=== PATIENT | female | born 1960 | race Caucasian/White ===

== ENCOUNTER 2023-04-06 10:14 | Outpatient (REF) | payer MEDICARE, SELFPAY | END 2023-04-06 10:15 | disposition home or self-care (01) | LOC: HO.HOSX 10:14 | PROVIDERS: Visit Provider Orthopaedic Surgery | DX: Z13.89 Encounter for screening for other disorder (principal) ==

== ENCOUNTER 2024-12-19 08:54 | Outpatient (AMB) | payer OTHER, SELFPAY ==
--- NOTE | 2024-12-19 08:58 | MHC.OFFVIS ---
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 The patient describes her pains as sharp in nature. She has had cortisone injections in the past which gave her minimal relief. She has also had viscosupplementation injections which gave her fairly good relief. She states that at times her left knee will give out. She has tried Tylenol and anti-inflammatory medicines which gave her mild relief. She has failed the last 3 months of conservative treatment which has included cortisone injections, a home exercise program, physical therapy exercises, Tylenol and anti-inflammatory medicines. At this point her bilateral knee pains are interfering with her activities of daily living and her ability to sleep well through the night. Allergies penicillin V Allergy (Unknown, Verified 12/19/24 09:13) Rash Codeine Phosphate Allergy (Unknown, Uncoded 12/19/24 09:13) Rash Medication List - Last Reconciled 12/19/24 by Wander Pereyra MD empagliflozin (Jardiance) 10 mg PO DAILY indomethacin mg PO levothyroxine 100 mcg PO DAILY metoprolol succinate ER 50 mg PO DAILY omeprazole 40 mg PO DAILY sacubitril-valsartan 49-51 mg (Entresto) 1 tab PO BID sertraline 50 mg PO DAILY [facility] Social History (Updated 12/19/24 @ 09:15 by Kelsi Carter) Alcohol intake: current Alcohol intake frequency: holidays/special occasions only Patient Tobacco Use Status: Never used Tobacco Current occupational status: employed 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 Physical Exam Vital Signs: BMI result Body Mass Index 51.6 Const Other: Well-nourished well-developed very friendly female awake alert and oriented x3 in no acute distress Extrem Other: Bilateral lower extremity examination shows good capillary refill, no skin lesions noted, normal sensation light touch Bilateral knee examination shows minimal effusions, palpable crepitus with range of motion, pain with range of motion, no instability Results Reviewed Results Reviewed: X-rays of the patient's bilateral knee show joint space narrowing, subchondral sclerosis, osteophyte formation, no acute bony abnormalities Assessment & Plan Assessment & Plan (1) Osteoarthritis of left knee: Code(s): M17.12 - Unilateral primary osteoarthritis, left knee Category: Medical (2) Osteoarthritis of right knee: Code(s): M17.11 - Unilateral primary osteoarthritis, right knee Category: Medical Plan Ms. Sher presents with bilateral knee pains due to osteoarthritis. The patient has not gotten good relief from recent cortisone injections. Thus, I will see if her insurance company will cover a viscosupplementation injection, such as Durolane, for both of her knees. I will see her back once the injections are available. The patient states that because of her elevated BMI she is not a candidate for total knee replacement surgery at this time. She will continue with her weight loss program. Feel free to call me at any time should questions regarding her orthopedic management arise. I spent 21 minutes in reviewing the patient's records and imaging studies, seeing the patient and documenting in the medical record. Orders: Orders XR Knee Dale 3V Today M25.561 - Pain in right knee, M25.562 - Pain in left knee Coding Level of Care Code New Pt Level 3 (15841) Complex EM visit Add On G2211 Diagnoses Osteoarthritis of left knee M17.12 Osteoarthritis of right knee M17.11
[2024-12-19 09:16] VITALS: BMI 51.6
--- OUTSIDE RECORDS SUMMARY | 2024-12-19 09:20 | XMS_ITS | Clinical Summary ---
Author Organization [facility] Address [address] [place] [address] Care Team Providers Care Purchaser Name Role Phone Unavailable Primary Care Provider Unavailabl e Social History Tobacco Use Types Packs/Day Years Used Date Smoking Tobacco: Never Assessed Comments Unknown Sex and Gender Information Value Date Recorded Sex Assigned at Not on file Legal Sex Female 10:13 AM EDT Gender Identity Not on file Sexual Orientation Not on file Plan of Treatment Health Maintenance Due Date Last Done Comments Hepatitis C Virus Screening 1960 HIV Screening 12/22/1972 DTaP/Tdap/Td Vaccines (1 - Tdap) 12/22/1978 Pneumococcal Vaccines 50+ (1 of 1 - PCV) 12/22/2009 Zoster (Shingles) Vaccine (1 of 2) 12/22/2009 COVID-19 Vaccine ( - 2023-2 5 season) 2024 RSV Vaccine 60 years and old er and Patients (1 - 1-dose 75+ series) 12/22/2034 Hepatitis B Vaccines Aged Out No long er eligible based on patient's age to complete this topic
--- OUTSIDE RECORDS SUMMARY | 2024-12-19 09:20 | XMS_ITS | Clinical Summary ---
Author Organization [facility] Address [address] [place] [address] Care Team Providers Care Circulation Man Name Role Phone Al Garcia MD Primary Care Provider [phone] Medications Entresto 49-51 mg per tablet TAKE 1 TABLET BY MOUTH TWICE A DAY 180 tablet 3 06/28/2024 Active Surgical History Surgery Date Site/Laterality Comments OTHER SURGICAL HISTORY PROCEDURE: HISTORY OTHER; COMMENT: Salpingoectomy secondary to ectopic KNEE ARTHROSCOPY Left PROCEDURE: MT ARTHROSCOPY AID TX SPINE&/FX KNEE W/O FIXJ OTHER SURGICAL HISTORY PROCEDURE: MT CARDIOVERSION ELECTIVE ARRHYTHMIA EXTERNAL OTHER SURGICAL HISTORY PROCEDURE: HISTORY OTHER; COMMENT: Cryoablation OTHER SURGICAL HISTORY PROCEDURE: HISTORY OTHER; COMMENT: meniscectomy OTHER SURGICAL HISTORY PROCEDURE: HISTORY OTHER; COMMENT: ectopic Medical History Medical History Date Comments UTI (urinary tract infection) 04/07/2022 DX :UTI (urinary tract infection) SIRS (systemic inflammatory response syndrome) ([facility] V24, [facility] V28) DX:SIRS (systemic inflammatory response syndrome) ([facility]) Hypothyroidism DX:Hypothyroidis m DVT prophylaxis DX:DVT prophylax is Chronic renal disease, stage III (CMS/HCC V24, CMS/[facility] V28) DX:Chronic renal disease, s tage III ([facility]) Morbid obesity (CMS/[facility] V24, [facility] V28) DX:Morbid obesity ([facility]) Depression DX:Depression Neuropathic pain of lower ex tremity, left DX:Neuropathic pain of lower extremity, left Osteoarthritis of knees, bilateral DX:Osteoarthritis of knees, bilateral Sleep apnea DX:Sleep apnea Severe obesity (CMS/HCC V24, CMS/HCC V28) DX:Severe obesity (HCC) Major depression, recurrent (CMS/HCC V24) DX:Major depression, recurre nt (HCC) Bilateral chronic knee pain DX:B ilateral chronic knee pain GERD (gastroesophageal reflux disease) DX:GERD (gastroesophageal reflux disease) Family History Medical History Relation Name Comments Other: AVR Mother Relation Name Status Comments Mother Social History Tobacco Use Types Packs/Day Years Used Date Smoking Tobacco: Never Smokeless Tobacco: Never Alcohol Use Standard Drinks/Week Comments Yes 0 (1 standard drink = 0.6 oz pur e alcohol) Comments Unknown Sex and Gender Information Value Date Recorded Sex Assigned at Not on file Legal Sex Female 5:33 PM EST Gender Identity Not on file Sexual Orientation Not on file Obstetrics History Last Filed Vital Signs Vital Sign Reading Time Taken Comments Blood Pressure 123/74 12/15/2023 8:02 AM EDT Sit ting R Arm Pulse 70 12/15/2023 8:02 AM EDT Temperature - - Respiratory Rate - - Oxygen Saturation - - Inhaled Oxygen Concentration - - Weight 143 kg (316 lb) 12/15/2023 8:02 AM EDT Height 165.1 cm (5' 5 ) 12/15/2023 8:02 AM EDT Body Mass Index 52.59 12/15/2023 8:02 AM EDT Plan of Treatment Health Maintenance Due Date Last Done Comments Breast Cancer Screening 1960 COVID-19 Vaccine (#1) 12/22/1964 DTaP,Tdap,and Td Vaccines (1 - Tdap) 12/22/1978 Cervical Cancer Screening: P ap Smear 12/22/1980 Pneumococcal Vaccine: 50+ Ye ars (1 of 1 - PCV) 12/22/2009 Zoster Vaccines (1 of 2) 12/22/2009 RSV Immunization Adult Patie nts (1 - Risk 60-74 years 1-dose series) 2019 Cholesterol Screening (Lipid Panel) 07/30/2022 Colorectal Cancer Screening: Colonoscopy 07/30/2022 Depression Screening 07/30/2022 HIV Screening 07/30/2022 Hepatitis C Screening 07/30/2022 Social Influencers of Health Screening 07/30/2022 Hypertension/CHF/CAD Annual BMP Blood Test 08/01/2022 Influenza Vaccine (Season Ended) 2025 HIB Vaccines Aged Out No longer eligi ble based on patient's age to complete this topic HPV Vaccines Aged Out No longer eligi ble based on patient's age to complete this topic Hepatitis A Vaccines Aged Out No long er eligible based on patient's age to complete this topic Hepatitis B Vaccines Aged Out No long er eligible based on patient's age to complete this topic IPV Vaccines Aged Out No longer eligi ble based on patient's age to complete this topic MMR Vaccines Aged Out No longer eligi ble based on patient's age to complete this topic Meningococcal ACWY Vaccine Aged Out N o longer eligible based on patient's age to complete this topic Meningococcal B Vaccine Aged Out No l onger eligible based on patient's age to complete this topic Pneumococcal Vaccine: Pediat rics (0 to 5 Years) and At-Risk Patients (6 to 64 Years) Aged Out No longer eligible b ased on patient's age to complete this topic RSV Immunization Patients Un nadir 20 months Aged Out No longer eligible b ased on patient's age to complete this topic Varicella Vaccines Aged Out No longer eligible based on patient's age to complete this topic Care Teams Circulation Man Relationship Specialty Start Date End Date Al Garcia MD PCP - General 09/12/12
--- OUTSIDE RECORDS SUMMARY | 2024-12-19 09:20 | XMS_ITS | Continuity of Care Document ---
Author Organization [facility] Address [address] [place] [address] Care Team Providers Care Cold Water Machine Operator Name Role Phone Jose ANDINO, Al Primary Care Physician Encounter [facility] Date(s): 11/15/24 - 12/15/[address] [address] Encounter Type: Triage Allergies, Adverse Reactions, Alerts Substance Criticality Severity Reaction Reaction Severity Status codeine Active penicillins Active Immunizations Given and Recorded Vaccine Date Status Refusal Reason SARS-CoV-2 (COVID-19) mRNA BNT-162b2 vac 07/29/21 Recorded SARS-CoV-2 (COVID-19) mRNA BNT-162b2 vac 12/25/20 Recorded SARS-CoV-2 (COVID-19) mRNA BNT-162b2 vac 12/02/20 Recorded zoster vaccine, inactivated 05/14/21 Recorded tetanus/diphtheria/pertussis, acel(Tdap) 06/24/16 Given tetanus/diphtheria/pertussis, acel(Tdap) 06/24/16 Recorded Medications acetaminophen-HYDROcodone 325 mg-5 mg oral tablet 1 tablet, By Mouth, 2 times a day, PRN for severe pain, OPHTHALMIC MEDICAL TECHNOLOGIST checked dx chronic pain (G89.29) fill on 10/15/24, # 56 tablet, 0 Refills, Maintenance, 10/12/24 12:49:00 PM EST, Tablet, [id number], Partial fill upon patient request if the prescription is for a schedule II opioid drug., 1tablet By Mouth 2 times a day,x28 days,PRN:for severe pain,Instr:OPHTHALMIC MEDICAL TECHNOLOGIST checked; dx chronic pain (G89.29); fill on 10/15/24, 10/15/24, 163, cm, 04/27/24 14:14:00 EDT, Height Start Date: 10/12/24 Stop Date: 11/09/24 Status: Ordered Quantity: 56.0 Unit: tablet Repeat number: 1 CPAP Machine See Instructions, # 1 each, Maintenance, AutoCPAP 12-20 cm H20, use Daily when sleeping, 04/18/23 11:45:00 AM EDT, Supply Start Date: 04/18/23 Status: Ordered Quantity: 1.0 Unit: each Repeat number: 1 Entresto 49 mg-51 mg oral tablet 0 Refills, Maintenance, 05/27/23 11:01:00 AM EDT, Partial fill upon patient request if the prescription is for a schedule II opioid drug. Start Date: 05/27/23 Status: Ordered Repeat number: 1 furosemide 40 mg oral tablet Refills 0, Maintenance, 05/27/23 11:01:00 AM EDT, Partial fill upon patient request if the prescription is for a schedule II opioid drug. Start Date: 05/27/23 Status: Ordered Repeat number: 1 gabapentin 300 mg oral capsule TAKE 1 CAPSULE BY MOUTH 3 TIMES A DAY. FILL ON 05/26/22 Start Date: 04/27/24 Status: Ordered Repeat number: 1 Jardiance 10 mg oral tablet 0 Refills, Maintenance, 05/27/23 11:01:00 AM EDT, Partial fill upon patient request if the prescription is for a schedule II opioid drug. Start Date: 05/27/23 Status: Ordered Repeat number: 1 levothyroxine 0.1 mg oral tablet 1 tablet, By Mouth, Daily, # 90 tablet, 1 Refills, Maintenance, 07/17/24 1:52:00 PM EST, [id number], 163, cm, 04/27/24 14:14:00 EDT, Height Start Date: 07/17/24 Status: Ordered Quantity: 90.0 Unit: tablet Repeat number: 1 metoprolol succinate 50 mg oral capsule, extended release 1 capsule = 50 mg, By Mouth, Daily, # 30 capsule, 0 Refills, Maintenance, 09/12/19 4:22:00 PM EST, ER Capsule Start Date: 09/12/19 Status: Ordered Quantity: 30.0 Unit: capsule Repeat number: 1 omeprazole 40 mg oral enteric coated capsule 1 capsule, By Mouth, Daily, # 90 capsule, 1 Refills, Maintenance, 07/17/24 1:52:00 PM EST, [id number], 163, cm, 04/27/24 14:14:00 EDT, Height Start Date: 07/17/24 Status: Ordered Quantity: 90.0 Unit: capsule Repeat number: 1 Zoloft 50 mg oral tablet 1 tablet = 50 mg, By Mouth, Daily, # 90 tablet, 3 Refills, Maintenance, 05/24/24 8:15:00 AM EDT, Tablet, [id number], Partial fill upon patient request if the prescription is for a schedule II opioid drug., 163, cm, 04/27/24 14:14:00 EDT, Height Start Date: 05/24/24 Status: Ordered Quantity: 90.0 Unit: tablet Repeat number: 4 Problem List Condition Confirmation Course Effective Dates Status H ealth Status Informant Atrial fibrillation Confirmed Active Non-ischemic cardiomyopathy Confirmed Active Chronic kidney disease, stage 3b 1 Confirmed Active HTN (hypertension) Confirmed Active Hypothyroidism Confirmed Active Bilateral chronic knee pain Confirmed Active Obstructive sleep apnea Confirmed Active Major depression, recurrent Confirmed Active Severe obesity Confirmed Active Vitamin D deficiency Confirmed Active 1Per chart review meets GFR criteria Social History Social History Type Response Smoking Status Never smoker; Tobacc o user in household: No entered on: 05/24/16 Sex Female Sex Representation Female (finding) Patient Care team information Care Team Personnel Name: Nimo MORENO, Marya Mayberry Position: [facility] Associate Professional Member Role: Primary Care Nurse Name: Al Garcia MD Position: [facility] Physician - Primary Care Member Role: PCP Address: [address] [place] [address]- Telecom: Care Team Related Persons Name: GIL STEWART Name: JESS GIVENS Name: JESS GIVENS Insurance Providers Guarantor name: PELON SHARPENE Health Plan Information #: 1 Payer: SELF PAY INSURANCE Member Number: NA Policy Number: NA Group Number: NA
--- OUTSIDE RECORDS SUMMARY | 2024-12-19 09:20 | XMS_ITS ---
Author Organization [facility] Address [address] [place] [address] Care Team Providers Care Mainframe Systems Programmer Name Role Phone GOYO FONTENOT Primary Care Provider Emily Mitchell [phone] Encounters Encounter Location Date Provider Diagnosis [address] [place] [address] 12/29/2023 Emily Mitchell PLAN OF TREATMENT No Information Progress Notes * PELON GIVENS EDOB: 0 (63 yo F)Acc No.[id number]:12/29/2023 Patient:??PELON GIVENS Provider:??Emily Mitchell PA-C :1960?Age:63 Y?Sex:Fe male Date:12/29/2023 Address:[facility] Pcp:GOYO FONTENOT Subjective: * Chief Complaints: * ? * Medical History:?? Objective: Assessment: Plan: * Treatment: * Images: Billing Information: * Visit Code:?? * Procedure Codes:?? * Sign off status: Pending * Provider:??Emily Mitchell PA-C Date:??04/2024
--- OUTSIDE RECORDS SUMMARY | 2024-12-19 09:20 | XMS_ITS | Encounter Summary ---
Author Organization [facility] Address [address] [place] [address] Care Team Providers Care Foam Fabricator Name Role Phone Unavailable Primary Care Provider Unavailabl e Encounter Details Date Type Department Care Team (Late st Contact Info) Description 05/18/2021 Erroneous Encounter [facility] [address] [facility] [place] [address] Raúl Sanders MD [address] [place] [address] Social History Tobacco Use Types Packs/Day Years Used Date Smoking Tobacco: Never Assessed Comments Unknown Sex and Gender Information Value Date Recorded Sex Assigned at Not on file Legal Sex Female 10:13 AM EDT Gender Identity Not on file Sexual Orientation Not on file documented as of this encounter Plan of Treatment Not on file documented as of this encounter Visit Diagnoses Not on filedocumented in this encounter
--- OUTSIDE RECORDS SUMMARY | 2024-12-19 09:20 | XMS_ITS | Clinical Summary ---
Author Organization [facility], Address [address] [place] [address] [place] [address] Phone Care Team Providers Care Soils Analyst Name Role Phone Al Garcia MD Primary Care Provider +1- [phone] Allergies Active Allergy Reactions Criticality Noted Date Comments Codeine Rash Low 05/05/2020 Penicillins Rash Low 05/05/2020 Medications gabapentin (NEURONTIN) 300 MG capsule Take 300 mg by mouth 3 (three) times a day Active indomethacin (INDOCIN) 50 MG capsule Take 50 mg by mouth 2 (two) times a day with meals Active levothyroxine sodium (TIROSINT) 88 MCG capsule Take 88 mcg by mouth 1 (one) time each day Active lidocaine (LIDODERM) 5 % patch Apply 1 patch topically 1 (one) time each day Remove & discard patch within 12 hours or as directed by MD. Active metoprolol tartrate (LOPRESSOR) 50 MG tablet Take 50 mg by mouth 2 (two) times a day Active polyethylene glycol (GLYCOLAX) 17 g packet Take 17 g by mouth 1 (one) time each day Active HYDROcodone-gabrielle taminophen (NORCO) 5-325 MG per tablet Take 1 tablet by mouth 2 (two) times a day 1 Active LORazepam (ATIVAN) 0.5 MG tablet Take 1 tablet by mouth 1 (one) time each day Active metoprolol succinate XL (TOPROL-XL) 50 MG 24 hr tablet Take 1 tablet by mouth 1 (one) time each day Active hydrOXYzine (ATARAX) 25 MG tablet Take 1 tablet by mouth if needed Active sacubitril-vals chase (Entresto) 49-51 MG per tablet Take 1 tablet by mouth 2 (two) times a day Active nitrofurantoin, macrocrystal-mo nohydrate, (MACROBID) 100 MG capsule 1 Active levothyroxine (SYNTHROID, LEVOTHROID) 88 MCG tablet Take 88 mcg by mouth 1 (one) time each day 1 Active furosemide (LASIX) 40 MG tablet Take 40 mg by mouth 1 (one) time each day 2 Active levothyroxine (SYNTHROID, LEVOTHROID) 100 MCG tablet Take 100 mcg by mouth 1 (one) time each day 2 Active omeprazole (PriLOSEC) [address] capsule Take by mouth 1 (one) time each day 2 Active Active Problems Problem Noted Date Diagnosed Date Chronic kidney disease stage 3 04/06/2022 Hypertensive disorder 06/06/2018 Resolved Problems Problem Noted Date Diagnosed Date Resolved Date Recurrent major depression 04/06/2022 0 04/06/2022 Sleep apnea 04/06/2022 04/06/2022 Immunizations Immunization Administration Dates Next Due SARS-CoV-2, Unspecified 12/25/2020 Tdap 06/24/2016 Social History Tobacco Use Types Packs/Day Years Used Date Smoking Tobacco: Never Smokeless Tobacco: Never Alcohol Use Standard Drinks/Week Comments Yes 0 (1 standard drink = 0.6 oz pur e alcohol) Comments Unknown Sex and Gender Information Value Date Recorded Sex Assigned at Not on file Legal Sex Female 2:35 PM EDT Gender Identity Not on file Sexual Orientation Not on file Last Filed Vital Signs Vital Sign Reading Time Taken Comments Blood Pressure 104/76 06/23/2022 2:33 PM EDT Pulse - - Temperature - - Respiratory Rate - - Oxygen Saturation - - Inhaled Oxygen Concentration - - Weight - - Height - - Body Mass Index - - Plan of Treatment Health Maintenance Due Date Last Done Comments Breast Cancer Screening 1960 Pneumococcal Vaccine: 50+ Ye ars (1 of 2 - PCV) 12/22/1978 Colorectal Cancer Screening: Annual FOBT 12/22/2008 Colorectal Cancer Screening: Colonoscopy 12/22/2008 Colorectal Cancer Screening: Sigmoidoscopy 12/22/2008 Influenza Vaccine (Season Ended) 2025 Hepatitis B Vaccine Aged Out No longe r eligible based on patient's age to complete this topic Insurance [employer] Care Teams Soils Analyst Relationship Specialty Start Date End Date Al Garcia MD [address] [place] [id number] PCP - General Internal Medicine 05/04/20
--- OUTSIDE RECORDS SUMMARY | 2024-12-19 09:20 | XMS_ITS | Data Portability ---
Author Organization [place] [facility],, EWELINA QUINN MD Address [address] [address] Assessment No assessment recorded. Plan of Treatment Reminders Order Date Submit Date Provider Last Modified By Organization Details Last Modified Time Details Appointments None recorded. Lab pap test, thinprep, cervical 2020 021 [email or web address] [facility], Cytopathology Service, [address] [place] [address], [address], 1 07:19:20 fecal occult blood, stool 2020 021 [email or web address] 1 In-Office Order, Internal Use Only DO Not Attach Compendium DO Not Attach Compendium, Do Not Delete/merge, [id number] 1 11:49:39 pap test, thinprep, cervical 2018 [facility] Cyt[facility] Service, [address] [place] [address], [id number], 9 07:21:20 fecal occult blood, stool 2018 019 [facility]-Office Order, Internal Use Only DO Not Attach Compendium DO Not Attach Compendium, Do Not Delete/merge, [id number] 9 07:21:20 pap test, thinprep, cervical 2017 018 LYLE [facility], Cytopathology Service, [address] [place], [address], 8 08:22:29 fecal occult blood, stool 2017 018 [email or web address] In-Office Order, Internal Use Only DO Not Attach Compendium DO Not Attach Compendium, Do Not Delete/merge, [id number] 8 07:17:30 Referral None recorded. Procedures None recorded. Surgeries None recorded. Imaging MAMMO, screening , digital, bilateral 2020 021 [facility] Orders, [address], [place], [address], 1 07:50:51 MAMMO, screening , digital, bilateral 2018 019 [facility] Orders, [address], [address], [place], [address], 9 09:28:16 MAMMO, screening , digital, bilateral 2017 018 [facility] Orders, [address], [address], [place], [address], 8 08:47:00 Medication Orders Imvexxy Maintenan ce Pack 10 mcg vaginal insert 2020 021 [email or web address] 1 [facility]/Pharmacy #1972, [address] [place] [address], [address], 1 15:46:31 Imvexxy Starter Pack 10 mcg vaginal insert, dose pack 2020 021 [facility]/Pharmacy #1972, [address] [place] [address], [address], 1 11:51:48 nystatin 100,000 unit/gram topical powder 2020 021 [facility]/Pharmacy #1972, [address] [place] [address], [address], 1 11:50:17 estradiol 0.01% (0.1 mg/gram) vaginal cream 2018 019 jewelczbin [facility]/Pharmacy #1972, [address] [place], [address], 1 11:07:35 estradiol 0.01% (0.1 mg/gram) vaginal cream 2017 018 tmeczywor [facility]/Pharmacy #1972, [address] [place], [address], 11:07:35 Patient TargetsNo targets recorded. Patient Instructions Encounter Date Encounter Id Patient Instructions Last Modified By Organization Details Last Modified Time 06/06/2018 [id number] atrophic vaginit is: care [facility] Not available 06/06/2018 15:01:35 self breast exam education Not available 06/06/2018 14:31:12 Stress Incontinence: Care Instructions Not available 06/06/2018 15:01:35 She is here for annual exam, is doing well, as a new patient. she had menopause age 44, spontaneous. Last pap 2 years ago. She notes 6 to 8 months of worsening urinary frequency and nocturia, and also urinary incontinence, sometimes with stress. She lives with her mother and her fiancee in [place] off [facility] in [place]. 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 We discussed that her atrophic vagintis may be in part responsible for some of her urinary issues. She would like to try E2 vaginal cream to see if this helps improve her incontinence. She cooper luse it for three months then assess. If no improvement then call. Benefits of weight management discussed as well. She appears to be doing well. She is advised to get 1500 mg of calcium daily into her diet and supplements combined. We discussed the benefits of adequate vitamin D supplementation to at least 400 units daily, daily aerobic exercise of 30 minutes, and stress reduction. Monthly self breast exam was taught, and stressed, and is advised to call if she discovers any new mass in the breast. Seat belt use for herself and passengers advised. The significant health benefits of becoming and remainig fit, with an optimal BMI, were also discussed. We discussed the potential reduction in chronic discomfort, the diminished risks of hypertension, diabetes, and heart disease with the proper weight management, and improved mobility as she ages. Strategies to reach and maintain her target weight wer discussed in detail, all questions answered. Not available 06/06/2018 15:01:50 07/30/2019 [id number] atrophic vaginit is: care instructions rosangela Not available 07/30/2019 15:44:55 She is here for annual exam, was recently found to be in afib at her PCP office, was sent [facility], has been out of afib for a month now, had to do 3 different cardioversions and one ablation, at [facility]. She did use the E2 vaginal cream for a little bit of time but then I stopped. She would like to restart. _ Note from 2018: She is here for annual exam, is doing well, as a new patient. she had menopause age 44, spontaneous. Last pap 2 years ago. She notes 6 to 8 months of worsening urinary frequency and nocturia, and also urinary incontinence, sometimes with stress. She lives with her mother and her fiancee in [place] off [facility] in [place]. 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 We discussed that her atrophic vagintis may be in part responsible for some of her urinary issues. She would like to try E2 vaginal cream to see if this helps improve her incontinence. She cooper luse it for three months then assess. If no improvement then call. Benefits of weight management discussed as well. ____ She appears to be doing well. We discussed that estrogen can increase risks of blood clots, and she is on eliquis and had A Fib, so we need to be certain she uses only a SMALL amount of the E2 cream daily, the size of a jelly vaca on her finger tip, less than one quaerter gram in the applicator. This will not appreciably increase her serum estradiol, and will be a local dose only. It cooper ltkae a few months but she cooper lstill be albe to get a good benefit even from this low dose. She is advised to get 1500 mg of calcium daily into her diet and supplements combined. There is a health benefit with adequate vitamin D supplementation to at least 400 units daily, daily aerobic exercise of 30 minutes, and stress reduction. Monthly self breast exam was taught, and stressed, and is advised to call if she discovers any new mass in the breast. Seat belt use for herself and passengers are advised. There are significant health benefits of becoming and remainig fit, with an optimal BMI. There is a potential reduction in chronic discomfort, diminished risks of hypertension, diabetes, and heart disease with the proper weight management. With a recommended BMI there can be improved mobility as she ages. Strategies to reach and maintain her target weight were discussed in detail. Not available 07/30/2019 15:47:02 01/21/2021 [id number] atrophic vaginit is: care instructions Not available 01/21/2021 11:51:44 learning about healthy weight Not available 01/21/2021 11:49:39 She is here for annual exam, doing well. She did not use the E2 cream because she can't remember to use it. She is having worsening urinary urge, frequency, and nocturia, however. __ note from 07/2019: She is here for annual exam, was recently found to be in afib at her PCP office, was sent [facility], has been out of afib for a month now, had to do 3 different cardioversions and one ablation, at [facility]. She did use the E2 vaginal cream for a little bit of time but then I stopped. She would like to restart. She would like to try Imvexxy, for her urinary issues, she is given a sample kit, and rx is called in. We discussed ways to manage her BMI of 56. Her knee needs surgery so she can't exercise, but they won't do surgery until she loses weight. We discussed water exercise, and dietary changes. She declines to discuss bariatric surgery. All questions answered. She appears to be doing well. She is advised to get 1500 mg of calcium daily into her diet and supplements combined. We discussed the benefits of adequate vitamin D supplementation to at least 400 units daily, daily aerobic exercise of 30 minutes, and stress reduction. Monthly self breast exam was taught, and stressed, and is advised to call if she discovers any new mass in the breast. Not available 01/21/2021 12:26:47 Reason for Referral None Reported. Results Created Date Observation Date Name Description Value Unit Range Abnormal Flag Note LastModifiedBy Organization Detail LastModifiedTime 07/30/20 19 07/30/2019 fecal occul t blood , stool Occult Blood negati ve Not Available In-Office Order Internal Use Only DO Not Attach Compendium DO Not Attach Compendium, Do Not Delete/merge, [id number] 07/30/2019 15:10:29 06/06/20 18 06/06/2018 fecal occul t blood , stool Occult Blood negati ve Not Available In-Office Order Internal Use Only DO Not Attach Compendium DO Not Attach Compendium, Do Not Delete/merge, [id number] 06/06/2018 14:16:38 06/06/20 18 06/06/2018 pap, LB [id number] ThinP rep Pap, Image d: NEGAT NICOLLE FOR SQUAM OUS INTRA EPITH ELIAL LESIO N AND NAVEED NICKERSON . Melissa Ely , CT( CP) (Case elect nori kate shu d 06 07 2018) ADEQU ACY: Satis facto ry. Endoc ervic al/tr ansfo rmati on zone compo nent absen t. SOURC E: ThinP rep Pap HPV IF ASCUS , Cervi yudy, Image d: CLINI YUDY INFOR MATIO N: HPV If Diagn osis of ASCUS . Z12.4 , MENOP AUSE, LMP 2017 Not Available [facility], Cytopathology Service [address] [place], [address], 06/08/2018 08:22:29 07/30/20 19 07/30/2019 pap, LB [id number] ThinP rep Pap, Image d: NEGAT NICOLLE FOR SQUAM OUS INTRA EPITH ELIAL LESIO N AND NAVEED NICKERSON . Melissa Ely , CT( CP) (Case Scree forrest 08 01 2019) Marialuisa Cooper M.D. , Patho logis t (Case elect nori love shu d 08 03 2019) ADEQU ACY: Satis facto ry Endoc ervic al/tr ansfo rmati on zone compo nent prese nt. SOURC E: ThinP rep Pap HPV IF ASCUS , Cervi yudy, Image d CLINI YUDY INFOR MATIO N: HPV If Diagn osis of ASCUS . LPS 06/06 NEG [Z12. 4, Z01.4 19] Not Available [facility], Cytopathology Service [address] [place], [address], 08/06/2019 12:55:59 01/22/20 21 01/21/2021 pap test, thinp rep, cervi yudy [email or web address] ThinP rep Pap, Image d: NEGAT NICOLLE FOR SQUAM OUS INTRA EPITH ELIAL LESIO N AND MALIG KRISHAN . Jimena encarnacion , CT( CP) (Case elect nori love shu d 01 28 2021) ADEQU ACY: Satis facto ry Endoc ervic al/tr ansfo rmati on zone compo nent absen t. SOURC E: ThinP rep Pap HPV IF ASCUS , Cervi yudy, Image d CLINI YUDY INFOR MATIO N: HPV If Diagn osis of ASCUS . LPS NEG [Z12. 4, Z01.4 19] Not Available [facility], Cytopathology Service [address] [place], [address], 01/29/2021 07:40:37 01/22/20 21 01/21/2021 fecal occul t blood , stool Occult Blood negati ve Not Available In-Office Order Internal Use Only DO Not Attach Compendium DO Not Attach Compendium, Do Not Delete/merge, [id number] 01/21/2021 11:09:03 06/13/20 18 06/13/2018 MAMMO sheryl, digit al, bilat eral No observ ation record ed. [email or web address] [facility] [address] [place] [address], [place], [address], 06/13/2018 09:06:32 08/03/20 19 08/03/2019 MAMMO sheryl, digit al, bilat eral No observ ation record ed. [email or web address] [facility] (Outpt Imaging) [address], [place], [address], 08/03/2019 09:58:05 02/03/2002/01/2021 MAMMO , scree malu, digit al, bilat eral No observ ation record ed. [facility] Imaging Orders [address], [place], [address], 02/02/2021 08:35:36 Result Notes None recorded. Problems Name Problem SNOMED Code Status Onset Date Resolution Date Notes Provider Name and Address Organization Details Recorded Time Hypothyroidism 91982472 Active 2017 ERI Schwartz in [facility], 8 14:07:42 Hypertensive disorder 48364818 Active 2017 ERI Schwartz in [facility], 8 14:07:54 Urinary incontinence 563936838 Active 2017 Ewelina Quinn MD [address], [place], [address], [place] [facility], 8 14:49:43 Atrophic vaginitis 40251985 Active 2017 Ewelina Quinn MD [address], [place], [address], [place] [facility], 8 14:49:58 Atrial fibrillation 90725928 Active 2018 ERI Marquez in [facility], 9 15:08:02 Candidiasis of skin 83150942 Active 2020 Ewelina Quinn MD [address], [place], [address], [place] [facility], 1 11:49:54 Problem Notes None recorded. Procedures Surgical History Date Name Laterality Status Provider Name and Address Organization Details Recorded Time Most Recent Mammogram completed Roxann Lopez in [facility], 06/10/2023 10:37:28 1 admission to hand surgery department completed Roxann Johnsonjamiebin ERI Lopez in [facility], 01/21/2021 11:14:46 3 Other completed Roxann Johnsonjamiebin HWANG Delia Lopez in [facility], 06/06/2018 14:13:07 Imaging Results Imaging Date Name Status LastModified by Organiz ation Details LastModified Time 06/13/2018 MAMMO, screening, digital, bilateral completed [facility] [address], [place], [address], 06/13/2018 09:06:32 08/03/2019 MAMMO, screening, digital, bilateral [email or web address] (Out[facility]) [address] [place], [address], 08/03/2019 09:58:05 02/01/2021 MAMMO, screening, digital, bilateral [email or web address] Orders [address], [place], [address], 02/02/2021 08:35:36 Procedure Notes None recorded. Medical Equipment None Reported. Allergies Allergen ID Allergen Name Allergen Category Reaction Reaction Severity Criticality Documentation Date Start Date Code Code System Note Provider Name and Address Organization Details Recorded Time codeine medicatio n rash Not available Not available 06/06/2018 2670 RxNorm Roxann JohnsonjamiejunieERI melendez in [facility], 8 14:05:27 Product containin g penicilli n (product) medicatio n rash Not available Not available 06/06/2018 54450 8001 SNOMED Roxann JohnsonjamieblankaERI contreras in [facility], 8 14:05:42 Medications Name Sig Start Date Stop Date Status Note LastModified by Organization Details LastModified Time fluoxetine 40 mg capsule active Not Available Not Available Not Available cyclobenzap rine 10 mg tablet 01/21 completed Not Available Not Available Not Available furosemide 40 mg tablet 01/21 completed Not Available Not Available Not Available prednisone 10 mg tablet 01/21 completed Not Available Not Available Not Available lisinopril 20 mg-hydrochl orothiazide 12.5 mg tablet 07/30 completed Not Available Not Available Not Available amiodarone 200 mg tablet 01/21 completed Not Available Not Available Not Available benzonatate 200 mg capsule 01/21 completed Not Available Not Available Not Available metoprolol succinate ER 50 mg tablet,exte nded release 24 hr TAKE 1 TABLET BY MOUTH EVERY DAY active Not Available Not Available No t Available ranitidine 300 mg tablet 01/21 completed Not Available Not Available Not Available hydrocodone 5 mg-acetamin ophen 325 mg tablet TAKE 1 TABLET BY MOUTH 2 TIMES A DAY NEEDED FOR SEVERE PAIN active Not Available Not Available No t Available diltiazem CD 240 mg capsule,ext ended release 24 hr 07/30 completed Not Available Not Available Not Available lisinopril 20 mg tablet 07/30 completed Not Available Not Available Not Available prednisone 20 mg tablet 07/30 completed Not Available Not Available Not Available sertraline 100 mg tablet TAKE 1/2 TABLET BY MOUTH DAILY X 2 WKS THEN 1 TAB DAILY 01/21 completed Not Available Not Available Not Available diltiazem ER 360 mg capsule,24 hr,extended release 07/30 completed Not Available Not Available Not Available tramadol 50 mg tablet TAKE 1 2 TABS AT BEDTIME NEEDED FOR MODERATE PAIN 01/21 completed Not Available Not Available Not Available levothyroxi ne 75 mcg tablet TAKE 1 TABLET BY MOUTH EVERY DAY 01/21 completed Not Available Not Available Not Available meloxicam 7.5 mg tablet 06/06 completed Not Available Not Available Not Available levothyroxi ne 88 mcg tablet TAKE 1 TABLET BY MOUTH EVERY DAY active Not Available Not Available No t Available lorazepam 0.5 mg tablet 1 TABLET BY MOUTH DAILY,X15 DAYS NEEDED FOR ANXIETY 01/21 completed Not Available Not Available Not Available methocarbam ol 750 mg tablet 01/21 completed Not Available Not Available Not Available dexamethaso ne 1 mg tablet TAKE 1 TABLET BY MOUTH EVERY DAY FOR 1 DAY 01/21 completed Not Available Not Available Not Available lidocaine 5 % topical patch 2 PATCH TOPICALLY DAILY NEEDED FOR PAIN MODERATE, REMOVE AFTER 12 HOURS 01/21 completed Not Available Not Available Not Available indomethaci n 50 mg capsule TAKE 1 CAPSULE BY MOUTH EVERY DAY active Not Available Not Available No t Available hydrochloro thiazide 12.5 mg capsule TAKE 1 CAPSULE BY MOUTH EVERY DAY active Not Available Not Available No t Available lisinopril 30 mg tablet TAKE 1 TABLET BY MOUTH EVERY DAY 01/21 completed Not Available Not Available Not Available gabapentin 300 mg capsule TAKE 2 CAPSULES BY MOUTH 3 TIMES A DAY active Not Available Not Available No t Available omeprazole 20 mg capsule,del ayed release 1 CAPSULE BY MOUTH DAILY,X30 DAYS,INST R:TAKE 1/2-1 HOUR BEFORE BREAKFAST 07/30 completed Not Available Not Available Not Available lisinopril 20 mg-hydrochl orothiazide 25 mg tablet 07/30 completed Not Available Not Available Not Available diltiazem CD 120 mg capsule,ext ended release 24 hr 07/30 completed Not Available Not Available Not Available hydroxyzine HCl 25 mg tablet TAKE 1 TABLET BY MOUTH DAILY NEEDED FOR ANXIETY 01/21 completed Not Available Not Available Not Available hydrochloro thiazide 25 mg tablet TAKE 1 TABLET BY MOUTH EVERY DAY 01/21 completed Not Available Not Available Not Available metoprolol succinate ER 25 mg tablet,exte nded release 24 hr 01/21 completed Not Available Not Available Not Available nystatin 100,000 unit/gram topical powder APPLY TO THE AFFECTED AREA(S) BY TOPICAL ROUTE 2 TIMES PER DAY active Not Available Not Available No t Available estradiol 0.01% (0.1 mg/gram) vaginal cream Insert 0.5 g every day by vaginal route. active Not Available Not Available No t Available sertraline 50 mg tablet 01/21 completed Not Available Not Available Not Available doxycycline hyclate 100 mg tablet 07/30 completed Not Available Not Available Not Available naproxen 500 mg tablet 01/21 completed Not Available Not Available Not Available nabumetone 500 mg tablet TAKE 2 TABLETS BY MOUTH EVERY DAY 01/21 completed Not Available Not Available Not Available oxycodone 5 mg tablet TAKE 1 TABLET BY MOUTH EVERY DAY NEEDED FOR PAIN FOR 14 DAYS 01/21 completed Not Available Not Available Not Available cyclobenzap rine 5 mg tablet 06/06 completed Not Available Not Available Not Available nitrofurant oin monohydrate /macrocryst als 100 mg capsule 01/21 completed Not Available Not Available Not Available tizanidine 2 mg capsule 01/21 completed Not Available Not Available Not Available hydrocodone 5 mg-acetamin ophen 300 mg tablet 1 TABLET BY MOUTH DAILY,X14 DAYS NEEDED FOR PAIN 07/30 completed Not Available Not Available Not Available ProAir HFA 90 mcg/actuati on aerosol inhaler TAKE 2 PUFFS BY MOUTH EVERY 4 HOURS FOR 7-10 DAYS NEEDED FOR SOB, COUGH OR WHEEZE 01/21 completed Not Available Not Available Not Available hydrochloro thiazide 12.5 mg tablet TAKE 1 TABLET BY MOUTH EVERY DAY 01/21 completed Not Available Not Available Not Available Gavilax 17 gram/dose oral powder 238 GMS ONCE W/64 OZ CLEAR LIQUID (NOT RED) GATORADE, G2, GATORADE ICE, POWERADE OR POWERADE ZERO active Not Available Not Available No t Available Eliquis 5 mg tablet TAKE 1 TABLET BY MOUTH TWICE A DAY active Not Available Not Available No t Available Contrave 8 mg-90 mg tablet,exte nded release 06/06 completed Not Available Not Available Not Available Entresto 49 mg-51 mg tablet TAKE 1 TABLET BY MOUTH TWICE A DAY active Not Available Not Available No t Available Yuvafem 10 mcg vaginal tablet one tablet inserted vaginally twice a week active Not Available Not Available No t Available Imvexxy Starter Pack 10 mcg vaginal insert, dose pack INSERT 1 VAGINAL INSERT (10 MCG) BY VAGINAL ROUTE ONCE DAILY FOR 2 WEEKS THEN 1 INSERT (10 MCG) TWICE WEEKLY FOR DURATION OF USE active Not Available Not Available No t Available Imvexxy Maintenance Pack 10 mcg vaginal insert Insert 1 vaginal insert twice a week by vaginal route. 2020 active Not Available Not Available Not Avai lable Vitals Date Recorded Body weight Body mass index (BMI) Body height Heart rate Systolic blood pressure Diastolic blood pressure Provider Name and Address Organization Details Last Updated DateTime 8 749663. 74 g 50.9 kg/m2 163.83 cm 88 /min 144 mm[Hg] 81 mm[Hg] Roxann Gonzalez [place] [facility], 8 14:03:02 Date Recorded Body height Heart rate Body mass index (BMI) Body weight Systolic blood pressure Diastolic blood pressure Provider Name and Address Organization Details Last Updated DateTime 9 163.83 cm 64 /min 52.5 kg/m2 720078. 79 g 137 mm[Hg] 69 mm[Hg] Lucero Willard E[place] - [facility], 9 15:03:20 Date Recorded Body weight Body mass index (BMI) Body height Body temperature Heart rate Systolic blood pressure Diastolic blood pressure Provider Name and Address Organization Details Last Updated DateTime 1 519958. 27 g 56.1 kg/m2 162.56 cm 98.1 [degF] 75 /min 147 mm[Hg] 88 mm[Hg] Roxann Gonzalez [place] - [facility], 1 11:06:52 Social History Question Answer Notes LastModified by Organizat ion Details LastModified Time Tobacco Smoking Status Never Smoker Not Available [facility] 06/24/2020 03:19:37 Do You Have An Advance Directive? No [id number] Information not available 06/24/2020 What Is Your Level Of Alcohol Consumption? Occasional [id number] Information not available 06/24/2020 What Is Your Level Of Caffeine Consumption? Moderate [id number] Information not available 06/24/2020 How Much Tobacco Do You Chew? None [id number] Information not available 06/24/2020 In The 14 Days Before Symptom Onset, Have You Had Close Contact With A Laboratory-confir med COVID-19 While That Case Was Ill? No Information not available 01/21/2021 In The 14 Days Before Symptom Onset, Have You Had Close Contact With A Person Who Is Under Investigation For COVID-19 While That Person Was Ill? No Information not available 01/21/2021 Have You Been To An Area Known To Be High Risk For COVID-19? No Information not available 01/21/2021 What Type Of Diet Are You Following? REGULAR [id number] Information not available 06/24/2020 Which Illicit Or Recreational Drugs Have You Used? No [id number] Information not available 06/24/2020 Do You Reside In Or Have You Traveled To An Area Where Ebola Virus Transmission Is Active? No [id number] Information not available 06/24/2020 Do You Or Have You Ever Used E-cigarettes Or Vape? 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 [employer] [id number] Information not available 06/24/2020 How Many Days In The Past Year Have You Had A Heavy Drinking Consumption (4+ Female, 5+ Male)? 40 Information no t available 06/06/2018 Are There Any Guns Present In Your Home? Yes [id number] Information not available 06/24/2020 High Number Of Sexual Partners No Information not available 06/06/2018 To Which Gender Do You Self-identify? Female Information not available 06/06/2018 Marital Status Domestic Partner Engaged. Information not available 06/06/2018 What Was The Date Of Your Most Recent Tobacco Screening? 06/06/2018 [id number] Information not available 06/24/2020 Seat Belts Used Routinely Yes Information not available 06/06/2018 Are You Sexually Active? Yes [id number] Information not available 06/24/2020 Smoke Alarm In Home Yes Information not available 06/06/2018 Do You Or Have You Ever Used Smokeless Tobacco? Never Used Smokeless Tobacco Information not available 01/21/2021 How Much Tobacco Do You Smoke? No Information not available 01/21/2021 General Stress Level High Information not available 01/21/2021 Do You Use Sunscreen Routinely? No [id number] Information not available 06/24/2020 Have You Recently (within The Last 12 Weeks, Or During A Current ) Traveled To Or Lived In A Zika-affected Area? No Information not available 06/06/2018 Sex: Female Functional Status Question Answer Note LastModified by Organization D etails LastModified Time What is your exercise level? None [id number] Information not available 06/24/2020 Mental Status None recorded. Family History Relationship Description Onset Age of this Age Resolved Age Notes LastModified by Organization Details LastModified Time Mother Heart disease [email or web address] Not available 2017 14:08:18 Mother Problem copd [email or web address] Not available 06/06/2018 14:08:35 Notes:dad when she was young and accidental. Medical History Condition Response Anesthesia complications N High Blood Pressure Y Candidate for MyRisk panel N Autoimmune Condition N Kidney or Bladder Problems Y Thyroid Problems Y Depression N Lung Disease N GI Problems Y Defects or Inherited Disease N Anemia N History of Ovarian Cancer N History of Breast Cancer N JANETH exposure N BRCA testing in past N Osteopenia N Psychiatric Illness N Anxiety Disorder Y Diabetes N Arthritis Y Headaches or Migraines N Infertility N Asthma N History of Cancer N Endometriosis N Hepatitis N Heart Disease Y Hypertension Y Osteoporosis N Gynecological History Statement/Question Response If Post Menopausal, Age at Menopause 44 Age at Menarche 10 Most Recent Mammogram 02/01/2021 Age at First Child 18 Hormone Replacement Therapy N Obstetrics History GPAL:G 3 P 2 0 1 2 Type Value Full Term 2 Spontaneous 1 Living 2 Total 3 Immunizations Vaccine Type Date Status Note Provider Nam e and Address Organization Details Recorded Time COVID-19, mRNA, LNP-S, PF, 30 mcg/0.3 mL dose 11/24/2020 completed Roxann rees [place] - [facility], 01/21/2021 11:11:04 Past Encounters Encounter ID Performer Location Encounter Start Date Encounter Closed Date Diagnosis/Indication Diagnosis SNOMED-CT Code Diagnosis ICD10 Code Diagnosis Note [id number] MD EWELINA Parikh MD [address] [facility] [place] [address] 06/06/2018 13:47:44 06/06/2018 15:53:53 Specialized medical examination 38731193 Z01.419 Screening for malignant neoplasm of rectum 635389648 Z12.12 Screening mammography 24 953147 Z12.31 Atrophic vaginitis 08288 000 N95.2 Urinary incontinence 165 302042 R32 [id number] MD EWELINA Parikh MD [address] [facility] [place] [address] 07/30/2019 14:56:52 07/30/2019 16:06:21 Specialized medical examination 52294684 Z01.419 Screening for malignant neoplasm of rectum 503800564 Z12.12 Screening mammography 24 715240 Z12.31 Atrophic vaginitis 49554 000 N95.2 [id number] MD EWELINA Parikh MD [address] [facility] [place] [address] 01/21/2021 10:59:53 01/22/2021 09:00:22 Specialized medical examination 66470560 Z01.419 Screening for malignant neoplasm of rectum 391739290 Z12.12 Screening mammography 24 085901 Z12.31 Candidiasis of skin 4988 3006 B37.2 Atrophic vaginitis 70930 000 N95.2 Health Concerns Section Related Observation LastModified by Organization Detai ls LastModified Time None Recorded Concern Status LastModified by Organization Details LastModified Time None Recorded Advance Directives Directive N: Payers Encounter Date Sequence Insurance Name Policy Number Policy Her Covered Member ID Her Member ID Guarantor Name 06/06/2018 1 [place] [id number] Kavya Sher [id number] Kavya Sher 07/30/2019 1 [place] [id number] Kavya Sher [id number] Kavya Sher 01/21/2021 1 [facility] [id number] Kavya Christos [id number] Kavya Sher Notes Date Note Type Note Provider Name and Address Organization Details Recorded Time 06/06/2018 text/html She is here for annual exam, is doing well, as a new patient. she had menopause age 44, spontaneous. Last pap 2 years ago. She notes 6 to 8 months of worsening urinary frequency nad nocturia, and also urinary incontinence, sometimes with stress. She lives with her mother and her fiancee in [place] off [facility] in [place]. 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 Ewelina Quinn MD [address] [facility], [place], [address], [place] - [facility], 06/06/2018 15:02:54 07/30/2019 text/html She is here for annual exam, was recently found to be in afib at her PCP office, was sent ot [facility], has been out of afib for a month now, had to do 3 different cardioversions and one ablation, at [facility]. She did use the E2 vaginal cream for a little bit of time but then I stopped. She would like to restart. Note from 2018: She is here for annual exam, is doing well, as a new patient. she had menopause age 44, spontaneous. Last pap 2 years ago. She notes 6 to 8 months of worsening urinary frequency and nocturia, and also urinary incontinence, sometimes with stress. She lives with her mother and her fiancee in [place] off [facility] in [place]. 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 We discussed that her atrophic vagintis may be in part responsible for some of her urinary issues. She would like to try E2 vaginal cream to see if this helps improve her incontinence. She cooper luse it for three months then assess. If no improvement then call. Benefits of weight management discussed as well. Ewelina Quinn MD [address], [place], [address], [employer] [facility], 07/30/2019 15:47:25 01/21/2021 text/html She is here for annual exam, doing well. She did not use the E2 cream because she can't remember to use it. She is having worsening urinary urge, frequency, and nocturia, however. _ note from 07/2019: She is here for annual exam, was recently found to be in afib at her PCP office, was sent [facility], has been out of afib for a month now, had to do 3 different cardioversions and one ablation, at [facility]. She did use the E2 vaginal cream for a little bit of time but then I stopped. She would like to restart. Ewelina Quinn MD [address], [place], [address], [employer] [facility], 01/21/2021 12:27:10 OBGyn Episode No OBEpisode recorded.
--- OUTSIDE RECORDS SUMMARY | 2024-12-19 09:20 | XMS_ITS | Patient Health Record ---
Author Organization [facility] Address [address] [place] [address] Care Team Providers Care Pockets And Pieces Necktie Operator Name Role Phone GOYO FONTENOT Primary Care Provider Emily Mitchell Unavailable [phone] ALLERGIES Allergen (clinical drug ingredient) Drug/Non Drug Allergy documented on EMR Reaction Allergy Type Onset Date Status codeine Codeine Sulfate Unknown Drug Allergy A ctive penicillin G Penicillin G Sodium Unknown Drug Allergy Active REASON FOR REFERRAL No Information MEDICATIONS Medication SIG (Take, Route, Frequency, Duration) Notes Start Date End Date Status Levothyroxine Sodium 75 MCG 1 tablet on an empty stomach in the morning Orally Once a day for 30 day(s) Active Meloxicam 7.5 MG 1 tablet Orally Once a day for 30 Active Phentermine HCl 37.5 MG 1 capsule Orally Once a day for 30 days Active Lisinopril-hydroCHLOROthiazi d e 20-12.5 MG 1 tablet Orally Once a day for 30 day(s) Active Indomethacin 25 MG 1 capsule with food or milk Orally Three times a day for 30 day(s) Active Cyclobenzaprine HCl 5 MG 1 tablet as nee ded Orally Three times a day for 14 days 03/01/2018 Active SOCIAL HISTORY Tobacco Use: Social History Observation Description Date Details (start date - stop date) Never Smoker NA - NA Sex Assigned At : Social History Observation Description Sex Assigned At Unknown Tobacco Use/Smoking Question Answer Notes Are you a nonsmoker PROBLEMS Problem Type ICD Code Onset Dates Problem Status W/U Status Risk SNOMED Code Notes Problem Hypothyroidism, unspecified (E03.9) Active confirmed Hypothyroidism (93943535) Problem Essential (primary) hypertension (I10) Active confirmed Essential hypertension (90430929) Problem Unspecified osteoarthritis, unspecified site (M19.90) Active confirmed Osteoarthritis (925205065) Problem Lumbago with sciatica, left side (M54.42) Active confirmed Sciatica (76236765) Problem Body mass index (BMI) 45.0-49.9, adult (Z68.42) Active confirmed Body mass ind ex 40+ - severely obese (265712514) Problem Body mass index (BMI) 50-59.9 , adult (Z68.43) Active confirmed Body mass ind ex 40+ - morbidly obese (185595215) Encounters Encounter Location Date Provider Diagnosis [facility] [address] [place] [phone] 12/29/2023 Emily Svrcek PLAN OF TREATMENT Pending Test Test Name Order Date X ray : Spines, lumbar complete 03/01/20 18 Insurance Providers Payer Name Payer Address Payer Phone Subscriber Number Group Number Insured Name Patient Relationship to Insured Coverage Start Date Coverage End Date [facility] [address] [place] [address] [id number] PELON GIVENS Self - patient is the insured MEDICAL (GENERAL) HISTORY Medical History History ICD Code anxiety Arthritis hypertension Hypothyroidism Surgical History Surgery Date(Month/Year) left knee arthroscopy
--- OUTSIDE RECORDS SUMMARY | 2024-12-19 09:20 | XMS_ITS | Encounter Summary ---
Author Organization [facility] Address [address] [place] [address] Phone Care Team Providers Care Sweat Band Separator Name Role Phone Al Garcia MD Primary Care Provider [phone] Encounter Details Date Type Department Care Team (Late st Contact Info) Description 11/02/2023 Documentation Only [facility], [address] [place] [address] [place], [place] [address] [place] [id number] Social History Tobacco Use Types Packs/Day Years [...] Diagnoses Not on filedocumented in this encounter Care Teams Sweat Band Separator Relationship Specialty Start Date End Date Al Garcia MD [address] [place] [address] PCP - General Internal Medicine 05/04/20 documented as of this encounter
--- OUTSIDE RECORDS SUMMARY | 2024-12-19 09:21 | XMS_ITS | Clinical Summary ---
Author Organization [facility] Address [address] [place] [address] Care Team Providers Care Fiction Writer Name Role Phone Al Garcia MD Primary Care Provider [phone] Allergies Active Allergy Reactions Criticality Noted Date Comments Codeine Rash Low 05/05/2020 Penicillins Rash Low 05/05/2020 Medications Medication Sig Dispensed Refills Start Date End Date Status Aspirin 81 MG CAPS Take by mouth. 0 Ac tive furosemide (LASIX) 40 MG tablet Take 1 tablet by mouth daily. 0 04/02/2021 Active gabapentin (NEURONTIN) 300 MG capsule gabapentin 300 mg capsule TAKE 2 CAPSULES BY MOUTH 3 TIMES A DAY 0 04/13/2021 Active HYDROcodone-acetam inophen (NORCO) 5-325 MG per tablet hydrocodone 5 mg-acetaminophen 325 mg tablet 0 08/29/2020 Active indomethacin (INDOCIN) 50 MG capsule indomethacin 50 mg capsule 0 09/12/2019 Active levothyroxine (SYNTHROID) tablet 100 mcg Take 100 mcg by mouth. 0 06/03/2021 Active Metoprolol Succinate 50 MG CS24 Take 50 mg by mouth. 0 09/12/2019 Active omeprazole (PriLOSEC) 40 MG capsule 0 09/03/2021 Active oxybutynin (DITROPAN-XL) 10 MG 24 hr tablet 0 09/03/2021 Active sacubitril-valsart an (Entresto) 24-26 MG per tablet Take by mouth. 0 09/12/2019 Active Entresto 49-51 MG per tablet Take 1 tablet by mouth 2 (two) times a day. 0 10/02/2021 Active HYDROcodone-acetam inophen (NORCO) 5-325 MG per tablet Take by mouth. 0 12/28/2021 Active indomethacin (INDOCIN) 50 MG capsule TAKE 1 CAPSULE BY MOUTH 2 TIMES A DAY WITH MEALS. 60 capsule 3 10/13/2022 Active Family History Medical History Relation Name Comments Hypertension Mother Relation Name Status Comments Mother Social History Tobacco Use Types Packs/Day Years Used Date Smoking Tobacco: Never Assessed Sex and Gender Information Value Date Recorded Sex Assigned at Not on file Gender Identity Not on file Sexual Orientation Not on file Job Start Date Occupation Industry Not on file Not on file Not on file Last Filed Vital Signs Vital Sign Reading Time Taken Comments Blood Pressure - - Pulse - - Temperature - - Respiratory Rate - - Oxygen Saturation - - Inhaled Oxygen Concentration - - Weight 152 kg (335 lb) 09/15/2021 2:48 PM EST Height 165.1 cm (5' 5 ) 09/15/2021 2:48 PM EST Body Mass Index 55.75 09/15/2021 2:48 PM EST Plan of Treatment Health Maintenance Due Date Last Done Comments Hepatitis C Screening 1959 Depression Screening 1971 BMI Counseling 12/22/1977 Preventative Health Evaluation 12/22/1977 Cervical Cancer Screening (Pap Smear) 12/22/1980 Colon Cancer Screening (Colonoscopy) 12/22/2004 Breast Cancer Screening (Mammogram) 12/22/2009 Shingrix-Zoster Vaccine (2 o f 2) 07/09/2021 05/14/2021 COVID-19 Vaccine (2023-2 5 season) 2024 07/29/2021, 12/25/2020, 12/02/2020 Influenza Vaccine (#1) 2024 Pneumococcal Vaccine (1 of 1 - PCV) 12/22/2024 DTap / Tdap / Td (2 - Td or Tdap) 06/24/2026 06/24/2016 RSV Adult > 60+ Yrs or (1 - 1-dose 75+ series) 12/22/2034 Hepatitis B Vaccines Aged Out No long er eligible based on patient's age to complete this topic Pneumococcal Vaccine Aged Out No long er eligible based on patient's age to complete this topic RSV Ped < 20 months Aged Out No longe r eligible based on patient's age to complete this topic Care Teams Fiction Writer Relationship Specialty Start Date End Date Al Garcia MD [address] [place] [address] PCP - General Internal Medicine 05/13/21
--- OUTSIDE RECORDS SUMMARY | 2024-12-19 09:21 | XMS_ITS | Data Portability ---
Author Organization [place] [facility] [place] Address [address] [place] [address] Care Team Providers Care Home Stager Name Role Phone VIC MATAMOROS Primary Care Provider Assessment Encounter Date Assessment Date Assessment LastModified by Organization Details LastModified Time 04/01/2023 04/01/2023 HPI : Patient is here today with complaints of bilateral knee pain. ?The patient is experiencing bilateral knee pain, which is moderate in intensity, and has recently worsened. The right knee is the worse knee. The pain limits some activities of daily living. Walking tolerance is reduced. Pain and restriction of function are significant at this time. She has seen Dr. Pereyra in the past. She was instructed to work on weight loss if she was considering total knee replacement in the future. She has undergone cortisone injections last one was in September. Review of systems is negative for other rapidly progressive neurological disorder, chest pain, shortness of breath, fevers, chills, or any signs of active or persistent local or systemic infection. Physical Exam ? ? ?: Patient is morbidly obese, in no acute distress, with appropriate mood and affect. The patient is oriented to time, place, and person. Bilateral knee motion is reduced and does cause significant pain. The right knee moves from 5-100 degrees and the left knee moves from 5-100 degrees. The knees are stable within those ymnxih-lf-wwlpn n. The alignment of the right knee is neutral. The alignment of the left knee is neutral. Knee muscle strength is normal bilaterally with the skin intact. Pedal pulses are palpable. Hip examination, including flexion and internal rotation, was negative in that groin pain was not produced. Assessment/Plan ? ? ?: The patient has bilateral knee arthritis. An extensive discussion was conducted on the natural history of the disease and the variety of surgical and non-surgical options available to the patient including, but not limited to non-steroidal anti-inflammato ry medications, steroid injections, viscosupplement ation, physical therapy, maintenance of ideal body weight, and reduction of activity. We discussed that we would like her to work on weight loss prior to be considered for total joint replacement surgery. We wanted to get close to a 40 BMI to reduce the chance of complications. She is getting continue to work on weight loss. She can follow-up with me when she gets close to these goals for further surgical discussion. Not available 04/01/2023 11:00:50 07/12/2023 07/12/2023 HPI : Patient is here for follow-up for her bilateral knee arthritis. This is acln-dr-qlsx. She is morbidly obese and has been working on weight loss in anticipation for may be future total knee replacement. She is coming today because she had a recent fall. She had followed both knees. This was about 3 weeks ago. She had bruising and pain. She went to get them checked out. Physical Exam : Patient is morbidly obese, in no acute distress, with appropriate mood and affect. The patient is oriented to time, place, and person. Bilateral knee motion is reduced and does cause significant pain. The right knee moves from 5-100 degrees and the left knee moves from 5-100 degrees. The knees are stable within those womamo-oq-ufgel n. The alignment of the right knee is neutral. The alignment of the left knee is neutral. Knee muscle strength is normal bilaterally with the skin intact. Pedal pulses are palpable. Hip examination, including flexion and internal rotation, was negative in that groin pain was not produced. Assessment/Plan : Patient has severe bilateral knee arthritis. She does not have any acute injury. An extensive discussion was conducted on the natural history of the disease and the variety of surgical and non-surgical options available to the patient including, but not limited to non-steroidal anti-inflammato ry medications, steroid injections, viscosupplement ation, physical therapy, maintenance of ideal body weight, and reduction of activity. 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 She is going to follow-up in 6 months with Carlos Alberto CASTREJON. [email or web address] Not available 07/12/2023 16:04:37 05/04/2024 05/04/2024 HPI : Patient is here for follow-up for her bilateral knee arthritis. She is continuing conservative management. She is not currently candidate as we had previously discussed. She has not been successful in weight loss, although she did just start a weight loss drug. She did have a fall recently, about a month ago and had increased pain in the right knee. Physical Exam : Patient is morbidly obese, in no acute distress, with appropriate mood and affect. The patient is oriented to time, place, and person. Bilateral knee motion is reduced and does cause significant pain. The right knee moves from 5-100 degrees and the left knee moves from 5-100 degrees. The knees are stable within those qdzxgw-ws-ziggf n. The alignment of the right knee is neutral. The alignment of the left knee is neutral. Knee muscle strength is normal bilaterally with the skin intact. Pedal pulses are palpable. Hip examination, including flexion and internal rotation, was negative in that groin pain was not produced. Assessment/Plan : Patient has severe bilateral knee arthritis. I do not see any acute injury from her fall. An extensive discussion was conducted on the natural history of the disease and the variety of surgical and non-surgical options available to the patient including, but not limited to non-steroidal anti-inflammato ry medications, steroid injections, viscosupplement ation, physical therapy, maintenance of ideal body weight, and reduction of activity. She will continue to work on weight loss. She will follow-up in 6 months with CASH Liang. Not available 05/04/2024 12:03:26 Plan of Treatment Reminders Order Date Submit Date Provider Last Modified By Organization Details Last Modified Time Details Appointments None recorded. Lab None recorded. Referral None recorded. Procedures None recorded. Surgeries None recorded. Imaging XR, knee, 4 or more view 2023 024 [email or web address] [facility], [address], [place], [address], 11:45:57 XR, knee, 4 or more view 2022 023 [email or web address] [facility], [address], [place], [address], 3 16:36:37 XR, knee, 4 or more view 2022 023 [email or web address] [facility], [address], [place], [address], 3 16:36:37 XR, knee, 1 or 2 view - Left Knee Pain 2022 023 [facility], [address], [place], [address], 3 12:17:00 XR, knee, 1 or 2 view - Right Knee Pain 2022 023 [facility], [address], [place], [address], 3 12:17:00 XR, knee, weightbeari ng - Bilateral Knee Pain 2022 023 [facility], [address], [place], [address], 3 12:17:00 Medication Orders None recorded. Patient TargetsNo targets recorded. Patient Instructions Encounter Date Encounter Id Patient Instructions Last Modified By Organization Details Last Modified Time 04/01/2023 [id number] AP, lateral, Sauceda, and patellar view radiographs of the right knee taken today demonstrate right knee degenerative joint disease with joint space narrowing, osteophyte formation, and subchondral sclerosis AP, lateral, Sauceda, and patellar view radiographs of the left knee taken today demonstrate right knee degenerative joint disease with joint space narrowing, osteophyte formation, and subchondral sclerosis. Not available 04/01/2023 11:01:06 05/04/2024 [id number] AP, lateral, Sauceda, and patellar view radiographs of the right knee taken today demonstrate right knee degenerative joint disease with joint space narrowing, osteophyte formation, and subchondral sclerosis. There is ozgu-gy-ezny articulation. I do not see any acute injury such as fracture or dislocation. Not available 05/04/2024 12:02:15 Reason for Referral None Reported. Problems Name Problem SNOMED Code Status Onset Date Resolution Date Notes Provider Name and Address Organization Details Recorded Time Osteoarthri tis of right knee joint 0231613300538 00 Active 2022 Yruy Garcia MD [address], [place], [address], [place] [facility] 3 10:59:30 Osteoarthri tis of left knee joint 5538851142741 09 Active 2022 Yury Garcia MD [address], [place], [address], [place] [facility] 3 10:59:35 Problem Notes None recorded. Medical Equipment None Reported. Allergies Allergen ID Allergen Name Allergen Category Reaction Reaction Severity Criticality Documentation Date Start Date Code Code System Note Provider Name and Address Organization Details Recorded Time 7115 penicilli n G Not available Not available Not available Not available 04/01/2023 7980 RxNorm Genoveva Barakat [facility], [place] - [facility], [facility] 3 15:52:30 Medications Name Sig Start Date Stop Date Status Note LastModified by Organization Details LastModified Time cyclobenzap rine 10 mg tablet TAKE 1 TABLET BY MOUTH TWICE DAILY FOR 14 DAYS NEEDED FOR SPASM 05/04 completed Not Available Not Available Not Available furosemide 40 mg tablet TAKE 1 TABLET BY MOUTH EVERY DAY active Not Available Not Available No t Available oxybutynin chloride ER 10 mg tablet,exte nded release 24 hr TAKE 1 TABLET BY MOUTH EVERY DAY active Not Available Not Available No t Available benzonatate 200 mg capsule TAKE 1 CAPSULE BY MOUTH THREE TIMES DAILY FOR 7 DAYS NEEDED FOR COUGH active Not Available Not Available No t Available metoprolol succinate ER 50 mg tablet,exte nded release 24 hr TAKE 1 TABLET BY MOUTH EVERY DAY active Not Available Not Available No t Available hydrocodone 5 mg-acetamin ophen 325 mg tablet TAKE 1 TABLET BY MOUTH TWICE DAILY NEEDED FOR SEVERE PAIN active Not Available Not Available No t Available omeprazole 40 mg capsule,del ayed release TAKE 1 CAPSULE BY MOUTH EVERY DAY active Not Available Not Available No t Available levothyroxi ne 100 mcg tablet TAKE 1 TABLET BY MOUTH EVERY DAY active Not Available Not Available No t Available indomethaci n 50 mg capsule TAKE 1 CAPSULE BY MOUTH EVERY DAY active Not Available Not Available No t Available gabapentin 300 mg capsule TAKE 1 CAPSULE BY MOUTH 3 TIMES A DAY. FILL ON 05/26/2205/04 completed Not Available Not Available Not Available sertraline 50 mg tablet TAKE 1 TABLET BY MOUTH DAILY active Not Available Not Available No t Available doxycycline hyclate 100 mg tablet TAKE 1 TABLET BY MOUTH TWICE A DAY 05/04 completed Not Available Not Available Not Available Jardiance 10 mg tablet TAKE 1 TABLET BY MOUTH EVERY DAY active Not Available Not Available No t Available Entresto 49 mg-51 mg tablet TAKE 1 TABLET BY MOUTH TWICE A DAY active Not Available Not Available No t Available Paxlovid 150 mg-100 mg tablets in a dose pack (Moderate Renal Dose) TAKE 150MG NIRMATREL VIR AND 100MG RITONAVIR TOGETHER BY MOUTH TWICE DAILY FOR 5 DAYS WITH FOOD active Not Available Not Available No t Available Vitals Date Recorded Body height Body mass index (BMI) Body weight Provider Name and Address Organization Details Last Updated DateTime 07/12/2023 165.1 cm 50.8 kg/m2 242944.67 g Tracey Conley [facility] 07/12/2023 15:45:02 Date Recorded Body height Body mass index (BMI) Body weight Provider Name and Address Organization Details Last Updated DateTime 05/04/2024 165.1 cm 52.8 kg/m2 682469.78 g Genovevaluis alberto Taverasflo [facility], [facility] 05/04/2024 11:12:41 Date Recorded Body weight Body mass index (BMI) Body height Provider Name and Address Organization Details Last Updated DateTime 04/01/2023 262564.67 g 50.8 kg/m2 165.1 cm Genovevaluis alberto Taverasflo [facility] 04/01/2023 15:49:24 Social History Question Answer Notes LastModified by Organizat ion Details LastModified Time Tobacco Smoking Status Never Smoker Genoveva rees [facility] 04/01/2023 15:58:15 What Is Your Level Of Alcohol Consumption? Occasional Information not available 04/01/2023 Do You Use Any Illicit Or Recreational Drugs? No Information not available 04/01/2023 Do You Or Have You Ever Used Any Other Forms Of Tobacco Or Nicotine? No Information not available 04/01/2023 Sex: Unknown Functional Status None recorded. Mental Status None recorded. Family History Relationship Description Onset Age of this Age Resolved Age Notes LastModified by Organization Details LastModified Time Mother Chronic heart disease Not available 2022 15:57:14 Medical History Condition Response Diabetes Y Hypertension Y Gynecological HistoryNo gynecological history recorded. Obstetrics History GPAL:G 0 P 0 0 0 0 Past Encounters Encounter ID Performer Location Encounter Start Date Encounter Closed Date Diagnosis/Indication Diagnosis SNOMED-CT Code Diagnosis ICD10 Code Diagnosis Note [id number] Genoveva Barakat [facility]ICA[facility] [address] [facility] [address] [place] [address] 04/01/2023 10:16:14 04/01/2023 10:59:13 Pain of bilateral knee joints 1091253054 77505 M25.561 M25.562 Osteoarthr itis of right knee joint 4553692975 95117 M17.11 Osteoarthr itis of left knee joint 8170672223 38307 M17.12 [id number] MD MICAELA [place] [address] [facility] [address] [place] [address] 07/12/2023 15:01:53 07/12/2023 16:04:18 Osteoarthritis of left knee joint 7942693133 90471 M17.12 Osteoarthr itis of right knee joint 2559249736 40187 M17.11 [id number] MD MICAELA Singleton [facility] [address] [facility] [address] [place] [address] 05/04/2024 11:03:02 05/04/2024 11:33:01 Pain of right knee region 9137995609 37913 M25.561 Osteoarthr itis of left knee joint 2175349169 50446 M17.12 Osteoarthr itis of right knee joint 4770617224 81307 M17.11 Health Concerns Section Related Observation LastModified by Organization Detai ls LastModified Time None Recorded Concern Status LastModified by Organization Details LastModified Time None Recorded Advance Directives Directive None Recorded Payers Encounter Date Sequence Insurance Name Policy Number Policy Her Covered Member ID Her Member ID Guarantor Name 04/01/2023 1 [facility] [id number] Kavya Sher [id number] Kavya Sher 07/12/2023 1 [facility] [id number] Kavya Sher [id number] Kavya Sher OBGyn Episode No OBEpisode recorded.
== END 2024-12-19 09:31 | disposition home or self-care (01) ==
LOC: HO.HOS 08:55
PROVIDERS: PCP Internal Medicine; Visit Provider Orthopaedic Surgery
DX: M17.0 Bilateral primary osteoarthritis of knee (principal)
CPT/HCPCS: 99203

== ENCOUNTER → 2024-12-19 08:56 | Outpatient (BNV) | payer OTHER, SELFPAY | PROVIDERS: Visit Provider Radiology Diagnostic Radiology | DX: M17.0 Bilateral primary osteoarthritis of knee (principal) | CPT/HCPCS: 73562 ==

== ENCOUNTER 2024-12-19 12:37 | Outpatient (REF) | payer OTHER, SELFPAY ==
--- NOTE | ~2024-12-19 | XR_ITS ---
XR KNEE DALE 3V HISTORY: Bilateral knee pain. COMPARISON: 01/28/2020 TECHNIQUE: AP view bilateral knees standing, lateral and patellofemoral views bilateral knees. FINDINGS: RIGHT KNEE: No fracture, dislocation, or suspicious bone lesion. Severe tricompartmental osteoarthrosis, with fjdw-zw-evbd appearance in all 3 compartments, subchondral sclerosis and cystic changes, and large partially projecting osteophytes. The largest involves the patellofemoral compartment. Normal patellar alignment. No abnormal patellar tilt. No evidence of joint effusion. Soft tissues appear normal. LEFT KNEE: No fracture, dislocation, or suspicious bone lesion. Severe tricompartmental osteoarthrosis, with otca-hq-ucvz appearance in all 3 compartments, subchondral sclerosis and cystic changes, and large partially projecting osteophytes. The largest involves the patellofemoral compartment. Normal patellar alignment. No abnormal patellar tilt. No evidence of joint effusion. Soft tissues appear normal. XR/XR Knee Dale 3V IMPRESSION: LEFT KNEE: 1. No acute bony abnormalities. 2. Severe, end-stage tricompartmental osteoarthrosis, progressed significantly from 2020. RIGHT KNEE: 1. No acute bony abnormalities. 2. Severe, end-stage tricompartmental osteoarthrosis, progressed significantly from 2020. Electronically signed by: Sundeep Castelan MD 12/21/2024 08:09 AM EDT
--- OUTSIDE RECORDS SUMMARY | 2024-12-20 14:56 | XMS_ITS | Patient Health Record ---
Author Organization [facility] Address [address] [place] [address] Care Team Providers Care Ramp Supervisor Name Role Phone GOYO FONTENOT Primary Care Provider Emily Mitchell Unavailable [phone] ALLERGIES Allergen (clinical drug ingredient) Drug/Non Drug [...] Problem Hypothyroidism, unspecified (E03.9) Active confirmed Hypothyroidism (88346913) Problem Essential (primary) hypertension (I10) Active confirmed Essential hypertension (67089842) Problem Unspecified osteoarthritis, unspecified site (M19.90) Active confirmed Osteoarthritis (043087587) Problem Lumbago with sciatica, left side (M54.42) Active confirmed Sciatica (88990101) Problem Body mass index (BMI) 45.0-49.9, adult (Z68.42) Active confirmed Body mass ind ex 40+ - severely obese (812034449) Problem Body mass index (BMI) 50-59.9 , adult (Z68.43) Active confirmed Body mass ind ex 40+ - morbidly obese (311792881) Encounters Encounter Location Date Provider Diagnosis [facility] [address] [place] [phone] 12/29/2023 Emily Svrcek PLAN OF TREATMENT Pending Test Test Name Order Date X ray : Spines, lumbar complete 03/01/20 18 Insurance Providers Payer Name Payer Address Payer Phone Subscriber Number Group Number Insured Name Patient Relationship to Insured Coverage Start Date Coverage End Date [facility] [address] [place] [address] [id number] PELON GIVENS Self - patient is the insured MEDICAL (GENERAL) HISTORY Medical History History ICD Code anxiety Arthritis hypertension Hypothyroidism Surgical History Surgery Date(Month/Year) left knee arthroscopy
--- OUTSIDE RECORDS SUMMARY | 2024-12-20 14:57 | XMS_ITS | Encounter Summary ---
Author Organization [facility] Address [address] [place] [address] Phone Care Team Providers Care Inner Tube Tuber Machine Operator Name Role Phone Al Garcia MD Primary Care Provider [phone]- [phone] Encounter Details Date Type Department Care Team (Late st Contact Info) Description 11/02/2023 Documentation Only [facility], [address] [place] [place] [address] [place] [address] [place] [phone] Social History Tobacco Use Types Packs/Day Years [...] on filedocumented in this encounter Care Teams Inner Tube Tuber Machine Operator Relationship Specialty Start Date End Date Al Garcia MD [address] [place] [address] PCP - General Internal Medicine 05/04/20 documented as of this encounter
--- OUTSIDE RECORDS SUMMARY | 2024-12-20 14:57 | XMS_ITS | Clinical Summary ---
Author Organization [facility], Address [address] [place] [address] [place] [address] Phone Care Team Providers Care Post Graduate Intern Name Role Phone Al Garcia MD Primary Care Provider [phone]- [phone] Allergies Active Allergy Reactions Criticality Noted Date [...] complete this topic Insurance [employer] Care Teams Post Graduate Intern Relationship Specialty Start Date End Date Al Garcia MD [address] [place] [address] PCP - General Internal Medicine 05/04/20
--- OUTSIDE RECORDS SUMMARY | 2024-12-20 14:59 | XMS_ITS ---
Author Organization [facility] Address [address] [place] [address] Care Team Providers Care Procurement Engineer Name Role Phone GOYO FONTENOT Primary Care Provider Emily Mitchell [phone] Encounters Encounter Location Date Provider Diagnosis [address] [place] [address] 12/29/2023 Emily Mitchell PLAN OF TREATMENT No Information Progress Notes * PELON GIVENS EDOB: [birth year] (63 yo F)Acc No.[id number]:12/29/2023 Patient:??PELON GIVENS Provider:??Emily Mitchell PA-C :1960?Age:63 Y?Sex:Fe male Date:12/29/2023 Address[address] [facility] Pcp:GOYO FOTNENOT Subjective: * Chief Complaints: * ? * Medical History:?? Objective: Assessment: Plan: * Treatment: * Images: Billing Information: * Visit Code:?? * Procedure Codes:?? * Sign off status: Pending * Provider:??Emily Mitchell PA-C Date:??04/2024
--- OUTSIDE RECORDS SUMMARY | 2024-12-20 15:00 | XMS_ITS | Encounter Summary ---
Author Organization [facility] Address [address] [place] [address] Care Team Providers Care Comfort Advisor Name Role Phone Unavailable Primary Care Provider Unavailabl e Encounter Details Date Type Department Care Team (Late st Contact Info) Description 05/18/2021 Erroneous Encounter [facility] [address] [facility] [place] [address] Raúl Sanders MD [address] [place] [address] Social History Tobacco Use Types Packs/Day Years [...]
--- OUTSIDE RECORDS SUMMARY | 2024-12-20 15:02 | XMS_ITS | Clinical Summary ---
Author Organization [facility] Address [address] [place] [address] Care Team Providers Care Perianesthesia Rn Name Role Phone Al Garcia MD Primary Care Provider [phone] Allergies Active Allergy Reactions Criticality Noted Date [...] age to complete this topic Care Teams Perianesthesia Rn Relationship Specialty Start Date End Date Al Garcia MD [address] [place] [address] PCP - General Internal Medicine 05/13/21
== END 2024-12-19 12:38 | disposition home or self-care (01) ==
LOC: HO.HOSX 12:37
PROVIDERS: Visit Provider Orthopaedic Surgery
DX: M17.0 Bilateral primary osteoarthritis of knee (principal)
CPT/HCPCS: 73562

== ENCOUNTER 2025-01-24 14:24 | Outpatient (AMB) | payer OTHER, SELFPAY ==
--- NOTE | 2025-01-24 15:07 | MHC.OFFVIS ---
Vital Signs 01/24/25 15:08 Height 5 ft 5 in Weight 310 lb BMI 51.6 Intake Visit Reasons: B/L Knee Durolane Gel Injections, Right shoulder pain and weakness Intake Note: Kavya is a 64 year old female who presents with complaints of progressively worsening right shoulder pain and weakness as well as bilateral knee pains. She describes her right shoulder pain as sharp in nature. She did injure her right shoulder approximately 1 year ago while lifting a heavy object. Since that time her symptoms have gotten progressively worse. She has tried Tylenol which gives her minimal relief. She is not able to take anti-inflammatory medicines because she is on Eliquis. She has done physical therapy exercises for her shoulder and knees which seemed to aggravate her pains. She wishes to hold off on surgery if at all possible. Allergies penicillin V Allergy (Unknown, Verified 01/24/25 15:08) Rash Codeine Phosphate Allergy (Unknown, Uncoded 01/24/25 15:08) Rash Medication List - Last Reconciled 01/25/25 by Wander Pereyra MD amiodarone mg PO apixaban (Eliquis) mg PO empagliflozin (Jardiance) 10 mg PO DAILY indomethacin mg PO levothyroxine 100 mcg PO DAILY metoprolol succinate ER 50 mg PO DAILY omeprazole 40 mg PO DAILY sacubitril-valsartan 49-51 mg (Entresto) 1 tab PO BID sertraline 50 mg PO DAILY [facility] Social History (Updated 12/19/24 @ 09:15 by Kelsi Carter) Alcohol intake: current Alcohol intake frequency: holidays/special occasions only Patient Tobacco Use Status: Never used Tobacco Current occupational status: employed 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 Physical Exam Vital Signs: BMI result Body Mass Index 51.6 Const Other: Well-nourished well-developed very friendly female awake alert and oriented x3 in no acute distress Extrem Other: Bilateral lower extremity examination shows good capillary refill, no skin lesions noted, normal sensation light touch Bilateral knee examination shows minimal effusions, palpable crepitus with range of motion, pain with range of motion, no instability Right shoulder examination shows decreased range of motion when compared to her left shoulder, 4+ out of 5 strength with supraspinatus testing, positive impingement signs, no instability Office Procedures AMB Joint Injection/Aspiration Joint Injection/Aspiration Primary Site: right knee Prep: site was prepped using aseptic technique Injected: 60 mg of (Durolane viscosupplementation) and 1% plain lidocaine Procedure: The patient tolerated the procedure well Coding 08859 - Large joint Procedure code (CPT) selection complete AMB Joint Injection/Aspiration Joint Injection/Aspiration Primary Site: left knee Prep: site was prepped using aseptic technique Injected: 60 mg of (Durolane viscosupplementation) and 1% plain lidocaine Procedure: The patient tolerated the procedure well Coding 39958 - Large joint Procedure code (CPT) selection complete Results Reviewed Results Reviewed: X-rays of the patient's bilateral knees taken previously show joint space narrowing, subchondral sclerosis, no acute bony abnormalities Assessment & Plan Assessment & Plan (1) Osteoarthritis of right knee: Code(s): M17.11 - Unilateral primary osteoarthritis, right knee Category: Medical (2) Osteoarthritis of left knee: Code(s): M17.12 - Unilateral primary osteoarthritis, left knee Category: Medical (3) Rotator cuff insufficiency of right shoulder: Code(s): M25.311 - Other instability, right shoulder Category: Medical Plan Ms. Sher presents with right shoulder pain and weakness most likely due to a rotator cuff tear. Thus, I will send the patient for an MRI of her right shoulder for further evaluation. I will see her back once the MRI is completed to discuss the findings and treatment options. The patient also has bilateral knee pains due to osteoarthritis. The risks and benefits of bilateral knee Durolane viscosupplementation injections were discussed at length with the patient. The patient wished to proceed. She tolerated the injections well. She will continue with her activity modifications. She will follow up as instructed. Feel free to call me at any time should questions regarding her orthopedic management arise. I spent 22 minutes in reviewing the patient's records and imaging studies, seeing the patient and documenting in the medical record. Orders: Orders MR shoulder RT wo con 01/24/25 M25.311 - Other instability, right shoulder AMB Joint Injection/Aspiration 01/24/25 M17.12 - Unilateral primary osteoarthritis, left knee AMB Joint Injection/Aspiration 01/24/25 M17.11 - Unilateral primary osteoarthritis, right knee Coding Level of Care Code Est Pt Level 3 (24272) Complex EM visit Add On G2211 Diagnoses Osteoarthritis of right knee M17.11 Osteoarthritis of left knee M17.12 Rotator cuff insufficiency of right shoulder M25.311 CPT Codes Coding - 72092 Large joint: 93161 - Large joint ([id number]) Coding - 04595 Large joint: 17208 - Large joint ([id number])
[2025-01-24 15:08] VITALS: BMI 51.6
--- OUTSIDE RECORDS SUMMARY | 2025-01-24 17:02 | XMS_ITS | Data Portability ---
Author Organization [place] [facility],, EWELINA QUINN MD Address [address] [address] Assessment No assessment recorded. Plan of Treatment Reminders Order Date Submit Date Provider Last Modified By Organization Details Last Modified Time Details Appointments None recorded. Lab pap test, thinprep, cervical 2020 021 [email or web address] [facility], Cytopathology Service, [address] [place] [address], [address], 1 07:19:20 fecal occult blood, stool 2020 021 [email or web address] 1 In-Office Order, Internal Use Only DO Not Attach Compendium DO Not Attach Compendium, Do Not Delete/merge, [id number] 1 11:49:39 [facility] test, thinprep, cervical 2018 [facility], [address] [place] [address], [address], 9 07:21:20 fecal occult blood, stool 2018 019 [email or web address] In-Office Order, Internal Use Only DO Not Attach Compendium DO Not Attach Compendium, Do Not Delete/merge, [id number] 9 07:21:20 pap test, thinprep, cervical 2017 018 LYLE [facility], Cytopathology Service, [address] [place], [address], 8 08:22:29 fecal occult blood, stool 2017 018 [email or web address] In-Office Order, Internal Use Only DO Not Attach Compendium DO Not Attach Compendium, Do Not Delete/merge, [id number] 8 07:17:30 Referral None recorded. Procedures None recorded. Surgeries None recorded. Imaging MAMMO, screening , digital, bilateral 2020 021 [facility], [address], [address], [place], [address], 1 07:50:51 MAMMO, screening , digital, bilateral 2018 019 [facility] Orders, [address], [address], [place], [address], 9 09:28:16 MAMMO, screening , digital, bilateral 2017 018 [facility] Orders, [address], [address], [place], [address], 8 08:47:00 Medication Orders Imvexxy Maintenan ce Pack 10 mcg vaginal insert 2020 021 [email or web address] 1 [facility]armacy #1972, [address] [place] [address], [address], 1 15:46:31 Imvexxy Starter Pack 10 mcg vaginal insert, dose pack [address] [facility]/Pharmacy #1972, [address] [place] [address], [address], 1 11:51:48 nystatin 100,000 unit/gram topical powder [address] [facility]Pharmacy #1972, [address] [place] [address], [address], 1 11:50:17 estradiol 0.01% (0.1 mg/gram) vaginal cream 2018 019 [email or web address] [facility]/Pharmacy #1972, [address] [place], [address], 1 11:07:35 estradiol 0.01% (0.1 mg/gram) vaginal cream 2017 018 [email or web address] [facility] #1972, [address] [place], [address], 11:07:35 Patient TargetsNo targets recorded. Patient Instructions Encounter Date Encounter Id Patient Instructions Last Modified By Organization Details Last Modified Time 06/06/2018 [id number] atrophic vaginit is: care instructions [email or web address] Not available 06/06/2018 15:01:35 self breast exam [...] with her mother and her fiancee in [place] [facility] in [place]. 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 We discussed that her atrophic vagintis may [...] questions answered. Not available 06/06/2018 15:01:50 07/30/2019 [id number] atrophic vaginit is: care instructions [email or web address] Not available 07/30/2019 15:44:55 She is here for annual exam, was recently found to be in afib at her PCP office, was [facility], has been out of afib for a month now, had to do 3 different cardioversions and one ablation, at [facility]. She did use the E2 vaginal [...] with her mother and her fiancee in [place] [facility] in [place]. 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 Not available 07/30/2019 15:47:02 01/21/2021 [id number] atrophic vaginit is: care instructions Not available [...] afib at her PCP office, was [facility], has been out of afib for a month now, had to do 3 different cardioversions and one ablation, at [facility]. She did use the E2 vaginal [...] DO Not Attach Compendium, Do Not Delete/merge, [id number] 07/30/2019 15:10:29 06/06/20 18 06/06/2018 fecal occul t blood , stool Occult Blood negati ve Not Available In-Office Order Internal Use Only DO Not Attach Compendium DO Not Attach Compendium, Do Not Delete/merge, [id number] 06/06/2018 14:16:38 06/06/20 18 06/06/2018 pap, LB [id number] ThinP rep Pap, Image d: NEGAT NICOLLE [...] , MENOP AUSE, LMP 2017 Not Available [facility], Cytopathology Service [address] [place], [address], 06/08/2018 08:22:29 07/30/20 19 07/30/2019 pap, LB [id number] ThinP rep Pap, Image d: NEGAT NICOLLE [...] NEG [Z12. 4, Z01.4 19] Not Available [facility], Cytopathology Service [address] [place], [address], 08/06/2019 12:55:59 01/22/20 21 01/21/2021 pap test, thinp rep, cervi yudy [id number] ThinP rep Pap, Image d: NEGAT NICOLLE [...] NEG [Z12. 4, Z01.4 19] Not Available [facility], Cytopathology Service [address] [place], [address], 01/29/2021 07:40:37 01/22/20 21 01/21/2021 fecal occul t blood , stool Occult Blood negati ve Not Available In-Office Order Internal Use Only DO Not Attach Compendium DO Not Attach Compendium, Do Not Delete/merge, [id number] 01/21/2021 11:09:03 06/13/20 18 06/13/2018 MAMMO sheryl, digit al, bilat eral No observ ation record ed. [email or web address] [facility] [address] [place] [address], [place], [address], 06/13/2018 09:06:32 08/03/20 19 08/03/2019 MAMMO sheryl, digit al, bilat eral No observ ation record ed. [email or web address] [facility] (Outpt Imaging) [address], [place], [address], 08/03/2019 09:58:05 02/03/2002/01/2021 MAMMO , scree malu, digit al, bilat eral No observ ation record ed. [facility] Orders [address], [place], [address], 02/02/2021 08:35:36 Result Notes None recorded. Problems Name Problem SNOMED Code Status Onset Date Resolution Date Notes Provider Name and Address Organization Details Recorded Time Hypothyroidism 32550769 Active 2017 ERI Schwartz in [facility], 8 14:07:42 Hypertensive disorder 47286015 Active 2017 ERI Schwartz in [facility], 8 14:07:54 Urinary incontinence 018343044 Active 2017 Ewelina Quinn MD [email or web address], [place], [address], [place] [facility], 8 14:49:43 Atrophic vaginitis 77749486 Active 2017 Ewelina Quinn MD [email or web address], [place], [address], [place] [facility], 8 14:49:58 Atrial fibrillation 44669408 Active 2018 ERI Marquez in [facility], 9 15:08:02 Candidiasis of skin 49550767 Active 2020 Ewelina Quinn MD [email or web address], [place], [address], [place] [facility], 1 11:49:54 Problem Notes None recorded. Procedures Surgical History Date Name Laterality Status Provider Name and Address Organization Details Recorded Time Most Recent Mammogram completed Roxann Lopez in [facility], 06/10/2023 10:37:28 1 admission to hand surgery department completed Roxann Gonzalez ERI Lopez in [facility], 01/21/2021 11:14:46 3 Other completed Roxann Johnsonjamiebin [place] in [facility], 06/06/2018 14:13:07 Imaging Results None recorded. Procedure Notes None recorded. Medical Equipment None Reported. Allergies Allergen ID Allergen Name Allergen Category Reaction Reaction Severity Criticality Documentation Date Start Date Code Code System Note Provider Name and Address Organization Details Recorded Time codeine medicatio n rash Not available Not available 06/06/2018 2670 RxNorm Roxannelan Gonzalez ERI rees in [facility], 8 14:05:27 Product containin g penicilli n (product) medicatio n rash Not available Not available 06/06/2018 66943 8001 SNOMED Roxann WeeksERI melendez in [facility], 8 14:05:42 Medications Name Sig Start Date [...] Address Organization Details Last Updated DateTime 1 711903. 27 g 56.1 kg/m2 162.56 cm 98.1 [degF] 75 /min 147 mm[Hg] 88 mm[Hg] Roxann Lopez in [facility], 1 11:06:52 Date Recorded Body weight Body mass index (BMI) Body height Heart rate Systolic blood pressure Diastolic blood pressure Provider Name and Address Organization Details Last Updated DateTime 8 133297. 74 g 50.9 kg/m2 163.83 cm 88 /min 144 mm[Hg] 81 mm[Hg] Roxann Lopez in [facility], 8 14:03:02 Date Recorded Body height Heart rate Body mass index (BMI) Body weight Systolic blood pressure Diastolic blood pressure Provider Name and Address Organization Details Last Updated DateTime 9 163.83 cm 64 /min 52.5 kg/m2 767236. 79 g 137 mm[Hg] 69 mm[Hg] Lucero Lopez in [facility], 9 15:03:20 Social History Question Answer Notes LastModified by Organizat ion Details LastModified Time Tobacco Smoking Status Never Smoker Not Available [facility] 06/24/2020 03:19:37 Do You Have An Advance Directive? No [id number] Information not available 06/24/2020 What Is Your Level Of Caffeine Consumption? Moderate [id number] Information not available 06/24/2020 How Much Tobacco Do You Chew? None [id number] Information not available 06/24/2020 In The 14 [...] Type Of Diet Are You Following? REGULAR [id number] Information not available 06/24/2020 Which Illicit Or Recreational Drugs Have You Used? No [id number] Information not available 06/24/2020 Do You Reside In Or Have You Traveled To An Area Where Ebola Virus Transmission Is Active? No [id number] Information not available 06/24/2020 Education 2 Year College Information not available 06/06/2018 How Many Days In The Past Year Have You Had A Heavy Drinking Consumption (4+ Female, 5+ Male)? 40 Information no t available 06/06/2018 Are There Any Guns Present In Your Home? Yes [id number] Information not available 06/24/2020 High Number Of Sexual Partners No Information not available 06/06/2018 To Which Gender Do You Self-identify? Female Information not available 06/06/2018 Marital Status Domestic Partner Engaged. Information not available 06/06/2018 What Was The Date Of Your Most Recent Tobacco Screening? 06/06/2018 [id number] Information not available 06/24/2020 Seat Belts Used Routinely Yes Information not available 06/06/2018 Are You Sexually Active? Yes [id number] Information not available 06/24/2020 Smoke Alarm In Home Yes Information not available 06/06/2018 How Much Tobacco Do You Smoke? No Information not available 01/21/2021 General Stress Level High Information not available 01/21/2021 Do You Use Sunscreen Routinely? No [id number] Information not available 06/24/2020 Have You Recently (within The Last 12 Weeks, Or During A Current ) Traveled To Or Lived In A Zika-affected Area? No Information not available 06/06/2018 Sex: Female Functional Status Question Answer Note LastModified by Organizat ion Details LastModified Time What is your level of alcohol consumption? Occasional [id number] Information not available 06/24/2020 Do you or have you ever used smokeless tobacco? 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 [id number] Information not available 06/24/2020 Do you or have you ever used e-cigarettes or vape? Never used electronic cigarettes Information not available 01/21/2021 What is your exercise level? None [id number] Information not available 06/24/2020 Mental Status None [...] for MyRisk panel N Autoimmune Condition N Thyroid Problems Y Kidney or Bladder Problems Y GI Problems Y Lung Disease N Depression N Defects or Inherited Disease N History of Ovarian Cancer N Anemia N History of Breast Cancer N JANETH [...] Roxann rees [place] [facility], 01/21/2021 11:11:04 Past Encounters Encounter ID Performer Location Encounter Start Date Encounter Closed Date Diagnosis/Indication Diagnosis SNOMED-CT Code Diagnosis ICD10 Code Diagnosis Note [id number] MD EWELINA Parikh MD [address] [facility] [place] [address] 06/06/2018 13:47:44 06/06/2018 15:53:53 Specialized medical examination 44057834 Z01.419 Screening for malignant neoplasm of rectum 857454785 Z12.12 Screening mammography 24 913014 Z12.31 Atrophic vaginitis 61174 000 N95.2 Urinary incontinence 165 328159 R32 [id number] MD EWELINA Parikh MD [address] [facility] [place] [address] 07/30/2019 14:56:52 07/30/2019 16:06:21 Specialized medical examination 46269419 Z01.419 Screening for malignant neoplasm of rectum 324306929 Z12.12 Screening mammography 24 624457 Z12.31 Atrophic vaginitis 72556 000 N95.2 [id number] MD EWELINA Parikh MD [address] [facility] [place] [address] 01/21/2021 10:59:53 01/22/2021 09:00:22 Specialized medical examination 49638016 Z01.419 Screening for malignant neoplasm of rectum 211169580 Z12.12 Screening mammography 24 923996 Z12.31 Candidiasis of skin 4988 3006 B37.2 Atrophic vaginitis 08403 000 N95.2 Health Concerns Section Related Observation LastModified by Organization Detai ls LastModified Time None Recorded Concern Status LastModified by Organization Details LastModified Time None Recorded Advance Directives Directive N: Payers Encounter Date Sequence Insurance Name Policy Number Policy Her Covered Member ID Her Member ID Guarantor Name 06/06/2018 1 [employer] [id number] Kavya Sher [id number] Kavya Sher 07/30/2019 1 [employer] [id number] Kavya Sher [id number] Kavya Sher 01/21/2021 1 [id number] Kavya Sher [id number] Kavya Sher Notes Date Note Type [...] with her mother and her fiancee in [facility]. 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 Ewelina Quinn MD [address] [place] [address],[address], [place], [address], [place] [facility], 06/06/2018 15:02:54 07/30/2019 text/html She is here for annual exam, was recently found to be in afib at her PCP office, was sent [facility], has been out of afib for a month now, had to do 3 different cardioversions and one ablation, at [facility]. She did use the E2 vaginal [...] with her mother and her fiancee in [facility] in [place]. 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 We discussed that her atrophic vagintis may be in part responsible for some of her urinary issues. She would like to try E2 vaginal cream to see if this helps improve her incontinence. She cooper luse it for three months then assess. If no improvement then call. Benefits of weight management discussed as well. Ewelina Quinn MD [address], [place], [address], [place] [facility], 07/30/2019 15:47:25 01/21/2021 text/html She is here for annual exam, doing well. She did not use the E2 cream because she can't remember to use it. She is having worsening urinary urge, frequency, and nocturia, however. _ note from 07/2019: She is here for annual exam, was recently found to be in afib at her PCP office, was sent ot hospital, has been out of afib for a month now, had to do 3 different cardioversions and one ablation, at [facility]. She did use the E2 vaginal cream for a little bit of time but then I stopped. She would like to restart. Ewelina Quinn MD [address], [place], [address], [place] [facility], 01/21/2021 12:27:10 OBGyn Episode No OBEpisode recorded.
== END 2025-01-24 15:31 | disposition home or self-care (01) ==
LOC: HO.HOS 14:25
PROVIDERS: PCP Internal Medicine; Visit Provider Orthopaedic Surgery
DX: M17.0 Bilateral primary osteoarthritis of knee (principal); M25.311 Other instability, right shoulder
CPT/HCPCS: 20610; 99213

== ENCOUNTER → 2025-01-24 14:24 | Outpatient (BNVA) | payer OTHER, SELFPAY | PROVIDERS: PCP Internal Medicine; Visit Provider Orthopaedic Surgery | DX: M17.0 Bilateral primary osteoarthritis of knee (principal); M25.311 Other instability, right shoulder | CPT/HCPCS: 20610; J2003; J7318 ==

== ENCOUNTER 2025-02-12 11:24 | Outpatient (AMB) | payer OTHER, SELFPAY ==
--- NOTE | 2025-02-12 11:35 | A.OFFVIS_ITS ---
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 She reports a history of knee pain lasting several years without any recent injuries or falls. The pain is described as constant, pinching, burning, aching, and hurting, with a severity of 9/10. The patient has tried various interventions, including cortisone and gel injections, with the most recent gel injection occurring three weeks ago by Dr. Pereyra, [facility], which did not provide relief. She has also used pain medications (hydrocodone-acetaminophen), lidocaine patches, and diclofenac gel, none of which have been effective. The pain is exacerbated by movement, walking, climbing stairs, and weather changes, particularly humid conditions before storms. The patient has a history of atrial fibrillation, chronic kidney disease stage 3, and a recent hospitalization at [facility] (01/01/25-01/04/25) for a blood clot in the left leg and a small pulmonary embolism. She is currently on Eliquis 5 mg twice daily for anticoagulation, managed by her director design, Dr. Fuentes. She has been advised to avoid NSAIDs due to her kidney condition and is awaiting a nephrology appointment in May. The patient also has a history of major depressive disorder, cardiomyopathy, obstructive sleep apnea, and severe obesity, which contribute to her overall health status. 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 - Onset: Several years ago, no recent injuries or falls - Quality: Constant, pinching, burning, aching, hurting - Severity: 9/10 - Location: Bilateral knees, left worse than right - Exacerbating factors: Movement, walking, climbing stairs, weather changes (humid conditions before storms) - Relieving factors: None effective to date - Affect: Pain impacts mood and psychological wellbeing, contributing to major depressive disorder - Analgesia: Current pain level is 9/10, goal is to reduce pain significantly; previous use of narcotics discontinued due to failed drug screen - Adverse Effects: No effective relief from current pain management strategies - Activities of Daily Living: Pain limits mobility, affects ability to exercise, and impacts work as a electronics manufacturer - Aberrant Drug Related Behaviors: Failed drug screen for alcohol, narcotics discontinued [facility] Medical History History of ectopic Vitamin D deficiency Severe obesity Obstructive sleep apnea Non-ischemic cardiomyopathy Major depression Hypothyroidism Hypertension History of pulmonary embolism Chronic kidney disease, stage 3b Bilateral chronic knee pain Atrial fibrillation Surgical History S/P meniscectomy Social History Alcohol intake: current Alcohol intake frequency: holidays/special occasions only Patient Tobacco Use Status: Never used Tobacco Substance Use Type: Other Current occupational status: employed 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 Morbidly obese. Alert and oriented. Mood and affect appropriate. Follows and participates in conversation appropriately. Respiratory effort is unlabored. No cough. Able to transition from sit to stand with assistance. Uses cane for short distances/transfers. Sitting comfortably in wheelchair, increased pain with bilateral knee ROM. Bruising observed on both knees, more pronounced on the left. Extrem General: Yes calf tenderness (left), No clubbing, No cyanosis and Yes edema (BLE, left>right) Right lower extremity: knee (Limited ROM due to pain) Details: tenderness Location: of the patella, of the medial joint line and of the lateral joint line, swelling Location: of the patella and of the popliteal fossa, ecchymosis (anterior aspects) and crepitus; no deformity and no unusual warmth Left lower extremity: knee (Limited ROM due to pain) Details: tenderness Location: of the patella, of the medial joint line and of the lateral joint line, swelling Location: of the patella and of the popliteal fossa, ecchymosis (anterior aspects) and crepitus; no deformity and no unusual warmth Results Reviewed Results Reviewed: XR KNEE LANI 3V 12/19/24 HISTORY: Bilateral knee pain. COMPARISON: 01/28/2020 TECHNIQUE: AP view bilateral knees standing, lateral and patellofemoral views bilateral knees. FINDINGS: RIGHT KNEE: No fracture, dislocation, or suspicious bone lesion. Severe tricompartmental osteoarthrosis, with [id number] appearance in all 3 compartments, subchondral sclerosis and cystic changes, and large partially projecting osteophytes. The largest involves the patellofemoral compartment. Normal patellar alignment. No abnormal patellar tilt. No evidence of joint effusion. Soft tissues appear normal. LEFT KNEE: No fracture, dislocation, or suspicious bone lesion. Severe tricompartmental osteoarthrosis, with [id number] appearance in all 3 compartments, subchondral sclerosis and cystic changes, and large partially projecting osteophytes. The largest involves the patellofemoral compartment. Normal patellar alignment. No abnormal patellar tilt. No evidence of joint effusion. Soft tissues appear normal. IMPRESSION: LEFT KNEE: 1. No acute bony abnormalities. 2. Severe, end-stage tricompartmental osteoarthrosis, progressed significantly from 2020. RIGHT KNEE: 1. No acute bony abnormalities. 2. Severe, end-stage tricompartmental osteoarthrosis, progressed significantly from 2019. Assessment & Plan Assessment & Plan (1) Bilateral knee pain: Code(s): M25.561 - Pain in right knee; M25.562 - Pain in left knee Category: Medical (2) Osteoarthritis of left knee: Code(s): M17.12 - Unilateral primary osteoarthritis, left knee Category: Medical (3) Osteoarthritis of right knee: Code(s): M17.11 - Unilateral primary osteoarthritis, right knee Category: Medical (4) Chronic pain syndrome: Code(s): G89.4 - Chronic pain syndrome Category: Medical (5) Morbid obesity with BMI of 50.0-59.9, adult: Code(s): E66.01 - Morbid (severe) obesity due to excess calories; Z68.43 - Body mass index [BMI] 50.0-59.9, adult Category: Medical Plan The patient will be evaluated for potential radiofrequency ablation RFA) to manage her chronic knee pain, pending approval from her director design to temporarily discontinue Eliquis. Diagnostic genicular nerve blocks will be performed to assess her suitability for RFA, with the expectation of temporary pain relief lasting 6 to 8 hours. Given significant pain with limited mobility, patient is not able to pursue formal physical therapy at this time. Schedule bilateral diagnostic genicular nerve blocks with local and fluoroscopy. Expectations, risks and benefits were reviewed. Patient is aware she will be contacted to schedule this procedure. Pending approval to pause Eliquis x3 days with prescribing physician permission. The patient is advised to avoid NSAIDs due to her chronic kidney disease and will continue with current anticoagulation therapy until further notice. She is encouraged to pursue weight management strategies to improve her candidacy for additional pain management procedures, including peripheral nerve stimulation and surgical option for knee replacement. Topical treatments such as diclofenac or lidocaine may be considered for symptomatic relief. I have informed patient I do not offer opioid prescribing at this time. All questions and concerns have been answered and patient agreed with the treatment plan. Follow-up after injections and sooner as needed. Patient was informed and verbally consented to the use of an ambient scribe for clinic note documentation during this visit. Coding Level of Care Code New Pt Level 4 (01796) Diagnoses Bilateral knee pain M25.561; M25.562 Osteoarthritis of left knee M17.12 Osteoarthritis of right knee M17.11 Chronic pain syndrome G89.4 Morbid obesity with BMI of 50.0-59.9, adult E66.01; Z68.43
[2025-02-12 11:41] VITALS: BP 146/75; PULSE 63; O2SAT 98; BMI 51.6
--- OUTSIDE RECORDS SUMMARY | 2025-02-12 13:03 | XMS_ITS | Clinical Summary ---
Author Organization [facility] Address [address] [place] [address] Phone Care Team Providers Care Movement Education Specialist Name Role Phone Al Garcia MD Primary Care Provider [phone] Allergies Active Allergy Reactions Criticality Noted Date Comments Codeine Rash Low 05/05/2020 Penicillins Rash Low 05/05/2020 Medications Entresto 49-51 mg per tablet TAKE 1 TABLET BY MOUTH TWICE A DAY 180 tablet 3 06/28/20 24 Active empagliflozin (Jardiance) 10 mg tablet Take 1 tablet (10 mg total) by mouth 1 (one) time each day in the morning. Active metoprolol succinate (TOPROL-XL) 50 mg 24 hr tablet Take 1 tablet (50 mg total) by mouth 1 (one) time each day. Do not crush or chew. Active levothyroxine (SYNTHROID, LEVOTHROID) 100 mcg tablet Take 1 tablet (100 mcg total) by mouth 1 (one) time each day before breakfast. Active sertraline (ZOLOFT) 50 mg tablet Take 1 tablet (50 mg total) by mouth 1 (one) time each day. Active omeprazole (PriLOSEC) [address] capsule Take 1 capsule (40 mg total) by mouth 1 (one) time each day. 09/03/19 22 Active amiodarone (PACERONE) 200 mg tabletIndicatio ns:Atrial fibrillation with RVR (CMS/HCC V24, CMS/HCC V28) Take 1 tablet by mouth twice daily for two more weeks. Then decrease to one tablet daily. 01/29/20 25 Active apixaban (Eliquis) 5 mg tablet Take 1 tablet (5 mg total) by mouth 2 (two) times a day. Pt now on 1 tablet twice a day. 180 each 3 01/29/20 25 026 Active apixaban (Eliquis) 5 mg tablet Take 2 tablets (10 mg total) by mouth 2 (two) times a day for 5 days, THEN 1 tablet (5 mg total) 2 (two) times a day. 80 each 01/05/20 25 025 Discontinued(Re order) amiodarone (PACERONE) 200 mg tabletIndicatio ns:Atrial fibrillation with RVR (CMS/HCC V24, CMS/HCC V28) Take 1 tablet by mouth 3 times daily for 1 week, then reduce to twice daily (may be sooner at the direction of the provider after cardioversio n). 63 each 01/23/20 25 025 Discontinued Active Problems Problem Noted Date Diagnosed Date On amiodarone therapy 01/23/2025 Assessment & Plan (01/23/2025 9:28 AM EDT): The potential for amiodarone toxicity and adverse side effects were reviewed; the patient verbalizes understanding of this and wishes to continue with the current plan. LFTs and TSH completed 01/01/2025; TSH is mildly elevated and she is noted to be hypothyroid, managed by her PCP. She is aware will continue to monitor this every 6 months. She sees her vision provider annually. She has not had recent PFTs done; they have ordered these for her today and she is aware of the reasoning behind this. Orders: Pulmonary function testing: Carbon Monoxide Diffusing Capacity, Nitrogen Wash Out, Spirometry with Bronchodilator; Future History of DVT (deep vein thrombosis) 01/23/2025 Assessment & Plan (01/23/2025 9:28 AM EDT): Hypothyroidism 01/23/2025 Secondary hypercoagulable state (CMS/HCC V24) Assessment & Plan (01/23/2025 9:28 AM EDT): Nonischemic cardiomyopathy ([facility] V24, [facility] V28) 01/17/2025 Assessment & Plan (01/23/2025 9:28 AM EDT): CHF (congestive heart failure) ([facility] V24, [facility] V28) 01/17/2025 Assessment & Plan (01/23/2025 9:28 AM EDT): Prior to the patient converting back into atrial fibrillation sometime around yesterday, she had reported feeling well without any shortness of breath or other heart failure symptoms. She does have mild lower extremity edema on the left side today likely related to her previous DVT; otherwise she appears euvolemic on exam today and does not offer any symptoms concerning for overt heart failure. Given her atrial fibrillation with RVR, we reviewed worrisome signs or symptoms for which she should seek urgent medical attention and both her and her partner agree to call the office or seek urgent medical attention as appropriate. We will continue with guideline directed medical therapies for heart failure including metoprolol, Entresto, and Jardiance; we will continue to follow her renal function closely the last labs appear to be stable on 01/04/2025. We discussed risk reduction through lifestyle modifications including healthy diet, routine exercise, and weight management. We reviewed heart failure management including low sodium diet, symptom surveillance, daily weights, and medication compliance. I've asked the patient to call if they develop worsening symptoms of heart failure such as increased shortness of breath, new or worsening cough, increased swelling in the legs or ankles, or weight gain of more than 2 pounds in one day or 4 pounds in one week. Single subsegmental pulmonar y embolism without acute cor pulmonale ([facility] V24, [facility] V28) 01/04/2025 Assessment & Plan (01/23/2025 9:28 AM EDT): Continue Eliquis 5 mg twice daily as outlined above. Deep vein thrombophlebitis o f calf, left ([facility] V24, [facility] V28) 01/04/2025 Atrial fibrillation with RVR ([facility] V24, [facility] V28) 01/02/2025 Assessment & Plan (01/23/2025 9:28 AM EDT): The patient presents today back in atrial fibrillation with RVR; she is mildly symptomatic with shortness of breath, head fogginess, and fatigue. She appears euvolemic on exam today and otherwise does not appear to require emergent medical attention; she would like to avoid the ER if possible. I discussed the patient's case with Dr. Neumann (go to provider for the day); we will start the patient on amiodarone 200 mg 3 times daily with plans for ablation/cardioversion at the end of this week or early next week. Once the cardioversion is complete, we will plan to decrease amiodarone to 200 mg twice daily with ultimate goal of 200 mg once daily as per the direction of electrophysiology. We also discussed increasing her metoprolol to 75 mg daily; she would like to do this separately from amiodarone to avoid any adverse effects. She will start amiodarone today and if by morning tomorrow, her heart rate has not improved, she will increase her daily dose of metoprolol to 75 mg with close monitoring of her blood pressure and heart rate and calling us for any questions or concerns. Dr. Neumann's medical intern is working to find an office visit within the very near future to follow-up after the cardioversion is completed for further management and consideration for repeat ablation. We discussed this at length today and the patient is in agreement with this plan. The patient remains on Eliquis 5 mg twice daily for cardioembolic prophylaxis without any missed doses since she was started in mid December; we discussed the risks and benefits of this. Her [id number] score is equal to 6 (1 for age, 1 for gender modifier, 1 for history of hypertension, 1 for history of heart failure, and 2 points for history of DVT) which represents a 9.7% annual risk of stroke. Given plans for cardioversion and ambulation in the near future and combination with her increased cardioembolic risk, she would like to continue with Eliquis as prescribed. She is aware to seek urgent medical attention for any uncontrolled bleeding, signs or symptoms of GI or other internal bleeding, or for any head injury. We also discussed that based on the timing of her cardioversion, there may need to be a ELAINE component if she is found to be inadequately anticoagulated. Orders: ECG 12 lead amiodarone (PACERONE) 200 mg tablet; Take 1 tablet by mouth 3 times daily for 1 week, then reduce to twice daily (may be sooner at the direction of the provider after cardioversion). Cardioversion external; Future Atrial fibrillation ([facility] V24, [facility] V28) 0 01/01/2025 Obstructive sleep apnea 11/09/2022 Stage 3 chronic kidney disease ([facility] V24, [facility] V28) 04/06/2022 Overview (01/23/2025): Per chart review meets GFR criteria Morbid obesity ([facility] V24, [facility] V28) 2020 Paroxysmal atrial flutter ([facility] V24, [facility] V28) 03/10/2021 Overview (01/23/2025): Last Assessment & Plan: Heart rate is controlled on BB, last office visit Eliquis was stopped and she was started on a baby aspirin since she had had no signs of A. fib since 2019 after her cardioversion. Essential hypertension 06/06/2018 Overview (01/23/2025): Last Assessment & Plan: Controlled, she monitors this at home, typically systolic is 116-120s. Continue current regimen. Assessment & Plan (01/23/2025 9:28 AM EDT): Blood pressure is favorable on current medical therapy; given potential for increased dose of metoprolol, she is aware to monitor blood pressures at home 1 to 2 hours after morning medications, calling us for any symptomatic hypotension. Continue Entresto and metoprolol without change; will continue to monitor renal function and electrolytes as above. Encounters Date Type Department Care Team Description 01/28/2025 3:00 PM EDT Anesthesia Event [facility] Cardiac Regulator Operator [address] [place] [address] Tj Irwin DO Pierce, Trudy A, MDS RN 01/28/2025 1:22 PM EDT - 01/28/2025 11:59 PM EDT Hospital Encounter [facility] [address] [place] [phone] Sarah Jacques MD Korobkov, Vitaliy, DO Pierce, Trudy A, CRNA Atrial fibrillation with RVR (CMS/HCC V24, CMS/HCC V28) Discharge Disposition: Home or Self Care 01/28/2025 Telephone [facility] Cardiology [facility] [address] [place] [phone] Alirio Fuentes MD eliquis (eliquis) 01/23/2025 Telephone [facility] Card[facility] [address] [place] [phone] Lissa Kurtz NP Procedure (Cardioversion 6.9.25) 01/22/2025 9:40 AM EDT Office Visit [facility] Card[facility] [address] [place] [phone] Lissa Kurtz NP Atrial fibrillation with RVR (CMS/HCC V24, CMS/HCC V28) (Primary Dx); On amiodarone therapy; Secondary hypercoagulable state (CMS/HCC V24); Chronic systolic congestive heart failure (CMS/HCC V24, CMS/HCC V28); Nonischemic cardiomyopathy (CMS/HCC V24, CMS/HCC V28); History of pulmonary embolus (PE); History of DVT (deep vein thrombosis); Essential hypertension; Hospital discharge follow-up 01/07/2025 Telephone [facility] Card[facility] [address] [place] [phone] Alirio Fuentes MD Medication (Furosemide) 01/04/2025 3:56 PM EDT Anesthesia Event [facility] Cardiac Regulator Operator [address] [place] [phone] Loy Molina MD 01/04/2025 3:00 PM EDT - 01/04/2025 11:59 PM EDT Hospital Encounter [facility] Reg[facility] Operator [address] [place] [address] Golden Patel MD Discharge Disposition: Home or Self Care 01/01/2025 7:43 AM EDT - 01/04/2025 5:25 PM EDT Hospital Encounter [facility] Intermediate Care Unit [address] [place] [phone] Yury Pride, Landry Coronel MD Alam, [place]ro[place], MD Atrial fibrillation with RVR ([facility] V24, [facility] V28) (Primary Dx); Congestive heart failure, unspecified HF chronicity, unspecified heart failure type ([facility] V24, [facility] V28); PE (physical exam), annual; Atrial fibrillation ([facility] V24, [facility] V28) Discharge Disposition: Home or Self Care 12/31/2024 Telephone [facility] [address] [facility] [address] [place] [address] Alirio Fuentes MD Rapid Heart Rate; Shortness of Breath from Last 3 Months Surgical History Surgery Date Site/Laterality Comments OTHER SURGICAL HISTORY PROCEDURE: HISTORY OTHER; COMMENT: Salpingoectomy secondary to ectopic KNEE ARTHROSCOPY Left PROCEDURE: SD ARTHROSCOPY AID TX SPINE&/FX KNEE W/O FIXJ OTHER SURGICAL HISTORY PROCEDURE: SD CARDIOVERSION ELECTIVE ARRHYTHMIA EXTERNAL OTHER SURGICAL HISTORY PROCEDURE: HISTORY OTHER; COMMENT: Cryoablation OTHER SURGICAL HISTORY PROCEDURE: HISTORY OTHER; COMMENT: meniscectomy OTHER SURGICAL HISTORY PROCEDURE: HISTORY OTHER; COMMENT: ectopic Medical History Medical History Date Comments UTI (urinary tract infection) 04/07/2022 DX :UTI (urinary tract infection) SIRS (systemic inflammatory response syndrome) ([facility] V24, [facility] V28) DX:SIRS (systemic inflammatory response syndrome) ([facility]) Hypothyroidism DX:Hypothyroidis m DVT prophylaxis DX:DVT prophylax is Chronic renal disease, stage III ([facility] V24, [facility] V28) DX:Chronic renal disease, s tage III ([facility]) Morbid obesity ([facility] V24, [facility] V28) DX:Morbid obesity ([facility]) Depression DX:Depression Neuropathic pain of lower ex tremity, left DX:Neuropathic pain of lower extremity, left Osteoarthritis of knees, bilateral DX:Osteoarthritis of knees, bilateral Sleep apnea DX:Sleep apnea Severe obesity ([facility] V24, [facility] V28) DX:Severe obesity (HCC) Major depression, recurrent ([facility] V24) DX:Major depression, recurre nt (HCC) Bilateral chronic knee pain DX:B ilateral chronic knee pain GERD (gastroesophageal reflux disease) DX:GERD (gastroesophageal reflux disease) CHF (congestive heart failur e) ([facility] V24, [facility] V28) Bilateral chronic knee pain Family History Medical History Relation Name Comments Other: AVR Mother Relation Name Status Comments Mother Social History Tobacco Use Types Packs/Day Years Used Date Smoking Tobacco: Never Smokeless Tobacco: Never Alcohol Use Standard Drinks/Week Comments Yes 0 (1 standard drink = 0.6 oz pur e alcohol) Interpersonal Safety Answer Date Record ed Physical Abuse 01/02/2025 Verbal Abuse 01/02/2025 Comments Unknown Sex and Gender Information Value Date Recorded Sex Assigned at Not on file Legal Sex Female 5:33 PM EST Gender Identity Not on file Sexual Orientation Not on file Obstetrics History Last Filed Vital Signs Vital Sign Reading Time Taken Comments Blood Pressure 112/75 01/28/2025 3:45 PM EDT Pulse 71 01/28/2025 4:00 PM EDT Temperature 35.9 C (96.6 F) 01/28/2025 2:48 PM EDT Respiratory Rate 21 01/28/2025 4:00 PM EDT Oxygen Saturation 99% 01/28/2025 3:45 PM EDT Inhaled Oxygen Concentration - - Weight 136 kg (299 lb) 01/28/2025 2:48 PM EDT Height 165.1 cm (5' 5 ) 01/28/2025 2:48 PM EDT Body Mass Index 49.76 01/28/2025 2:48 PM EDT Plan of Treatment Upcoming Encounters Date Type Department Care Team (Late st Contact Info) Description 02/19/2025 12:45 PM EDT Appointment [facility] Pulmonary [address] [place] [address] 04/23/2025 7:40 AM EDT Office Visit [facility] [address] [facility] [address] [place] [phone] Lissa uKrtz NP [address] [facility] [address] [place] [address] Health Maintenance Due Date Last Done Comments Breast Cancer Screening 1960 Pneumococcal Vaccine: 50+ Years (1 of 2 - PCV) 12/22/1978 Pneumococcal Vaccine: Pediatrics (0 to 5 Years) and At-Risk Patients (6 to 64 Years) (1 of 2 - PCV) 12/22/1978 Cervical Cancer Screening: Pap Smear 12/22/1980 RSV Immunization Adult Patients (1 - Risk 60-74 years 1-dose series) 2019 Zoster Vaccines (2 of 2) 07/09/2021 05/14/2021 Cholesterol Screening (Lipid Panel) 07/30/2022 Colorectal Cancer Screening: Colonoscopy 07/30/2022 Depression Screening 07/30/2022 Hepatitis C Screening 07/30/2022 Osteoporosis Screening (Bone Density Screening) 07/30/2022 Social Influencers of Health Screening 07/30/2022 COVID-19 Vaccine ( season) 2024 07/29/2021, 12/25/2020, 12/02/2020 Influenza Vaccine (Season Ended) 2025 Falls Risk Assessment 01/04/2026 01/04/2025 Hypertension/CHF/CAD Annual BMP Blood Test 01/04/2026 01/04/2025, 01/03/2025, 01/02/2025, Additional history exists DTaP,Tdap,and Td Vaccines (2 - Td or Tdap) 06/24/2026 06/24/2016 HIB Vaccines Aged Out No longer eligi [...] to complete this topic RSV Immunization Patients Under 20 months Aged Out No longer eligible based on patient's age to complete this topic Varicella Vaccines Aged Out No longer eligible based on patient's age to complete this topic Procedures Procedure Name Priority Date/Time Associated Diagnosis Comments ECG OUTSIDE 01/29/2025 PROCEDURAL ECG Routine 01/28/2025 3:29 PM EDT CARDIOVERSION EXTERNAL Routine 3:12 PM EDT Atrial fibrillation with RVR (CMS/HCC V24, CMS/HCC V28) ECG 12-LEAD Routine 01/23/2025 9:08 AM EDT Atrial fibrillation with RVR (CMS/HCC V24, CMS/HCC V28) ELAINE COMPLETE Routine 01/04/2025 4:37 PM EDT Atrial fibrillation with RVR (CMS/HCC V24, CMS/HCC V28) CARDIOVERSION EXTERNAL Routine 4:12 PM EDT CBC WITH AUTO DIFFERENTIAL Routine 01/04/2025 6:12 AM EDT MAGNESIUM Timed 01/04/2025 6:12 AM EDT CBC AND DIFFERENTIAL Routine 01/04/2025 6:12 AM EDT BASIC METABOLIC PANEL Routine 01/04/2025 6:12 AM EDT ECG 12-LEAD STAT 01/03/2025 9:57 AM EDT CBC WITH AUTO DIFFERENTIAL Routine 01/03/2025 6:29 AM EDT MAGNESIUM Timed 01/03/2025 6:29 AM EDT CBC AND DIFFERENTIAL Routine 01/03/2025 6:29 AM EDT BASIC METABOLIC PANEL Routine 01/03/2025 6:29 AM EDT TRANSTHORACIC ECHOCARDIOGRAM (TTE) COMPLETE W/ CONTRAST Routine 01/02/2025 10:47 AM EDT Atrial fibrillation with RVR (CMS/HCC V24, CMS/HCC V28) HEPARIN ANTI XA Timed 01/02/2025 9:[address] NECK SOFT TISSUE W CONTRAST STAT 01/02/2025 8:46 AM EDT MAGNESIUM STAT Add-on 01/02/2025 6:16 AM EDT CBC WITH AUTO DIFFERENTIAL Routine 01/02/2025 6:16 AM EDT CBC AND DIFFERENTIAL Routine 01/02/2025 6:16 AM EDT BASIC METABOLIC PANEL Routine 01/02/2025 6:16 AM EDT HEPARIN ANTI XA Timed 01/02/2025 2:37 AM EDT HEPARIN ANTI XA STAT 01/01/2025 8:01 PM EDT ACTIVATED PARTIAL THROMBOPLASTIN TIME STAT 01/01/2025 8:01 PM EDT PROTHROMBIN TIME WITH INR STAT 01/01/2025 8:01 PM EDT VAS US DUPLEX LOWER EXT VENOUS BILAT Routine 01/01/2025 7:31 PM EDT PE (physical exam), annual CT ANGIO CHEST WO AND/OR W CONTRAST STAT 01/01/2025 6:14 PM EDT Atrial fibrillation with RVR (CMS/HCC V24, CMS/HCC V28) XR CHEST 2 VIEWS STAT 01/01/2025 10:4 6 AM EDT TROPONIN I HIGH SENSITIVITY STAT 01/01/2025 9:10 AM EDT ECG 12-LEAD STAT 01/01/2025 8:02 AM EDT TRIIODOTHYRONINE FREE Routine 01/01/2025 7:52 AM EDT FREE THYROXINE WITH REFLEX TO FREE TRIIODOTHYRONINE Routine 01/01/2025 7:52 AM EDT THYROID STIMULATING HORMONE WITH REFLEX TO FREE T4 AND FREE T3 Add-On 01/01/2025 7:52 AM EDT CBC WITH AUTO DIFFERENTIAL STAT 01/01/2025 7:52 AM EDT B-TYPE NATRIURETIC PEPTIDE STAT 01/01/2025 7:52 AM EDT MAGNESIUM STAT 01/01/2025 7:52 AM EDT LIPASE STAT 01/01/2025 7:52 AM EDT COMPREHENSIVE METABOLIC PANEL STAT 01/01/2025 7:52 AM EDT CBC AND DIFFERENTIAL STAT 01/01/2025 7:52 AM EDT TROPONIN I HIGH SENSITIVITY STAT 01/01/2025 7:52 AM EDT ECG 12-LEAD STAT 01/01/2025 7:35 AM EDT from Last 3 Months Results * ECG-Outside (01/29/2025) us Provider Onbase MD ECG ORDERABLES Final Result * ECG 12 lead - Procedural (No Charge) (01/28/2025 3:29 PM EDT) Ventricular Rate ECG 70 BPM GEMUSE Atrial Rate 70 BPM GEMUSE P-R Interval 214 ms GEMUSE QRS Duration 154 ms GEMUSE Q-T Interval 492 ms GEMUSE QTc 531 ms GEMUSE P Wave [place] 56 degrees GEMUSE R [place] -39 degrees GEMUSE T [place] 33 degrees GEMUSE ECG Interpretation Sinus rhythm with 1st degree A-V block Left axis deviation Right bundle branch block Moderate voltage criteria for LVH, may be normal variant Abnormal ECG When compared with ECG of 22-JAN-2025 10:02, Sinus rhythm has replaced Atrial fibrillation Vent. rate has decreased BY 56 BPM Nonspecific T wave abnormality has replaced inverted T waves in Lateral leads Confirmed by CRISTOPHER HENDERSON ([id number]) on 01/28/2025 9:43:08 PM GEMUSE 01/28/2025 3:29 PM EDT 01/28/2025 9:43 PM EDT Sarah Jacques MD ECG ORDERABLES Final Result GEMUSE * Cardioversion external (01/28/2025 3:12 PM EDT) Anatomical Region Laterality Modality X-Ray Angiograph y Lissa Kurtz NP [facility] P ROCEDURES Final Result * ECG 12 lead (01/23/2025 9:08 AM EDT) Only the most recent of4 resultswithin the time period is included. Ventricular Rate ECG 126 BPM GEMUSE Atrial Rate 131 BPM GEMUSE QRS Duration 136 ms GEMUSE Q-T Interval 354 ms GEMUSE QTc 512 ms GEMUSE R [place] -40 degrees GEMUSE T [place] 86 degrees GEMUSE ECG Interpretation Atrial fibrillation with rapid ventricular response Left axis deviation Right bundle branch block Voltage criteria for left ventricular hypertrophy T wave abnormality, consider lateral ischemia Abnormal ECG When compared with ECG of 03-JAN-2025 09:57, Vent. rate has increased BY 44 BPM Nonspecific T wave abnormality no longer evident in Inferior leads T wave inversion less evident in Anterolateral leads Confirmed by Chandler NEUMANN JOHN ([id number]) on 01/24/2025 3:30:57 PM GEMUSE 01/22/2025 10:0 2 AM EDT 01/24/2025 3:30 PM EDT Lissa Kurtz NP ECG ORDERABLES Edite d Result - Final MEG * ELAINE COMPLETE (01/04/2025 4:37 PM EDT) BSA 2.54 m2 CV PACS HEMO Aortic Sinus Valsalva 3.1 cm CV PACS HEMO Ascending Aorta 3.6 cm CV PACS HEMO Ascending Aorta Index 1.53 cm/m2 CV PACS HEMO Anatomical Region Laterality Modality Ultrasound Narrative 01/04/2025 6:03 PM EDT No thrombus in the LA, CANELO, or RA. Left ventricular systolic function is moderately decreased with an ejection fraction of 35-40%. LV global hypokinesis is present. Light spontaneous echo contrast visualized in the left atrial appendage. Right ventricular systolic function is mildly reduced. The ascending aorta is mildly dilated (3.6 cm). No significant valve disease. Left Ventricle Systolic function is moderately decreased with an ejection fraction of 35-40%. Global LV hypokinesis is present. Right Ventricle Systolic function is mildly reduced. Left Atrium Light spontaneous echo contrast visualized in the left atrial appendage. There is no thrombus in the cavity or appendage. There is no mass in the cavity or appendage. Right Atrium There is no thrombus in the right atrial cavity. There is no mass in the right atrial cavity. Mitral Valve The leaflets are mildly thickened. There is mild regurgitation. There is no evidence of mitral valve stenosis. Tricuspid Valve The leaflets exhibit normal excursion. There is trace regurgitation. There is no evidence of tricuspid valve stenosis. Aortic Valve The aortic valve is trileaflet. The leaflets are mildly thickened. There is trace regurgitation. There is no evidence of aortic valve stenosis. Pulmonic Valve There is trace pulmonic valve regurgitation. There is no evidence of pulmonic valve stenosis. Ascending Aorta The ascending aorta is mildly dilated (3.6 cm). Pericardium There is no pericardial effusion. Study Details Overall the study quality was adequate. The procedure, risks and alternatives were explained. Informed consent was obtained. The probe was inserted by the data center engineer. There was no probe insertion difficulty. Moderate sedation was administered by anesthesia. The patient had no complications. Estimated blood loss: no blood loss. No specimens were collected. Golden Patel MD CV ECHO PROCEDURES Final Result * Cardioversion external (01/04/2025 4:12 PM EDT) Anatomical Region Laterality Modality X-Ray Angiograph y Narrative 01/04/2025 4:54 PM EDT Cardioversion An external cardioversion was performed. Consent: Written consent obtained. Risks and benefits: risks, benefits and alternatives were discussed Consent given by: patient Patient identity confirmed: verbally with patient Sedation: Patient sedated: yes Sedatives: propofol Cardioversion basis: elective Pre-procedure rhythm: atrial fibrillation Electrodes: pads Electrodes placed: anterior-posterior Number of attempts: 1 Post-procedure rhythm: normal sinus rhythm Complications: no complications Additional initiation methods attempt 1 : DC current pulse Ciaran Bethea MD CV CARDIAC SERVICES SD OCEDURES Final Result * (ABNORMAL) CBC auto differential (01/04/2025 6:12 AM EDT) Only the most recent of4 resultswithin the time period is included. WBC 4.6(L) 4.8 - 10.8 K/mcL LAB HEMETOLOGY METHOD 01/04/2025 6:[address] [facility] RBC 3.70(L) 3.80 - 4.80 M/mcL LAB HEMETOLOGY METHOD 01/04/2025 6:[address] [facility] Hemoglobin 12.7 11.5 - 16.0 g/dL LAB HEMETOLOGY METHOD 01/04/2025 6:[address] [facility] Hematocrit 38.8 35.0 - 47.0 % LAB HEMETOLOGY METHOD 01/04/2025 6:[address] [facility] MCV 104.9(H) 79.0 - 98.0 FL LAB HEMETOLOGY METHOD 01/04/2025 6:[address] [facility] MCH 34.3(H) 27.0 - 32.0 pcg LAB HEMETOLOGY METHOD 01/04/2025 6:[address] [facility] MCHC 32.7 32.0 - 37.0 g/dL LAB HEMETOLOGY METHOD 01/04/2025 6:[address] [facility] RDW 14.3 11.0 - 15.0 % LAB HEMETOLOGY METHOD 01/04/2025 6:[address] [facility] Platelets 225 130 - 400 K/mcL LAB HEMETOLOGY METHOD 01/04/2025 6:[address] [facility] MPV 9.6 7.0 - 11.0 FL LAB HEMETOLOGY METHOD 01/04/2025 6:[address] [facility] NRBC 0.0 <1.0 % LAB HEMETOLOGY METHOD 01/04/2025 6:[address] [facility] NRBC Absolute 0.00 <0.10 K/mcL LAB HEMETOLOGY METHOD 01/04/2025 6:[address] [facility] Neutrophils Relative 53.9 % LAB HEMETOLOGY METHOD 01/04/2025 6:[address] [facility] Lymphocytes Relative 32.1 % LAB HEMETOLOGY METHOD 01/04/2025 6:[address] [facility] Monocytes Relative 10.8 % LAB HEMETOLOGY METHOD 01/04/2025 6:[address] [facility] Eosinophils Relative 2.4 % LAB HEMETOLOGY METHOD 01/04/2025 6:[address] [facility] Basophils Relative 0.6 % LAB HEMETOLOGY METHOD 01/04/2025 6:[address] [facility] Immature Granulocytes Relative 0.2 % LAB HEMETOLOGY METHOD 01/04/2025 6:39 AM EDT [facility] Neutrophils Absolute 2.50 1.50 - 7.00 K/mcL LAB HEMETOLOGY METHOD 01/04/2025 6:39 AM EDT [facility] Lymphocytes Absolute 1.49 1.00 - 5.00 K/mcL LAB HEMETOLOGY METHOD 01/04/2025 6:39 AM EDT [facility] Monocytes Absolute 0.50 0.20 - 1.00 K/[facility] LAB HEMETOLOGY METHOD 01/04/2025 6:39 AM EDT [facility] Eosinophils Absolute 0.11 0.00 - 0.50 K/mcL LAB HEMETOLOGY METHOD 01/04/2025 6:39 AM EDT [facility] Basophils Absolute 0.03 0.00 - 0.20 K/mcL LAB HEMETOLOGY METHOD 01/04/2025 6:39 AM EDT [facility] Immature Granulocytes Absolute 0.01 0.00 - 0.03 K/[facility] LAB HEMETOLOGY METHOD 01/04/2025 6:39 AM EDT [facility] Blood Venous blood specimen / Unknown Venipuncture / Unknown 01/04/2025 6:12 AM EDT 01/04/2025 6:20 AM EDT Norma CASTREJON LAB BLOOD ORDERABLES Final Result [facility] [address] [place] [address], * Magnesium (01/04/2025 6:12 AM EDT) Only the most recent of4 resultswithin the time period is included. Magnesium 2.2 1.9 - 2.6 mg/dL LAB CHEMISTRY METHOD 01/04/2025 7:07 AM EDT [facility] Blood Venous blood specimen / Unknown Venipuncture / Unknown 01/04/2025 6:12 AM EDT 01/04/2025 6:20 AM EDT Norma CASTREJON LAB BLOOD ORDERABLES Final Result [facility] [address] [place] [address], [place] [phone] * (ABNORMAL) Basic metabolic panel (01/04/2025 6:12 AM EDT) Only the most recent of3 resultswithin the time period is included. Sodium 138 133 - 145 mmol/L LAB CHEMISTRY METHOD 01/04/2025 7:[address] [facility] Potassium 4.3 3.5 - 5.5 mmol/L LAB CHEMISTRY METHOD 01/04/2025 7:[address] [facility] Chloride 102 96 - 110 mmol/L LAB CHEMISTRY METHOD 01/04/2025 7:[address] [facility] CO2 29 21 - 32 mmol/L LAB CHEMISTRY METHOD 01/04/2025 7:[address] [facility] Anion Gap 7 3 - 11 LAB CHEMISTRY METHOD 01/04/2025 7:[address] [facility] Glucose 100 70 - 100 mg/dL LAB CHEMISTRY METHOD 01/04/2025 7:[address] [facility] BUN 18 5 - 25 mg/dL LAB CHEMISTRY METHOD 01/04/2025 7:[address] [facility] Creatinine 1.52(H) 0.50 - 1.10 mg/dL LAB CHEMISTRY METHOD 01/04/2025 7:[address] [facility] eGFR 38(L) >=60 mL/min/1. 73m2 LAB CHEMISTRY METHOD 01/04/2025 7:[address] [facility] Comment:Calculation based on the Chronic Kidney Disease Epidemiology Collaboration (CKD-EPI) equation refit without adjustment for race. BUN/Creatinine Ratio 11.8 LAB CHEMISTRY METHOD 01/04/2025 7:07 AM EDT [facility] Calcium 8.9 8.5 - 10.5 mg/dL LAB CHEMISTRY METHOD 01/04/2025 7:07 AM EDT [facility] Blood Venous blood specimen / Unknown Venipuncture / Unknown 01/04/2025 6:12 AM EDT 01/04/2025 6:20 AM EDT us Norma CASTREJON LAB BLOOD ORDERABLES Final Result [facility] ([facility]) [facility] [address] [place] [address], [place] [phone] * (ABNORMAL) TRANSTHORACIC ECHOCARDIOGRAM (TTE) COMPLETE W/ CONTRAST (01/02/2025 10:47 AM EDT) Left Atrium Minor [place] 6.4 cm CV PACS Left Atrium Major [place] 7.3 cm CV PACS LA Area Sys (A2C) 26 cm2 CV PACS LA Area Sys (A4C) 28 cm2 CV PACS LA Volume (BP) 92 mL CV PACS RA Area 20.8 cm2 CV PACS RA 2D Volume 59 mL CV PACS AV Mean Gradient 6 mmHg CV PACS Ao VTI 27.4 cm CV PACS AV Peak Norman 1.7 m/s CV PACS AV Peak Gradient 11 mmHg CV PACS AV Area Continuity Equation 2.1 cm2 CV PACS AV Area Peak Velocity 1.9 cm2 CV PACS Aortic Sinus Valsalva 3.0 cm CV PACS IVC Proximal 2.1 cm CV PACS IVSD 0.8 0.6 - 0.9 cm CV PACS LVIDD 5.4(A) 3.8 - 5.2 cm CV PACS LVIDS 4.1(A) 2.2 - 3.5 cm CV PACS LVOT Diameter 2.0 cm CV PACS LVOT Mean Grad 2 mmHg CV PACS LVOT Peak VTI 18.3 cm CV PACS LVOT Mean Norman 0.7 m/s CV PACS LVOT Peak Norman 1.0 m/s CV PACS LVOT Peak Gradient 4 mmHg CV PACS LVPWD 0.9 0.6 - 0.9 cm CV PACS LVOT Area 3.1 cm2 CV PACS LVOT Stroke Volume 57 mL CV PACS RV Diastolic Basal Dimension 3.4 2.5 - 4.1 cm CV PACS RV S' 12 cm/s CV PACS TAPSE 22 mm CV PACS TR Peak Velocity 1.86 m/s CV PACS TR Peak Gradient 14 mmHg CV PACS LVOT Stroke Index 24 mL/m2 CV PACS Relative Wall Thickness ratio 0.33 CV PACS LVOT:AV VTI Index 0.67 CV PACS FS 24 % CV PACS LV Mass 2D 167 g CV PACS LVOT flow 220 mL/s CV PACS RA 2D Volume Index 25 mL/m2 CV PACS DOREEN Index (VTI) 0.88 cm2/m2 CV PACS DOREEN Index (Pk Norman) 0.80 cm2/m2 CV PACS LVIDD Index 2.27 cm/m2 CV PACS LVIDS Index 1.72 cm/m2 CV PACS AV Velocity Ratio 0.59 CV PACS LA Volume Index (BP) 39 mL/m2 CV PACS LV Mass Index 2D 70 g/m2 CV PACS BSA 2.54 m2 CV PACS Right Ventricular Peak Systolic Pressure 22 mmHg CV PACS Est. RA Pressure 8 mmHg CV PACS Anatomical Region Laterality Modality Ultrasound Narrative 01/02/2025 11:10 AM EDT Left ventricle cavity size is normal. Left ventricular systolic function is mildly decreased with an ejection fraction of 40-50%. LV global hypokinesis is present. Left ventricle wall thickness is normal. Right ventricle cavity is normal. Right ventricular systolic function is normal. Trace aortic, mitral and tricuspid valve. Normal PA systolic pressure. The patient is in atrial fibrillation on the study. When compared to March 08, 2023 the A-fib is new. Systolic function looked somewhat better at that time probably in the low normal range. It was estimated at 45-50%.. Left Ventricle Left ventricle cavity size is normal. Wall thickness is normal. Systolic function is mildly decreased with an ejection fraction of 40-50%. Global LV hypokinesis is present. Unable to assess diastolic function due to afib. Right Ventricle Right ventricle cavity appears normal. Systolic function is normal. Left Atrium Left atrium cavity is mildly dilated. Right Atrium Right atrium cavity is normal. IVC/SVC RA pressures is estimated to be 8 mmHg (IVC diameter >21 mm and decreases >50% during inspiration). Mitral Valve The leaflets are mildly thickened. There is annular calcification. There is mild regurgitation. There is no evidence of mitral valve stenosis. Tricuspid Valve Tricuspid valve structure is normal. There is trace regurgitation. There is no evidence of tricuspid valve stenosis. The right ventricular systolic pressure is normal. Aortic Valve The aortic valve is trileaflet. There is trace regurgitation. There is no evidence of aortic valve stenosis. Pulmonic Valve The pulmonic valve was not well visualized. Normal function by Doppler interrogation. There is no regurgitation or stenosis. Ascending Aorta Normal aortic sinus. Ascending and transverse aorta not well visualized. Pericardium Pericardium appears normal. There is no pericardial effusion. Study Details Overall the study quality was suboptimal. Definity contrast was given to enhance imaging. Sukhjinder CASTREJON CV ECHO PROCEDURES Final Result * (ABNORMAL) Heparin and low molecular weight anti Xa level (01/02/2025 9:11 AM EDT) Only the most recent of3 resultswithin the time period is included. Heparin Anti-Xa 0.82(H) 0.30 - 0.70 I Unit/mL LAB COAGULATION METHOD 01/02/2025 9:31 AM EDT [facility] Blood Venous blood specimen / Unknown Venipuncture / Unknown 01/02/2025 9:11 AM EDT 01/02/2025 9:17 AM EDT Narrative [facility] - 01/02/2025 9:31 AM EDT Therapeutic range listed is for Unfractionated Heparin. LMW Heparin therapeutic range: 0.50-1.20 IU/mL us Landry Bentley MD LAB BLOOD ORDERABLES F inal Result [facility] [address] [place] [address], [place] [phone] * CT Neck Soft Tissue w Contrast (01/02/2025 8:46 AM EDT) Anatomical Region Laterality Modality Head and Neck Computed Tomogra phy 01/02/2025 8:56 AM EDT Impressions 01/02/2025 9:02 AM EDT Impression: No neck mass identified. The finding on the previous exam was most likely related to the elevated position of the patient's arms. Telerad PA ([id number]) -------- FINAL REPORT -------- Dictated By: Tereza Pérez Dictated Date: 01/02/2025 08:56 ET Assigned Physician: Tereza Pérez Reviewed and Electronically Signed By: Tereza Pérez Signed Date: 01/02/2025 09:02 ET Workstation ID: [id number] Transcribed By: Self Edit Transcribed Date: 01/02/2025 08:56 ET Narrative 01/02/2025 9:02 AM EDT History: Possible right neck mass noted on recent thoracic CT Comparison: Thoracic CTA 01/01/25 Technique: Helical volumetric imaging of the neck was performed during the uneventful intravenous administration of 90 cc Isovue-370. DLP: 421.03 mGy/cm LyricFinder Iterative reconstruction technique Findings: The apparent enlargement of the right sternocleidomastoid muscle noted on the highest images on the thoracic CTA has resolved and was most likely related to the elevated position of the arms for the chest CT. No neck mass is identified. No mucosal space mass is seen. The epiglottis and aryepiglottic folds are normal. The vallecula and pyriform sinuses are patent. The vocal folds are symmetric and normal in appearance. The parapharyngeal fat is preserved. Parotid and submandibular glands are unremarkable. No cervical lymphadenopathy is seen. The major vascular structures are patent. Mild atherosclerotic calcification is seen at the level of the carotid bulbs. The thyroid gland is normal in size and without focal nodule. The orbital and included intracranial contents appear normal. Cervical spondylosis and degenerative disc disease is noted. Procedure Note Tereza Pérez MD - 01/02/2025 History: Possible right neck mass noted on recent thoracic CT Comparison: Thoracic CTA 01/01/25 Technique: Helical volumetric imaging of the neck was performed during theuneventful intravenous administration of 90 cc Isovue-370. DLP: 421.03 mGy/cm LyricFinder Iterative reconstruction technique Findings: The apparent enlargement of the right sternocleidomastoid muscle noted onthe highest images on the thoracic CTA has resolved and was most likelyrelated to the elevated position of the arms for the chest CT. No neckmass is identified. No mucosal space mass is seen. The epiglottis and aryepiglottic folds arenormal. The vallecula and pyriform sinuses are patent. The vocal folds aresymmetric and normal in appearance. The parapharyngeal fat is preserved. Parotid and submandibular glands are unremarkable. No cervicallymphadenopathy is seen. The major vascular structures are patent. Mild atheroscleroticcalcification is seen at the level of the carotid bulbs. The thyroid gland is normal in size and without focal nodule. The orbital and included intracranial contents appear normal. Cervical spondylosis and degenerative disc disease is noted. IMPRESSION: Impression: No neck mass identified. The finding on the previous exam was most likelyrelated to the elevated position of the patient's arms. Telealondra CASTREJON ([id number]) -------- FINAL REPORT -------- Dictated By: Tereza Pérez Dictated Date: 01/02/2025 08:56 ET Assigned Physician: Tereza Pérez Reviewed and Electronically Signed By: Tereza Pérez Signed Date: 01/02/2025 09:02 ET Workstation ID: [id number] Transcribed By: Self Edit Transcribed Date: 01/02/2025 08:56 ET us Sukhjinder CASTREJON IMG CT PROCEDURES Final Result * Activated Partial Thromboplastin Time - STAT (01/01/2025 8:01 PM EDT) aPTT 30.3 24.1 - 39.3 sec LAB COAGULATION METHOD 01/01/2025 8:27 PM EDT [facility] ([facility]) [facility] Blood Venous blood specimen / Unknown Venipuncture / Unknown 01/01/2025 8:01 PM EDT 01/01/2025 8:14 PM EDT us Sukhjinder CASTREJON LAB BLOOD ORDERABLES Final Resu lt Performing Organization Address City/[facility]/ZIP Co de Phone Number [facility] [address] [place] [address], [place] [phone] * Prothrombin Time with INR - STAT (01/01/2025 8:01 PM EDT) Protime 12.1 10.6 - 13.9 sec LAB COAGULATION METHOD 01/01/2025 8:27 PM EDT [facility] INR 1.0 LAB COAGULATION METHOD 01/01/2025 8:27 PM EDT [facility] Blood Venous blood specimen / Unknown Venipuncture / Unknown 01/01/2025 8:01 PM EDT 01/01/2025 8:14 PM EDT Sukhjinder CASTREJON LAB BLOOD ORDERABLES Final Resu lt Performing Organization Address City/[facility]/ZIP Co de Phone Number [facility] [address] [place] [address], [place] [phone] * Vascular US duplex lower extremity venous bilateral (01/01/2025 7:31 PM EDT) Anatomical Region Laterality Modality Vascular, Abdomen Ultrasound 01/01/2025 7:58 PM EDT Addenda Addendum by Naye Hogue MD on 01/01/2025 8:09 PM EDT ADDENDUM: This report was discussed with CASH French on January 01, 2025 20:09:00 EDT. This document has been electronically signed by: Janneth Ferreira on 01/01/2025 20:09:44 Impressions 01/01/2025 7:58 PM EDT 1. Positive study for DVT in the left SFV and popliteal vein. 2. No acute DVT in the right lower extremity. This document has been electronically signed by: Naye Hogue MD on 01/01/2025 19:58:48 Narrative 01/01/2025 7:58 PM EDT INDICATION: DVT Hx Exam: Bilateral lower extremity venous Doppler ultrasound. Comparison: none Clinical History: Edema, pain Findings: Bilateral lower extremity venous Doppler color and spectral examination was performed. Selected images from the ultrasound are provided for interpretation. Right lower extremity: Normal flow, augmentation and compression. No DVT is identified in the CFV, SFV, popliteal vein and gastrocnemius vein. The peroneal veins and posterior tibial veins are not identified. Visualized portions of the greater saphenous vein is patent without thrombosis. Left lower extremity: Positive study for DVT in the left SFV and popliteal vein. SFV isincompletely compressible with diminished flow consistent with nonocclusive thrombus.Popliteal vein does not demonstrate flow consistent with occlusive DVT. No DVT in the CFV, PFVand gastrocnemius vein. The peroneal veins and posterior tibial veins were not visualized. Visualized portions of the greater saphenous vein is patent without thrombosis. Procedure Note Naye Hogue MD - 01/01/2025 INDICATION: DVT Hx Exam: Bilateral lower extremity venous Doppler ultrasound. Comparison: none Clinical History: Edema, pain Findings: Bilateral lower extremity venous Doppler color and spectral examination was performed. Selected images from the ultrasound are provided for interpretation. Right lower extremity: Normal flow, augmentation and compression. No DVT is identified in the CFV, SFV, popliteal vein and gastrocnemius vein. The peroneal veins and posterior tibial veins are not identified. Visualized portions of the greater saphenous vein is patent without thrombosis. Left lower extremity: Positive study for DVT in the left SFV and popliteal vein. SFV isincompletely compressible with diminished flow consistent with nonocclusive thrombus.Popliteal vein does not demonstrate flowconsistent with occlusive DVT. No DVT in the CFV, PFVand gastrocnemius vein. The peroneal veins and posterior tibial veins were not visualized. Visualized portions of the greater saphenous vein is patent without thrombosis. IMPRESSION: 1. Positive study for DVT in the left SFV and popliteal vein. 2. No acute DVT in the right lower extremity. This document has been electronically signed by: Naye Hogue MD on 01/01/2025 19:58:48 Sukhjinder CASTREJON CV VASCULAR PROCEDURES Edited R esult - Final * CT Angio Chest wo and/or w Contrast (01/01/2025 6:14 PM EDT) Anatomical Region Laterality Modality Body Computed Tomogra phy 01/01/2025 6:41 PM EDT Addenda Addendum by Emperatriz Garcia MD on 01/01/2025 6:47 PM EDT ADDENDUM: This report was discussed with CHANCE PALENCIA MD on January 01, 2025 18:47:00 EDT. This document has been electronically signed by: Kira Patrick on 01/01/2025 18:47:52 Impressions 01/01/2025 6:41 PM EDT 1. Tiny focus of pulmonary artery embolism within the right lower lobe. 2. Small bilateral pleural effusions. Mild ground-glass opacities within the bilateral lower lobes likely secondary to edema. 3. There is soft tissue fullness of visualized portions of the right sternocleidomastoid muscle (series 2 image 1 ). Recommend further evaluation with neck CT when clinically appropriate. This document has been electronically signed by: Emperatriz Garcia MD on 01/01/2025 18:41:42 Narrative 01/01/2025 6:41 PM EDT INDICATION: PE suspected, high prob CT angiography chest with contrast. 3D Postprocessing. Comparison: None Findings: Mildly enlarged heart. Mild coronary artery calcification. No evidence of right heart strain. Unremarkable thoracic aorta and great vessels. No aneurysm. Tiny focus of pulmonary artery embolism involving a posterior pulmonary artery branch within the right lower lobe. The visualized thyroid and mediastinum are unremarkable. There is soft tissue fullness of visualized portions of the right sternocleidomastoid muscle (series 2 image 1 ). There are small bilateral pleural effusions. There is mild ground-glass opacity within the central aspects of the bilateral lower lobes, [id number]. No consolidative process. There is a 6 mm nodule within the right upper lobe on image 243. There is a 3 mm pleural-based nodule within the right lower lobe associated with the major fissure on image 212. There is a bandlike focus of atelectasis within the lingula. There is pancreatic volume loss. The remainder of the upper abdomen is unremarkable. No acute fractures. Procedure Note Emperatriz Garcia MD - 01/01/2025 INDICATION: PE suspected, high prob CT angiography chest with contrast. 3D Postprocessing. Comparison: None Findings: Mildly enlarged heart. Mild coronary artery calcification. No evidenceof right heart strain. Unremarkable thoracic aorta and great vessels. No aneurysm. Tiny focus of pulmonary artery embolism involving a posterior pulmonary artery branch within the right lower lobe. The visualized thyroid and mediastinum are unremarkable. There is soft tissue fullness of visualized portions of the right sternocleidomastoid muscle (series 2 image 1 ). There are small bilateral pleural effusions. There is mild ground-glass opacity within the central aspects of the bilateral lower lobes, [id number]-left. No consolidative process. There is a 6 mmnodule within the right upper lobe on image 243. There is a 3 mm pleural-based nodule within the right lower lobe associated with the major fissure on image 212. There is a bandlike focus of atelectasis within the lingula. There is pancreatic volume loss. The remainder of the upper abdomen is unremarkable. No acute fractures. IMPRESSION: 1. Tiny focus of pulmonary artery embolism within the right lower lobe. 2. Small bilateral pleural effusions. Mild ground-glass opacities within the bilateral lower lobes likely secondary to edema. 3. There is soft tissue fullness of visualized portions of the right sternocleidomastoid muscle (series 2 image 1 ). Recommend further evaluation with neck CT when clinically appropriate. This document has been electronically signed by: Emperatriz Garcia MD on 01/01/2025 18:41:[address] PROCEDURES Edited Result - Final * XR Chest 2 Views (01/01/2025 10:46 AM EDT) Anatomical Region Laterality Modality Body Radiographic Claritza ging 01/01/2025 10:5 7 AM EDT Impressions 01/01/2025 10:58 AM EDT Impression: Congestive heart failure. Nicola CASTREJON ([id number]) -------- FINAL REPORT -------- Dictated By: Tereza Pérez Dictated Date: 01/01/2025 10:57 ET Assigned Physician: Tereza Pérez Reviewed and Electronically Signed By: Tereza Pérez Signed Date: 01/01/2025 10:58 ET Workstation ID: [id number] Transcribed By: Self Edit Transcribed Date: 01/01/2025 10:57 ET Narrative 01/01/2025 10:58 AM EDT History: Chest pain. Comparison: 04/03/22 Findings: Upright AP and lateral views of the chest. The cardiac silhouette remains mildly enlarged. The pulmonary vessels are engorged and indistinct. Smooth fissural thickening is noted. The costophrenic angles are blunted posteriorly, consistent with small pleural effusions. Deformity of the left humeral diaphysis is partially imaged, suggesting prior traumatic injury. Procedure Note Tereza Pérez MD - 01/01/2025 History: Chest pain. Comparison: 04/03/22 Findings: Upright AP and lateral views of the chest. The cardiac silhouette remains mildly enlarged. The pulmonary vessels areengorged and indistinct. Smooth fissural thickening is noted. Thecostophrenic angles are blunted posteriorly, consistent with small pleuraleffusions. Deformity of the left humeral diaphysis is partially imaged, suggestingprior traumatic injury. IMPRESSION: Impression: Congestive heart failure. Telealondra CASTREJON ([id number]) -------- FINAL REPORT -------- Dictated By: Tereza Pérez Dictated Date: 01/01/2025 10:57 ET Assigned Physician: Tereza Pérez Reviewed and Electronically Signed By: Tereza Pérez Signed Date: 01/01/2025 10:58 ET Workstation ID: [id number] Transcribed By: Self Edit Transcribed Date: 01/01/2025 10:57 ET us Yury Pride DO IMG XR PROCEDURES Final Res ult * Troponin I high sensitivity (01/01/2025 9:10 AM EDT) Only the most recent of2 resultswithin the time period is included. High Sensitivity Troponin I 17 <=54 ng/L LAB CHEMISTRY METHOD 01/01/2025 9:44 AM EDT [facility] Blood Venous blood specimen / Unknown Venipuncture / Unknown 01/01/2025 9:10 AM EDT 01/01/2025 9:15 AM EDT Narrative [facility] - 01/01/2025 9:44 AM EDT High levels of biotin in samples may falsely decrease hsTroponin values. Use caution when interpreting hsTroponin results in patients taking biotin who exhibit renal impairment (eGFR <60) or in patients taking more than 20 mg/day of biotin. Yury Pride DO LAB BLOOD ORDERABLES Final Result Performing Organization Address [facility]/ZIP Co de Phone Number [facility] [address] [place] [address], [place] [phone] * (ABNORMAL) Thyroid stimulating hormone with reflex to free t4 and free t3 (01/01/2025 7:52 AM EDT) TSH 5.16(H) 0.40 - 4.00 mcIU/mL LAB CHEMISTRY METHOD 01/01/2025 5:35 PM EDT [facility] Blood Venous blood specimen / Unknown Venipuncture / Unknown 01/01/2025 7:52 AM EDT 01/01/2025 8:35 AM EDT Sukhjinder CASTREJON LAB BLOOD ORDERABLES Final Resu lt Performing Organization Address City/[facility]/ZIP Co de Phone Number [facility] [address] [place] [address], [place] [phone] * Free thyroxine with reflex to free triiodothyronine (01/01/2025 7:52 AM EDT) Free T4 1.42 0.70 - 1.80 ng/dL LAB CHEMISTRY METHOD 01/01/2025 6:40 PM EDT [facility] Blood Venous blood specimen / Unknown Venipuncture / Unknown 01/01/2025 7:52 AM EDT 01/01/2025 8:35 AM EDT Sukhjinder CASTREJON LAB BLOOD ORDERABLES Final Resu lt Performing Organization Address [facility]/ZIP Co de Phone Number [facility] [address] [place] [address], [place] [phone] * Triiodothyronine free (01/01/2025 7:52 AM EDT) T3, Free 277 230 - 420 pcg/dL LAB CHEMISTRY METHOD 01/01/2025 7:22 PM EDT [facility] Blood Venous blood specimen / Unknown Venipuncture / Unknown 01/01/2025 7:52 AM EDT 01/01/2025 8:35 AM EDT Sukhjinder CASTREJON LAB BLOOD ORDERABLES Final Resu lt Performing Organization Address [facility] Co de Phone Number [facility] [address] [place] [address], [place] [phone] * (ABNORMAL) B-type natriuretic peptide (01/01/2025 7:52 AM EDT) Pathologist [facility] BNP 651(H) <=100 pcg/mL LAB CHEMISTRY METHOD 01/01/2025 9:06 AM EDT [facility] Blood Venous blood specimen / Unknown Venipuncture / Unknown 01/01/2025 7:52 AM EDT 01/01/2025 8:35 AM EDT Yury Pride DO LAB BLOOD ORDERABLES Final Result Performing Organization Address [facility]/ZIP Co de Phone Number [facility] [address] [place] [address], [place] [phone] * Lipase (01/01/2025 7:52 AM EDT) Lipase 18 13 - 75 unit/L LAB CHEMISTRY METHOD 01/01/2025 9:[address] [facility] Blood Venous blood specimen / Unknown Venipuncture / Unknown 01/01/2025 7:52 AM EDT 01/01/2025 8:35 AM EDT us Yury Pride DO LAB BLOOD ORDERABLES Final Result [facility] [address] [place] [address], * (ABNORMAL) Comprehensive metabolic panel (01/01/2025 7:52 AM EDT) [facility] Sodium 140 133 - 145 mmol/L LAB CHEMISTRY METHOD 01/01/2025 9:[address] [facility] Potassium 3.8 3.5 - 5.5 mmol/L LAB CHEMISTRY METHOD 01/01/2025 9:[address] [facility] Chloride 106 96 - 110 mmol/L LAB CHEMISTRY METHOD 01/01/2025 9:[address] [facility] CO2 27 21 - 32 mmol/L LAB CHEMISTRY METHOD 01/01/2025 9:[address] [facility] Anion Gap 7 3 - 11 LAB CHEMISTRY METHOD 01/01/2025 9:[address] [facility] Glucose 122(H) 70 - 100 mg/dL LAB CHEMISTRY METHOD 01/01/2025 9:[address] [facility] BUN 19 5 - 25 mg/dL LAB CHEMISTRY METHOD 01/01/2025 9:[address] [facility] Creatinine 1.35(H) 0.50 - 1.10 mg/dL LAB CHEMISTRY METHOD 01/01/2025 9:[address] [facility] eGFR 44(L) >=60 mL/min/1. 73m2 LAB CHEMISTRY METHOD 01/01/2025 9:[address] [facility] Comment:Calculation based on the Chronic Kidney Disease Epidemiology Collaboration (CKD-EPI) equation refit without adjustment for race. BUN/Creatinine Ratio 14.1 LAB CHEMISTRY METHOD 01/01/2025 9:[address] [facility] Calcium 9.2 8.5 - 10.5 mg/dL LAB CHEMISTRY METHOD 01/01/2025 9:[address] [facility] AST (SGOT) 11 10 - 42 unit/L LAB CHEMISTRY METHOD 01/01/2025 9:[address] [facility] ALT (SGPT) 16 10 - 60 unit/L LAB CHEMISTRY METHOD 01/01/2025 9:[address] [facility] Alkaline Phosphatase 95 42 - 121 unit/L LAB CHEMISTRY METHOD 01/01/2025 9:[address] [facility] Total Protein 7.0 6.0 - 8.0 g/dL LAB CHEMISTRY METHOD 01/01/2025 9:[address] [facility] Albumin 3.6 3.2 - 5.0 g/dL LAB CHEMISTRY METHOD 01/01/2025 9:[address] [facility] Total Bilirubin 1.2 0.0 - 1.4 mg/dL LAB CHEMISTRY METHOD 01/01/2025 9:[address] [facility] Blood Venous blood specimen / Unknown Venipuncture / Unknown 01/01/2025 7:52 AM EDT 01/01/2025 8:35 AM EDT us Yury Pride DO LAB BLOOD ORDERABLES Final Result [facility]) [facility] [address] [place] [address], from Last 3 Months Insurance [employer] Advance Directives * Full Code - Confirmed (Latest Code Status on File) Date Activated Date Inactivated Comments 01/01/2025 5:08 PM 01/04/2025 7:[address] atus was ascertained in the following way: Code status discussion: discussion with patient To update the patient's code status, place a code status order. Do not modify or discontinue any currently active code status orders. * Full Code - Default Date Activated Date Inactivated Comments 01/01/2025 1:20 PM 01/01/2025 5:08 PM This is orde r is used when code status has not been discussed with the patient, or code status is otherwise unknown/unconfirmed To update the patient's code status, place a code status order. Do not modify or discontinue any currently active code status orders. Care Teams Movement Education Specialist Relationship Specialty Start Date End Date Al Garcia MD [address] [place] [address] [address] [place] [address] PCP - General 09/12/12
== END 2025-02-12 12:01 | disposition home or self-care (01) ==
LOC: HO.PMC 11:25
PROVIDERS: PCP Internal Medicine; Visit Provider Nurse Practitioner Family
DX: M25.561 Pain in right knee (principal); M25.562 Pain in left knee; M17.0 Bilateral primary osteoarthritis of knee; G89.4 Chronic pain syndrome; E66.01 Morbid (severe) obesity due to excess calories; Z68.43 Body mass index [BMI] 50.0-59.9, adult
CPT/HCPCS: 99204

== ENCOUNTER 2025-04-16 06:09 | Outpatient (REF) | payer OTHER, SELFPAY ==
--- OUTSIDE RECORDS SUMMARY | 2023-12-29 07:00 | XMS_ITS ---
Author Organization [facility] [address] Address [address] [place] [address] Care Team Providers Care Potato Peeler Name Role Phone Homa [place] Unavailable [phone] Emily Mitchell Unavailable [phone] Encounters Encounter Location Date Provider Diagnosis [facility] [address] [address] 12/29/2023 Emily Mitchell Plan Of Treatment No Information Progress Notes * PELON GIVENS EDOB: 0 (64 yo F)Acc No.[id number]:12/29/2023 Patient: PELON SHELTON Provider: Papa Mitchell PA-C :1960 A ge:63 Y S ex:Female Date:12/29/2023 Address:[address] [place], [place] [id number] Subjective: * Chief Complaints: * * Medical History: Objective: * Vitals: Assessment: Plan: * Treatment: * Images: Billing Information: * Visit Code: * Procedure Codes: * Electronic signature of Emily Mitchell PA-C on 04/16/2025 at 06:14 AM EDT Sign off status: Pending * Provider: Papa Mitchell PA-C Date: 12/29/2023 Generated for Sree bautista/Guanako/Rosalia on: 0 04/16/2025 06:14 AM EDT
--- OUTSIDE RECORDS SUMMARY | 2025-04-09 07:30 | XMS_ITS ---
Author Organization [facility] [address] Address [address] [place] [address] Care Team Providers Care Batch Trucker Name Role Phone Homa Montana Unavailable [phone] Encounters Encounter Location Date Provider Diagnosis [facility] [address] [address] 04/09/2025 Homa Montana Plan Of Treatment No Information Progress Notes * PELON GIVENS EDOB: 0 (64 yo F)Acc No.[id number]:04/09/2025 Progress Notes Patient: AZAR SHELTONJIMI Elam Provider: Smooth Montana PA-C :1960 A ge:64 Y S ex:Female Date:04/09/2025 Address:[address] [place], [place] [id number] Subjective: * Chief Complaints: * * Medical History: Objective: * Vitals: Assessment: Plan: * Treatment: * Images: Billing Information: * Visit Code: * Procedure Codes: * Electronic signature of Shahla Montana on 04/16/2025 at 06:14 AM EDT Sign off status: Pending * Provider: Smooth Montana PA-C Date: 04/09/2025 Generated for Sree bautista/Guanako/Rosalia on: 04/16/2025 06:14 AM EDT
--- OUTSIDE RECORDS SUMMARY | 2025-04-10 23:59 | XMS_ITS | Continuity of Care Document ---
Author Organization [facility] Address [address] [place] [address] Care Team Providers Care Larriman Name Role Phone Jose ANDINO, Al Primary Care Physician [phone] Encounter [facility] Date(s): 03/11/25 - 04/10/[address] [address] Encounter Type: Triage Allergies, Adverse [...] 06/24/16 Given tetanus/diphtheria/pertussis, acel(Tdap) 06/24/16 Recorded Medications amiODARONE 0 Refills, Maintenance, 02/25/25 5:07:00 PM EDT, Partial fill upon patient request if the prescription is for a schedule II opioid drug. Start Date: 02/25/25 Status: Ordered Repeat number: 1 Eliquis 5 mg oral tablet 0 Refills, Maintenance, 01/18/25 2:21:00 PM EDT, Partial fill upon patient request if the prescription is for a schedule II opioid drug. Start Date: 01/18/25 Status: Ordered Repeat number: 1 Entresto 49 mg-51 mg oral tablet 0 Refills, Maintenance, 05/27/23 11:01:00 AM EDT, Partial fill upon patient request if the prescription is for a schedule II opioid drug. Start Date: 05/27/23 Status: Ordered Repeat number: 1 Jardiance 10 mg oral tablet 0 Refills, Maintenance, 05/27/23 11:01:00 AM EDT, Partial fill upon patient request if the prescription is for a schedule II opioid drug. Start Date: 05/27/23 Status: Ordered Repeat number: 1 levothyroxine 0.1 mg oral tablet 1 tablet, By Mouth, Daily, # 90 tablet, 0 Refills, Maintenance, 01/18/25 4:45:00 PM EDT, [id number], 163, cm, 01/18/25 14:12:00 EDT, Height Start Date: 01/18/25 Stop Date: 04/18/25 Status: Ordered Quantity: 90.0 Unit: tablet Repeat [...] 1 Refills, Maintenance, 07/17/24 1:52:00 PM EST, [facility] [address], 163, cm, 04/27/24 14:14:00 EDT, Height Start Date: 07/17/24 Status: Ordered Quantity: 90.0 Unit: capsule Repeat number: 1 Zoloft 50 mg oral tablet 1 tablet = 50 mg, By Mouth, Daily, # 90 tablet, 1 Refills, Maintenance, 01/18/25 4:45:00 PM EDT, Tablet, [id number], Partial fill upon patient request if the prescription is for a schedule II opioid drug., 163, cm, 01/18/25 14:12:00 EDT, Height Start Date: 01/18/25 Stop Date: 07/17/25 Status: Ordered Quantity: 90.0 Unit: tablet Repeat number: 2 Problem List Condition Confirmation Course Effective Dates Status H ealth Status Informant Atrial fibrillation Confirmed Active Non-ischemic cardiomyopathy Confirmed Active Chronic kidney disease, stage 3b 1 Confirmed Active History of pulmonary embolism Confirmed Active HTN (hypertension) Confirmed Active Hypothyroidism [...] Personnel Name: Nimo MORENO, Marya Mayberry Position: [facility] Associate Professional Member Role: Primary Care Nurse Name: Jose ANDINO, Al Position: [facility] Physician - Primary Care Member Role: PCP Address: [address] [place] [address] Telecom: Care Team Related Persons Name: GIL STEWART Name: JESS GIVENS Name: JESS GIVENS Insurance Providers Guarantor name: PELON GIVENS Health Plan Information #: 1 Payer: [employer] Payer Identifier: NA Member Number: [id number] Group Number: [id number] Subscriber Identifier: [id number] Relationship to Subscriber: self Coverage Type: Managed Care (Private) Coverage Verification Date: Telecom: NA Address:
--- OUTSIDE RECORDS SUMMARY | 2025-04-15 10:15 | XMS_ITS ---
Author Organization [facility] Address [address] [place] [address] Care Team Providers Care Insurance Broker Name Role Phone Homa Montana Unavailable [phone] Medications Medication SIG (Take, Route, Frequency, Duration) Notes Start Date End Date Status Levothyroxine Sodium 75 MCG 1 tablet on an empty stomach in the morning Orally Once a day; Duration: 30 day(s) Active Meloxicam 7.5 MG 1 tablet Orally Once a day; Duration: 30 Active Indomethacin 25 MG 1 capsule with food or milk Orally Three times a day; Duration: 30 day(s) Active Phentermine HCl 37.5 MG 1 capsule Orally Once a day; Duration: 30 days Active Cyclobenzaprine HCl 5 MG 1 tablet as nee ded Orally Three times a day; Duration: 14 days 03/01/2018 Active Lisinopril-hydroCHLOROthiazi d e 20-12.5 MG 1 tablet Orally Once a day; Duration: 30 day(s) Active Encounters Encounter Location Date Provider Diagnosis [facility] [address] [place] [phone] 04/15/2025 Homa Montana Plan Of Treatment No Information Progress Notes * KAVYA GIVENS EDOB: 0 (64 yo F)Acc No.[id number]:04/15/2025 Progress Notes Patient: AZAR SHELTONJIMI Elam Provider: Smooth Motnana PA-C :1960 A ge:64 Y S ex:Female Date:04/15/2025 Address:[address] [place] [address] Subjective: * Chief Complaints: * * HPI: C onstitutional: Kavya is a 64-year-old female with past medical history of who presents today to establish care as a new patient. New patient paperwork reviewed. Medical, surgical, social, and family history reviewed. Previously seen at (). Last CPE/Labs: Specialists-- Dentist: Ophthalmology: ENVIRONMENTAL PROTECTION SPECIALIST: Other concerns addressed today: Immunizations-- Influenza: COVID: PNA: Shingles: Tetanus: RSV: Screening-- Mammogram: Colonoscopy: Bone Density: PAP:. * ROS: R OS: Constitutional: Patient denies any excessive fatigue with exercise, no weight loss, no fever, no night sweats, no changes in sleep. Eyes: No eye discharge, no itching, no redness, no vision changes. Advised the significance of regular eye exams to screen for glaucoma and other eye problems. Ear nose throat: No ear pain, No sore throat, no postnasal drip, no runny nose, no sneezing, no hearing changes Cardiovascular: No chest pain, no dyspnea on exertion, no PND, no orthopnea, no irregular pulse, no palpitations, no claudication, no diaphoresis, no claudication. Respiratory: No chronic cough, no hemoptysis, no sputum, no wheezing, no SOB, no pleuritic pain. GI: No diarrhea, no constipation, no blood in the stools, no pain associated with eating, no indigestion, no difficulty swallowing, no appetite change. Genitourinary: No painful urination, no hesitancy, no blood in the urine, no incontinence, no frequency, no urgency, no abnormal discharge. Musculoskeletal: No back pain, no joint pain, no limitations to walking and running, no joint deformity, no joint stiffness, no muscle weakness Integumentary: No new skin rash. No new changes in skin moles, no pruritis, no color change. Neurological: No history of seizures, no memory loss, no language dysfunction, no inability to concentrate, no localized weakness, no sensation loss, no confusion, no dizziness, no tremor, no numbness, no tingling. Psychiatric: no anxiety, no depression, no suicidal thoughts, feels safe at home. Endocrine: No polyuria, no polyphagia, no polydipsia. No heat/cold intolerance, no excesss thirst. Hematological: No easy bruising or bleeding, no lymph node swelling. * Medical History: * Medications: T aking Levothyroxine Sodium 75 MCG Tablet 1 tablet on an empty stomach in the morning Orally Once a day , Taking Lisinopril-hydroCHLOROthiazide 20-12.5 MG Tablet 1 tablet Orally Once a day , Taking Indomethacin 25 MG Capsule 1 capsule with food or milk Orally Three times a day , Taking Phentermine HCl 37.5 MG Tablet 1 capsule Orally Once a day , Taking Cyclobenzaprine HCl 5 MG Tablet 1 tablet as needed Orally Three times a day , Taking Meloxicam 7.5 MG Tablet 1 tablet Orally Once a day Objective: * Vitals: * Physical Examination: G eneral: Age appropriate, well appearing, no acute distress, speaking in full sentences without respiratory compromise. Well groomed, well developed. Alert, Interactive. Skin: Warm, dry and intact. No lesions/rashes/erythema. HEENT: Normocephalic/atraumatic. Neck/Thyroid: Supple, with no lymphadenopathy. Full ROM. Lung: Clear to auscultation bilaterally, no wheezes, rales or rhonchi. No barrel chest. Equal chest rise and fall bilaterally. Cardiac: RRR, S1 and S2 appreciated. No murmurs/rubs or gallops. Extremities: Bilateral lower extremities with no edema or rubor. No evidence of varicose veins. Equal tone bilaterally. Neuro: CN II-XI grossly intact. Steady gait with ambulation observed. Psych: Stable mood and affect. Assessment: Plan: * Treatment: * Procedure Codes: 9 9199 NO SHOW OFFICE VISIT * Images: Billing Information: * Visit Code: * Procedure Codes: 84446 NO SHOW OFFICE VISIT. * Electronic signature of Shahla Montana on 04/16/2025 at 06:12 AM EDT Sign off status: Pending * Provider: Smooth Montana PA-C Date: 0 04/15/2025 Generated for Sree bautista/Guanako/Rosalia on: 04/16/2025 06:12 AM EDT History and Physical Notes * HPI (History of Present Illness) Category Sub-Category Detail Notes Category Not es Constitutional Kavya is a 64-year-old female with past medical history of who presents today to establish care as a new patient. New patient paperwork reviewed. Medical, surgical, social, and family history reviewed. Previously seen at (). Last CPE/Labs: Specialists-- Dentist: Ophthalmology: ENVIRONMENTAL PROTECTION SPECIALIST: Other concerns addressed today: Immunizations-- Influenza: COVID: PNA: Shingles: Tetanus: RSV: Screening-- Mammogram: Colonoscopy: Bone Density: PAP: Physical Examination Category Sub-Category Detail Notes Section Note s General: Age appropriate, well appearing, no acute distress, speaking in full sentences without respiratory compromise. Well groomed, well developed. Alert, Interactive. Skin: Warm, dry and intact. No lesions/rashes/erythema. HEENT: Normocephalic/atraumatic. Neck/Thyroid: Supple, with no lymphadenopathy. Full ROM. Lung: Clear to auscultation bilaterally, no wheezes, rales or rhonchi. No barrel chest. Equal chest rise and fall bilaterally. Cardiac: RRR, S1 and S2 appreciated. No murmurs/rubs or gallops. Extremities: Bilateral lower extremities with no edema or rubor. No evidence of varicose veins. Equal tone bilaterally. Neuro: CN II-XI grossly intact. Steady gait with ambulation observed. Psych: Stable mood and affect
--- OUTSIDE RECORDS SUMMARY | 2025-04-16 06:12 | XMS_ITS | Clinical Summary ---
Author Organization [facility] Address [address] [place] [address] Care Team Providers Care Commercial Collections Specialist Name Role Phone Unavailable Primary Care Provider [...]
--- OUTSIDE RECORDS SUMMARY | 2025-04-16 06:14 | XMS_ITS | Patient Health Record ---
Author Organization [facility] [address] Address [address] [place] [address] Care Team Providers Care Tank House Operator Helper Name Role Phone Hoam [place] Unavailable [phone] Allergies Allergen (clinical drug ingredient) Drug/Non Drug Allergy documented on EMR Reaction Allergy Type Onset Date Status codeine Codeine Sulfate Unknown Drug Allergy A ctive penicillin G Penicillin G Sodium Unknown Drug Allergy Active Reason For Referral No Information Medications Medication SIG (Take, Route, Frequency, Duration) Notes Start Date End Date Status Levothyroxine Sodium 75 MCG 1 tablet on an empty stomach in the morning Orally Once a day; Duration: 30 day(s) Active Lisinopril-hydroCHLOROthiazi d e 20-12.5 MG 1 [...] a day; Duration: 14 days 03/01/2018 Active Social History Tobacco Use: Social History Observation Description Date Details (start date - stop date) Never Smoker NA - NA Tobacco Use/Smoking Question Answer Notes Are you a nonsmoker Problems Problem Type SNOMED Code ICD Code Onset Dates Problem Status W/U Status Risk Notes Problem Hypothyroidism (02739899) Hypothyroidism, unspecified (E03.9) Active confirmed Problem Essential hypertension (80458606) Essential (primary) hypertension (I10) Active confirmed Problem Osteoarthritis (734740084) Unspecified osteoarthritis, unspecified site (M19.90) Active confirmed Problem Sciatica (47827882) Lumbago with sciatica, left side (M54.42) Active confirmed Problem Body mass index 40+ - severely obese (627057216) Body mass index (BMI) 45.0-49.9, adult (Z68.42) Active confirmed Problem Body mass index 40+ - morbidly obese (960412888) Body mass index (BMI) 50-59.9 , adult (Z68.43) Active confirmed Encounters Encounter Location Date Provider Diagnosis [facility] [address] [facility] [address] [place] [address] 04/15/2025 H[place] Plan Of Treatment Pending Test Test Name Order Date X ray : Spines, lumbar complete 03/01/20 18 Insurance Providers Payer Name Payer Address Payer Phone Subscriber Number Group Number Insured Name Patient Relationship to Insured Coverage Start Date Coverage End Date [address] [place] [address] [phone] [id number] PELON GIVENS Self - patient is the insured Medical (General) History Medical History History ICD Code anxiety Arthritis hypertension Hypothyroidism Surgical History Surgery Date(Month/Year) left knee arthroscopy
--- OUTSIDE RECORDS SUMMARY | 2025-04-16 06:14 | XMS_ITS | Clinical Summary ---
Author Organization [facility], Address [address] [place] [address] [place] [address] Phone Care Team Providers Care Automation Technician Name Role Phone Al Garcia MD Primary Care Provider +1- [phone] Allergies Active Allergy Reactions Criticality Noted Date [...] Mass Index - - Plan of Treatment Upcoming Encounters Date Type Department Care Team (Late st Contact Info) Description 06/14/2025 3:30 PM EDT Office Visit [facility], [address] [place] [address] Ciaran Waldrop MD [address] [place] [address] Health Maintenance Due Date Last Done Comments Breast Cancer Screening 1960 Pneumococcal Vaccine: 50+ Ye ars (1 of 2 - PCV) 12/22/1978 Colorectal Cancer Screening: Annual FOBT 12/22/2008 Colorectal Cancer Screening: Colonoscopy 12/22/2008 Colorectal Cancer Screening: Sigmoidoscopy 12/22/2008 Influenza Vaccine (#1) 2025 Hepatitis B Vaccine Aged Out No longe r eligible based on patient's age to complete this topic Insurance [employer] Care Teams Automation Technician Relationship Specialty Start Date End Date Al Garcia MD [address] [place] [id number] PCP - General Internal Medicine 05/04/20
--- OUTSIDE RECORDS SUMMARY | 2025-04-16 06:14 | XMS_ITS | Encounter Summary ---
Author Organization [facility] Address [address] [place] [address] Phone Care Team Providers Care Rivet Heater Name Role Phone Al Garcia MD Primary Care Provider +1- [phone] Encounter Details Date Type Department Care Team ([facility] Contact Info) Description 11/02/2023 Documentation Only [facility] [address] [place] [place] [address] Adrienne Panchal [place] [address] [place] [address] Social History Tobacco Use Types Packs/Day Years [...] as of this encounter Plan of Treatment Upcoming Encounters Date Type Department Care Team ([facility] Contact Info) Description 06/14/2025 3:30 PM EDT Office Visit [facility] [address] [place] [address] Ciaran Waldrop MD [address] [place] [address] documented as of this encounter Visit Diagnoses Not on filedocumented in this encounter Care Teams Rivet Heater Relationship Specialty Start Date End Date Al Garcia MD [address] [place] [id number] PCP - General Internal Medicine 05/04/20 documented as of this encounter
--- OUTSIDE RECORDS SUMMARY | 2025-04-16 06:15 | XMS_ITS | Encounter Summary ---
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
--- OUTSIDE RECORDS SUMMARY | 2025-04-16 06:15 | XMS_ITS | Clinical Summary ---
Author Organization [address] [place] [address] [place] [phone] Phone Care Team Providers Care Antenna Rigger Name Role Phone Al Garcia MD Primary Care Provider [phone] Allergies Active Allergy Reactions Criticality Noted Date Comments Codeine Rash Low 05/05/2020 Penicillins Rash Low 05/05/2020 Medications Entresto 49-51 mg per tablet TAKE 1 TABLET BY MOUTH TWICE A DAY 180 tablet 3 06/28/20 24 Active levothyroxine (SYNTHROID, LEVOTHROID) 100 mcg tablet Take 1 tablet (100 mcg total) by mouth 1 (one) time each day before breakfast. Active sertraline (ZOLOFT) 50 mg tablet Take 1 tablet (50 mg total) by mouth 1 (one) time each day. Active omeprazole (PriLOSEC) [address] capsule Take 1 capsule (40 mg total) by mouth 1 (one) time each day if needed (ACID REFLUX). 09/03/19 22 Active apixaban (Eliquis) 5 mg tablet Take 1 tablet (5 mg total) by mouth 2 (two) times a day. Pt now on 1 tablet twice a day. 180 each 3 01/29/20 25 026 Active amiodarone (PACERONE) 200 mg tabletIndication s:Atrial fibrillation with RVR (CMS/HCC V24, CMS/HCC V28) Take 1 tablet (200 mg total) by mouth 1 (one) time each day. 90 tablet 2 06/27/20 25 Active furosemide (LASIX) 20 mg tabletIndication s:Chronic systolic congestive heart failure (CMS/HCC V24, CMS/HCC V28),Peripheral edema Take 1 tablet (20 mg total) by mouth 1 (one) time each day if needed (Take 1 tablet daily as needed for increased peripheral edema, weight gain, or shortness of breath). 30 each 02/16/20 25 026 Active metoprolol succinate (TOPROL-XL) 50 mg 24 hr tablet TAKE 1 TABLET BY MOUTH EVERY DAY 90 tablet 3 02/29/20 25 Active empagliflozin (Jardiance) 10 mg tablet Take 1 tablet (10 mg total) by mouth 1 (one) time each day in the morning. 90 tablet 3 04/02/20 25 Active empagliflozin (Jardiance) 10 mg tablet Take 1 tablet (10 mg total) by mouth 1 (one) time each day in the morning. 025 Discontinu ed(Reorder ) polyethylene glycol (MIRALAX) 17 gram packet Take 17 g by mouth 1 (one) time each day if needed for constipation for up to 14 days. 51 g 03/15/20 25 025 vancomycin (VANCOCIN) 2000 mg/500 mL solution IVPB Infuse 500 mL (2,000 mg total) into a venous catheter 1 (one) time each day at the same time for 4 doses. End of treatment 03/25/25 03/15/20 25 025 oxyCODONE-acetam inophen (PERCOCET) 10-325 mg per tabletIndication s:Leg pain, anterior, left Take 1 tablet by mouth every 6 (six) hours if needed for severe pain for up to 3 days. Max Daily Amount: 4 tablets 15 tablet 03/19/20 25 025 Active Problems Problem Noted Date Diagnosed Date Shortness of breath 03/20/2025 Bacteremia 03/14/2025 Left leg cellulitis 03/11/2025 On amiodarone therapy 01/23/2025 Assessment & Plan [...] AM EDT): Hypothyroidism 01/23/2025 Secondary hypercoagulable state ([facility] V24) Assessment & Plan (01/23/2025 9:28 AM EDT): Nonischemic cardiomyopathy ([facility] V24, [facility] V28) 01/17/2025 Assessment & Plan (01/23/2025 9:28 AM EDT): CHF (congestive heart failure) ([facility] V24, [facility] V28) 01/17/2025 Assessment & Plan (01/23/2025 9:28 [...] pulmonar y embolism without acute cor pulmonale ([facility] V24, [facility] V28) 01/04/2025 Assessment & Plan (01/23/2025 9:28 AM EDT): Continue Eliquis 5 mg twice daily as outlined above. Deep vein thrombophlebitis o f calf, left ([facility] V24, [facility] V28) 01/04/2025 Atrial fibrillation with RVR ([facility] V24, CMS/H CC V28) 01/02/2025 Assessment & Plan (01/23/2025 [...] any questions or concerns. Dr. Neumann's medical file clerk is working to find an office visit [...] the risks and benefits of this. Her [id number] score is equal to 6 (1 for [...] after cardioversion). Cardioversion external; Future Atrial fibrillation ([facility] V24, [facility] V28) 0 01/01/2025 Obstructive sleep apnea 11/09/2022 Stage 3 chronic kidney disease ([facility] V24, [facility] V28) 04/06/2022 Overview (01/23/2025): Per chart review meets GFR criteria Morbid obesity ([facility] V24, CMS/HCC V28) 2020 Paroxysmal atrial flutter ([facility] V24, CMS/HCC V28) 03/10/2021 Overview (01/23/2025): Last Assessment & [...] Encounters Date Type Department Care Team Description 04/01/2025 Telephone [facility] Card[facility] [address] [facility] [address] [place] [address] Alirio Fuentes MD 03/26/2025 Telephone [facility] - [facility] [address] [facility] [address] [place] [address] Alirio Fuentes MD 03/20/2025 Telephone Infectious Disease - [facility] [address] [place] [address] Radhames Manriquez LPN 03/19/2025 4:29 PM EDT - 03/19/2025 6:39 PM EDT Emergency [facility] Emergency [address] [place] [phone] Thanh Melgoza MD Leg pain, anterior, left (Primary Dx); Shortness of breath; Congestive heart failure, unspecified HF chronicity, unspecified heart failure type (CMS/HCC V24, CMS/HCC V28); Pedal edema; Chronic deep vein thrombosis (DVT) of proximal vein of lower extremity, unspecified laterality (CMS/HCC V24, CMS/HCC V28) Discharge Disposition: Home or Self Care 03/19/2025 Telephone [facility] - [address] [facility] [address] [place] [phone] Alirio Fuentes MD 03/11/2025 2:21 PM EDT - 03/15/2025 7:04 PM EDT Hospital Encounter [facility] [address] [place] [phone] Anne Liao MD Flores, Carlos M, MD Seralathan, Manikandan, MD Pain (Primary Dx); Cellulitis of left lower extremity; Petechial rash; Deep vein thrombosis (DVT) of femoral vein of left lower extremity, unspecified chronicity (CMS/HCC V24, CMS/HCC V28); Chronic renal impairment, unspecified CKD stage; Bacteremia; Left leg cellulitis Discharge Disposition: Home-Health Care [facility] 03/11/2025 Telephone [facility] [address] [place] [address] Alirio Fuentes MD 02/20/2025 Telephone [facility] Card[facility] [address] [place] [address] Lissa Kurtz, TIFFANIE 02/15/2025 Telephone [facility] [address] [place] [address] Lissa Kurtz, TIFFANIE 02/12/2025 Telephone [facility] [address] [place] [address] Alirio Fuentes MD 01/28/2025 3:00 PM EDT Anesthesia Event [facility] [address] [place] [phone] Tj Irwin DO Pierce, Trudy A, CRNA 01/28/2025 1:22 PM EDT - 01/28/2025 11:59 PM EDT Hospital Encounter [facility] [address] [place] [phone] Sarah Jacques MD Korobkov, Vitaliy, DO Pierce, Trudy A, CRNA Atrial fibrillation with RVR (CMS/HCC V24, [facility] V28) Discharge Disposition: Home or Self Care 01/28/2025 Telephone [facility] Card[facility] [address] [place] [phone] Alirio Fuentes MD 01/23/2025 Telephone [facility] Card[facility] [address] [place] [phone] Lissa Kurtz NP 01/22/2025 9:40 AM EDT Office Visit [facility] Card[facility] - [address] [place] [phone] Lissa Kurtz NP Atrial fibrillation with RVR ([facility] V24, [facility] V28) (Primary Dx); On amiodarone therapy; Secondary hypercoagulable state ([facility] V24); Chronic systolic congestive heart failure ([facility] V24, [facility] V28); Nonischemic cardiomyopathy ([facility] V24, [facility] V28); History of pulmonary embolus (PE); History of DVT (deep vein thrombosis); Essential hypertension; Hospital discharge follow-up from Last 3 Months Surgical History Surgery Date Site/Laterality Comments OTHER SURGICAL HISTORY PROCEDURE: HISTORY OTHER; COMMENT: Salpingoectomy secondary to ectopic KNEE ARTHROSCOPY Left PROCEDURE: MN ARTHROSCOPY AID TX SPINE&/FX KNEE W/O FIXJ OTHER SURGICAL HISTORY PROCEDURE: MN CARDIOVERSION ELECTIVE ARRHYTHMIA EXTERNAL OTHER SURGICAL HISTORY PROCEDURE: HISTORY OTHER; COMMENT: Cryoablation OTHER SURGICAL HISTORY PROCEDURE: HISTORY OTHER; COMMENT: meniscectomy OTHER SURGICAL HISTORY PROCEDURE: HISTORY OTHER; COMMENT: ectopic CARDIOVERSION DONE ON 01/28/2025 AT [facility] Medical History Medical History Date Comments UTI (urinary tract infection) 04/07/2022 DX :UTI (urinary tract infection) SIRS (systemic inflammatory response syndrome) ([facility] V24, [facility] V28) DX:SIRS (systemic inflammatory response syndrome) ([facility]) Hypothyroidism DX:Hypothyroidis m DVT prophylaxis DX:DVT prophylax is Chronic renal disease, stage III (CMS/HCC V24, CMS/HCC V28) DX:Chronic renal disease, s tage III (HCC) Morbid obesity ([facility] V24, [facility] V28) DX:Morbid obesity ([facility]) Depression DX:Depression Neuropathic pain of lower ex tremity, left DX:Neuropathic pain of lower extremity, left Osteoarthritis of knees, bilateral DX:Osteoarthritis of knees, bilateral Sleep apnea DX:Sleep apnea Severe obesity ([facility] V24, [facility] V28) DX:Severe obesity (HCC) Major depression, recurrent ([facility] V24) DX:Major depression, recurre nt (HCC) Bilateral chronic knee pain DX:B ilateral chronic knee pain GERD (gastroesophageal reflux disease) DX:GERD (gastroesophageal reflux disease) CHF (congestive heart failur e) ([facility] V24, [facility] V28) Bilateral chronic knee pain Left leg cellulitis Family History Medical History Relation Name Comments Other: AVR Mother Relation Name Status Comments Mother Social History Tobacco Use Types Packs/Day Years Used Date Smoking Tobacco: Never Smokeless Tobacco: Never Alcohol Use Standard Drinks/Week Comments Yes 0 (1 standard drink = 0.6 oz pur e alcohol) Housing Instability Answer Date Recorde d Are you worried that in the next 2 months you may not have stable housing? No 03/12/2025 Food Access & Nutrition Answer Date Rec orded Do you have access to a vari ety of food including fruits and vegetables? No 03/12/2025 Access to Healthcare Answer Date Record ed Within the last 3 months, ho w many times did you visit the emergency department for your medical care? 1 03/12/2025 Health Literacy Answer Date Recorded How often do you need to hav e someone help you when you read instructions, pamphlets, or other written material from your doctor or pharmacy? Never 03/12/2025 Caregiver: How often do you need to have someone help you when you read instructions, pamphlets, or other written material from your doctor or pharmacy? Not on file 03/12/2025 Financial Risk Answer Date Recorded How hard is it for you to pa y for the very basics like food, housing, medical care, and air conditioning / heating? Patient declined 03/12/2025 Transportation Answer Date Recorded Has the lack of transportati on kept you from meetings, work, or from getting things needed for daily living? No Has the lack of transportati on kept you from medical appointments or from getting medications? No 03/12/2025 Social Isolation Answer Date Recorded How often do you feel lonely or isolated from th ose around you? Never 03/12/2025 Food Risk Answer Date Recorded Within the past 12 months we worried whether our food would run out before we got money to buy more. Never true 03/12/2025 Within the past 12 months th e food we bought just didn't last and we didn't have money to get more. Never true 03/12/2025 Dependent Care Answer Date Recorded Do you need help finding or paying for care for your loved ones. For example, child support officer or elderly care for an older adult? No 03/12/2025 Education Answer Date Recorded Do you think completing more education or training, like finishing a GED, going to college, or learning a trade, would be helpful for you? N/A 03/12/2025 Employment and Income Answer Date Recor ded During the last four weeks, have you been actively looking for work? No 03/12/2025 Living Situation Answer Date Recorded What is your living situation? 0 03/12/2025 Interpersonal Safety Answer Date Record ed Physical Abuse 03/12/2025 Verbal Abuse 03/12/2025 Comments No Sex and Gender Information Value Date Recorded Sex Assigned at Not on file Legal Sex Female 5:33 PM EST Gender Identity Not on file Sexual Orientation Not on file Obstetrics History Last Filed Vital Signs Vital Sign Reading Time Taken Comments Blood Pressure 135/85 03/19/2025 6:38 PM EDT Pulse 76 03/19/2025 6:38 PM EDT Temperature 36.8 C (98.3 F) 03/19/2025 6:38 PM EDT Respiratory Rate 20 03/19/2025 6:38 PM EDT Oxygen Saturation 97% 03/19/2025 6:38 PM EDT Inhaled Oxygen Concentration - - Weight 141 kg (311 lb) 03/19/2025 2:10 PM EDT Height 165.1 cm (5' 5 ) 03/19/2025 2:10 PM EDT Body Mass Index 51.75 03/19/2025 2:10 PM EDT Plan of Treatment Upcoming Encounters Date Type Department Care Team (Late st Contact Info) Description 04/23/2025 12:40 PM EDT Office Visit [facility] - [facility] [address] [facility] [address] [place] [address] Lissa Kurtz NP [address] [facility] [address] [place] [address] Health Maintenance Due Date Last Done Comments Breast Cancer Screening 1960 Pneumococcal Vaccine: 50+ Years (1 of 2 - PCV) 12/22/1978 Cervical Cancer Screening: Pap Smear 12/22/1980 RSV Immunization Adult Patients (1 - Risk 60-74 years 1-dose series) 2019 Zoster Vaccines (2 of 2) 07/09/2021 05/14/2021 Cholesterol Screening (Lipid Panel) 07/30/2022 Colorectal Cancer Screening: Colonoscopy 07/30/2022 Hepatitis C Screening 07/30/2022 Osteoporosis Screening (Bone Density Screening) 07/30/2022 COVID-19 Vaccine ( season) 2024 07/29/2021, 12/25/2020, 12/02/2020 Depression Screening 08/22/2024 Influenza Vaccine (#1) 2025 Social Influencers of Health Screening 03/12/2026 03/12/2025 Falls Risk Assessment 03/15/2026 03/15/2025 Hypertension/CHF/CAD Annual BMP Blood Test 03/19/2026 03/19/2025, 03/15/2025, 03/14/2025, Additional history exists DTaP,Tdap,and Td Vaccines (2 [...] Name Priority Date/Time Associated Diagnosis Comments ECG ANNOTATED 03/20/2025 VAS US DUPLEX LOWER EXT VENOUS LEFT STAT 03/19/2025 5:31 PM EDT Leg pain, anterior, left ECG 12-LEAD STAT 03/19/2025 4:54 PM EDT XR CHEST 2 VIEWS STAT 03/19/2025 3:59 PM EDT CBC WITH AUTO DIFFERENTIAL STAT 03/19/2025 1:54 PM EDT B-TYPE NATRIURETIC PEPTIDE STAT 03/19/2025 1:54 PM EDT BASIC METABOLIC PANEL STAT 03/19/2025 1:54 PM EDT CBC AND DIFFERENTIAL STAT 03/19/2025 1:54 PM EDT ECG EXTERNAL Routine 03/19/2025 10:29 AM EDT ECG ANNOTATED 03/16/2025 VANCOMYCIN, TROUGH Timed 03/15/2025 1: 44 PM EDT CBC WITH AUTO DIFFERENTIAL Routine 03/15/2025 5:43 AM EDT CBC AND DIFFERENTIAL Routine 03/15/2025 5:43 AM EDT BASIC METABOLIC PANEL Routine 03/15/2025 5:43 AM EDT MAGNESIUM Routine 03/15/2025 5:43 AM EDT PHOSPHORUS Routine 03/15/2025 5:43 AM EDT VANCOMYCIN, TROUGH Timed 03/14/2025 5: 06 PM EDT TRANSTHORACIC ECHOCARDIOGRAM (TTE) COMPLETE W/ CONTRAST Routine 03/14/2025 9:13 AM EDT Bacteremia BASIC METABOLIC PANEL Routine 03/14/2025 8:38 AM EDT LAVENDER - EDTA Routine 03/14/2025 8:33 AM EDT EXTRA TUBES Routine 03/14/2025 8:33 AM EDT LAVENDER - EDTA Routine 03/13/2025 5:47 AM EDT EXTRA TUBES Routine 03/13/2025 5:47 AM EDT MAGNESIUM Routine 03/13/2025 5:47 AM EDT BASIC METABOLIC PANEL Routine 03/13/2025 5:47 AM EDT CULTURE BLOOD STAT 03/12/2025 3:17 PM EDT CULTURE BLOOD STAT 03/12/2025 3:12 PM EDT MRSA PCR Routine 03/12/2025 9:44 AM EDT CBC WITH AUTO DIFFERENTIAL Routine 03/12/2025 5:29 AM EDT CBC AND DIFFERENTIAL Routine 03/12/2025 5:29 AM EDT MAGNESIUM Routine 03/12/2025 5:29 AM EDT BASIC METABOLIC PANEL Routine 03/12/2025 5:29 AM EDT ECG 12-LEAD STAT 03/11/2025 10:11 PM EDT LACTATE STAT 03/11/2025 4:57 PM EDT TROPONIN I HIGH SENSITIVITY Timed 03/11/2025 4:57 PM EDT BLOOD CULTURE PATHOGENS BY PCR Routine 03/11/2025 4:57 PM EDT CULTURE BLOOD STAT 03/11/2025 4:57 PM EDT CULTURE BLOOD STAT 03/11/2025 4:57 PM EDT VAS US DUPLEX LOWER EXT VENOUS LEFT STAT 03/11/2025 3:07 PM EDT Pain ECG 12-LEAD STAT 03/11/2025 1:53 PM EDT CBC WITH AUTO DIFFERENTIAL STAT 03/11/2025 1:47 PM EDT B-TYPE NATRIURETIC PEPTIDE STAT 03/11/2025 1:47 PM EDT MAGNESIUM STAT 03/11/2025 1:47 PM EDT LIPASE STAT 03/11/2025 1:47 PM EDT COMPREHENSIVE METABOLIC PANEL STAT 03/11/2025 1:47 PM EDT CBC AND DIFFERENTIAL STAT 03/11/2025 1:47 PM EDT TROPONIN I HIGH SENSITIVITY Timed 03/11/2025 1:47 PM EDT N-TERMINAL PROBNP Routine 02/15/2025 2:4 0 PM EDT Chronic systolic congestive heart failure (CMS/HCC V24, CMS/HCC V28) Essential hypertension BASIC METABOLIC PANEL Routine 02/15/2025 2:40 PM EDT Chronic systolic congestive heart failure (CMS/HCC V24, CMS/HCC V28) Essential hypertension ECG OUTSIDE 01/29/2025 PROCEDURAL ECG Routine 01/28/2025 3:29 PM EDT CARDIOVERSION EXTERNAL Routine 3:12 PM EDT Atrial fibrillation with RVR (CMS/HCC V24, CMS/HCC V28) ECG 12-LEAD Routine 01/23/2025 9:08 AM EDT Atrial fibrillation with RVR (CMS/HCC V24, CMS/HCC V28) from Last 3 Months Results * ECG-Annotated (03/20/2025) Only the most recent of2 resultswithin the time period is included. us Provider Onbase ECG ORDERABLES Final Result * Vascular US duplex lower extremity venous left (03/19/2025 5:31 PM EDT) Only the most recent of2 resultswithin the time period is included. Anatomical Region Laterality Modality Vascular, Abdomen Ultrasound 03/19/2025 5:47 PM EDT Impressions 03/19/2025 5:47 PM EDT Impression: 1. Evidence of chronic nonocclusive deep venous thrombosis of the level of the mid left superficial femoral vein. 2. Otherwise, no evidence of acute or occlusive deep venous thrombosis. This document has been electronically signed by: Celestine West MD on 03/19/2025 17:47:57 Narrative 03/19/2025 5:47 PM EDT INDICATION: DVT Hx Left lower extremity venous duplex ultrasound. Comparison: None Technique: Real time sonographic imaging, including color-flow imaging and spectral analysis, was performed by the milieu counselor. Multiple commercial sales representative static images were saved for review. Findings: At the level of the mid superficial femoral vein, there is nonocclusive wall thickening, suggesting sequela of chronic nonocclusive deep venous thrombosis. The remaining visualized deep venous system is fully compressible from common femoral through the proximal leg veins. There is spontaneous and phasic flow, and augmentation. Color Doppler and spectral tracings are unremarkable. Procedure Note Celestine West MD - 03/19/2025 INDICATION: DVT Hx Left lower extremity venous duplex ultrasound. Comparison: None Technique: Real time sonographic imaging, including color-flow imagingand spectral analysis, was performed by the milieu counselor. Multiple commercial sales representative static images were saved for review. Findings: At the level of the mid superficial femoral vein, there is nonocclusive wall thickening, suggesting sequela of chronic nonocclusive deep venous thrombosis. The remaining visualized deep venous system is fully compressible from common femoral through the proximal leg veins. There is spontaneous and phasic flow, and augmentation. Color Doppler and spectral tracings are unremarkable. IMPRESSION: Impression: 1. Evidence of chronic nonocclusive deep venous thrombosis of the levelof the mid left superficial femoral vein. 2. Otherwise, no evidence of acute or occlusive deep venous thrombosis. This document has been electronically signed by: Celestine West MD on 03/19/2025 17:47:57 Zee CASTREJON CV VASCULAR PROCEDURES F inal Result * ECG 12 lead (03/19/2025 4:54 PM EDT) Only the most recent of4 resultswithin the time period is included. Ventricular Rate ECG 102 BPM GEMUSE Atrial Rate 220 BPM GEMUSE QRS Duration 148 ms GEMUSE Q-T Interval 412 ms GEMUSE QTc 536 ms GEMUSE R [place] -42 degrees GEMUSE T [place] 80 degrees GEMUSE ECG Interpretation Atrial fibrillation with rapid ventricular response Left axis deviation Right bundle branch block Moderate voltage criteria for LVH, may be normal variant Abnormal ECG When compared with ECG of 11-MAR-2025 22:11, No significant change was found Confirmed by MD Jorge, Ignacio ([id number]) on 03/19/2025 9:54:22 PM GEMUSE 03/19/2025 4:54 PM EDT 03/19/2025 9:54 PM EDT Thanh Megloza MD ECG ORDERABLES Final Result GEMUSE * XR Chest 2 Views (03/19/2025 3:59 PM EDT) Anatomical Region Laterality Modality Body Radiographic Claritza ging 03/19/2025 4:48 PM EDT Impressions 03/19/2025 4:49 PM EDT Impression: 1. PICC line well positioned. 2. No active pulmonary process. Telealondra CASTREJON ([id number]) -------- FINAL REPORT -------- Dictated By: Tereza Pérez Dictated Date: 03/19/2025 16:48 ET Assigned Physician: Tereza Pérez Reviewed and Electronically Signed By: Tereza Pérez Signed Date: 03/19/2025 16:49 ET Workstation ID: [id number] Transcribed By: Self Edit Transcribed Date: 03/19/2025 16:48 ET Narrative 03/19/2025 4:49 PM EDT History: Dyspnea. Comparison: 01/01/25 Findings: PA and lateral views. The cardiac silhouette is normal in size. Hilar contours and pulmonary vascularity are within normal limits. A right PICC line terminates at the level of the distal SVC. The lungs are clear. The costophrenic angles are sharp. Flowing hyperostosis is seen along the anterior aspect of the spine. Procedure Note Tereza Pérez MD - 03/19/2025 History: Dyspnea. Comparison: 01/01/25 Findings: PA and lateral views. The cardiac silhouette is normal in size. Hilarcontours and pulmonary vascularity are within normal limits. A right PICCline terminates at the level of the distal SVC. The lungs are clear. The costophrenic angles are sharp. Flowing hyperostosis is seen along the anterior aspect of the spine. IMPRESSION: Impression: 1. PICC line well positioned. 2. No active pulmonary process. Telerad PA ([id number]) -------- FINAL REPORT -------- Dictated By: Tereza Pérez Dictated Date: 03/19/2025 16:48 ET Assigned Physician: Tereza Pérez Reviewed and Electronically Signed By: Tereza Pérez Signed Date: 03/19/2025 16:49 ET Workstation ID: [id number] Transcribed By: Self Edit Transcribed Date: 03/19/2025 16:48 ET us Thanh Melgoza MD IMG XR PROCEDURES Final Result * (ABNORMAL) CBC auto differential (03/19/2025 1:54 PM EDT) Only the most recent of4 resultswithin the time period is included. WBC 6.3 4.8 - 10.8 K/mcL LAB HEMETOLOGY METHOD 03/19/2025 2:[address] [facility] RBC 3.90 3.80 - 4.80 M/mcL LAB HEMETOLOGY METHOD 03/19/2025 2:[address] [facility] Hemoglobin 12.8 11.5 - 16.0 g/dL LAB [facility] Hematocrit 39.9 35.0 - 47.0 % LAB HEMETOLOGY METHOD [facility] MCV 101.3(H) 79.0 - 98.0 FL LAB HEMETOLOGY METHOD 03/19/2025 2:12 PM [facility] MCH 32.5(H) 27.0 - 32.0 pcg LAB HEMETOLOGY METHOD 03/19/2025 2:12 PM [facility] MCHC 32.1 32.0 - 37.0 g/dL LAB HEMETOLOGY METHOD 03/19/2025 2:12 PM [facility] RDW 13.2 11.0 - 15.0 % LAB HEMETOLOGY METHOD 03/19/2025 2:12 PM [facility] Platelets 278 130 - 400 K/mcL LAB HEMETOLOGY METHOD 03/19/2025 2:12 PM [facility] MPV 9.3 7.0 - 11.0 [place] LAB HEMETOLOGY [facility]19[facility]25 [facility] NR[facility] 0.0 <1.0 % LAB HEMETOLOGY METHOD 03/19/2025 2:12 PM [facility] NRBC Absolute 0.00 <0.10 K/mcL LAB HEMETOLOGY METHOD 03/19/2025 2:12 PM [facility] Neutrophils Relative 69.4 % LAB HEMETOLOGY METHOD 03/19/2025 2:12 PM [facility] Lymphocytes Relative 18.7 % LAB HEMETOLOGY METHOD 03/19/2025 2:[address] [facility] Monocytes Relative 7.8 % LAB HEMETOLOGY METHOD 03/19/2025 2:[address] [facility] Eosinophils Relative 3.2 % LAB HEMETOLOGY METHOD 03/19/2025 2:[address] [facility] Basophils Relative 0.6 % LAB HEMETOLOGY METHOD 03/19/2025 2:[address] [facility] Immature Granulocytes Relative 0.3 % LAB HEMETOLOGY METHOD 03/19/2025 2:[address] [facility] Neutrophils Absolute 4.34 1.50 - 7.00 K/mcL LAB HEMETOLOGY METHOD 03/19/2025 2:[address] [facility] Lymphocytes Absolute 1.17 1.00 - 5.00 K/mcL LAB HEMETOLOGY METHOD 03/19/2025 2:[address] [facility] Monocytes Absolute 0.49 0.20 - 1.00 K/mcL LAB HEMETOLOGY METHOD 03/19/2025 2:[address] [facility] Eosinophils Absolute 0.20 0.00 - 0.50 K/mcL LAB HEMETOLOGY METHOD 03/19/2025 2:[address] [facility] Basophils Absolute 0.04 0.00 - 0.20 K/mcL LAB HEMETOLOGY METHOD 03/19/2025 2:[address] [facility] Immature Granulocytes Absolute 0.02 0.00 - 0.03 K/mcL LAB HEMETOLOGY METHOD 03/19/2025 2:[address] [facility] Blood Venous blood specimen / Unknown Venipuncture / Unknown 03/19/2025 1:54 PM EDT 03/19/2025 2:03 PM EDT us Thanh Melgoza MD LAB BLOOD ORDERABLES Final Resul t Performing Organization Address [facility]/ZIP Co de Phone Number [facility] [address] [place] [address], [place] [phone] * (ABNORMAL) B-type natriuretic peptide (03/19/2025 1:54 PM EDT) Only the most recent of2 resultswithin the time period is included. BNP 495(H) <=100 pcg/mL LAB CHEMISTRY METHOD 03/19/2025 3:[address] [facility] Blood Venous blood specimen / Unknown Venipuncture / Unknown 03/19/2025 1:54 PM EDT 03/19/2025 2:03 PM EDT Thanh Melgoza MD LAB BLOOD ORDERABLES Final Resul t Performing Organization Address [facility] Co de Phone Number [facility] [address] [place] [address], [place] [phone] * (ABNORMAL) Basic metabolic panel (03/19/2025 1:54 PM EDT) Only the most recent of6 resultswithin the time period is included. [facility] Sodium 139 133 - 145 mmol/L LAB CHEMISTRY METHOD 03/19/2025 2:[address] [facility] Potassium 3.9 3.5 - 5.5 mmol/L LAB CHEMISTRY METHOD 03/19/2025 2:[address] [facility] Chloride 109 96 - 110 mmol/L LAB CHEMISTRY METHOD 03/19/2025 2:[address] [facility] CO2 25 21 - 32 mmol/L LAB CHEMISTRY METHOD 03/19/2025 2:[address] [facility] Anion Gap 5 3 - 11 LAB CHEMISTRY METHOD 03/19/2025 2:[address] [facility] Glucose 94 70 - 100 mg/dL LAB CHEMISTRY METHOD 03/19/2025 2:[address] [facility] BUN 17 5 - 25 mg/dL LAB CHEMISTRY METHOD 03/19/2025 2:[address] [facility] Creatinine 1.51(H) 0.50 - 1.10 mg/dL LAB CHEMISTRY METHOD 03/19/2025 2:[address] [facility] eGFR 38(L) >=60 mL/min/1. 73m2 LAB CHEMISTRY METHOD 03/19/2025 2:[address] [facility] Comment:Calculation based on the Chronic Kidney Disease Epidemiology Collaboration (CKD-EPI) equation refit without adjustment for race. BUN/Creatinine Ratio 11.3 LAB CHEMISTRY METHOD 03/19/2025 2:[address] [facility] Calcium 8.7 8.5 - 10.5 mg/dL LAB CHEMISTRY METHOD 03/19/2025 2:[address] [facility] Blood Venous blood specimen / Unknown Venipuncture / Unknown 03/19/2025 1:54 PM EDT 03/19/2025 2:03 PM EDT Thanh Melgoza MD LAB BLOOD ORDERABLES Final Resul t [facility] [address] [place] [address], * ECG-External (03/19/2025 10:29 AM EDT) Historical Provider ECG ORDERABLES Final Res ult * Vancomycin, trough (03/15/2025 1:44 PM EDT) Only the most recent of2 resultswithin the time period is included. Vancomycin Trough 16.0 10.0 - 20.0 mcg/mL LAB CHEMISTRY METHOD 03/15/2025 2:[address] [facility] Blood Venous blood specimen / Unknown Venipuncture / Unknown 03/15/2025 1:44 PM EDT 03/15/2025 1:52 PM EDT us Earnest Tang MD LAB BLOOD ORDERABLES Fi nal Result Performing Organization Address City/[facility]/ZIP Co de Phone Number [facility] [address] [place] [address], [place] [phone] * Phosphorus (03/15/2025 5:43 AM EDT) Phosphorus 3.4 2.5 - 4.5 mg/dL LAB CHEMISTRY METHOD 03/15/2025 7:[address] [facility] Blood Venous blood specimen / Unknown Venipuncture / Unknown 03/15/2025 5:43 AM EDT 03/15/2025 6:04 AM EDT us Earnest Tang MD LAB BLOOD ORDERABLES Fi nal Result Performing Organization Address [facility] Co de Phone Number [facility] [address] [place] [address], [place] [phone] * Magnesium (03/15/2025 5:43 AM EDT) Only the most recent of4 resultswithin the time period is included. Magnesium 2.2 1.9 - 2.6 mg/dL LAB CHEMISTRY METHOD 03/15/2025 7:[address] [facility] Blood Venous blood specimen / Unknown Venipuncture / Unknown 03/15/2025 5:43 AM EDT 03/15/2025 6:04 AM EDT us Earnest Tang MD LAB BLOOD ORDERABLES Fi nal Result Performing Organization Address City/[facility]/ZIP Co de Phone Number [facility] [address] [place] [address], [place] [phone] * (ABNORMAL) TRANSTHORACIC ECHOCARDIOGRAM (TTE) COMPLETE W/ CONTRAST (03/14/2025 9:13 AM EDT) LV EDV (A2C) 99 mL CV PACS LV EDV (A4C) 103 mL CV PACS LV Diastolic Volume (BP) 105 46 - 106 mL CV PACS LV ESV (A2C) 55 mL CV PACS LV ESV (A4C) 58 mL CV PACS LV Systolic Volume (BP) 58(A) 14 - 42 mL CV PACS LVOT Mean Grad 4 mmHg CV PACS LVOT Peak VTI 20.5 cm CV PACS LVOT Mean Norman 0.9 m/s CV PACS LVOT Peak Norman 1.3 m/s CV PACS LVOT Peak Gradient 6 mmHg CV PACS MV E' Tissue Velocity Lateral 14 cm/s CV PACS MV E' Tissue Velocity Septal 11 cm/s CV PACS Ejection Fraction (A2C) 45 % CV PACS Ejection Fraction (A4C) 44 % CV PACS Ejection Fraction (BP) 45 % CV PACS Left Atrium Minor [place] 6.5 cm CV PACS Left Atrium Major [place] 6.1 cm CV PACS LA Area Sys (A2C) 21 cm2 CV PACS LA Area Sys (A4C) 22 cm2 CV PACS LA Volume (BP) 63 mL CV PACS RA Area 21.5 cm2 CV PACS RA 2D Volume 68 mL CV PACS AV Mean Gradient 9 mmHg CV PACS Ao VTI 32.7 cm CV PACS AV Peak [place] 2.0 m/s CV PACS AV Peak Gradient 16 mmHg CV PACS MV Peak E [place] 1.18 m/s CV PACS MV Peak E [place] 1.18 m/s CV PACS RV Diastolic Basal Dimension 4.3(A) 2.5 - 4.1 cm CV PACS RV S' 10 cm/s CV PACS LV ESV Index (A4C) 24 mL/m2 CV PACS LV EDV Index (A4C) 43 mL/m2 CV PACS LVOT:AV VTI Index 0.63 CV PACS RA 2D Volume Index 28 mL/m2 CV PACS AV Velocity Ratio 0.65 CV PACS LV Systolic Volume Index (BP) 24 mL/m2 CV PACS LV Diastolic Volume Index (BP) 43 mL/m2 CV PACS LA Volume Index (BP) 26 mL/m2 CV PACS LV EDV Index (A2C) 41 mL/m2 CV PACS LV ESV Index (A2C) 23 mL/m2 CV PACS BSA 2.58 m2 CV PACS Est. RA Pressure 8 mmHg CV PACS Anatomical Region Laterality Modality Ultrasound Narrative 03/14/2025 9:56 AM EDT Technically difficult study limiting assessment Left ventricle cavity size is normal. Left ventricular systolic function is low normal with an ejection fraction of 50-55%. No regional LV wall motion abnormalities noted. Right ventricle cavity is mildly enlarged. Right ventricular systolic function is normal. Limited valve assessment as below. Left Ventricle Left ventricle cavity size is normal. Wall thickness was not well visualized. Systolic function is low normal with an ejection fraction of 50-55%. There are no regional LV wall motion abnormalities. Unable to assess diastolic function due to arrhythmia. Right Ventricle Right ventricle cavity is mildly dilated. Systolic function is normal. Left Atrium Left atrium cavity size is normal. Right Atrium Right atrium cavity is mildly dilated. IVC/SVC RA pressures is estimated to be 8 mmHg (IVC diameter >21 mm and decreases >50% during inspiration). Mitral Valve The leaflets are mildly thickened. There is trace regurgitation. There is no evidence of mitral valve stenosis. Tricuspid Valve The leaflets exhibit normal excursion. There is trace regurgitation. There is no evidence of tricuspid valve stenosis. Estimated RA pressure is 8 mmHg. Aortic Valve The aortic valve is trileaflet. There is no regurgitation or stenosis. Pulmonic Valve The pulmonic valve was not assessed due to poor image quality. Ascending Aorta The ascending aorta was not well visualized. Pericardium Pericardium appears normal. There is no pericardial effusion. Study Details Overall the study quality was technically difficult. Definity contrast was given to enhance imaging. Jules CASTREJON CV ECHO PROCEDURES Final Result * Lavender tube (03/14/2025 8:33 AM EDT) Only the most recent of2 resultswithin the time period is included. Extra Tube Hold for add-ons. 03/14/2025 11:01 AM EDT [facility] ([facility] Comment:Auto resulted. Blood Venous blood specimen / Unknown 03/14/2025 8:33 AM EDT 03/14/2025 9:18 AM EDT Earnest Tang MD LAB BLOOD ORDERABLES Fi nal Result Performing Organization Address [facility]/ZIP Co de Phone Number [facility] [address] [place] [address], [place] [phone] * Blood Culture, Peripheral Draw #1 (03/12/2025 3:17 PM EDT) Only the most recent of4 resultswithin the time period is included. [facility] Culture, Blood No growth at 5 days 03/17/2025 4:[address] [facility] Blood Venous blood specimen / Unknown Venipuncture / Unknown 03/12/2025 3:17 PM EDT 03/12/2025 3:39 PM EDT Jules CASTREJON LAB MICROBIOLOGY - GENERA L ORDERABLES Final Result Performing Organization Address [facility] de Phone Number [facility] [address] [place] [address], [place] [phone] * MRSA molecular study (03/12/2025 9:44 AM EDT) [facility] MRSA Screen PCR Not Detected Not Detected LAB MICROBIOLOGY METHOD 03/12/2025 11:[address] [facility] Swab Both anterior nares / Unknown Non-blood Collection / Unknown 03/12/2025 9:44 AM EDT 03/12/2025 10:38 AM EDT Jules CASTREJON LAB MICROBIOLOGY - GENERA L ORDERABLES Final Result Performing Organization Address [facility] Co de Phone Number [facility] [address] [place] [address], [place] [phone] * Troponin I high sensitivity (03/11/2025 4:57 PM EDT) Only the most recent of2 resultswithin the time period is included. [facility] High Sensitivity Troponin I 15 <=54 ng/L LAB CHEMISTRY METHOD 03/11/2025 5:[address] [facility] Blood Venous blood specimen / Unknown Venipuncture / Unknown 03/11/2025 4:57 PM EDT 03/11/2025 5:[address] [facility] - 03/11/2025 5:42 PM EDT High levels of biotin in samples may falsely decrease hsTroponin values. Use caution when interpreting hsTroponin results in patients taking biotin who exhibit renal impairment (eGFR <60) or in patients taking more than 20 mg/day of biotin. us Anne Liao MD LAB BLOOD ORDERABLES Final Resul t Performing Organization Address City/[facility]/ZIP Co de Phone Number [facility] [address] [place] [address], [place] [phone] * (ABNORMAL) Blood culture pathogens molecular study (03/11/2025 4:57 PM EDT) [facility] Staphylococcus species Detected (A) Not Detected LAB MICROBIOLOGY METHOD 03/12/2025 3:[address] [facility] Blood Venous blood specimen / Unknown Venipuncture / Unknown 03/11/2025 4:57 PM EDT 03/11/2025 5:11 PM EDT us Anne Liao MD LAB MICROBIOLOGY - GENERAL ORDER DAVID Final Result [facility] [address] [place] [address], * Lactate (03/11/2025 4:57 PM EDT) [facility] Lactate 1.1 0.4 - 2.0 mmol/L LAB CHEMISTRY METHOD 03/11/2025 5:[address] [facility] Blood Venous blood specimen / Unknown Venipuncture / Unknown 03/11/2025 4:57 PM EDT 03/11/2025 5:25 PM EDT Janneth CASTREJON LAB BLOOD ORDERABLES Fin al Result Performing Organization Address [facility]/ZIP Co de Phone Number [facility] [address] [place] [address], [place] [phone] * Lipase (03/11/2025 1:47 PM EDT) Pathologist [facility] Lipase 16 13 - 75 unit/L LAB CHEMISTRY METHOD 03/11/2025 3:[address] [facility] Blood Venous blood specimen / Unknown Venipuncture / Unknown 03/11/2025 1:47 PM EDT 03/11/2025 2:11 PM EDT Anne Liao MD LAB BLOOD ORDERABLES Final Resul t Performing Organization Address [facility] de Phone Number [facility] [address] [place] [address], [place] [phone] * (ABNORMAL) Comprehensive metabolic panel (03/11/2025 1:47 PM EDT) [facility] Sodium 138 133 - 145 mmol/L LAB CHEMISTRY METHOD 03/11/2025 3:[address] [facility] Potassium 3.2(L) 3.5 - 5.5 mmol/L LAB CHEMISTRY METHOD 03/11/2025 3:[address] [facility] Chloride 105 96 - 110 mmol/L LAB CHEMISTRY METHOD 03/11/2025 3:[address] [facility] CO2 27 21 - 32 mmol/L LAB CHEMISTRY METHOD 03/11/2025 3:[address] [facility] Anion Gap 6 3 - 11 LAB CHEMISTRY METHOD 03/11/2025 3:[address] [facility] Glucose 114(H) 70 - 100 mg/dL LAB CHEMISTRY METHOD 03/11/2025 3:10 PM [facility] BUN 32(H) 5 - 25 mg/dL LAB CHEMISTRY METHOD 03/11/2025 3:10 PM [facility] Comment:Results verified by repeat testing Creatinine 1.64(H) 0.50 - 1.10 mg/dL LAB CHEMISTRY METHOD 03/11/2025 3:10 PM [facility] eGFR 35(L) >=60 mL/min/1. 73m2 LAB CHEMISTRY METHOD 03/11/2025 3:10 PM [facility] Comment:Calculation based on the Chronic Kidney Disease Epidemiology Collaboration (CKD-EPI) equation refit without adjustment for race. BUN/Creatinine Ratio 19.5 LAB CHEMISTRY METHOD 03/11/2025 3:10 PM [facility] Calcium 9.0 8.5 - 10.5 mg/dL LAB CHEMISTRY METHOD 03/11/2025 3:10 PM [facility] AST (SGOT) 9(L) 10 - 42 unit/L LAB CHEMISTRY METHOD 03/11/2025 3:10 PM [facility] ALT (SGPT) 14 10 - 60 unit/L LAB CHEMISTRY METHOD 03/11/2025 3:10 PM [facility] Alkaline Phosphatase 83 42 - 121 unit/L LAB CHEMISTRY METHOD 03/11/2025 3:10 PM [facility] Total Protein 7.1 6.0 - 8.0 g/dL LAB CHEMISTRY METHOD 03/11/2025 3:10 PM [facility] Albumin 3.7 3.2 - 5.0 g/dL LAB CHEMISTRY METHOD 03/11/2025 3:10 PM [facility] Total Bilirubin 1.1 0.0 - 1.4 mg/dL LAB CHEMISTRY METHOD 03/11/2025 3:10 PM [facility] Blood Venous blood specimen / Unknown Venipuncture / Unknown 03/11/2025 1:47 PM EDT 03/11/2025 2:11 PM EDT Anne Liao MD LAB BLOOD ORDERABLES Final Resul t Performing Organization Address [facility]/ZIP Co de Phone Number [facility] [address] [place] [address], * (ABNORMAL) N-Terminal Probnp (02/15/2025 2:40 PM EDT) [facility] NT-proBNP 2,006(H) 0 - 301 pg/mL [facility] 1 Comment: The following cut-points have been suggested for the use of proBNP for the diagnostic evaluation of heart failure (HF) in patients with acute dyspnea: Modality Age Optimal Cut (years) Point Diagnosis (rule in HF) <50 450 pg/mL 50 - 75 900 pg/mL >75 1800 pg/mL Exclusion (rule out HF) Age independent 300 pg/mL Blood Venous blood specimen / Unknown 02/15/2025 2:40 PM EDT 02/15/2025 Narrative [facility] - 02/16/2025 9:07 AM EDT Performed at: [address] [place] [id number] [employer] Agent: Genesis Mccarthy MD, Phone: [phone] Lissa Kurtz NP LAB BLOOD ORDERABLES Final Result [facility] * ECG-Outside (01/29/2025) Michaela Costa MD ECG ORDERABLES Final Result * ECG 12 lead - Procedural (No Charge) (01/28/2025 3:29 PM EDT) Ventricular Rate ECG 70 BPM GEMUSE Atrial Rate 70 BPM GEMUSE P-R Interval 214 ms GEMUSE QRS Duration 154 ms GEMUSE Q-T Interval 492 ms GEMUSE QTc 531 ms GEMUSE P Wave [place] 56 degrees GEMUSE R [place] -39 degrees GEMUSE T [place] 33 degrees GEMUSE ECG Interpretation Sinus rhythm [...] CV CARDIAC SERVICES P ROCEDURES Final Result from Last 3 Months Insurance [employer] Advance Directives * Full Code - Default (Latest Code Status on File) Date Activated Date Inactivated Comments 03/11/2025 6:03 PM 03/15/2025 9:40 PM This is orde r is used when code status has not been discussed with the patient, or code status is otherwise unknown/unconfirmed To update the patient's code status, place a code status order. Do not modify or discontinue any currently active code status orders. * Full Code - Confirmed Date Activated Date Inactivated Comments 01/01/2025 5:08 [...] currently active code status orders. Care Teams Antenna Rigger Relationship Specialty Start Date End Date Al Garcia MD [address] [place] [phone] PCP - General 09/12/12
--- OUTSIDE RECORDS SUMMARY | 2025-04-16 06:15 | XMS_ITS | Clinical Summary ---
Author Organization [facility] Address [address] [place] [id number] Care Team Providers Care Registration Specialist Name Role Phone Al Garcia MD Primary Care Provider [phone] Allergies Active Allergy Reactions Criticality Noted Date [...] o f 2) 07/09/2021 05/14/2021 COVID-19 Vaccine (4 - 2023-2 5 season) 2024 07/29/2021, 12/25/2020, 12/02/2020 Fall Risk Assessment 12/22/2024 Osteoporosis Screening (DEXA Scan) 12/22/2024 Pneumococcal Vaccine (1 of 1 - PCV) 12/22/2024 Influenza Vaccine (#1) 2025 DTap / Tdap / Td (2 - [...] age to complete this topic Care Teams Registration Specialist Relationship Specialty Start Date End Date Al Garcia MD [address] [place] [phone] PCP - General Internal Medicine 05/13/21
--- OUTSIDE RECORDS SUMMARY | 2025-04-16 06:15 | XMS_ITS ---
Author Name [facility] Organization Unknown History of Medication Use Medication Directions Dispensed Refills Start Date End Date Stat us oxyCODONE-acetamino phen (PERCOCET) 10-325 mg per tablet Take 1 tablet by mouth every 6 (six) hours if needed for severe pain for up to 3 days. Max Daily Amount: 4 tablets 03/19/2025 active polyethylene glycol (MIRALAX) 17 gram packet Take 17 g by mouth 1 (one) time each day if needed for constipation for up to 14 days. 03/15/2025 active metoprolol succinate (TOPROL-XL) 50 mg 24 hr tablet TAKE 1 TABLET BY MOUTH EVERY DAY 02/28/2025 active amiodarone (PACERONE) 200 mg tablet Take 1 tablet (200 mg total) by mouth 1 (one) time each day. 02/15/2025 active furosemide (LASIX) 20 mg tablet Take 1 tablet (20 mg total) by mouth 1 (one) time each day if needed (Take 1 tablet daily as needed for increased peripheral edema, weight gain, or shortness of breath). 02/15/2025 active apixaban (Eliquis) 5 mg tablet Take 1 tablet (5 mg total) by mouth 2 (two) times a day. Pt now on 1 tablet twice a day. 01/28/2025 active Entresto 49-51 mg per tablet TAKE 1 TABLET BY MOUTH TWICE A DAY 06/28/2024 active omeprazole (PriLOSEC) [address] capsule Take 1 capsule (40 mg total) by mouth 1 (one) time each day if needed (ACID REFLUX). 09/03/2021 active gabapentin 300 mg capsule TAKE 1 CAPSULE BY MOUTH 3 TIMES A DAY. FILL ON 05/26/22 completed benzonatate 200 mg capsule TAKE 1 CAPSULE BY MOUTH THREE TIMES DAILY FOR 7 DAYS NEEDED FOR COUGH active Entresto 49 mg-51 mg tablet TAKE 1 TABLET BY MOUTH TWICE A DAY active furosemide 40 mg tablet TAKE 1 TABLET BY MOUTH EVERY DAY active hydrocodone 5 mg-acetaminophen 325 mg tablet TAKE 1 TABLET BY MOUTH TWICE DAILY NEEDED FOR SEVERE PAIN active hydrocodone 5 mg-acetaminophen 325 mg tablet TAKE 1 TABLET BY MOUTH TWICE DAILY NEEDED FOR SEVERE PAIN active indomethacin 50 mg capsule TAKE 1 CAPSULE BY MOUTH 2 TIMES A DAY WITH MEALS. active indomethacin 50 mg capsule TAKE 1 CAPSULE BY MOUTH EVERY DAY active Jardiance 10 mg tablet TAKE 1 TABLET BY MOUTH DAILY active levothyroxine 100 mcg tablet TAKE 1 TABLET BY MOUTH EVERY DAY active metoprolol succinate ER 50 mg tablet,extended release 24 hr TAKE 1 TABLET BY MOUTH EVERY DAY active oxybutynin chloride ER 10 mg tablet,extended release 24 hr TAKE 1 TABLET BY MOUTH EVERY DAY active sertraline 50 mg tablet TAKE 1 TABLET BY MOUTH DAILY active empagliflozin (Jardiance) 10 mg tablet Take 1 tablet (10 mg total) by mouth 1 (one) time each day in the morning. active levothyroxine (SYNTHROID, LEVOTHROID) 100 mcg tablet Take 1 tablet (100 mcg total) by mouth 1 (one) time each day before breakfast. active sertraline (ZOLOFT) 50 mg tablet Take 1 tablet (50 mg total) by mouth 1 (one) time each day. active Allergies Allergen Reaction Severity Comment Documented Date Source Statu s CODEINE RASH 05/05/2020 [facility] active PENICILLINS RASH 05/05/2020 [facility] active PENICILLIN G [facility] Problems Problem Status Onset Date Problem Type Date of Resoluti on Source On amiodarone therapy active 2025-01-23 ProblemAct [facility] Secondary hypercoagulable state ([facility] V24) active 2025-01-23 ProblemAct [facility] Bacteremia active 2025-03-14 ProblemAct [facility] Nonischemic cardiomyopathy ([facility] V24, [facility] V28) active 2025-01-17 ProblemAct [facility] Obstructive sleep apnea active 2022-11-09 ProblemAct [facility] Essential hypertension active 2018-06-06 ProblemAct [facility] Paroxysmal atrial flutter ([facility] V24, [facility] V28) active 2021-03-10 ProblemAct [facility] Deep vein thrombophlebitis of calf, left ([facility] V24, [facility] V28) active 2025-01-04 ProblemAct [facility] Atrial fibrillation with RVR ([facility] V24, [facility] V28) active 2025-01-02 ProblemAct [facility] CHF (congestive heart failure) ([facility] V24, [facility] V28) active 2025-01-17 ProblemAct [facility] Hypothyroidism active 2025-01-23 ProblemAct [facility] Shortness of breath active 2025-03-20 ProblemAct [facility] Morbid obesity ([facility] V24, [facility] V28) active 2021-03-10 ProblemAct [facility] History of DVT (deep vein thrombosis) active 2025-01-23 ProblemAct [facility] Left leg cellulitis active 2025-03-11 ProblemAct [facility] Stage 3 chronic kidney disease ([facility] V24, [facility] V28) active 2022-04-06 ProblemAct [facility] Single subsegmental pulmonary embolism without acute cor pulmonale ([facility] V24, [facility] V28) active 2025-01-04 ProblemAct [facility] Osteoarthritis of left knee joint active 2023-04-01 ProblemAct [facility] Osteoarthritis of right knee joint active 2023-04-01 ProblemAct [facility] Encounters Encounter Type Encounter Reason Primary Diagnosis Location Date Ambulatory [facility] [place] 10/17/2024 Ambulatory [facility] [place] 08/17/2024 Ambulatory [facility] [place] 07/13/2024 Ambulatory [facility] [place] 06/08/2024 Ambulatory [facility] [place] 05/07/2024 Ambulatory [facility] [place] 05/04/2024 Ambulatory [facility] [place] 05/04/2024 Ambulatory [facility] [place] 05/04/2024 Ambulatory [facility] [place] 07/12/2023 Ambulatory [facility] [place] 06/20/2023 Ambulatory [facility] [place] 04/01/2023 Ambulatory [facility] [place] 04/01/2023 Ambulatory [facility] [place] 04/01/2023 Ambulatory [facility] [place] 04/01/2023 Ambulatory [facility] [place] 04/01/2023 Ambulatory [facility] [place] 03/30/2023 Ambulatory [facility] [place] 03/30/2023 Ambulatory [facility] [place] 12/15/2022 Care Team Organization Name Specialty Phone Email Start Date End Da te [facility] VIC MATAMOROS Primary Care 07/22/2022 04/09/2024
== END 2025-04-16 06:10 | disposition home or self-care (01) ==
LOC: CF 06:09
PROVIDERS: Visit Provider Anesthesiology
DX: Z13.89 Encounter for screening for other disorder (principal)

== ENCOUNTER 2025-05-28 06:22 | Outpatient (REF) | payer OTHER, SELFPAY ==
--- OUTSIDE RECORDS SUMMARY | 2023-12-29 07:00 | XMS_ITS ---
Author Organization [facility] [address] Address [address] [place] [address] Care Team Providers Care Dot Etcher Apprentice Name Role Phone Homa [place] Unavailable [phone] Emily Mitchell Unavailable [phone] Encounters Encounter Location Date Provider Diagnosis [facility] [address] [address] 12/29/2023 Emily Mitchell Plan Of Treatment No Information Progress Notes * PELON GIVNES EDOB: 0 (64 yo F)Acc No.[id number]:12/29/2023 Patient: PELON SHELTON Provider: Papa Mitchell PA-C :1960 A ge:63 Y S ex:Female Date:12/29/2023 Address:[address] [place], [place] [id number] Subjective: * Chief Complaints: * * Medical History: Objective: * Vitals: Assessment: Plan: * Treatment: * Images: Billing Information: * Visit Code: * Procedure Codes: * Electronic signature of Emily Mitchell PA-C on 05/28/2025 at 06:25 AM EDT Sign off status: Pending * Provider: Papa Mitchell PA-C Date: 0 12/29/2023 Generated for Sree bautista/Guanako/Rosalia on: 1 06:25 AM EDT
--- OUTSIDE RECORDS SUMMARY | 2025-04-09 07:30 | XMS_ITS ---
Author Organization [facility] [address] Address [address] [place] [address] Care Team Providers Care Rn Hemo Dialysis Name Role Phone Homa Montana Unavailable [phone] Encounters Encounter Location Date Provider Diagnosis [facility] [address] [address] 04/09/2025 Homa Montana Plan Of Treatment No Information Progress Notes * PELON GIVENS EDOB: 0 (64 yo F)Acc No.[id number]:04/09/2025 Progress Notes Patient: AZAR SHELTONJIMI Elam Provider: Smooth Montana PA-C :1960 A ge:64 Y S ex:Female Date:04/09/2025 Address:[address] [place], [place] [id number] Subjective: * Chief Complaints: * * Medical History: Objective: * Vitals: Assessment: Plan: * Treatment: * Images: Billing Information: * Visit Code: * Procedure Codes: * Electronic signature of Shahla Montana PA-C on 05/28/2025 at 06:24 AM EDT Sign off status: Pending * Provider: Smooth Montana PA-C Date: 0 04/09/2025 Generated for Sree bautista/Guanako/Rosalia on: 06:24 AM EDT
--- OUTSIDE RECORDS SUMMARY | 2025-04-15 10:15 | XMS_ITS ---
Author Organization [facility] Address [address] [place] [address] Care Team Providers Care Photo Equipment Technician Name Role Phone Homa Montana Unavailable [phone] Medications Medication SIG (Take, Route, Frequency, Duration) [...] Active Encounters Encounter Location Date Provider Diagnosis [facility] [address] [place] [phone] 04/15/2025 Homa Montana Plan Of Treatment No Information Progress Notes * KAVYA GIVENS EDOB: 0 (64 yo F)Acc No.[id number]:04/15/2025 Progress Notes Patient: AZAR SHELTONJIMI Elam Provider: Smooth Montana PA-C :1960 A ge:64 Y S ex:Female Date:04/15/2025 Address:[address] [place] [address] Subjective: * Chief Complaints: * * HPI: C onstitutional: Kavya is a 64-year-old female with past medical history of who presents today to establish care as a new patient. New patient paperwork reviewed. Medical, surgical, social, and family history reviewed. Previously seen at (). Last CPE/Labs: Specialists-- Dentist: Ophthalmology: TOPSTITCHER ZIGZAG: Other concerns addressed today: Immunizations-- Influenza: COVID: [...] Information: * Visit Code: * Procedure Codes: 22122 NO SHOW OFFICE VISIT. * Electronic signature of Shahla Montana PA-C on 05/28/2025 at 06:24 AM EDT Sign off status: Pending * Provider: Smooth Montana PA-C Date: 0 04/15/2025 Generated for Sree bautista/Guanako/Rosalia on: 1 06:24 AM EDT History and Physical Notes * HPI (History of Present Illness) Category Sub-Category Detail Notes Category Not es Constitutional Kavya is a 64-year-old female with past medical history of who presents today to establish care as a new patient. New patient paperwork reviewed. Medical, surgical, social, and family history reviewed. Previously seen at (). Last CPE/Labs: Specialists-- Dentist: Ophthalmology: TOPSTITCHER ZIGZAG: Other concerns addressed today: Immunizations-- Influenza: COVID: [...]
--- NOTE | ~2025-05-28 | FL_ITS ---
EXAMINATION: FL GUIDANCE ONLY HISTORY: M17.11 - Unilateral primary osteoarthritis, right knee COMPARISON: None available. TECHNIQUE: Fluoroscopy time: 45.4 seconds. Cumulative Dose: 12.68 mGy. Images: 8. FINDINGS: Fluoroscopic spot films of the left knee demonstrate multiple needles adjacent to the distal femur and proximal tibia. FL/FL guidance in treatment room IMPRESSION: Fluoroscopy during procedure. Please see procedure report for additional information. Electronically signed by: Kirby Arreaga MD 05/28/2025 03:55 PM EDT
--- OUTSIDE RECORDS SUMMARY | 2025-05-28 06:24 | XMS_ITS | Encounter Summary ---
Author Organization [facility] Address [address] [place] [address] Phone Care Team Providers Care Joinery Setter Out Name Role Phone Al Garcia MD Primary Care Provider [phone]- [phone] Encounter Details Date Type Department Care Team ([facility] Contact Info) Description 11/02/2023 Documentation Only [facility] [address] [place] [address] Adrienne Panchal [address] [place] [address] Social History Tobacco Use Types [...] Upcoming Encounters Date Type Department Care Team ([facility] Contact Info) Description 06/14/2025 3:30 PM EDT Office Visit [facility] [address] [place] [address] Ciaran Waldrop MD [address] [place] [address] documented as of this encounter Visit Diagnoses Not on filedocumented in this encounter Care Teams Joinery Setter Out Relationship Specialty Start Date End Date Al Garcia MD [address] [place] [address] PCP - General Internal Medicine 05/04/20 documented as of this encounter
--- OUTSIDE RECORDS SUMMARY | 2025-05-28 06:24 | XMS_ITS | Clinical Summary ---
Author Organization [facility] Address [address] [place] [address] Care Team Providers Care Founding Partner Name Role Phone Unavailable Primary Care Provider Unavailabl e Social History Tobacco Use Types Packs/Day Years Used Date Smoking Tobacco: Never Assessed Comments Unknown Sex and Gender Information Value Date Recorded Sex Assigned at Not on file Legal Sex Female 10:13 AM EDT Gender Identity Not on file Sexual Orientation Not on file Plan of Treatment Health Maintenance Due Date Last Done Comments Advance Care Planning 1960 Hepatitis C Virus Screening 1960 HIV Screening 12/22/1972 DTaP/Tdap/Td Vaccines (1 - Tdap) 12/22/1978 Pneumococcal Vaccines 50+ (1 of 1 - PCV) 12/22/2009 Zoster (Shingles) Vaccine (1 of 2) 12/22/2009 COVID-19 Vaccine ( - 2023-2 5 season) 2025 RSV Vaccine 60 years and old er and Patients (1 - 1-dose 75+ series) 12/22/2034 Hepatitis B Vaccines Aged Out No long er eligible based on patient's age to complete this topic
--- OUTSIDE RECORDS SUMMARY | 2025-05-28 06:24 | XMS_ITS | Clinical Summary ---
Author Organization [facility] Address [address] [place] [id number] Phone Care Team Providers Care Roustabout Supervisor Name Role Phone Al Garcia MD Primary Care Provider [phone]- [phone] Allergies Active Allergy Reactions Criticality Noted Date Comments Codeine 05/05/2020 Penicillins 05/05/2020 Medications ELIQUIS 5 mg tablet Take 5 mg by mouth 2 (two) times a day. 0 Active hydroCHLOROthiazi de (MICROZIDE) 12.5 mg capsule Take by mouth daily. 0 Active indomethacin (INDOCIN) 50 MG capsule Take by mouth daily. 0 Active levothyroxine (SYNTHROID, LEVOTHROID) 88 MCG tablet Take 88 mcg by mouth daily. 0 Active lidocaine (LIDODERM) 5 % continuous prn. 0 Active metoprolol succinate (TOPROL-XL) 50 MG 24 hr tablet Take 50 mg by mouth daily. 0 Active SACUBITRIL-VALSAR BUNN 49-51 mg per tablet Take 1 tablet by mouth 2 (two) times a day. 0 Active sertraline (ZOLOFT) 50 MG tablet Take 50 mg by mouth daily. Active traMADoL (ULTRAM) 50 mg tablet Take 50 mg by mouth 2 (two) times a day. 0 Active HYDROcodone-aceta minophen (NORCO) 5-325 mg per tablet 1 Active gabapentin (NEURONTIN) 300 MG capsuleIndication s:Meralgia paresthetica of right side TAKE 2 CAPSULES BY MOUTH 3 TIMES A DAY 180 capsule 1 Active Social History Tobacco Use Types Packs/Day Years Used Date Smoking Tobacco: Never Smokeless Tobacco: Never Education Answer Date Recorded Are you interested in more education? Not on tanmay e 12/17/2022 Are you concerned about learning? Not on file 12/17/2022 No 12/17/2022 No 12/17/2022 Digital Access Answer Date Recorded No 01/15/2023 No 01/15/2023 No 01/15/2023 Reliable internet access at home? Not on file 01/15/2023 Device with a working camera? Not on file Comments Unknown Sex and Gender Information Value Date Recorded Sex Assigned at Female 05/01/2020 9:32 AM EDT Legal Sex Female 9:16 AM EDT Gender Identity Female 05/01/2020 9:32 AM EDT Sexual Orientation Straight 05/01/2020 9: 32 AM EDT Last Filed Vital Signs Vital Sign Reading Time Taken Comments Blood Pressure 183/87 11/20/2020 10:02 AM EDT Pulse 96 11/20/2020 9:37 AM EDT Temperature 36.6 C (97.9 F) 11/20/2020 9:37 AM EDT Respiratory Rate - - Oxygen Saturation 99% 11/20/2020 10:02 AM EDT Inhaled Oxygen Concentration - - Weight 149.7 kg (330 lb) 11/20/2020 9:37 AM EDT Height 162.6 cm (5' 4 ) 11/20/2020 9:37 AM EDT Body Mass Index 56.64 11/20/2020 9:37 AM EDT Plan of Treatment Health Maintenance Due Date Last Done Comments Adult Td,Tdap Booster 1960 CREATININE LEVEL 1960 LIPID PANEL 1959 POTASSIUM LEVEL 1959 TSH LEVEL 1959 DEPRESSION SCREENING 1971 HEPATITIS C SCREENING 12/22/1977 HIV ONE-TIME SCREENING (18-6 5 YEARS) 12/22/1977 MAMMOGRAM 1999 COLOGUARD 12/22/2004 COLONOSCOPY 12/22/2004 COLORECTAL CANCER SCREENING 12/22/2004 FIT TEST 12/22/2004 FOBT 12/22/2004 SIGMOIDOSCOPY 12/22/2004 VIRTUAL COLONOSCOPY 12/22/2004 PNEUMOCOCCAL VACCINES (50+ years) (1 of 1 - PCV) 12/22/2009 ZOSTER VACCINES (2 of 2) 07/09/2021 05/14/2021 OSTEOPOROSIS SCREENING INITI AL (ONE-TIME) 12/22/2024 INFLUENZA VACCINE (#1) 2025 COVID-19 VACCINE (3 - 2024-2 6 season) 2025 12/25/2020, 12/02/2020 RSV VACCINE (1 - 1-dose 75+ series) 12/22/2034 SMOKING STATUS SCREENING (On ce After 26 Yrs) Completed 11/20/2020 HEPATITIS A VACCINES Aged Out No long er eligible based on patient's age to complete this topic HIB VACCINES Aged Out No longer eligi ble based on patient's age to complete this topic MENINGOCOCCAL VACCINES (ACWY) Aged Out No longer eligible based on patient's age to complete this topic MENINGOCOCCAL VACCINES (B) Aged Out N o longer eligible based on patient's age to complete this topic Medical Devices Not on file Insurance CIG[employer] MARIE PPO CIG[employer] MARIE PPO CIGNA PPO CIGNA PPO CIGNA PPO CIGNA PPO CIGNA PPO CIGNA PPO CIGNA PPO Care Teams Roustabout Supervisor Relationship Specialty Start Date End Date Al Garcia MD [address] [place] [address] PCP - General Internal Medicine 09/01/20 Additional Source Comments The information contained in this document represents components of the legal health record. It is not the complete legal health record.[facility]
--- OUTSIDE RECORDS SUMMARY | 2025-05-28 06:24 | XMS_ITS | Clinical Summary ---
Author Organization [facility], Address [address] [place] [address] [place] [address] Phone Care Team Providers Care Legislative Analyst Name Role Phone Al Garcia MD Primary Care Provider +1- [phone] Allergies Active Allergy Reactions Criticality Noted Date [...] 04/06/2022 0 04/06/2022 Sleep apnea 04/06/2022 04/06/2022 Encounters Date Type Department Care Team Description 05/27/2025 Orders Only [facility], [address] [place] [address] Adrienne Panchal [place] Hypertensive disorder (Primary Dx); Chronic kidney disease stage 3 (HCC); Albuminuria, not otherwise specified from Last 3 Months Immunizations Immunization Administration Dates Next Due SARS-CoV-2, [...] Visit [facility], [address] [place] [address] Ciaran Waldrop MD [address] [place] [address] Health Maintenance Due Date Last Done Comments Breast Cancer Screening 1960 Pneumococcal Vaccine: 50+ Ye ars (1 of 2 - PCV) 12/22/1978 Colorectal Cancer Screening: Annual FOBT 12/22/2008 Colorectal Cancer Screening: Colonoscopy 12/22/2008 Colorectal Cancer Screening: Sigmoidoscopy 12/22/2008 Influenza Vaccine (#1) 2025 Hepatitis B Vaccine Aged Out No longe r eligible based on patient's age to complete this topic Insurance [employer] Care Teams Legislative Analyst Relationship Specialty Start Date End Date [place] [address] PCP - General Internal Medicine 05/04/20
--- OUTSIDE RECORDS SUMMARY | 2025-05-28 06:25 | XMS_ITS | Data Portability ---
Author Organization [facility] [place] Address [address] [place] [address] Care Team Providers Care Tool Die Maker Name Role Phone VIC MATAMOROS Primary Care Provider Assessment Encounter Date Assessment Date Assessment LastModified by Organization Details LastModified Time 04/01/2023 04/01/2023 HPI : Patient is here today with complaints of bilateral knee pain. T he patient is experiencing bilateral knee pain, which [...] persistent local or systemic infection. Physical Exam : Patient is morbidly obese, in no acute distress, with appropriate mood and affect. The patient is oriented to time, place, and person. Bilateral knee motion is reduced and does cause significant pain. The right knee moves from 5-100 degrees and the left knee moves from 5-100 degrees. The knees are stable within those edozqd-nb-mxyru n. The alignment of the right knee is neutral. The alignment of the left knee is neutral. Knee muscle strength is normal bilaterally with the skin intact. Pedal pulses are palpable. Hip examination, including flexion and internal rotation, was negative in that groin pain was not produced. Assessment/Plan : The patient has bilateral knee arthritis. An [...] for her bilateral knee arthritis. This is dkgr-il-lukv. She is morbidly obese and has been [...] degrees. The knees are stable within those neogfk-py-jnuwa n. The alignment of the right knee [...] activity. 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 The knees are stable within those umgcdw-zv-jmpet n. The alignment of the right knee [...] knee, 4 or more view 2023 024 [email or web address] [id number] [facility], [address], [place], [address], 11:45:57 XR, knee, 4 or more view 2022 023 [email or web address] [facility], [address], [place], [address], 3 16:36:37 XR, knee, 4 or more view 2022 023 [email or web address] [facility], [address], [place], [address], 3 16:36:37 XR, knee, 1 or 2 view - Left Knee Pain 2022 023 [facility], [address], [place], [address], 3 12:17:00 XR, knee, 1 or 2 view - Right Knee Pain 2022 023 [facility], [address], [place], [address], 3 12:17:00 XR, knee, weightbeari ng - Bilateral Knee Pain 2022 023 [facility], [address], [place], [address], 3 12:17:00 Medication Orders None recorded. Patient TargetsNo targets recorded. Patient Instructions Encounter Date Encounter Id Patient Instructions Last Modified By Organization Details Last Modified Time 04/01/2023 [id number] AP, lateral, Sauceda, and patellar view radiographs of the right knee taken today demonstrate right knee degenerative joint disease with joint space narrowing, osteophyte formation, and subchondral sclerosis AP, lateral, Sauceda, and patellar view radiographs of the left knee taken today demonstrate right knee degenerative joint disease with joint space narrowing, osteophyte formation, and subchondral sclerosis. Not available 04/01/2023 11:01:06 05/04/2024 [id number] AP, lateral, Sauceda, and patellar view radiographs of the right knee taken today demonstrate right knee degenerative joint disease with joint space narrowing, osteophyte formation, and subchondral sclerosis. There is ccpg-du-wcfa articulation. I do not see any acute injury such as fracture or dislocation. Not available 05/04/2024 12:02:15 Reason for Referral None Reported. Problems Name Problem SNOMED Code Status Onset Date Resolution Date Notes Provider Name and Address Organization Details Recorded Time Osteoarthri tis of right knee joint 9501281163134 00 Active 2022 Yury Garcia MD [address], [place], [address], [place] [facility] 3 10:59:30 Osteoarthri tis of left knee joint 7407166436430 09 Active 2022 Yury Garcia MD [address], [place], [address], [place] [facility], [facility] 3 10:59:35 Problem Notes None recorded. Medical Equipment None Reported. Allergies Allergen ID Allergen Name Allergen Category Reaction Reaction Severity Criticality Documentation Date Start Date Code Code System Note Provider Name and Address Organization Details Recorded Time 7115 penicilli n G Not available Not available Not available Not available 04/01/2023 7980 RxNorm Genoveva Barakat null, [place] [facility] 3 15:52:30 43746 Product containin g penicilli n (product) medicatio n Not available Not available Not available 05/14/20252019 57655 8001 SNOMED React ion: Rash, sever ity: Unkno wn Not Available [facility] 5 01:16:26 57316 codeine medicatio n Not available Not available Not available 05/14/20252019 2670 RxNorm React ion: Rash, sever ity: Unkno wn Not Available [facility] 5 01:16:26 Medications Name Sig Start Date Stop Date Status Note LastModified by Organization Details LastModified Time cyclobenzap rine 10 mg tablet TAKE 1 TABLET BY MOUTH TWICE DAILY FOR 14 DAYS NEEDED FOR SPASM 05/04 completed Not Available Not Available Not Available furosemide 40 mg tablet TAKE 1 TABLET BY MOUTH EVERY DAY active Not Available Not Available No t Available hylan g-f 20 16 mg/2 mL intra-artic ular syringe 12/30 completed Not Available Not Available Not Available oxybutynin chloride ER 10 mg tablet,exte [...] Not Available Not Available No t Available methylpredn isolone acetate 40 mg/mL suspension for injection 10/14 completed Not Available Not Available Not Available [...] Available Not Available No t Available Entresto 24 mg-26 mg tablet Take by mouth. 2019 active Not Available Not Available Not Avai lable metoprolol succinate ER 50 mg capsule sprinkle, ext. release 24 hr Take 50 mg by mouth. 2019 active Not Available Not Available Not Avai lable aspirin 81 mg capsule Take by mouth. active Not Available Not Available No t Available Paxlovid 150 mg-100 mg tablets in a dose pack (Moderate Renal Dose) TAKE 150MG NIRMATREL VIR AND 100MG RITONAVIR TOGETHER BY MOUTH TWICE DAILY FOR 5 DAYS WITH FOOD active Not Available Not Available No t Available Vitals Date Recorded Body weight Body mass index (BMI) Body height Provider Name and Address Organization Details Last Updated DateTime 04/01/2023 625777.67 g 50.8 kg/m2 165.[address] [place] [facility] 04/01/2023 15:49:24 Date Recorded Body height Body mass index (BMI) Body weight Provider Name and Address Organization Details Last Updated DateTime 05/04/2024 165.1 cm 52.8 kg/m2 279370.78 g Genoveva Barakat [place] [facility] 05/04/2024 11:12:41 Date Recorded Body height Body mass index (BMI) Body weight Provider Name and Address Organization Details Last Updated DateTime 07/12/2023 165.1 cm 50.8 kg/m2 845421.67 g Tracey Conley [place] [facility] 07/12/2023 15:45:02 Social History None recorded. Functional Status Question Answer Note LastModified by Organizat ion Details LastModified Time Do you use any illicit or recreational drugs? No Information not available 04/01/2023 Do you or have you ever used any other forms of tobacco or nicotine? No Information not available 04/01/2023 What is your level of alcohol consumption? Occasional Information not available 04/01/2023 Mental Status None recorded. Family History Relationship [...] Diagnosis SNOMED-CT Code Diagnosis ICD10 Code Diagnosis IMO Codes Diagnosis Note [id number] MD MICAELA Singletonramya saldana [address] [place] [address] [address] [place] [address] 04/01/2023 10:16:14 04/01/2023 10:59:13 Pain of bilateral knee joints 0863337919 12661 M25.561 M25.562 Osteoarthr itis of right knee joint 9416121636 78606 M17.11 Osteoarthr itis of left knee joint 7718920038 62302 M17.12 [id number] MD MICAELA Singleton [place] [address] [facility] [address] [place] [address] 07/12/2023 15:01:53 07/12/2023 16:04:18 Osteoarthritis of left knee joint 7416362980 50174 M17.12 Osteoarthr itis of right knee joint 8627175700 M17.11 [id number] MD MICAELA Singleton [facility] [address] [facility] [address] [place] [address] 05/04/2024 11:03:02 05/04/2024 11:33:01 Pain of right knee region 3404257978 03488 M25.561 [id number] Osteoarthr itis of left knee joint 2549186816 05392 M17.12 Osteoarthr itis of right knee joint 7631302504 M17.11 Health Concerns Section Related Observation LastModified by Organization Detai ls LastModified Time None Recorded Concern Status LastModified by Organization Details LastModified Time None Recorded Advance Directives Directive None Recorded Payers Insurance Date Sequence Insurance Name Policy Number Policy Her Covered Member ID Her Member ID Guarantor Name 11/06/2024 1 [employer] [id number] Kavya Sher [id number] Kavya Sher 05/04/2024 1 [employer] [id number] Kavya Sher [id number] Kavya Dexterne 10/31/2024 1 [facility] [id number] Kavya Sher [id number] Kavya Sher OBGyn Episode No OBEpisode recorded.
--- OUTSIDE RECORDS SUMMARY | 2025-05-28 06:25 | XMS_ITS | Encounter Summary ---
Author Organization Formerly [facility] Address [address] [place] [id number] Care Team Providers Care Ophthalmologist Retina Specialist Name Role Phone Unavailable Primary Care Provider Unavailabl e Encounter Details Date Type Department Care Team (Late st Contact Info) Description 05/18/2021 Erroneous Encounter [facility] CONVERSION DEPT [facility] [place] [id number] Raúl Sanders MD [address] [place] [id number] Social History Tobacco Use Types Packs/Day Years [...]
--- OUTSIDE RECORDS SUMMARY | 2025-05-28 06:25 | XMS_ITS | Clinical Summary ---
Author Organization [address] [place] [address] [place] [phone] Phone Care Team Providers Care Aircraft Maintenance Supervisor Name Role Phone Al Garcia MD Primary Care Provider [phone] Allergies Active Allergy Reactions Criticality Noted Date Comments Codeine Rash Low 05/05/2020 Penicillins Rash Low 05/05/2020 Medications Entresto 49-51 mg per tablet TAKE 1 TABLET BY MOUTH TWICE A DAY 180 tablet 3 4 Active levothyroxine (SYNTHROID, LEVOTHROID) 100 mcg tablet [...] time each day if needed (ACID REFLUX). 2 Active apixaban (Eliquis) 5 mg tablet Take 1 tablet (5 mg total) by mouth 2 (two) times a day. Pt now on 1 tablet twice a day. 180 each 3 5 01/29/20 26 Active amiodarone (PACERONE) 200 mg tabletIndications :Atrial fibrillation with RVR (CMS/HCC V24, CMS/HCC V28) Take 1 tablet (200 mg total) by mouth 1 (one) time each day. 90 tablet 2 5 Active furosemide (LASIX) 20 mg tabletIndications :Chronic systolic congestive heart failure (CMS/HCC V24, CMS/HCC V28),Peripheral edema Take 1 tablet (20 mg total) by mouth 1 (one) time each day if needed (Take 1 tablet daily as needed for increased peripheral edema, weight gain, or shortness of breath). 30 each 5 02/16/20 26 Active metoprolol succinate (TOPROL-XL) 50 mg 24 hr tablet TAKE 1 TABLET BY MOUTH EVERY DAY 90 tablet 3 5 Active empagliflozin (Jardiance) 10 mg tablet Take 1 tablet (10 mg total) by mouth 1 (one) time each day in the morning. 90 tablet 3 5 Active Active Problems Problem Noted Date Diagnosed Date Shortness of breath 03/20/2025 Assessment & Plan (04/24/2025 10:50 AM EDT): The patient's shortness of breath is likely multifactorial in origin related to underlying heart failure and atrial fibrillation as well as morbid obesity and deconditioning related to inactivity. She was started on amiodarone in January 2025 and has not yet had baseline PFTs completed; these were ordered for her previously and she will call to reschedule them as she reports she was too busy to have them done when they originally scheduled on 03/05/2025. We will await these results and readdress the need to continue amiodarone; given that she is in sinus rhythm today, I am hesitant to discontinue it at this time given that she has had recurrent episodes of atrial fibrillation for which she will be seen by electrophysiology as discussed further below. She otherwise appears euvolemic on exam today as discussed above and this does not appear to be transportation services representative of a heart failure exacerbation. Nevertheless, she was instructed to seek urgent medical attention for any shortness of breath that does not resolve with rest. We Will continue to readdress this. Bacteremia 03/14/2025 Left leg cellulitis 03/11/2025 On amiodarone therapy 01/23/2025 Assessment & Plan (04/24/2025 10:50 AM EDT): The potential for amiodarone toxicity and adverse side effects were reviewed; the patient verbalizes understanding of this and wishes to continue with the current plan. LFTs last completed 03/11/2025 and WNL. TSH last completed 01/01/2025 and was mildly elevated; she is noted to have a history of hypothyroidism on levothyroxine, managed by her PCP. She is aware we will continue to monitor these lab values every 6 months. She sees her vision provider annually. She is aware of increased photosensitivity while on amiodarone. She has not had recent PFTs done-they were ordered at her last visit but she states she got too busy and had to cancel them; she was strongly encouraged to call and reschedule them (has the phone number at home) and she verbalizes understanding of the reasoning behind this. Assessment & Plan (01/23/2025 9:28 AM EDT): [...] Nitrogen Wash Out, Spirometry with Bronchodilator; Future Hypothyroidism 01/23/2025 Secondary hypercoagulable state (CMS/HCC V24) Assessment & Plan (04/24/2025 10:50 AM EDT): Assessment & Plan (01/23/2025 9:28 AM EDT): Nonischemic cardiomyopathy (CMS/HCC V24, CMS/HCC V28) 01/17/2025 Assessment & Plan (04/24/2025 10:50 AM EDT): The patient's most recent echocardiogram from 03/14/2025 showed a low normal LVEF without any wall motion abnormalities; previously her EF had been as low as 40- 50% with global hypokinesis in December 2024. I do suspect there may be a diastolic component as well though previous echocardiograms when she is in normal sinus rhythm have shown normal diastolic function. She has a history of atrial fibrillation with RVR which has been ongoing and noted intermittently over the last 1-2 months, often with RVR. She presents today with ongoing shortness of breath which may be multifactorial as discussed below; at her last visit in January 2025, she reported feeling well without any shortness of breath or heart failure symptoms while in normal sinus rhythm. ECG today shows sinus rhythm, however she reports an ongoing episode of paroxysmal atrial fibrillation noted on her [employer] mobile at home a few weeks ago. I suspect that she continues to have episodes of RVR, likely with any exertion which is contributing to her shortness of breath; as discussed below, is interested in seeing electrophysiology for further evaluation and treatment of her atrial fibrillation and we will facilitate scheduling this today. At the current time she appears euvolemic on exam; serial BNPs have shown improvement but remain elevated and she does have mild ongoing edema of the left lower extremity with notable skin changes suggestive of venous insufficiency for which she will be seeing a vascular provider at [facility] in the near future. I have strongly encouraged her to remain compliant with guideline directed medical therapies for heart failure including metoprolol, Entresto, and Jardiance in addition to furosemide for worsening peripheral edema or weight gain. I have asked her to focus on compression and elevation of her lower extremities; I have provided her with a written prescription for Velcro wraps and have encouraged her to use Yovani wraps in the interim to assist with decreasing edema. Low-sodium diet was encouraged; we had a long discussion regarding the importance of low-sodium diet today as I suspect there may be more indiscretions than she realizes. We discussed risk reduction through lifestyle modifications [...] day or 4 pounds in one week. Assessment & Plan (01/23/2025 9:28 AM EDT): CHF (congestive heart failure) ([facility] V24, [facility] V28) 01/17/2025 Assessment & Plan (04/24/2025 10:50 AM EDT): Assessment & Plan (01/23/2025 9:28 AM EDT): [...] day or 4 pounds in one week. Personal history of PE (pulmonary embolism) 12/20 Overview (04/24/2025): At the time of DVT in 12/2024; tiny right lower lobe PE on CTA chest Assessment & Plan (04/24/2025 10:50 AM EDT): As above. Assessment & Plan (01/23/2025 9:28 AM EDT): Continue Eliquis 5 mg twice daily as outlined above. History of DVT (deep vein thrombosis) 01/04/2025 Overview (04/24/2025): nonocclusive left SFV and left occlusive popliteal vein, 12/2024 while off anticoagulation; 02/2025 nonocclusive thrombus in the mid femoral vein-concern present for possible Elquis failure. Assessment & Plan (04/24/2025 10:50 AM EDT): Continue Eliquis. Atrial fibrillation with RVR (CMS/HCC V24, CMS/H CC V28) 01/02/2025 Assessment & [...] for any questions or concerns. Dr. Neumann's medical/surgery registered nurse is working to find an office visit [...] the risks and benefits of this. Her [id number] score is equal to 6 (1 for [...] after cardioversion). Cardioversion external; Future Atrial fibrillation ([facility] V24, CMS/HCC V28) 0 01/01/2025 Assessment & Plan (04/24/2025 10:50 AM EDT): The patient has a history of atrial fibrillation status post ablation several years ago; given that she was maintaining a normal sinus rhythm, anticoagulation had been discontinued. However, she presented to the hospital in December 2024 and atrial fibrillation with RVR. Given a notable drop in her EF with global hypokinesis on echocardiogram at that time, she underwent a ELAINE guided cardioversion on 01/05/2025. Unfortunately, she has had recurrent episodes of atrial fibrillation even after starting on amiodarone with successful repeat cardioversion in January 2025; however, these episodes have been in the setting of cellulitis and bacteremia which has subsequently been treated with IV antibiotics. ECG today reveals sinus rhythm, though she has noted recurrent episodes as recently as a couple of weeks ago on her [place] [employer] [place]. She is interested in seeing electrophysiology for further evaluation and treatment. Rate remains well-controlled and we will not make any changes to her metoprolol; given that she is in sinus rhythm today, we will continue with amiodarone for rhythm control. [id number] score is elevated at 6 (1 for age, 1 for gender modifier, 1 for history of CHF, 1 for hypertension, and 2 for history of thromboembolism) representing a 13.6% risk of stroke/TIA/systemic embolism. We discussed the risk and benefits of continuing with anticoagulation for cardioembolic prophylaxis and she wishes to continue the current plan. She is on the appropriate dose of apixaban 5 mg daily for her age of less than 80 years, weight of greater than 60 kg, and creatinine of 1.51 on 03/19/2025. She is aware to seek urgent medical attention for any uncontrolled bleeding, signs or symptoms of GI or other internal bleeding, or for any head injury. Orders: ECG 12 lead Obstructive sleep apnea 11/09/2022 Assessment & Plan (04/24/2025 10:50 AM EDT): Patient does have a history of sleep apnea; she reportedly tried to wear CPAP for a short period of time but was unable to tolerate it and has since stopped using it. She verbalizes understanding of the potential long-term negative implications of untreated sleep apnea as it relates to her cardiovascular health, but declines further support with possible treatment options except for consideration of Zepbound as above. Stage 3 chronic kidney disease ([facility] V24, [facility] V28) 04/06/2022 Overview (01/23/2025): Per chart review meets GFR criteria Morbid obesity (CMS/[facility] V24, [facility] V28) 2020 Assessment & Plan (04/24/2025 10:50 AM EDT): The patient is morbidly obese. Approaches towards weight loss are discussed, including burning more calories than one takes in by portion control and regular exercise with an emphasis on duration rather than intensity. We also discussed the possible addition of weight loss medications, in particular, Zepbound/tirzepatide given her history of obstructive sleep apnea; she states that she will think about this and discuss further with her PCP. Paroxysmal atrial flutter (CMS/[facility] V24, [facility] V28) 03/10/2021 Overview (01/23/2025): [...] 116-120s. Continue current regimen. Assessment & Plan (04/24/2025 10:50 AM EDT): Blood pressure is favorable on current antihypertensive regimen; continue metoprolol, Entresto, and as needed furosemide. Given her history of CKD, she will continue to follow-up with nephrology as scheduled, next visit planned for 06/04/2025. Assessment & Plan (01/23/2025 9:28 AM EDT): Blood pressure is favorable on current medical therapy; given potential for increased dose of metoprolol, she is aware to monitor blood pressures at home 1 to 2 hours after morning medications, calling us for any symptomatic hypotension. Continue Entresto and metoprolol without change; will continue to monitor renal function and electrolytes as above. Resolved Problems Problem Noted Date Diagnosed Date Resolved Date History of DVT (deep vein thrombosis) 01/23/2025 04/24/2025 Assessment & Plan (01/23/2025 9:28 AM EDT): Encounters Date Type Department Care Team Description 04/23/2025 12:40 PM EDT Office Visit [facility] [address] [facility] [address] [place] [address] Lissa Kurtz NP Nonischemic cardiomyopathy (CMS/HCC V24, CMS/HCC V28) (Primary Dx); Heart failure with recovered ejection fraction (HFrecEF) (CMS/HCC V24, CMS/HCC V28); Shortness of breath; Paroxysmal atrial fibrillation (CMS/HCC V24, CMS/HCC V28); On amiodarone therapy; History of DVT (deep vein thrombosis); Personal history of PE (pulmonary embolism); Secondary hypercoagulable state (CMS/HCC V24); Essential hypertension; Morbid obesity (CMS/HCC V24, CMS/HCC V28); Obstructive sleep apnea; Hospital discharge follow-up 04/09/2025 Telephone [facility]iology [facility] [place] [phone] Provider, Not In System 04/01/[address] [facility] [address] [place] [phone] Alirio Garnett MD 03/26/[address] [facility] [address] [place] [phone] Alirio Garnett MD 03/20/2025 Telephone Infectious Disease - [place] [address] [place] [address] Radhames Manriquez LPN 03/19/2025 4:29 PM EDT - 03/19/2025 6:39 PM EDT Emergency [facility] Emergency [address] [place] [phone] Thanh Melgoza MD Leg pain, anterior, left (Primary Dx); Shortness of breath; Congestive heart failure, unspecified HF chronicity, unspecified heart failure type (CMS/HCC V24, CMS/HCC V28); Pedal edema; Chronic deep vein thrombosis (DVT) of proximal vein of lower extremity, unspecified laterality (CMS/HCC V24, CMS/HCC V28) Discharge Disposition: Home or Self Care 03/19/[address] [facility] [address] [place] [phone] Alirio Garnett MD 03/11/2025 2:21 PM EDT - 03/15/2025 7:04 PM EDT Hospital Encounter [facility] [address] [place] [phone] Anne Liao MD Flores, Carlos M, MD Seralathan, Manikandan, MD Pain (Primary Dx); Cellulitis of left lower extremity; Petechial rash; Deep vein thrombosis (DVT) of femoral vein of left lower extremity, unspecified chronicity (CMS/HCC V24, CMS/HCC V28); Chronic renal impairment, unspecified CKD stage; Bacteremia; Left leg cellulitis Discharge Disposition: Home-Health Care [facility] 03/11/2025 Telephone [facility] [address] [facility] [address] [place] [address] Alirio Garnett MD from Last 3 Months Surgical History Surgery Date Site/Laterality Comments OTHER SURGICAL HISTORY PROCEDURE: HISTORY OTHER; COMMENT: Salpingoectomy secondary to ectopic KNEE ARTHROSCOPY Left PROCEDURE: NE ARTHROSCOPY AID TX SPINE&/FX KNEE W/O FIXJ OTHER SURGICAL HISTORY PROCEDURE: NE CARDIOVERSION ELECTIVE ARRHYTHMIA EXTERNAL OTHER SURGICAL HISTORY PROCEDURE: HISTORY OTHER; COMMENT: Cryoablation OTHER SURGICAL HISTORY PROCEDURE: HISTORY OTHER; COMMENT: meniscectomy OTHER SURGICAL HISTORY PROCEDURE: HISTORY OTHER; COMMENT: ectopic CARDIOVERSION DONE ON 01/28/2025 AT [facility] Medical History Medical History Date Comments UTI (urinary tract infection) 04/07/2022 DX :UTI (urinary tract infection) SIRS (systemic inflammatory response syndrome) ([facility] V24, [facility] V28) DX:SIRS (systemic inflammatory response syndrome) ([facility]) Hypothyroidism DX:Hypothyroidis m DVT prophylaxis DX:DVT prophylax is Chronic renal disease, stage III ([facility] V24, [facility] V28) DX:Chronic renal disease, s tage III ([facility]) Morbid obesity ([facility] V24, [facility] V28) DX:Morbid obesity ([facility]) Depression DX:Depression Neuropathic pain of lower ex tremity, left DX:Neuropathic pain of lower extremity, left Osteoarthritis of knees, bilateral DX:Osteoarthritis of knees, bilateral Sleep apnea DX:Sleep apnea Severe obesity ([facility] V24, [facility] V28) DX:Severe obesity ([facility]) Major depression, recurrent ([facility] V24) DX:Major depression, recurre nt ([facility]) Bilateral chronic knee pain DX:B ilateral chronic knee pain GERD (gastroesophageal reflux disease) DX:GERD (gastroesophageal reflux disease) CHF (congestive heart failur e) ([facility] V24, [facility] V28) Bilateral chronic knee pain Left leg [...] care for your loved ones. For example, children's counselor or elderly care for an older adult? [...] Date Recorded What is your living situation? Unrecognized valu e 03/12/2025 Interpersonal Safety Answer Date Record ed Physical Abuse Unrecognized value 03/12/2025 Verbal Abuse Unrecognized value 03/12/2025 Comments No Sex and Gender Information Value Date Recorded Sex Assigned at Not on file Legal Sex Female 5:33 PM EST Gender Identity Not on file Sexual Orientation Not on file Obstetrics History Last Filed Vital Signs Vital Sign Reading Time Taken Comments Blood Pressure 134/81 04/23/2025 12:43 PM EDT Pulse 62 04/23/2025 12:43 PM EDT Temperature 36.8 C (98.3 F) 03/19/2025 6:38 PM EDT Respiratory Rate 20 03/19/2025 6:38 PM EDT Oxygen Saturation 97% 04/23/2025 12:43 PM EDT Inhaled Oxygen Concentration - - Weight 135 kg (298 lb) 04/23/2025 12:43 PM EDT Height 165.1 cm (5' 5 ) 04/23/2025 12:43 PM EDT Body Mass Index 49.59 04/23/2025 12:43 PM EDT Plan of Treatment Upcoming Encounters Date Type Department Care Team (Late st Contact Info) Description 06/12/2025 2:45 PM EDT Appointment [facility] Pul[facility] [address] [place] [phone] 07/09/2025 11:10 AM EST Consult [facility] [address] [facility] [address] [place] [phone] Nuno Neumann MD [address] [facility] [address] [place] [address] Health Maintenance Due Date Last Done Comments Breast Cancer Screening 1960 Colorectal Cancer Screening: Colonoscopy 1960 Pneumococcal Vaccine: 50+ Years (1 of 2 - PCV) 12/22/1978 Cervical Cancer Screening: Pap Smear 12/22/1980 RSV Immunization Adult Patients (1 - Risk 60-74 years 1-dose series) 2019 Zoster Vaccines (2 of 2) 07/09/2021 05/14/2021 Cholesterol Screening (Lipid Panel) 07/30/2022 Hepatitis C Screening 07/30/2022 Osteoporosis Screening (Bone Density Screening) 07/30/2022 Depression Screening 08/22/2024 COVID-19 Vaccine ( season) 2025 07/29/2021, 12/25/2020, 12/02/2020 Influenza Vaccine (#1) 2025 Social Influencers of [...] Name Priority Date/Time Associated Diagnosis Comments ECG 12-LEAD Routine 04/23/2025 12:49 PM EDT Paroxysmal atrial fibrillation (CMS/HCC V24, CMS/HCC V28) ECG ANNOTATED 03/20/2025 VAS US DUPLEX LOWER [...] HIGH SENSITIVITY Timed 03/11/2025 1:47 PM EDT from Last 3 Months Results * ECG 12 lead (04/23/2025 12:49 PM EDT) Only the most recent of4 resultswithin the time period is included. Ventricular Rate ECG 62 BPM GEMUSE Atrial Rate 62 BPM GEMUSE P-R Interval 192 ms GEMUSE QRS Duration 152 ms GEMUSE Q-T Interval 484 ms GEMUSE QTc 491 ms GEMUSE P Wave [place] 57 degrees GEMUSE R [place] -37 degrees GEMUSE T [place] 42 degrees GEMUSE ECG Interpretation Normal sinus rhythm Left axis deviation Right bundle branch block Moderate voltage criteria for LVH, may be normal variant Abnormal ECG When compared with ECG of 19-MAR-2025 16:54, Sinus rhythm has replaced Atrial fibrillation Vent. rate has decreased BY 40 BPM Confirmed by Chandler GARNETT JAY ([id number]) on 04/23/2025 1:19:37 PM GEMUSE 04/23/2025 12:4 9 PM EDT 04/23/2025 1:19 PM EDT Lissa Kurtz NP ECG ORDERABLES Final Result GEMUSE * ECG-Annotated (03/20/2025) Only the most recent of2 resultswithin the time period is included. us Provider Onbase MD ECG ORDERABLES Final Result * Vascular US [...] and spectral analysis, was performed by the travelers' aid worker. Multiple transportation services representative static images were saved for review. [...] imagingand spectral analysis, was performed by the travelers' aid worker. Multiple transportation services representative static images were saved for review. [...] CV VASCULAR PROCEDURES F inal Result * XR Chest 2 Views (03/19/2025 3:59 PM EDT) Anatomical Region Laterality Modality Body Radiographic Claritza ging 03/19/2025 4:48 PM EDT Impressions 03/19/2025 4:49 PM EDT Impression: 1. PICC line well positioned. 2. No active pulmonary process. Telerad CASH ([id number]) -------- FINAL REPORT -------- Dictated By: Tereza Pérez Dictated Date: 03/19/2025 16:48 ET Assigned Physician: Tereza Pérez Reviewed and Electronically Signed By: Tereza Pérez Signed Date: 03/19/2025 16:49 ET Workstation ID: [id number] Transcribed By: Self Edit Transcribed Date: 03/19/2025 [...] positioned. 2. No active pulmonary process. [employer] CASH ([id number]) -------- FINAL REPORT -------- Dictated By: Tereza Pérez Dictated Date: 03/19/2025 16:48 ET Assigned Physician: Tereza Pérez Reviewed and Electronically Signed By: Tereza Pérez Signed Date: 03/19/2025 16:49 ET Workstation ID: [id number] Transcribed By: Self Edit Transcribed Date: 03/19/2025 16:48 ET Thanh Melgoza MD IMG XR PROCEDURES Final Result * (ABNORMAL) CBC auto differential (03/19/2025 1:54 PM EDT) Only the most recent of4 resultswithin the time period is included. WBC 6.3 4.8 - 10.8 K/mcL LAB HEMETOLOGY METHOD 03/19/2025 2:12 PM EDT [facility] RBC 3.90 3.80 - 4.80 M/mcL LAB HEMETOLOGY METHOD 03/19/2025 2:12 PM EDT [facility] Hemoglobin 12.8 11.5 - 16.0 g/dL LAB HEMETOLOGY METHOD 03/19/2025 2:12 PM EDT [facility] Hematocrit 39.9 35.0 - 47.0 % LAB HEMETOLOGY METHOD 03/19/2025 2:12 PM EDT [facility] MCV 101.3(H) 79.0 - 98.0 FL LAB HEMETOLOGY METHOD 03/19/2025 2:12 PM EDT [facility] MCH 32.5(H) 27.0 - 32.0 pcg LAB HEMETOLOGY METHOD 03/19/2025 2:12 PM EDT [facility] MCHC 32.1 32.0 - 37.0 g/dL LAB HEMETOLOGY METHOD 03/19/2025 2:12 PM EDT [facility] RDW 13.2 11.0 - 15.0 % LAB HEMETOLOGY METHOD 03/19/2025 2:12 PM [facility] Platelets 278 130 - 400 K/mcL LAB HEMETOLOGY METHOD 03/19/2025 2:12 PM [facility] MPV 9.3 7.0 - 11.0 FL LAB HEMETOLOGY METHOD 03/19/2025 2:12 PM [facility] NRBC 0.0 <1.0 % LAB HEMETOLOGY METHOD 03/19/2025 2:12 PM [facility] NRBC Absolute 0.00 <0.10 K/mcL LAB HEMETOLOGY METHOD 03/19/2025 2:12 PM [facility] Neutrophils Relative 69.4 % LAB HEMETOLOGY METHOD 03/19/2025 2:12 PM [facility] Lymphocytes Relative 18.7 % LAB HEMETOLOGY METHOD 03/19/2025 2:12 PM [facility] Monocytes Relative 7.8 % LAB HEMETOLOGY METHOD 03/19/2025 2:12 PM [facility] Eosinophils Relative 3.2 % LAB HEMETOLOGY METHOD 03/19/2025 2:12 PM [facility] Basophils Relative 0.6 % LAB HEMETOLOGY METHOD 03/19/2025 2:12 PM [facility] Immature Granulocytes Relative 0.3 % LAB HEMETOLOGY METHOD 03/19/2025 2:12 PM [facility] [facility] Neutrophils Absolute 4.34 1.50 - 7.00 K/mcL LAB HEMETOLOGY METHOD 03/19/2025 2:12 PM [facility] Lymphocytes Absolute 1.17 1.00 - 5.00 K/mcL LAB HEMETOLOGY METHOD 03/19/2025 2:12 PM [facility] Monocytes Absolute 0.49 0.20 - 1.00 K/mcL LAB HEMETOLOGY METHOD 03/19/2025 2:12 PM EDT [facility] Eosinophils Absolute 0.20 0.00 - 0.50 K/mcL LAB HEMETOLOGY METHOD 03/19/2025 2:12 PM EDT [facility] Basophils Absolute 0.04 0.00 - 0.20 K/mcL LAB HEMETOLOGY METHOD 03/19/2025 2:12 PM EDT [facility] Immature Granulocytes Absolute 0.02 0.00 - 0.03 K/[facility] LAB HEMETOLOGY METHOD 03/19/2025 2:12 PM EDT [facility] Blood Venous blood specimen / Unknown Venipuncture / Unknown 03/19/2025 1:54 PM EDT 03/19/2025 2:03 PM EDT us Thanh Melgoza MD LAB BLOOD ORDERABLES Final Resul t Performing Organization Address City/[facility]/ZIP Co de Phone Number [facility] [address] [place] [address], [place] [phone] * (ABNORMAL) B-type natriuretic peptide (03/19/2025 1:54 PM EDT) Only the most recent of2 resultswithin the time period is included. BNP 495(H) <=100 pcg/mL LAB CHEMISTRY METHOD 03/19/2025 3:22 PM EDT [facility] Blood Venous blood specimen / Unknown Venipuncture / Unknown 03/19/2025 1:54 PM EDT 03/19/2025 2:03 PM EDT us Thanh Melgoza MD LAB BLOOD ORDERABLES Final Resul t [facility] [address] [place] [address], [place] [phone] * (ABNORMAL) Basic metabolic panel (03/19/2025 1:54 PM EDT) Only the most recent of5 resultswithin the time period is included. Sodium 139 133 - 145 mmol/L LAB CHEMISTRY METHOD 03/19/2025 2:39 PM [facility] Potassium 3.9 3.5 - 5.5 mmol/L LAB CHEMISTRY METHOD 03/19/2025 2:39 PM [facility] Chloride 109 96 - 110 mmol/L LAB CHEMISTRY METHOD 03/19/2025 2:39 PM [facility] CO2 25 21 - 32 mmol/L LAB CHEMISTRY METHOD 03/19/2025 2:39 PM [facility] Anion Gap 5 3 - 11 LAB CHEMISTRY METHOD 03/19/2025 2:39 PM [facility] Glucose 94 70 - 100 mg/dL LAB CHEMISTRY METHOD 03/19/2025 2:39 PM [facility] BUN 17 5 - 25 mg/dL LAB CHEMISTRY METHOD 03/19/2025 2:39 PM [facility] Creatinine 1.51(H) 0.50 - 1.10 mg/dL LAB CHEMISTRY METHOD 03/19/2025 2:39 PM [facility] eGFR 38(L) >=60 mL/min/1. 73m2 LAB CHEMISTRY METHOD 03/19/2025 2:39 PM [facility] Comment:Calculation based on the Chronic Kidney Disease Epidemiology Collaboration (CKD-EPI) equation refit without adjustment for race. BUN/Creatinine Ratio 11.3 LAB CHEMISTRY METHOD 03/19/2025 2:39 PM [facility] Calcium 8.7 8.5 - 10.5 mg/dL LAB CHEMISTRY METHOD 03/19/2025 2:39 PM [facility] Blood Venous blood specimen / Unknown Venipuncture / Unknown 03/19/2025 1:54 PM EDT 03/19/2025 2:03 PM EDT Thanh Melgoza MD LAB BLOOD ORDERABLES Final Resul t Performing Organization Address City/[facility]/ZIP Co de Phone Number [facility] [address] [place] [address], [place] [phone] * ECG-External (03/19/2025 10:29 AM EDT) Historical Provider ECG ORDERABLES Final Res ult * Vancomycin, trough (03/15/2025 1:44 PM EDT) Only the most recent of2 resultswithin the time period is included. Vancomycin Trough 16.0 10.0 - 20.0 mcg/mL LAB CHEMISTRY METHOD 03/15/2025 2:33 PM EDT [facility] Blood Venous blood specimen / Unknown Venipuncture / Unknown 03/15/2025 1:44 PM EDT 03/15/2025 1:52 PM EDT Earnest Tang MD LAB BLOOD ORDERABLES Fi nal Result Performing Organization Address [facility]/ZIP Co de Phone Number [facility] [address] [place] [address], [place] [phone] * Phosphorus (03/15/2025 5:43 AM EDT) Phosphorus 3.4 2.5 - 4.5 mg/dL LAB CHEMISTRY METHOD 03/15/2025 7:45 AM EDT [facility] Blood Venous blood specimen / Unknown Venipuncture / Unknown 03/15/2025 5:43 AM EDT 03/15/2025 6:04 AM EDT Earnest Tang MD LAB BLOOD ORDERABLES Fi nal Result Performing Organization Address City/[facility]/ZIP Co de Phone Number [facility] [address] [place] [address], [place] [phone] * Magnesium (03/15/2025 5:43 AM EDT) Only the most recent of4 resultswithin the time period is included. [facility] Magnesium 2.2 1.9 - 2.6 mg/dL LAB CHEMISTRY METHOD 03/15/2025 7:45 AM EDT [facility] Blood Venous blood specimen / Unknown Venipuncture / Unknown 03/15/2025 5:43 AM EDT 03/15/2025 6:04 AM EDT us Earnest Tang MD LAB BLOOD ORDERABLES Fi nal Result [facility] [address] [place] [address], [place] [phone] * (ABNORMAL) TRANSTHORACIC ECHOCARDIOGRAM (TTE) COMPLETE W/ CONTRAST (03/14/2025 9:13 AM EDT) [facility] LV EDV (A2C) 99 mL CV PACS [...] 45 % CV PACS Left [facility] 6.5 cm CV PACS Left [facility] 6.1 cm CV PACS LA Area Sys [...] Hold for add-ons. 03/14/2025 11:01 AM EDT [facility] Comment:Auto resulted. Blood Venous blood specimen / Unknown 03/14/2025 8:33 AM EDT 03/14/2025 9:18 AM EDT Earnest Tang MD LAB BLOOD ORDERABLES Fi nal Result [facility] [address] [place] [address], * Blood Culture, Peripheral Draw #1 (03/12/2025 3:17 PM EDT) Only the most recent of4 resultswithin the time period is included. Culture, Blood No growth at 5 days 03/17/2025 4:01 PM EDT [facility] Blood Venous blood specimen / Unknown Venipuncture / Unknown 03/12/2025 3:17 PM EDT 03/12/2025 3:39 PM EDT Jules CASTREJON LAB MICROBIOLOGY - GENERA L ORDERABLES Final Result [facility] [address] [place] [address], [place] [phone] * MRSA molecular study (03/12/2025 9:44 AM EDT) [facility] MRSA Screen PCR Not Detected Not Detected LAB MICROBIOLOGY METHOD 03/12/2025 11:56 AM EDT [facility] Swab Both anterior nares / Unknown Non-blood Collection / Unknown 03/12/2025 9:44 AM EDT 03/12/2025 10:38 AM EDT Jules CASTREJON LAB MICROBIOLOGY - GENERA L ORDERABLES Final Result [facility] [address] [place] [address], [place] [phone] * Troponin I high sensitivity (03/11/2025 4:57 PM EDT) Only the most recent of2 resultswithin the time period is included. [facility] High Sensitivity Troponin I 15 <=54 ng/L LAB CHEMISTRY METHOD 03/11/2025 5:42 PM EDT [facility] Blood Venous blood specimen / Unknown Venipuncture / Unknown 03/11/2025 4:57 PM EDT 03/11/2025 5:11 PM EDT Narrative [facility] - 03/11/2025 5:42 PM EDT High levels of biotin in samples may falsely decrease hsTroponin values. Use caution when interpreting hsTroponin results in patients taking biotin who exhibit renal impairment (eGFR <60) or in patients taking more than 20 mg/day of biotin. Anne Liao MD LAB BLOOD ORDERABLES Final Resul t Performing Organization Address City/[facility]/ZIP Co de Phone Number [facility] [address] [place] [address], [place] [phone] * (ABNORMAL) Blood culture pathogens molecular study (03/11/2025 4:57 PM EDT) [facility] Staphylococcus species Detected (A) Not Detected LAB MICROBIOLOGY METHOD 03/12/2025 3:25 PM EDT [facility] Blood Venous blood specimen / Unknown Venipuncture / Unknown 03/11/2025 4:57 PM EDT 03/11/2025 5:11 PM EDT Anne Liao MD LAB MICROBIOLOGY - GENERAL ORDER DAVID Final Result [facility] [address] [place] [address], [place] [phone] * Lactate (03/11/2025 4:57 PM EDT) [facility] Lactate 1.1 0.4 - 2.0 mmol/L LAB CHEMISTRY METHOD 03/11/2025 5:41 PM EDT [facility] Blood Venous blood specimen / Unknown Venipuncture / Unknown 03/11/2025 4:57 PM EDT 03/11/2025 5:25 PM EDT Janneth CASTREJON LAB BLOOD ORDERABLES Fin al Result Performing Organization Address [facility]/ZIP Co de Phone Number [facility] [address] [place] [address], [place] [phone] * Lipase (03/11/2025 1:47 PM EDT) [facility] Lipase 16 13 - 75 unit/L LAB CHEMISTRY METHOD 03/11/2025 3:03 PM EDT [facility] Blood Venous blood specimen / Unknown Venipuncture / Unknown 03/11/2025 1:47 PM EDT 03/11/2025 2:11 PM EDT Anne Liao MD LAB BLOOD ORDERABLES Final Resul t [facility] [address] [place] [address], [place] [phone] * (ABNORMAL) Comprehensive metabolic panel (03/11/2025 1:47 PM EDT) Sodium 138 133 - 145 mmol/L LAB CHEMISTRY METHOD 03/11/2025 3:10 PM EDT [facility] Potassium 3.2(L) 3.5 - 5.5 mmol/L LAB CHEMISTRY METHOD 03/11/2025 3:10 PM EDT [facility] Chloride 105 96 - 110 mmol/L LAB CHEMISTRY METHOD 03/11/2025 3:10 PM [facility] CO2 27 21 - 32 mmol/L LAB CHEMISTRY METHOD 03/11/2025 3:10 PM [facility] Anion Gap 6 3 - 11 LAB CHEMISTRY METHOD 03/11/2025 3:10 PM [facility] Glucose 114(H) 70 - 100 mg/dL LAB CHEMISTRY METHOD 03/11/2025 3:10 PM [facility] BUN 32(H) 5 - 25 mg/dL LAB CHEMISTRY METHOD 03/11/2025 3:10 PM [facility] Comment:Results verified by repeat testing Creatinine 1.64(H) 0.50 - 1.10 mg/dL LAB CHEMISTRY METHOD 03/11/2025 3:[facility] [address] [facility] eGFR 35(L) >=60 mL/min/1. 73m2 [...] unit/L LAB CHEMISTRY METHOD 03/11/2025 3:10 PM EDT [facility] ALT (SGPT) 14 10 - 60 unit/L LAB CHEMISTRY METHOD 03/11/2025 3:10 PM EDT [facility] Alkaline Phosphatase 83 42 - 121 unit/L LAB CHEMISTRY METHOD 03/11/2025 3:10 PM EDT [facility] Total Protein 7.1 6.0 - 8.0 g/dL LAB CHEMISTRY METHOD 03/11/2025 3:10 PM EDT [facility] Albumin 3.7 3.2 - 5.0 g/dL LAB CHEMISTRY METHOD 03/11/2025 3:10 PM EDT [facility] Total Bilirubin 1.1 0.0 - 1.4 mg/dL LAB CHEMISTRY METHOD 03/11/2025 3:10 PM EDT [facility] Blood Venous blood specimen / Unknown Venipuncture / Unknown 03/11/2025 1:47 PM EDT 03/11/2025 2:11 PM EDT us Anne Liao MD LAB BLOOD ORDERABLES Final Resul t [facility] [address] [place] [address], from Last 3 Months Insurance [employer] [...] currently active code status orders. Care Teams Aircraft Maintenance Supervisor Relationship Specialty Start Date End Date Al Garcia MD [address] [place] [id number] PCP - General 09/12/12
--- OUTSIDE RECORDS SUMMARY | 2025-05-28 06:25 | XMS_ITS | Encounter Summary ---
Author Organization [facility] Address [address] [place] [address] Phone Care Team Providers Care Silverware Cleaner Name Role Phone Al Garcia MD Primary Care Provider [phone] Encounter Details Date Type Department Care Team ([facility] Contact Info) Description 05/27/2025 Orders Only [facility] [address] [place] [address] Adrienne PanchalMAGNOLIA, [place] [address] [place] [address] Hypertensive disorder (Primary Dx); Chronic kidney disease stage 3 (HCC); Albuminuria, not otherwise specified Social History Tobacco Use Types Packs/Day Years [...] Upcoming Encounters Date Type Department Care Team ([facility] Contact Info) Description 06/14/2025 3:30 PM EDT Office Visit [facility] [address] [place] [address] Ciaran Waldrop MD [address] [place] [address] Scheduled Orders Name Type Priority Associated Diagnoses Orde r Schedule CBC and Differential Lab Routine Hypertensive disorder Chronic kidney disease stage 3 (HCC) Albuminuria, not otherwise specified Expected: 05/27/2025, Expires: 06/27/2026 Renal Function Panel Lab Routine Hypertensive disorder Chronic kidney disease stage 3 (HCC) Albuminuria, not otherwise specified Expected: 05/27/2025, Expires: 06/27/2026 Urine Albumin / Creatinine Ratio Lab Routine Hypertensive disorder Chronic kidney disease stage 3 (HCC) Albuminuria, not otherwise specified Expected: 05/27/2025, Expires: 06/27/2026 documented as of this encounter Visit Diagnoses Diagnosis Hypertensive disorder- Primary Chronic kidney disease stage 3 (HCC) Albuminuria, not otherwise specified documented in this encounter Care Teams Silverware Cleaner Relationship Specialty Start Date End Date Al Garcia MD [address] [place] [id number] PCP - General Internal Medicine 05/04/20 documented as of this encounter
--- OUTSIDE RECORDS SUMMARY | 2025-05-28 06:25 | XMS_ITS | Clinical Summary ---
Author Organization [facility] Address [address] [place] [address] Care Team Providers Care Bioprocessing Manufacturing Technician Name Role Phone Al Garcia MD Primary Care Provider [phone] Allergies Active Allergy Reactions Criticality Noted Date [...] Vaccine (2 o f 2) 07/09/2021 05/14/2021 Fall Risk Assessment 12/22/2024 Osteoporosis Screening (DEXA Scan) 12/22/2024 Pneumococcal Vaccine (1 of 1 - PCV) 12/22/2024 COVID-19 Vaccine (4 - 2024-2 6 season) 2025 07/29/2021, 12/25/2020, 12/02/2020 Influenza Vaccine (#1) 2025 DTap / Tdap [...] age to complete this topic Care Teams Bioprocessing Manufacturing Technician Relationship Specialty Start Date End Date Al Garcia MD [address] [place] [id number] PCP - General Internal Medicine 05/13/21
--- OUTSIDE RECORDS SUMMARY | 2025-05-28 06:25 | XMS_ITS | Patient Health Record ---
[facility] Address [address] [place] [address] Care Team Providers Care Dishwashing Machine Operator Name Role Phone [place] Unavailable [phone] Allergies Allergen (clinical drug ingredient) Drug/Non Drug [...] Status W/U Status Risk Notes Problem Hypothyroidism (44049891) Hypothyroidism, unspecified (E03.9) Active confirmed Problem Essential hypertension (72903271) Essential (primary) hypertension (I10) Active confirmed Problem Osteoarthritis (675763969) Unspecified osteoarthritis, unspecified site (M19.90) Active confirmed Problem Sciatica (35380293) Lumbago with sciatica, left side (M54.42) Active confirmed Problem Body mass index 40+ - severely obese (528496226) Body mass index (BMI) 45.0-49.9, adult (Z68.42) Active confirmed Problem Body mass index 40+ - morbidly obese (805175119) Body mass index (BMI) 50-59.9 , adult (Z68.43) Active confirmed Encounters Encounter Location Date Provider Diagnosis [facility]PC [address] [facility] [address] [place] [address] 04/15/2025 [place] Plan Of Treatment Pending Test Test Name Order Date X ray : Spines, lumbar complete 03/01/20 18 Insurance Providers Payer Name Payer Address Payer Phone Subscriber Number Group Number Insured Name Patient Relationship to Insured Coverage Start Date Coverage End Date [address] [place] [address] [phone] [id number] PELON GIVENS Self - patient is the insured Medical (General) History Medical History History ICD Code anxiety Arthritis hypertension Hypothyroidism Surgical History Surgery Date(Month/Year) left knee arthroscopy
--- OUTSIDE RECORDS SUMMARY | 2025-05-28 06:25 | XMS_ITS | Data Portability ---
Author Organization [place] - [facility],, EWELINA QUINN MD Address [address] [address] Assessment No assessment recorded. Plan of Treatment Reminders Order Date Submit Date Provider Last Modified By Organization Details Last Modified Time Details Appointments None recorded. Lab pap test, thinprep, cervical 2020 021 [email or web address] [facility], Cytopathology Service, [address] [place] [address], [address], 1 07:19:20 fecal occult blood, stool 2020 021 [email or web address] 1 In-Office Order, Internal Use Only DO Not Attach Compendium DO Not Attach Compendium, Do Not Delete/merge, [id number] 1 11:49:39 pap test, thinprep, cervical [address] [facility] Cytopathology Service, [address] [place] [address], [address], 9 07:21:20 fecal occult blood, stool [address] [facility] In-Office Order, Internal Use Only DO Not Attach Compendium DO Not Attach Compendium, Do Not Delete/merge, [id number] 9 07:21:20 pap test, thinprep, cervical 2017 018 LYLE [facility], Cytopathology Service, [address] [place], [address], 8 08:22:29 fecal occult blood, stool 2017 018 [email or web address] In-Office Order, Internal Use Only DO Not Attach Compendium DO Not Attach Compendium, Do Not Delete/merge, [id number] 8 07:17:30 Referral None recorded. Procedures None recorded. Surgeries None recorded. Imaging MAMMO, screening , digital, bilateral 2020 021 [facility] Orders, [address], [place], [address], 1 07:50:51 MAMMO, screening , digital, bilateral 2018 019 [facility] Orders, [address], [address], [place], [address], 9 09:28:16 MAMMO, screening , digital, bilateral 2017 018 [facility] Orders, [address], [address], [place], [address], 8 08:47:00 Medication Orders Imvexxy Maintenan ce Pack 10 mcg vaginal insert 2020 021 [email or web address] 1 [facility]1972, [address] [place] [address], [address], 1 15:46:31 Imvexxy Starter Pack 10 mcg vaginal insert, dose pack 2020 021 [facility] #1972, [address] [place] [address], [address], 1 11:51:48 nystatin 100,000 unit/gram topical powder 2020 021 [facility]1972, [address] [place] [address], [address], 1 11:50:17 estradiol 0.01% (0.1 mg/gram) vaginal cream 2018 019 [email or web address] [facility]1972, [address] [place], [address], 1 11:07:35 estradiol 0.01% (0.1 mg/gram) vaginal cream 2017 018 [email or web address] [facility]1972, [address] [place], [address], 1 11:07:35 Patient TargetsNo targets recorded. Patient Instructions Encounter Date Encounter Id Patient Instructions Last Modified By Organization Details Last Modified Time 06/06/2018 [id number] atrophic vaginit is: care [email or web address] Not available 06/06/2018 15:01:35 self breast [...] with her mother and her fiancee in [place] [facility] in [place]. 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 We discussed that her atrophic vagintis may [...] questions answered. Not available 06/06/2018 15:01:50 07/30/2019 [id number] atrophic vaginit is: care instructions [email or web address] Not available 07/30/2019 15:44:55 She is here for annual exam, was recently found to be in afib at her PCP office, was sent [facility], has been out of afib for a month now, had to do 3 different cardioversions and one ablation, at [facility]. She did use the E2 vaginal [...] with her mother and her fiancee in [place] [facility] in [place]. 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 Not available 07/30/2019 15:47:02 01/21/2021 [id number] atrophic vaginit is: care instructions Not available [...] afib at her PCP office, was sent [facility], has been out of afib for a month now, had to do 3 different cardioversions and one ablation, at [facility]. She did use the E2 vaginal [...] DO Not Attach Compendium, Do Not Delete/merge, [id number] 07/30/2019 15:10:29 06/06/20 18 06/06/2018 fecal occul t blood , stool Occult Blood negati ve Not Available In-Office Order Internal Use Only DO Not Attach Compendium DO Not Attach Compendium, Do Not Delete/merge, [id number] 06/06/2018 14:16:38 06/06/20 18 06/06/2018 pap, LB [id number] ThinP rep Pap, Image d: NEGAT NICOLLE FOR SQUAM OUS INTRA EPITH ELIAL LESIO N AND NAVEED NICKERSON . Melissa Ely , CT( CP) (Case elect nori kate shu d 06 07 2018) ADEQU ACY: Satis facto ry. Endoc ervic al/tr ansfo rmati on zone compo nent charles t. SOURC E: ThinP rep Pap HPV IF ASCUS , Cervi yudy, Image d: CLINI YUDY INFOR MATIO N: HPV If Diagn osis of ASCUS . Z12.4 , MENOP AUSE, LMP 2017 Not Available [facility], Cytopathology Service [address] [facility], [place], [address], 06/08/2018 08:22:29 07/30/20 19 07/30/2019 pap, LB [email or web address] ThinP rep Pap, Image d: NEGAT NICOLLE FOR SQUAM OUS INTRA EPITH ELIAL LESIO N AND MALJOSE NICKERSON . Melissa Ely , CT( CP) [...] NEG [Z12. 4, Z01.4 19] Not Available [facility], Cytopathology Service [address] [place], [address], 08/06/2019 12:55:59 01/22/20 21 01/21/2021 pap test, thinp rep, cervi yudy [email or web address] ThinP rep Pap, Image d: NEGAT NICOLLE [...] NEG [Z12. 4, Z01.4 19] Not Available [facility], Cytopathology Service [address] [place], [address], 01/29/2021 07:40:37 01/22/20 21 01/21/2021 fecal occul t blood , stool Occult Blood negati ve Not Available In-Office Order Internal Use Only DO Not Attach Compendium DO Not Attach Compendium, Do Not Delete/merge, [id number] 01/21/2021 11:09:03 06/13/20 18 06/13/2018 MAMMO sheryl, digit al, bilat eral No observ ation record ed. [facility] [address] [address], [place], [address], 06/13/2018 09:06:32 08/03/20 19 08/03/2019 MAMMO sheryl, digit al, bilat eral No observ ation record ed. [email or web address] [facility] (Outpt Imaging) [address], [place], [address], 08/03/2019 09:58:05 02/03/2002/01/2021 MAMMO , scree malu, digit al, bilat eral No observ ation record ed. [facility] Orders [address], [place], [address], 02/02/2021 08:35:36 Result Notes None recorded. Problems Name Problem SNOMED Code Status Onset Date Resolution Date Notes Provider Name and Address Organization Details Recorded Time Hypothyroidism 03515241 Active 2017 ERI Schwartz in [facility], 8 14:07:42 Hypertensive disorder 82272219 Active 2017 ERI Schwartz in [facility], 8 14:07:54 Urinary incontinence 144864878 Active 2017 Ewelina Quinn MD [address], [place], [address], [place] - [facility], 8 14:49:43 Atrophic vaginitis 46120126 Active 2017 Ewelina Quinn MD [address], [place], [address], [place] [facility], 8 14:49:58 Atrial fibrillation 05571956 Active 2018 ERI Marquez in [facility], 9 15:08:02 Candidiasis of skin 29319899 Active 2020 Ewelina Quinn MD [address], [place], [address], [place] [facility], 1 11:49:54 Problem Notes None recorded. Procedures Surgical History Date Name Laterality Status Provider Name and Address Organization Details Recorded Time 1 Most Recent Mammogram completed Roxann Lopez in [facility], 06/10/2023 10:37:28 1 admission to hand surgery department completed Roxann Gonzalez MA Delia John in [facility], 01/21/2021 11:14:46 3 Other completed Roxann Gonzalez MA Delia John in [facility], 06/06/2018 14:13:07 Imaging Results None recorded. Procedure Notes None recorded. Medical Equipment None Reported. Allergies Allergen ID Allergen Name Allergen Category Reaction Reaction Severity Criticality Documentation Date Start Date Code Code System Note Provider Name and Address Organization Details Recorded Time codeine medicatio n rash Not available Not available 06/06/2018 267 RxNorm Roxann rees [place] Delia John in [facility], 8 14:05:27 Product containin g penicilli n (product) medicatio n rash Not available Not available 06/06/2018 84591 8001 SNOMED Roxann rees [place] Delia Lopez in [facility], 8 14:05:42 Medications Name Sig Start Date [...] Body height Body temperature Heart rate Systolic And Diastolic Provider Name and Address Organization Details Last Updated DateTime 1 093509. 27 g 56.1 kg/m2 162.56 cm 98.1 [degF] 75 /min 147/88 mm[Hg] Roxann Lopez in [facility], 1 11:06:52 Date Recorded Body weight Body mass index (BMI) Body height Heart rate Systolic And Diastolic Provider Name and Address Organization Details Last Updated DateTime 06/06/2018 711162.7 4 g 50.9 kg/m2 163.83 cm 88 /min 144/81 mm[Hg] Roxann Lopez in [facility], 06/06/2018 14:03:02 Date Recorded Body height Heart rate Body mass index (BMI) Body weight Systolic And Diastolic Provider Name and Address Organization Details Last Updated DateTime 07/30/2019 163.83 cm 64 /min 52.5 kg/m2 394522.7 9 g 137/69 mm[Hg] Lucero Lopez in [facility], 07/30/2019 15:03:20 Social History Question Answer Notes LastModified by Organizat ion Details LastModified Time Tobacco Smoking Status Never Smoker Not Available [facility] 06/24/2020 03:19:37 Do You Have An Advance Directive? No [id number] Information not available 06/24/2020 What Is Your Level Of Caffeine Consumption? Moderate [id number] Information not available 06/24/2020 How Much Tobacco Do You Chew? None [id number] Information not available 06/24/2020 In The 14 [...] Type Of Diet Are You Following? REGULAR [id number] Information not available 06/24/2020 Which Illicit Or Recreational Drugs Have You Used? No [id number] Information not available 06/24/2020 Do You Reside In Or Have You Traveled To An Area Where Ebola Virus Transmission Is Active? No [id number] Information not available 06/24/2020 Education 2 Year College Information not available 06/06/2018 How Many Days In The Past Year Have You Had A Heavy Drinking Consumption (4+ Female, 5+ Male)? 40 Information no t available 06/06/2018 Are There Any Guns Present In Your Home? Yes [id number] Information not available 06/24/2020 High Number Of Sexual Partners No Information not available 06/06/2018 To Which Gender Do You Self-identify? Female Information not available 06/06/2018 Marital Status Domestic Partner Engaged. Information not available 06/06/2018 What Was The Date Of Your Most Recent Tobacco Screening? 06/06/2018 [id number] Information not available 06/24/2020 Seat Belts Used Routinely Yes Information not available 06/06/2018 Are You Sexually Active? Yes [id number] Information not available 06/24/2020 Smoke Alarm In Home Yes Information not available 06/06/2018 How Much Tobacco Do You Smoke? No Information not available 01/21/2021 General Stress Level High Information not available 01/21/2021 Do You Use Sunscreen Routinely? No [id number] Information not available 06/24/2020 Have You Recently (within The Last 12 Weeks, Or During A Current ) Traveled To Or Lived In A Zika-affected Area? No Information not available 06/06/2018 Sex: Female Functional Status Question Answer Note LastModified by Organizat ion Details LastModified Time What is your level of alcohol consumption? Occasional [id number] Information not available 06/24/2020 Do you or have you ever used smokeless tobacco? 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 [employer] . Information not available 06/06/2018 Do you or have you ever used e-cigarettes or vape? Never used electronic cigarettes Information not available 01/21/2021 What is your exercise level? None [id number] Information not available 06/24/2020 Mental Status None [...] completed Roxann rees [place] [facility], 01/21/2021 11:11:04 Past Encounters Encounter ID Performer Location Encounter Start Date Encounter Closed Date Diagnosis/Indication Diagnosis SNOMED-CT Code Diagnosis ICD10 Code Diagnosis IMO Codes Diagnosis Note [id number] MD EWELINA Parikh MD [address] [place] [address] 06/06/2018 13:47:44 06/06/2018 15:53:53 Specialized medical examination 16529254 Z01.419 Screening for malignant neoplasm of rectum 931598797 Z12.12 Screening mammography 24 786287 Z12.31 Atrophic vaginitis 96358 000 N95.2 Urinary incontinence 165 798987 R32 [id number] MD EWELINA Parikh MD [address] [place] [address] 07/30/2019 14:56:52 07/30/2019 16:06:21 Specialized medical examination 98392894 Z01.419 Screening for malignant neoplasm of rectum 000194573 Z12.12 Screening mammography 24 011415 Z12.31 Atrophic vaginitis 63039 000 N95.2 [id number] MD EWELINA Parikh MD [address] [place] [address] 01/21/2021 10:59:53 01/22/2021 09:00:22 Specialized medical examination 48867728 Z01.419 Screening for malignant neoplasm of rectum 026262914 Z12.12 Screening mammography 24 531250 Z12.31 Candidiasis of skin 4988 3006 B37.2 Atrophic vaginitis 47670 000 N95.2 Health Concerns Section Related Observation LastModified by Organization Detai ls LastModified Time None Recorded Concern Status LastModified by Organization Details LastModified Time None Recorded Advance Directives Directive N: Payers Insurance Date Sequence Insurance Name Policy Number Policy Her Covered Member ID Her Member ID Guarantor Name 06/14/2023 1 LAVONNE [id number] Kavya Sher [id number] Kavya Sher 01/21/2021 1 ANGÉLICA (O) [id number] Kavya Sher [id number] Kavya Sher Notes Date Note Type Note [...] with her mother and her fiancee in [facility]. 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 Ewelina Quinn MD [address], [place], [address], [employer] [facility], 06/06/2018 15:02:54 07/30/2019 text/html She is here for annual exam, was recently found to be in afib at her PCP office, was sent [facility], has been out of afib for a month now, had to do 3 different cardioversions and one ablation, at [facility]. She did use the E2 vaginal [...] with her mother and her fiancee in [facility]. 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 We discussed that her atrophic vagintis may be in part responsible for some of her urinary issues. She would like to try E2 vaginal cream to see if this helps improve her incontinence. She cooper luse it for three months then assess. If no improvement then call. Benefits of weight management discussed as well. Ewelina Quinn MD [address], [place], [address], [place] [facility], 07/30/2019 15:47:25 01/21/2021 text/html She is here for annual exam, doing well. She did not use the E2 cream because she can't remember to use it. She is having worsening urinary urge, frequency, and nocturia, however. _ note from 07/2019: She is here for annual exam, was recently found to be in afib at her PCP office, was sent [facility], has been out of afib for a month now, had to do 3 different cardioversions and one ablation, at [facility]. She did use the E2 vaginal cream for a little bit of time but then I stopped. She would like to restart. Ewelina Quinn MD [address] [place] [address],[address], [facility] [address], [place] Lopez in [facility], 01/21/2021 12:27:10 OBGyn Episode No OBEpisode recorded.
== END 2025-05-28 06:23 | disposition home or self-care (01) ==
LOC: CF 06:22
PROVIDERS: Visit Provider Anesthesiology
DX: M17.0 Bilateral primary osteoarthritis of knee (principal)
CPT/HCPCS: 64454; J2003; J2795

== ENCOUNTER 2025-05-28 12:43 | Outpatient (AMB) | payer OTHER, SELFPAY ==
[2025-05-28 12:52] VITALS: BP 136/71; PULSE 61; RESP 16; O2SAT 98; BMI 51.6
--- NOTE | 2025-05-28 12:52 | A.OFFVIS_ITS ---
Vital Signs 05/28/25 12:52 05/28/25 13:59 Height 5 ft 5 in Weight 310 lb BMI 51.6 BP 136/71 184/90 H Blood Pressure Location Lt radial Lt radial Position Sitting Sitting Respiration 16 16 Pulse 61 66 Pulse Source Pulse Oximeter Pulse Oximeter Pulse Oximetry (%) 98 98 Oxygen Delivery Method Room Air Room Air Intake Visit Reasons: BILATERAL DIAGNOSTIC GENICULAR NERVE BLOCK Allergies codeine Allergy (Unknown, Verified 02/12/25 12:00) Unknown penicillin V Allergy (Unknown, Verified 02/12/25 12:00) Rash [facility] Medical History History of ectopic Vitamin D deficiency Severe obesity Obstructive sleep apnea Non-ischemic cardiomyopathy Major depression Hypothyroidism Hypertension History of pulmonary embolism Chronic kidney disease, stage 3b Bilateral chronic knee pain Atrial fibrillation Surgical History S/P meniscectomy Social History Alcohol intake: current Alcohol intake frequency: holidays/special occasions only Patient Tobacco Use Status: Never used Tobacco Substance Use Type: Other Current occupational status: employed 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 Physical Exam Vital Signs: Last Vital Signs Pulse 66 05/28/25 13:59 Resp 16 05/28/25 13:59 BP 184/90 H 05/28/25 13:59 Pulse Ox 98 05/28/25 13:59 Oxygen Delivery Method Room Air 05/28/25 13:59 BMI result Body Mass Index 51.6 Assessment & Plan Assessment & Plan (1) Osteoarthritis of left knee: Code(s): M17.12 - Unilateral primary osteoarthritis, left knee Category: Medical (2) Osteoarthritis of right knee: Code(s): M17.11 - Unilateral primary osteoarthritis, right knee Category: Medical (3) Right knee pain: Code(s): M25.561 - Pain in right knee Category: Medical (4) Left knee pain: Code(s): M25.562 - Pain in left knee Category: Medical Plan Genicular nerve block bilateral diagnose. ? Patient came to the operating room after informed consent was obtained.? He was positioned supine on the operating table [employer] monitors were applied , patient was sedated.? Time-out procedure was performed delineating correct site and side of the injections, patient's name and date of , allergies, need for antibiotics, risk of fire. Patient's knees as well as anterior surface of lower thigh as well as anterior surface of upper shins were prepped with ChloraPrep and draped with sterile towels.? Sterilely draped C-arm was brought over the operating field and sq picture of the patient's knees sequentially was obtained on the screen left and then right.? The point of interest were delineated as connection of bilateral metaphysis and diaphysis medial and lateral of the both femoral bones, as well as connections of the diaphysis and metaphysis bilaterally on the medial tibial bone.? The point of interest projection to the skin were injected with small amount of Lidocaine and after that 22 g. 3&1/2 spinal needles were inserted through the skin 1st on the left and then on the right.? The needles were driven toward the point of interest on anterior posterior and lateral views.? When on lateral views the needles were positioned with the tips in the projection of mid shaft of the bones the 1.5 to 2 cc of Marcaine was injected into each position.? Upon completion of the injections needles were removed sterile Band-Aids were applied. Patient tolerated procedure well he was awakened and transferred for recovery he recovered uneventfully and went home without immediate complications. Orders: Orders FL guidance in treatment room 05/28/25 M17.11 - Unilateral primary osteoarthritis, right knee FL guidance in treatment room 05/28/25 M17.12 - Unilateral primary osteoarthritis, left knee Coding Level of Care Code Procedure Only Diagnoses Osteoarthritis of left knee M17.12 Osteoarthritis of right knee M17.11 Right knee pain M25.561 Left knee pain M25.562
[2025-05-28 13:59] VITALS: BP 184/90; PULSE 66; RESP 16; O2SAT 98
--- OUTSIDE RECORDS SUMMARY | 2025-05-28 15:32 | XMS_ITS | Encounter Summary ---
Author Organization [facility] Address [address] [place] [address] Phone Care Team Providers Care Clothing Sorter Name Role Phone Al Garcia MD Primary Care Provider [phone]- [phone] Encounter Details Date Type Department Care Team ([facility] Contact Info) Description 11/02/2023 Documentation Only [facility] [address] [place] [address] Adrienne Panchal [place] [address] [place] [address] Social History Tobacco Use Types [...] Date Type Department Care Team ([facility] Contact Info) Description 06/14/2025 3:30 PM EDT Office Visit [facility] [address] [place] [address] Ciaran Waldrop MD [address] [place] [address] documented as of this encounter Visit Diagnoses Not on filedocumented in this encounter Care Teams Clothing Sorter Relationship Specialty Start Date End Date Al Garcia MD [address] [place] [address] PCP - General Internal Medicine 05/04/20 documented as of this encounter
--- OUTSIDE RECORDS SUMMARY | 2025-05-28 15:32 | XMS_ITS | Clinical Summary ---
Author Organization [facility], Address [address] [place] [address] [place] [address] Phone Care Team Providers Care Plant Technician Name Role Phone Al Garcia MD Primary Care Provider +1- [phone] Allergies Active Allergy Reactions Criticality Noted Date [...] Only [facility], [address] [place] [address] Adrienne Panchal [place] Hypertensive disorder (Primary [...] Visit [facility], [address] [place] [address] Ciaran Waldrop MD [address] [place] [address] Health Maintenance Due Date Last Done Comments Breast Cancer Screening 1960 Pneumococcal Vaccine: 50+ Ye ars (1 of 2 - PCV) 12/22/1978 Colorectal Cancer Screening: Annual FOBT 12/22/2008 Colorectal Cancer Screening: Colonoscopy 12/22/2008 Colorectal Cancer Screening: Sigmoidoscopy 12/22/2008 Influenza Vaccine (#1) 2025 Hepatitis B Vaccine Aged Out No longe r eligible based on patient's age to complete this topic Insurance [employer] Care Teams Plant Technician Relationship Specialty Start Date End Date [place] [address] PCP - General Internal Medicine 05/04/20
--- OUTSIDE RECORDS SUMMARY | 2025-05-28 15:32 | XMS_ITS | Clinical Summary ---
Author Organization [facility] Address [address] [place] [address] Care Team Providers Care Wine Cellar Stock Clerk Name Role Phone Unavailable Primary Care Provider [...]
--- OUTSIDE RECORDS SUMMARY | 2025-05-28 15:32 | XMS_ITS | Clinical Summary ---
Author Organization [facility] Address [address] [place] [address] Phone Care Team Providers Care Paste Up Worker Name Role Phone Al Garcia MD Primary Care Provider +1- [phone] Allergies Active Allergy Reactions Criticality Noted Date [...] PPO CIGNA PPO CIGNA PPO Care Teams Paste Up Worker Relationship Specialty Start Date End Date Al Garcia MD [address] [place] [address] PCP - General Internal Medicine 09/01/20 Additional Source Comments The information contained in this document represents components of the legal health record. It is not the complete legal health record.[facility]
--- OUTSIDE RECORDS SUMMARY | 2025-05-28 15:33 | XMS_ITS | Clinical Summary ---
Author Organization [facility] Address [address] [place] [address] Care Team Providers Care Health And Wellness Instructor Name Role Phone Al Garcia MD Primary Care Provider [phone] Allergies Active Allergy Reactions Criticality Noted Date [...] age to complete this topic Care Teams Health And Wellness Instructor Relationship Specialty Start Date End Date Al Garcia MD [address] [place] [phone] PCP - General Internal Medicine 05/13/21
--- OUTSIDE RECORDS SUMMARY | 2025-05-28 15:33 | XMS_ITS | Clinical Summary ---
Author Organization [address] [place] [address] [place] [phone] Phone Care Team Providers Care Language Therapist Name Role Phone Al Garcia MD Primary Care Provider [phone] Allergies Active Allergy Reactions Criticality Noted Date [...] and this does not appear to be hospital insurance representative of a heart failure exacerbation. Nevertheless, [...] of paroxysmal atrial fibrillation noted on her [employer] mobile at home a few weeks ago. [...] will be seeing a vascular provider at [facility] in the near future. I have [...] 9:28 AM EDT): CHF (congestive heart failure) ([facility] V24, [facility] /[facility] V28) 01/17/2025 Assessment & Plan (04/24/2025 10:50 [...] for any questions or concerns. Dr. Neumann's biomedical service engineer is working to find an office visit [...] the risks and benefits of this. Her [id number] score is equal to 6 (1 for [...] cardioversion). Cardioversion external; Future Atrial fibrillation (CMS/[facility] V24, CMS/HCC V28) 0 01/01/2025 Assessment & [...] a couple of weeks ago on her jaeyos. She is interested in seeing electrophysiology for further evaluation and treatment. Rate remains well-controlled and we will not make any changes to her metoprolol; given that she is in sinus rhythm today, we will continue with amiodarone for rhythm control. [id number] score is elevated at 6 (1 for [...] as above. Stage 3 chronic kidney disease ([facility] V24, [facility] /[facility] V28) 04/06/2022 Overview (01/23/2025): Per chart review meets GFR criteria Morbid obesity (CMS/[facility] V24, [facility] V28) 2020 Assessment & Plan (04/24/2025 10:50 [...] with her PCP. Paroxysmal atrial flutter (CMS/[facility] V24, [facility] V28) 03/10/2021 Overview (01/23/2025): Last Assessment & [...] 04/23/2025 12:40 PM EDT Office Visit [facility] Cardiology [facility] [address] [facility] [address] [place] [address] Lissa Kurtz NP Nonischemic cardiomyopathy (CMS/HCC V24, [...] apnea; Hospital discharge follow-up 04/09/2025 Telephone [facility] Cardiology [facility] [address] [facility] [address] [place] [phone] Provider, Not In System 04/01/2025 Telephone [facility] [address] [place] [phone] Alirio Garnett MD 03/26/2025 Telephone [facility] [address] [place] [phone] Alirio Garnett MD 03/20/2025 Telephone Infectious Disease - [place] [address] [place] [address] Radhames Manriquez LPN 03/19/2025 4:29 PM EDT - 03/19/2025 6:39 PM EDT Emergency [facility] Emergency [address] [place] [phone] Thanh Melgoza MD Leg pain, anterior, left (Primary Dx); Shortness of breath; Congestive heart failure, unspecified HF chronicity, unspecified heart failure type (CMS/HCC V24, CMS/HCC V28); Pedal edema; Chronic deep vein thrombosis (DVT) of proximal vein of lower extremity, unspecified laterality (CMS/HCC V24, CMS/HCC V28) Discharge Disposition: Home or Self Care 03/19/2025 Telephone [facility] [address] [place] [phone] Alirio Garnett MD 03/11/2025 2:21 PM EDT - 03/15/2025 7:04 PM EDT Hospital Encounter [facility] Surgical Unit [address] [place] [phone] Anne Liao MD Flores, Carlos M, MD Seralathan, Manikandan, MD Pain (Primary Dx); Cellulitis of left lower extremity; Petechial rash; Deep vein thrombosis (DVT) of femoral vein of left lower extremity, unspecified chronicity (CMS/HCC V24, CMS/HCC V28); Chronic renal impairment, unspecified CKD stage; Bacteremia; Left leg cellulitis Discharge Disposition: Home-Health Care [facility] 03/11/2025 Telephone [facility] [address] [facility] [address] [place] [address] Alirio Garnett MD from Last 3 Months Surgical History Surgery Date Site/Laterality Comments OTHER SURGICAL HISTORY PROCEDURE: HISTORY OTHER; COMMENT: Salpingoectomy secondary to ectopic KNEE ARTHROSCOPY Left PROCEDURE: [place] ARTHROSCOPY AID [place] SPINE&/FX KNEE W/O FIXJ OTHER SURGICAL HISTORY PROCEDURE: [place] CARDIOVERSION ELECTIVE ARRHYTHMIA EXTERNAL OTHER SURGICAL HISTORY PROCEDURE: HISTORY OTHER; COMMENT: Cryoablation OTHER SURGICAL HISTORY PROCEDURE: HISTORY OTHER; COMMENT: meniscectomy OTHER SURGICAL HISTORY PROCEDURE: HISTORY OTHER; COMMENT: ectopic CARDIOVERSION DONE ON 01/28/2025 AT [facility] W Medical History Medical History Date Comments UTI (urinary tract infection) 04/07/2022 DX :UTI (urinary tract infection) SIRS (systemic inflammatory response syndrome) ([facility] V24, [facility] V28) DX:SIRS (systemic inflammatory response syndrome) ([facility]) Hypothyroidism DX:Hypothyroidis m DVT prophylaxis DX:DVT prophylax is Chronic renal disease, stage III ([facility] V24, [facility] V28) DX:Chronic renal disease, s tage III ([facility]) Morbid obesity ([facility] [place]24, [facility] V28) DX:Morbid obesity ([facility]) Depression DX:Depression Neuropathic pain of lower ex tremity, left DX:Neuropathic pain of lower extremity, left Osteoarthritis of knees, bilateral DX:Osteoarthritis of knees, bilateral Sleep apnea DX:Sleep apnea Severe obesity ([facility] V24, [facility] V28) DX:Severe obesity ([facility]) Major depression, recurrent ([facility] V24) DX:Major depression, recurre nt ([facility]) Bilateral chronic knee pain DX:B ilateral chronic knee pain GERD (gastroesophageal reflux disease) DX:GERD (gastroesophageal reflux disease) CHF (congestive heart failur e) ([facility] V24, [facility] V28) Bilateral chronic knee pain Left leg [...] care for your loved ones. For example, early childhood assistant or elderly care for an older adult? [...] Info) Description 06/12/2025 2:45 PM EDT Appointment [facility] Pulmonary [address] [place] [phone] 07/09/2025 11:10 AM EST Consult [facility] - [facility] [address] [facility] [address] [place] [phone] Nuno Neumann MD [address] [facility] [address] [place] [address] Health Maintenance Due Date Last Done Comments [...] GEMUSE QTc 491 ms GEMUSE P Wave [place] 57 degrees GEMUSE R [place] -37 degrees GEMUSE T [place] 42 degrees GEMUSE ECG Interpretation Normal sinus [...] and spectral analysis, was performed by the general pediatrician. Multiple hospital insurance representative static images were saved for review. [...] imagingand spectral analysis, was performed by the general pediatrician. Multiple hospital insurance representative static images were saved for review. [...] 2. No active pulmonary process. [employer] CASH ([id number]) -------- FINAL REPORT -------- Dictated By: Tereza Pérez Dictated Date: 03/19/2025 16:48 ET Assigned Physician: Tereza Pérez Reviewed and Electronically Signed By: Tereza Pérez Signed Date: 03/19/2025 16:49 ET Workstation ID: [id number] Transcribed By: Self Edit Transcribed Date: 03/19/2025 [...] 2. No active pulmonary process. [employer] CASH ([id number]) -------- FINAL REPORT -------- Dictated By: Tereza Pérez Dictated Date: 03/19/2025 16:48 ET Assigned Physician: Tereza Pérez Reviewed and Electronically Signed By: Tereza Pérez Signed Date: 03/19/2025 16:49 ET Workstation ID: [id number] Transcribed By: Self Edit Transcribed Date: 03/19/2025 16:48 ET Thanh Melgoza MD IMG XR PROCEDURES Final Result * (ABNORMAL) CBC auto differential (03/19/2025 1:54 PM EDT) Only the most recent of4 resultswithin the time period is included. WBC 6.3 4.8 - 10.8 K/mcL LAB HEMETOLOGY METHOD 03/19/2025 2:12 PM EDT [facility] RBC 3.90 3.80 - 4.80 M/mcL LAB HEMETOLOGY METHOD 03/19/2025 2:12 PM EDT [facility] Hemoglobin 12.8 11.5 - 16.0 g/dL LAB HEMETOLOGY METHOD 03/19/2025 2:12 PM EDT [facility] Hematocrit 39.9 35.0 - 47.0 % LAB HEMETOLOGY METHOD 03/19/2025 2:12 PM EDT [facility] MCV 101.3(H) 79.0 - 98.0 FL LAB HEMETOLOGY METHOD 03/19/2025 2:12 PM EDT [facility] MCH 32.5(H) 27.0 - 32.0 pcg LAB HEMETOLOGY METHOD 03/19/2025 2:12 PM EDT [facility] MCHC 32.1 32.0 - 37.0 g/dL LAB HEMETOLOGY METHOD 03/19/2025 2:12 PM EDT [facility] RDW 13.2 11.0 - 15.0 % LAB HEMETOLOGY METHOD 03/19/2025 2:12 PM [facility] Platelets 278 130 - 400 K/mcL LAB HEMETOLOGY METHOD 03/19/2025 2:12 PM [facility] MPV 9.3 7.0 - 11.0 FL LAB HEMETOLOGY METHOD 03/19/2025 2:12 PM [facility] NRBC 0.0 <1.0 % LAB HEMETOLOGY METHOD 03/19/2025 2:12 PM [facility] NRBC Absolute 0.00 <0.10 K/mcL LAB HEMETOLOGY METHOD 03/19/2025 2:12 PM [facility] Neutrophils Relative 69.4 % LAB HEMETOLOGY METHOD 03/19/2025 2:12 PM [facility] Lymphocytes Relative 18.7 % LAB HEMETOLOGY METHOD 03/19/2025 2:12 PM [facility] Monocytes Relative 7.8 % LAB HEMETOLOGY METHOD 03/19/2025 2:12 PM [facility] Eosinophils Relative 3.2 % LAB HEMETOLOGY METHOD 03/19/2025 2:12 PM [facility] Basophils Relative 0.6 % LAB HEMETOLOGY METHOD 03/19/2025 2:12 PM [facility] Immature Granulocytes Relative 0.3 % LAB HEMETOLOGY METHOD 03/19/2025 2:12 PM [facility] Neutrophils Absolute 4.34 1.50 - 7.00 K/mcL LAB HEMETOLOGY METHOD 03/19/2025 2:12 PM [facility] Lymphocytes Absolute 1.17 1.00 - 5.00 K/mcL LAB HEMETOLOGY METHOD 03/19/2025 2:12 PM [facility] Monocytes Absolute 0.49 0.20 - 1.00 K/mcL LAB HEMETOLOGY METHOD 03/19/2025 2:12 PM EDT [facility] Eosinophils Absolute 0.20 0.00 - 0.50 K/mcL LAB HEMETOLOGY METHOD 03/19/2025 2:12 PM EDT [facility] Basophils Absolute 0.04 0.00 - 0.20 K/mcL LAB HEMETOLOGY METHOD 03/19/2025 2:12 PM EDT [facility] Immature Granulocytes Absolute 0.02 0.00 - 0.03 K/[facility] LAB HEMETOLOGY METHOD 03/19/2025 2:12 PM EDT [facility] Blood Venous blood specimen / Unknown Venipuncture / Unknown 03/19/2025 1:54 PM EDT 03/19/2025 2:03 PM EDT us Thanh Melgoza MD LAB BLOOD ORDERABLES Final Resul t Performing Organization Address City/[facility]/ZIP Co de Phone Number [facility] [address] [place] [address], [place] [phone] * (ABNORMAL) B-type natriuretic peptide (03/19/2025 1:54 PM EDT) Only the most recent of2 resultswithin the time period is included. BNP 495(H) <=100 pcg/mL LAB CHEMISTRY METHOD 03/19/2025 3:22 PM EDT [facility] Blood Venous blood specimen / Unknown Venipuncture / Unknown 03/19/2025 1:54 PM EDT 03/19/2025 2:03 PM EDT us Thanh Melgoza MD LAB BLOOD ORDERABLES Final Resul t [facility] [address] [place] [address], [place] [phone] * (ABNORMAL) Basic metabolic panel (03/19/2025 1:54 PM EDT) Only the most recent of5 resultswithin the time period is included. Sodium 139 133 - 145 mmol/L LAB CHEMISTRY METHOD 03/19/2025 2:39 PM [facility] Potassium 3.9 3.5 - 5.5 mmol/L LAB CHEMISTRY METHOD 03/19/2025 2:39 PM [facility] Chloride 109 96 - 110 mmol/L LAB CHEMISTRY METHOD 03/19/2025 2:39 PM [facility] CO2 25 21 - 32 mmol/L LAB CHEMISTRY METHOD 03/19/2025 2:39 PM [facility] Anion Gap 5 3 - 11 LAB CHEMISTRY METHOD 03/19/2025 2:39 PM [facility] Glucose 94 70 - 100 mg/dL LAB CHEMISTRY METHOD 03/19/2025 2:39 PM [facility] BUN 17 5 - 25 mg/dL LAB CHEMISTRY METHOD 03/19/2025 2:39 PM [facility] Creatinine 1.51(H) 0.50 - 1.10 mg/dL LAB CHEMISTRY METHOD 03/19/2025 2:39 PM [facility] eGFR 38(L) >=60 mL/min/1. 73m2 LAB CHEMISTRY METHOD 03/19/2025 2:39 PM [facility] Comment:Calculation based on the Chronic Kidney Disease Epidemiology Collaboration (CKD-EPI) equation refit without adjustment for race. BUN/Creatinine Ratio 11.3 LAB CHEMISTRY METHOD 03/19/2025 2:39 PM [facility] Calcium 8.7 8.5 - 10.5 mg/dL LAB CHEMISTRY METHOD 03/19/2025 2:39 PM [facility] Blood Venous blood specimen / Unknown Venipuncture / Unknown 03/19/2025 1:54 PM EDT 03/19/2025 2:03 PM EDT Thanh Melgoza MD LAB BLOOD ORDERABLES Final Resul t Performing Organization Address City/[facility]/ZIP Co de Phone Number [facility] [address] [place] [address], [place] [phone] * ECG-External (03/19/2025 10:29 AM EDT) Historical Provider ECG ORDERABLES Final Res ult * Vancomycin, trough (03/15/2025 1:44 PM EDT) Only the most recent of2 resultswithin the time period is included. Vancomycin Trough 16.0 10.0 - 20.0 mcg/mL LAB CHEMISTRY METHOD 03/15/2025 2:33 PM EDT [facility] Blood Venous blood specimen / Unknown Venipuncture / Unknown 03/15/2025 1:44 PM EDT 03/15/2025 1:52 PM EDT Earnest Tang MD LAB BLOOD ORDERABLES Fi nal Result Performing Organization Address [facility]/ZIP Co de Phone Number [facility] [address] [place] [address], [place] [phone] * Phosphorus (03/15/2025 5:43 AM EDT) Phosphorus 3.4 2.5 - 4.5 mg/dL LAB CHEMISTRY METHOD 03/15/2025 7:45 AM EDT [facility] Blood Venous blood specimen / Unknown Venipuncture / Unknown 03/15/2025 5:43 AM EDT 03/15/2025 6:04 AM EDT Earnest Tang MD LAB BLOOD ORDERABLES Fi nal Result Performing Organization Address City/[facility]/ZIP Co de Phone Number [facility] [address] [place] [address], [place] [phone] * Magnesium (03/15/2025 5:43 AM EDT) Only the most recent of4 resultswithin the time period is included. [facility] Magnesium 2.2 1.9 - 2.6 mg/dL LAB CHEMISTRY METHOD 03/15/2025 7:45 AM EDT [facility] Blood Venous blood specimen / Unknown Venipuncture / Unknown 03/15/2025 5:43 AM EDT 03/15/2025 6:04 AM EDT us Earnest Tang MD LAB BLOOD ORDERABLES Fi nal Result [facility] [address] [place] [address], [place] [phone] * (ABNORMAL) TRANSTHORACIC ECHOCARDIOGRAM (TTE) COMPLETE W/ CONTRAST (03/14/2025 9:13 AM EDT) [facility] LV EDV (A2C) 99 mL CV PACS [...] 45 % CV PACS Left Atrium Minor [place] 6.5 cm CV PACS Left Atrium Major [place] 6.1 cm CV PACS LA Area Sys [...] Hold for add-ons. 03/14/2025 11:01 AM EDT [facility] Comment:Auto resulted. Blood Venous blood specimen / Unknown 03/14/2025 8:33 AM EDT 03/14/2025 9:18 AM EDT Earnest Tang MD LAB BLOOD ORDERABLES Fi nal Result [facility] [address] [place] [address], * Blood Culture, Peripheral Draw #1 (03/12/2025 3:17 PM EDT) Only the most recent of4 resultswithin the time period is included. Culture, Blood No growth at 5 days 03/17/2025 4:01 PM EDT [facility] Blood Venous blood specimen / Unknown Venipuncture / Unknown 03/12/2025 3:17 PM EDT 03/12/2025 3:39 PM EDT Jules CASTREJON LAB MICROBIOLOGY - GENERA L ORDERABLES Final Result [facility] [address] [place] [address], [place] [phone] * MRSA molecular study (03/12/2025 9:44 AM EDT) [facility] MRSA Screen PCR Not Detected Not Detected LAB MICROBIOLOGY METHOD 03/12/2025 11:56 AM EDT [facility] Swab Both anterior nares / Unknown Non-blood Collection / Unknown 03/12/2025 9:44 AM EDT 03/12/2025 10:38 AM EDT Jules CASTREJON LAB MICROBIOLOGY - GENERA L ORDERABLES Final Result [facility] [address] [place] [address], [place] [phone] * Troponin I high sensitivity (03/11/2025 4:57 PM EDT) Only the most recent of2 resultswithin the time period is included. [facility] High Sensitivity Troponin I 15 <=54 ng/L LAB CHEMISTRY METHOD 03/11/2025 5:42 PM EDT [facility] Blood Venous blood specimen / Unknown Venipuncture / Unknown 03/11/2025 4:57 PM EDT 03/11/2025 5:11 PM EDT Narrative [facility] - 03/11/2025 5:42 PM EDT High levels of biotin in samples may falsely decrease hsTroponin values. Use caution when interpreting hsTroponin results in patients taking biotin who exhibit renal impairment (eGFR <60) or in patients taking more than 20 mg/day of biotin. Anne Liao MD LAB BLOOD ORDERABLES Final Resul t Performing Organization Address City/[facility]/ZIP Co de Phone Number [facility] [address] [place] [address], [place] [phone] * (ABNORMAL) Blood culture pathogens molecular study (03/11/2025 4:57 PM EDT) [facility] Staphylococcus species Detected (A) Not Detected LAB MICROBIOLOGY METHOD 03/12/2025 3:25 PM EDT [facility] Blood Venous blood specimen / Unknown Venipuncture / Unknown 03/11/2025 4:57 PM EDT 03/11/2025 5:11 PM EDT Anne Liao MD LAB MICROBIOLOGY - GENERAL ORDER DAVID Final Result [facility] [address] [place] [address], [place] [phone] * Lactate (03/11/2025 4:57 PM EDT) [facility] Lactate 1.1 0.4 - 2.0 mmol/L LAB CHEMISTRY METHOD 03/11/2025 5:41 PM EDT [facility] Blood Venous blood specimen / Unknown Venipuncture / Unknown 03/11/2025 4:57 PM EDT 03/11/2025 5:25 PM EDT Janneth CASTREJON LAB BLOOD ORDERABLES Fin al Result Performing Organization Address [facility]/ZIP Co de Phone Number [facility] [address] [place] [address], [place] [phone] * Lipase (03/11/2025 1:47 PM EDT) [facility] Lipase 16 13 - 75 unit/L LAB CHEMISTRY METHOD 03/11/2025 3:03 PM EDT [facility] Blood Venous blood specimen / Unknown Venipuncture / Unknown 03/11/2025 1:47 PM EDT 03/11/2025 2:11 PM EDT Anne Liao MD LAB BLOOD ORDERABLES Final Resul t [facility] [address] [place] [address], [place] [phone] * (ABNORMAL) Comprehensive metabolic panel (03/11/2025 1:47 PM EDT) Sodium 138 133 - 145 mmol/L LAB CHEMISTRY METHOD 03/11/2025 3:10 PM EDT [facility] Potassium 3.2(L) 3.5 - 5.5 mmol/L LAB CHEMISTRY METHOD 03/11/2025 3:10 PM EDT [facility] Chloride 105 96 - 110 mmol/L LAB CHEMISTRY METHOD 03/11/2025 3:10 PM [facility] CO2 27 21 - 32 mmol/L LAB CHEMISTRY METHOD 03/11/2025 3:10 PM [facility] Anion Gap 6 3 - 11 LAB CHEMISTRY METHOD 03/11/2025 3:10 PM [facility] Glucose 114(H) 70 - 100 mg/dL LAB CHEMISTRY METHOD 03/11/2025 3:10 PM [facility] BUN 32(H) 5 - 25 mg/dL LAB CHEMISTRY METHOD 03/11/2025 3:10 PM [facility] Comment:Results verified by repeat testing Creatinine 1.64(H) 0.50 - 1.10 mg/dL LAB CHEMISTRY METHOD 03/11/2025 3:10 PM [facility] eGFR 35(L) >=60 mL/min/1. 73m2 LAB CHEMISTRY METHOD 03/11/2025 3:10 PM [facility] Comment:Calculation based on the Chronic Kidney Disease Epidemiology Collaboration (CKD-EPI) equation refit without adjustment for race. BUN/Creatinine Ratio 19.5 LAB CHEMISTRY METHOD 03/11/2025 3:10 PM [facility] Calcium 9.0 8.5 - 10.5 mg/dL LAB CHEMISTRY METHOD 03/11/2025 3:10 PM [facility] AST (SGOT) 9(L) 10 - 42 unit/L LAB CHEMISTRY METHOD 03/11/2025 3:10 PM EDT [facility] ALT (SGPT) 14 10 - 60 unit/L LAB CHEMISTRY METHOD 03/11/2025 3:10 PM EDT [facility] Alkaline Phosphatase 83 42 - 121 unit/L LAB CHEMISTRY METHOD 03/11/2025 3:10 PM EDT [facility] Total Protein 7.1 6.0 - 8.0 g/dL LAB CHEMISTRY METHOD 03/11/2025 3:10 PM EDT [facility] Albumin 3.7 3.2 - 5.0 g/dL LAB CHEMISTRY METHOD 03/11/2025 3:10 PM EDT [facility] Total Bilirubin 1.1 0.0 - 1.4 mg/dL LAB CHEMISTRY METHOD 03/11/2025 3:10 PM EDT [facility] Blood Venous blood specimen / Unknown Venipuncture / Unknown 03/11/2025 1:47 PM EDT 03/11/2025 2:11 PM EDT us Anne Liao MD LAB BLOOD ORDERABLES Final Resul t [facility] [address] [place] [address], from Last 3 Months Insurance [employer] [...] currently active code status orders. Care Teams Language Therapist Relationship Specialty Start Date End Date Al Garcia MD [address] [place] [id number] PCP - General 09/12/12
--- OUTSIDE RECORDS SUMMARY | 2025-05-28 15:33 | XMS_ITS | Encounter Summary ---
Author Organization [facility] Address [address] [place] [address] Phone Care Team Providers Care Presser Machine Name Role Phone Al Garcia MD Primary Care Provider [phone]- [phone] Encounter Details Date Type Department Care Team ([facility] Contact Info) Description 05/27/2025 Orders Only [facility] [address] [place] [address] Adrienne PanchalDEPEW, [place] [address] [place] [address] Hypertensive disorder (Primary Dx); Chronic [...] Upcoming Encounters Date Type Department Care Team ([facility] Contact Info) Description 06/14/2025 3:30 PM EDT Office Visit [facility] [address] [place] [address] Ciaran Waldrop MD [address] [place] [address] Scheduled Orders Name Type Priority [...] specified documented in this encounter Care Teams Presser Machine Relationship Specialty Start Date End Date Al Garcia MD [address] [place] [id number] PCP - General Internal Medicine 05/04/20 documented as of this encounter
--- OUTSIDE RECORDS SUMMARY | 2025-05-28 15:33 | XMS_ITS | Encounter Summary ---
Author Organization [facility] Address [address] [place] [address] Care Team Providers Care Sheep Farm Manager Name Role Phone Unavailable Primary Care Provider Unavailabl e Encounter Details Date Type Department Care Team (Late st Contact Info) Description 05/18/2021 Erroneous Encounter [facility] [address] [facility] [place] [address] Raúl Sanders MD [address] [place] [id number] Social History Tobacco Use Types Packs/Day Years [...]
== END 2025-05-28 13:59 | disposition home or self-care (01) ==
LOC: HO.PMCPRC 12:43
PROVIDERS: Visit Provider Anesthesiology
DX: M17.0 Bilateral primary osteoarthritis of knee (principal)
CPT/HCPCS: 64454

== ENCOUNTER 2025-06-13 13:34 | Outpatient (AMB) | payer OTHER, SELFPAY ==
--- OUTSIDE RECORDS SUMMARY | 2023-12-29 07:00 | XMS_ITS ---
Author Organization [facility] [address] [address] Address [address] [place] [address] Care Team Providers Care Can Worker Name Role Phone Homa [place] Unavailable [phone] Emily Mitchell Unavailable [phone] Encounters Encounter Location Date Provider Diagnosis [facility] [address] [address] 12/29/2023 Emily Mitchell Plan Of Treatment No Information Progress Notes * PELON GIVENS EDOB: 0 (64 yo F)Acc No.[id number]:12/29/2023 Patient: PELON SHELTON Provider: Papa Mitchell PA-C :1960 A ge:63 Y S ex:Female Date:12/29/2023 Address:[address] [place], [place] [id number] Subjective: * Chief Complaints: * * Medical History: Objective: * Vitals: Assessment: Plan: * Treatment: * Images: Billing Information: * Visit Code: * Procedure Codes: * Electronic signature of Emily Mitchell PA-C on 06/13/2025 at 02:27 AM EDT Sign off status: Pending * Provider: Papa Mitchell PA-C Date: 0 12/29/2023 Generated for Sree bautista/Guanako/Rosalia on: 1 02:27 AM EDT
--- OUTSIDE RECORDS SUMMARY | 2025-04-09 07:30 | XMS_ITS ---
Author Organization [facility] [address] Address [address] [place] [address] Care Team Providers Care Sales Exec Name Role Phone Homa Montana Unavailable [phone] Encounters Encounter Location Date Provider Diagnosis [facility] [address] [address] 04/09/2025 Homa Montana Plan Of Treatment No Information Progress Notes * PELON GIVENS EDOB: 0 (64 yo F)Acc No.[id number]:04/09/2025 Progress Notes Patient: AZAR SHELTONJIMI Elam Provider: Smooth Montana PA-C :1960 A ge:64 Y S ex:Female Date:04/09/2025 Address:[address] [place], [place] [id number] Subjective: * Chief Complaints: * * Medical History: Objective: * Vitals: Assessment: Plan: * Treatment: * Images: Billing Information: * Visit Code: * Procedure Codes: * Electronic signature of Shahla Montana PA-C on 06/13/2025 at 05:12 PM EDT Sign off status: Pending * Provider: Smooth Montana PA-C Date: 0 04/09/2025 Generated for Sree bautista/Guanako/Rosalia on: 05:12 PM EDT
--- OUTSIDE RECORDS SUMMARY | 2025-04-15 10:15 | XMS_ITS ---
Author Organization [facility] Address [address] [place] [address] Care Team Providers Care Director Of Consumer Marketing Name Role Phone Homa Montana Unavailable [phone] Medications Medication SIG (Take, Route, Frequency, Duration) [...] Active Encounters Encounter Location Date Provider Diagnosis [facility] [address] [place] [phone] 04/15/2025 Homa Montana Plan Of Treatment No Information Progress Notes * KAVYA GIVENS EDOB: 0 (64 yo F)Acc No.[id number]:04/15/2025 Progress Notes Patient: AZAR SHELTONJIMI Elam Provider: Smooth Montana PA-C :1960 A ge:64 Y S ex:Female Date:04/15/2025 Address:[address] [place] [address] Subjective: * Chief Complaints: * * HPI: C onstitutional: Kavya is a 64-year-old female with past medical history of who presents today to establish care as a new patient. New patient paperwork reviewed. Medical, surgical, social, and family history reviewed. Previously seen at (). Last CPE/Labs: Specialists-- Dentist: Ophthalmology: BARROW WORKER HELPER: Other concerns addressed today: Immunizations-- Influenza: COVID: [...] Information: * Visit Code: * Procedure Codes: 86595 NO SHOW OFFICE VISIT. * Electronic signature of Shahla Montana PA-C on 06/13/2025 at 02:27 AM EDT Sign off status: Pending * Provider: Smooth Montana PA-C Date: 0 04/15/2025 Generated for Sree bautista/Guanako/Rosalia on: 1 02:27 AM EDT History and Physical Notes * HPI (History of Present Illness) Category Sub-Category Detail Notes Category Not es Constitutional Kavya is a 64-year-old female with past medical history of who presents today to establish care as a new patient. New patient paperwork reviewed. Medical, surgical, social, and family history reviewed. Previously seen at (). Last CPE/Labs: Specialists-- Dentist: Ophthalmology: BARROW WORKER HELPER: Other concerns addressed today: Immunizations-- Influenza: COVID: [...]
--- OUTSIDE RECORDS SUMMARY | 2025-06-12 14:30 | XMS_ITS | Encounter Summary ---
Author Organization [facility] Address [address] [place] [address] Care Team Providers Care Medical Surgery Nurse Name Role Phone Al Garcia MD Primary Care Provider [phone] Reason for Referral * Therapy (Routine) - Authorized Specialty Diagnoses / Procedures Referred By Karlene claros Referred To Contact Pulmonology Diagnoses On amiodarone therapy Procedures Pulmonary function testing: Carbon Monoxide Diffusing Capacity, Nitrogen Wash Out, Spirometry with Bronchodilator Lissa Kurtz NP [address] [address] Phone: tel: fax: [address] Referral ID Status Reason Start Date Expiration Date V isits Requested Visits Authorized [id number] Authorized 01/22/2025 01/22/2026 1 1 Reason for Visit * Therapy (Routine) - Authorized Specialty Diagnoses / Procedures Referred By Karlene claros Referred To Contact Pulmonology Diagnoses On amiodarone therapy Procedures Pulmonary function testing: Carbon Monoxide Diffusing Capacity, Nitrogen Wash Out, Spirometry with Bronchodilator Lissa Kurtz NP [address] [address] Phone: tel: fax: [address] Referral ID Status Reason Start Date Expiration Date V isits Requested Visits Authorized [id number] Authorized 01/22/2025 01/22/2026 1 1 Encounter Details Date Type Department Care Team (Latest Contact Info) Description 06/12/2025 2:30 PM EDT Hospital Encounter [facility] Pulmonary [address] [place] [address] On amiodarone therapy Social History Tobacco Use Types Packs/Day Years [...] your loved ones. 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 [...] on file documented as of this encounter Functional Status * Are you deaf or do you have serious difficulty hearing? Answer Date of Assessment Author No 03/11/2025 2:54 PM EDT Miguel, Naz Clark RN * Are you blind or do you have serious difficulty seeing, even when wearing glasses? Answer Date of Assessment Author No 03/11/2025 2:54 PM Naz Hobson RN * Do you have serious difficulty walking or climbing stairs? Answer Date of Assessment Author Yes 03/11/2025 2:54 PM EDT Miguel, Naz Clark RN * Do you have serious difficulty dressing or bathing? Answer Date of Assessment Author Yes 03/11/2025 2:54 PM EDT Miguel, Naz Clark RN * Because of a physical, mental, or emotional condition, do you have serious difficulty doing errandsalone such as visiting the doctor? Answer Date of Assessment Author Yes 03/11/2025 2:54 PM Naz Hobson RN documented as of this encounter Mental Status * Because of a physical, mental, or emotional condition, do you have serious difficulty concentrating, remembering, or making decisions? (5 years old or older) Answer Entry Date Author No 03/11/2025 2:54 PM EDT Doles, As hley L, RN documented in this encounter Plan of Treatment Upcoming Encounters Date Type Department Care Team (Late st Contact Info) Description 07/09/2025 11:10 AM EST Consult [facility] [address] [facility] [address] [place] [address] Nuno Neumann MD [address] [place] [address] Pending Results Name Type Priority Associated Diagnoses Date /Time Pulmonary function testing: Carbon Monoxide Diffusing Capacity, Nitrogen Wash Out, Spirometry with Bronchodilator PFT Routine On amiodarone therapy 06/12/2025 3:10 PM EDT Scheduled Orders Name Type Priority Associated Diagnoses Orde r Schedule Pulmonary function testing: Carbon Monoxide Diffusing Capacity, Nitrogen Wash Out, Spirometry with Bronchodilator PFT Routine On amiodarone therapy Once for 1 Occurrences starting 06/12/2025 until 06/12/2025 documented as of this encounter Visit Diagnoses Diagnosis On amiodarone therapy documented in this encounter Administered Medications Inactive Administered Medications - up to 3 most recent administrations Medication Order MAR Action Action Date Dose Rate Site albuterol 2.5 mg /3 mL (0.083 %) nebulizer solution 2.5 mg 2.5 mg, nebulization, Once, On Tue06/12/25 at 1500, For 1 dose Given 06/12/2025 2:58 PM EDT 2.5 mg documented in this encounter Orders Medications Ordered That Keon ht Not Have Been Administered Count Last Ordered Date First Ordered Date albuterol 2.5 mg /3 mL (0.08 3 %) nebulizer solution 2.5 mg 1 06/12/2025 documented in this encounter Care Teams Medical Surgery Nurse Relationship Specialty Start Date End Date Al Garcia MD [address] [facility] [address] [place] [address] PCP - General 09/12/12 documented as of this encounter
--- NOTE | 2025-06-13 13:37 | MHC.OFFVIS ---
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 The pain has been persistent and severe, impacting her daily activities significantly. She recently underwent bilateral diagnostic genicular nerve blocks to assess the potential for further interventional procedures such as genicular RFA. Unfortunately, the patient reported no significant pain relief immediately following the procedure, with only a slight improvement noted a few days later. The patient expressed dissatisfaction with the procedure due to the lack of immediate pain relief and the painful nature of the procedure itself. She declined the option to repeat the nerve blocks and was informed that without sufficient pain relief and BMI above 40, further procedures like genicular RFA and Sprint PNS trial could not be pursued. Patient noted that previous pain medications were effective. Denies any recent cough, cold, infection, fever or any significant changes in medical history since last office visit. Past Procedures: 05/28/25: Bilateral diagnostic genicular nerve blocks-0% pain relief PRIOR: The patient is a 64-year-old female presenting with uncontrolled chronic pain, primarily due to bilateral chronic knee pain and osteoarthritis. She reports a history of knee pain lasting several years without any recent injuries or falls. The pain is described as constant, pinching, burning, aching, and hurting, with a severity of 9/10. The patient has tried various interventions, including cortisone and gel injections, with the most recent gel injection occurring three weeks ago by Dr. Pereyra, [facility], which did not provide relief. She has also used pain medications (hydrocodone-acetaminophen), lidocaine patches, and diclofenac gel, none of which have been effective. The pain is exacerbated by movement, walking, climbing stairs, and weather changes, particularly humid conditions before storms. The patient has a history of atrial fibrillation, chronic kidney disease stage 3, and a recent hospitalization at [facility] (01/01/25-01/04/25) for a blood clot in the left leg and a small pulmonary embolism. She is currently on Eliquis 5 mg twice daily for anticoagulation, managed by her meat apprentice, Dr. Fuentes. She has been advised to avoid NSAIDs due to her kidney condition and is awaiting a nephrology appointment in May. The patient also has a history of major depressive disorder, cardiomyopathy, obstructive sleep apnea, and severe obesity, which contribute to her overall health status. 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 - Onset: Several years ago, no recent injuries or falls - Quality: Constant, pinching, burning, aching, hurting - Severity: 9/10 - Location: Bilateral knees, left worse than right - Exacerbating factors: Movement, walking, climbing stairs, weather changes (humid conditions before storms) - Relieving factors: None effective to date - Affect: Pain impacts mood and psychological wellbeing, contributing to major depressive disorder - Analgesia: Current pain level is 9/10, goal is to reduce pain significantly; previous use of narcotics discontinued due to failed drug screen - Adverse Effects: No effective relief from current pain management strategies - Activities of Daily Living: Pain limits mobility, affects ability to exercise, and impacts work as a upper extremity surgeon - Aberrant Drug Related Behaviors: Failed drug screen for alcohol, narcotics discontinued [facility] Medical History History of ectopic Vitamin D deficiency Severe obesity Obstructive sleep apnea Non-ischemic cardiomyopathy Major depression Hypothyroidism Hypertension History of pulmonary embolism Chronic kidney disease, stage 3b Bilateral chronic knee pain Atrial fibrillation Surgical History S/P meniscectomy Social History Alcohol intake: current Alcohol intake frequency: holidays/special occasions only Patient Tobacco Use Status: Never used Tobacco Substance Use Type: Other Current occupational status: employed 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 Morbidly obese. Alert and oriented. Mood and affect appropriate. Follows and participates in conversation appropriately. Respiratory effort is unlabored. No cough. Able to transition from sit to stand with assistance. Uses cane for short distances/transfers. Sitting comfortably in wheelchair, increased pain with bilateral knee ROM. Extrem Right lower extremity: knee (Limited ROM due to pain) Details: tenderness Location: of the patella, of the medial joint line and of the lateral joint line and crepitus; no swelling and no deformity Left lower extremity: knee (Limited ROM due to pain) Details: normal to inspection, tenderness Location: of the patella, of the medial joint line and of the lateral joint line and crepitus; no deformity Results Reviewed Results Reviewed: XR KNEE LANI 3V 12/19/24 HISTORY: Bilateral knee pain. COMPARISON: 01/28/2020 TECHNIQUE: AP view bilateral knees standing, lateral and patellofemoral views bilateral knees. FINDINGS: RIGHT KNEE: No fracture, dislocation, or suspicious bone lesion. Severe tricompartmental osteoarthrosis, with [id number] appearance in all 3 compartments, subchondral sclerosis and cystic changes, and large partially projecting osteophytes. The largest involves the patellofemoral compartment. Normal patellar alignment. No abnormal patellar tilt. No evidence of joint effusion. Soft tissues appear normal. LEFT KNEE: No fracture, dislocation, or suspicious bone lesion. Severe tricompartmental osteoarthrosis, with [id number] appearance in all 3 compartments, subchondral sclerosis and cystic changes, and large partially projecting osteophytes. The largest involves the patellofemoral compartment. Normal patellar alignment. No abnormal patellar tilt. No evidence of joint effusion. Soft tissues appear normal. IMPRESSION: LEFT KNEE: 1. No acute bony abnormalities. 2. Severe, end-stage tricompartmental osteoarthrosis, progressed significantly from 2020. RIGHT KNEE: 1. No acute bony abnormalities. 2. Severe, end-stage tricompartmental osteoarthrosis, progressed significantly from 2020. Assessment & Plan Assessment & Plan (1) Bilateral knee pain: Code(s): M25.561 - Pain in right knee; M25.562 - Pain in left knee Category: Medical (2) Morbid obesity with BMI of 50.0-59.9, adult: Code(s): E66.01 - Morbid (severe) obesity due to excess calories; Z68.43 - Body mass index [BMI] 50.0-59.9, adult Category: Medical (3) Osteoarthritis of left knee: Code(s): M17.12 - Unilateral primary osteoarthritis, left knee Category: Medical (4) Osteoarthritis of right knee: Code(s): M17.11 - Unilateral primary osteoarthritis, right knee Category: Medical Plan The patient will be referred back to Orthopedics for further evaluation and management of her osteoarthritis, as the current pain management strategy did not yield satisfactory results. Due to the lack of significant pain relief from the genicular nerve blocks, alternative procedures such as genicular RFA are not viable at this time. The patient reports she was informed about the possibility of knee replacement surgery if her BMI is under 40, which is also a requirement for Sprint PNS trial. All questions and concerns have been answered and patient agreed with the treatment plan. Follow up as needed. Patient was informed and verbally consented to the use of an ambient scribe for clinic note documentation during this visit. Coding Level of Care Code Est Pt Level 3 (09183) Complex EM visit Add On G2211 Diagnoses Bilateral knee pain M25.561; M25.562 Morbid obesity with BMI of 50.0-59.9, adult E66.01; Z68.43 Osteoarthritis of left knee M17.12 Osteoarthritis of right knee M17.11
[2025-06-13 13:41] VITALS: BP 134/69; PULSE 63; O2SAT 98; BMI 51.6
--- OUTSIDE RECORDS SUMMARY | 2025-06-13 17:12 | XMS_ITS | Clinical Summary ---
Author Organization [address] [place] [address] [place] [phone] Phone Care Team Providers Care Experimental Aircraft Mechanic Name Role Phone Al Garcia MD Primary Care Provider [phone]- [phone] Allergies Active Allergy Reactions Criticality Noted Date [...] and this does not appear to be sales representative raw fibers of a heart failure exacerbation. Nevertheless, she [...] of paroxysmal atrial fibrillation noted on her [employer] mobile at home a few weeks ago. [...] will be seeing a vascular provider at [facility] in the near future. I have [...] 9:28 AM EDT): CHF (congestive heart failure) ([facility] V24, [facility] /[facility] V28) 01/17/2025 Assessment & Plan (04/24/2025 [...] any questions or concerns. Dr. Neumann's medical reception is working to find an office visit [...] the risks and benefits of this. Her [id number] score is equal to 6 (1 for [...] after cardioversion). Cardioversion external; Future Atrial fibrillation (CMS/[facility] V24, CMS/HCC V28) 0 01/01/2025 Assessment [...] a couple of weeks ago on her [employer]. She is interested in seeing electrophysiology for further evaluation and treatment. Rate remains well-controlled and we will not make any changes to her metoprolol; given that she is in sinus rhythm today, we will continue with amiodarone for rhythm control. [id number] score is elevated at 6 (1 for [...] as above. Stage 3 chronic kidney disease ([facility] V24, [facility] V28) 04/06/2022 Overview (01/23/2025): Per chart review meets GFR criteria Morbid obesity (CMS/[facility] V24, [facility] V28) 2020 Assessment & Plan (04/24/2025 [...] further with her PCP. Paroxysmal atrial flutter (CMS/[facility] V24, [facility] V28) 03/10/2021 Overview (01/23/2025): Last Assessment [...] Encounters Date Type Department Care Team Description 06/12/2025 2:30 PM EDT Hospital Encounter [facility] Pulmonary [address] [place] [phone] On amiodarone therapy 04/23/2025 12:40 PM EDT Office Visit [facility] - [address] [facility] [address] [place] [phone] Lissa Kurtz NP Nonischemic cardiomyopathy (CMS/HCC V24, CMS/HCC V28) (Primary Dx); Heart failure with recovered ejection fraction (HFrecEF) (CMS/HCC V24, CMS/HCC V28); Shortness of breath; Paroxysmal atrial fibrillation (CMS/HCC V24, CMS/HCC V28); On amiodarone therapy; History of DVT (deep vein thrombosis); Personal history of PE (pulmonary embolism); Secondary hypercoagulable state (CMS/HCC V24); Essential hypertension; Morbid obesity ([facility] V24, [facility] V28); Obstructive sleep apnea; Hospital discharge follow-up 04/09/[address] [place] [phone] Provider, Not In System 04/01/2025 Telephone [facility] [address] [place] [phone] Alirio Garnett MD 03/26/2025 Telephone [facility] - [address] [place] [phone] Alirio Garnett MD 03/20/2025 Telephone Infectious Disease - [place] [address] [place] [address] Radhames Manriquez LPN 03/19/2025 4:29 PM EDT - 03/19/2025 6:39 PM EDT Emergency [facility] Emergency [address] [place] [address] Thanh Melgoza MD Leg pain, anterior, left (Primary Dx); Shortness of breath; Congestive heart failure, unspecified HF chronicity, unspecified heart failure type ([facility] V24, [facility] V28); Pedal edema; Chronic deep vein thrombosis (DVT) of proximal vein of lower extremity, unspecified laterality ([facility] V24, [facility] V28) Discharge Disposition: Home or Self Care 03/19/2025 Telephone [facility] - [address] [place] [phone] Alirio Garnett MD 03/11/2025 2:21 PM EDT - 03/15/2025 7:04 PM EDT Hospital Encounter [facility] [address] [place] [phone] Anne Liao MD Flores, Carlos M, MD Seralathan, Manikandan, MD Pain (Primary Dx); Cellulitis of left lower extremity; Petechial rash; Deep vein thrombosis (DVT) of femoral vein of left lower extremity, unspecified chronicity ([facility] V24, [facility] V28); Chronic renal impairment, unspecified CKD stage; Bacteremia; Left leg cellulitis Discharge Disposition: Home-Health Care [facility] from Last 3 Months Surgical History Surgery Date Site/Laterality Comments OTHER SURGICAL HISTORY PROCEDURE: HISTORY OTHER; COMMENT: Salpingoectomy secondary to ectopic KNEE ARTHROSCOPY Left PROCEDURE: [place] ARTHROSCOPY AID TX SPINE&/FX KNEE W/O FIXJ OTHER SURGICAL HISTORY PROCEDURE: [place] CARDIOVERSION ELECTIVE ARRHYTHMIA EXTERNAL OTHER SURGICAL HISTORY PROCEDURE: HISTORY OTHER; COMMENT: Cryoablation OTHER SURGICAL HISTORY PROCEDURE: HISTORY OTHER; COMMENT: meniscectomy OTHER SURGICAL HISTORY PROCEDURE: HISTORY OTHER; COMMENT: ectopic CARDIOVERSION DONE ON 01/28/2025 AT [facility] Medical History Medical History Date Comments UTI (urinary tract infection) 04/07/2022 DX :UTI (urinary tract infection) SIRS (systemic inflammatory response syndrome) ([facility] V24, [facility] V28) DX:SIRS (systemic inflammatory response syndrome) ([facility]) Hypothyroidism DX:Hypothyroidis m DVT prophylaxis DX:DVT prophylax is Chronic renal disease, stage III ([facility] V24, [facility] V28) DX:Chronic renal disease, s tage III ([facility]) Morbid obesity ([facility] V24, [facility] V28) DX:Morbid obesity ([facility]) Depression DX:Depression Neuropathic pain of lower ex tremity, left DX:Neuropathic pain of lower extremity, left Osteoarthritis of knees, bilateral DX:Osteoarthritis of knees, bilateral Sleep apnea DX:Sleep apnea Severe obesity ([facility] V24, [facility] V28) DX:Severe obesity ([facility]) Major depression, recurrent ([facility] V24) DX:Major depression, recurre nt ([facility]) Bilateral chronic knee pain DX:B ilateral chronic knee pain GERD (gastroesophageal reflux disease) DX:GERD (gastroesophageal reflux disease) CHF (congestive heart failur e) ([facility] V24, [facility] V28) Bilateral chronic knee pain Left leg cellulitis Family History Medical History Relation Name Comments Other: AVR Mother Relation Name Status Comments Mother Social History Tobacco Use Types Packs/Day Years Used Date Smoking Tobacco: Never Smokeless Tobacco: Never Alcohol Use Standard Drinks/Week Comments Yes 0 (1 standard drink = 0.6 oz pur e alcohol) [facility] Instability Answer Date Recorde d Are you [...] for your loved ones. For example, child life therapist or elderly care for an older adult? [...] Info) Description 07/09/2025 11:10 AM EST Consult [facility] - [facility] [address] [facility] [address] [place] [address] Nuno Neumann MD [address] [facility] [address] [place] [address] Health Maintenance Due Date Last Done Comments Breast Cancer Screening 1960 Colorectal Cancer Screening: Colonoscopy 1960 Pneumococcal Vaccine: 50+ Years (1 of 2 - PCV) 12/22/1978 Cervical Cancer Screening: Pap Smear 12/22/1980 RSV Immunization Adult Patients (1 - Risk 50-74 years 1-dose series) 12/22/2009 Zoster Vaccines (2 of 2) 07/09/2021 05/14/2021 [...] METABOLIC PANEL Routine 03/13/2025 5:47 AM EDT from Last 3 Months Results * ECG 12 lead (04/23/2025 12:49 PM EDT) Only the most recent of2 resultswithin the time period is included. Ventricular Rate ECG 62 BPM GEMUSE Atrial Rate 62 BPM GEMUSE P-R Interval 192 ms GEMUSE QRS Duration 152 ms GEMUSE Q-T Interval 484 ms GEMUSE QTc 491 ms GEMUSE P Wave Spencer 57 degrees GEMUSE R Spencer -37 degrees GEMUSE T Spencer 42 degrees GEMUSE ECG Interpretation Normal sinus rhythm Left axis deviation Right bundle branch block Moderate voltage criteria for LVH, may be normal variant Abnormal ECG When compared with ECG of 19-MAR-2025 16:54, Sinus rhythm has replaced Atrial fibrillation Vent. rate has decreased BY 40 BPM Confirmed by Chandler GARNETT, ALIRIO ([id number]) on 04/23/2025 1:19:37 PM GEMUSE 04/23/2025 12:4 9 PM EDT 04/23/2025 1:19 PM EDT Lissa Kurtz NP ECG ORDERABLES Final Result GEMUSE * ECG-Annotated (03/20/2025) Only the most recent of2 resultswithin the time period is included. us Provider Onbase MD ECG ORDERABLES Final Result * Vascular US duplex lower extremity venous left (03/19/2025 5:31 PM EDT) Anatomical Region Laterality Modality Vascular, [...] and spectral analysis, was performed by the karate instructor. Multiple sales representative raw fibers static images were saved for review. Findings: [...] imagingand spectral analysis, was performed by the karate instructor. Multiple sales representative raw fibers static images were saved for review. Findings: [...] 2. No active pulmonary process. [place] ([id number]) -------- FINAL REPORT -------- Dictated By: Tereza Pérez Dictated Date: 03/19/2025 16:48 ET Assigned Physician: Tereza Pérez Reviewed and Electronically Signed By: Tereza Pérez Signed Date: 03/19/2025 16:49 ET Workstation ID: [id number] Transcribed By: Self Edit Transcribed Date: 03/19/2025 [...] 2. No active pulmonary process. [employer] CASH ([id number]) -------- FINAL REPORT -------- Dictated By: Tereza Pérez Dictated Date: 03/19/2025 16:48 ET Assigned Physician: Tereza Pérez Reviewed and Electronically Signed By: Tereza Pérez Signed Date: 03/19/2025 16:49 ET Workstation ID: [id number] Transcribed By: Self Edit Transcribed Date: 03/19/2025 16:48 ET us Thanh Abad ANDINO IMG XR PROCEDURES Final Result * (ABNORMAL) CBC auto differential (03/19/2025 1:54 PM EDT) Only the most recent of2 resultswithin the time period is included. [facility] WBC 6.3 4.8 - 10.8 K/mcL LAB HEMETOLOGY METHOD 03/19/2025 2:12 PM EDT [facility] RBC 3.90 3.80 - 4.80 M/mcL LAB HEMETOLOGY METHOD 03/19/2025 2:12 PM EDT [facility] Hemoglobin 12.8 11.5 - 16.0 g/dL LAB HEMETOLOGY METHOD 03/19/2025 2:12 PM EDT [facility] Hematocrit 39.9 35.0 - 47.0 % LAB [facility]OLOG[facility] MCV 101.3(H) 79.0 - 98.0 FL LAB HEMETOLOGY METHOD 03/19/2025 2:[facility] MCH 32.5(H) 27.0 - 32.0 pcg LAB HEMETOLOGY METHOD 03/19/2025 2:[facility] MCHC 32.1 32.0 - 37.0 g/dL LAB HEMETOLOGY METHOD 03/19/2025 2:[facility] RDW 13.2 11.0 - 15.0 % LAB HEMETOLOGY METHOD 03/19/2025 2:12 [facility] Platelets 278 130 - 400 K/mcL LAB HEMETOLOGY METHOD 03/19/2025 2:12 [facility] MPV 9.3 7.0 - 11.0 FL LAB HEMETOLOGY METHOD 03/19/2025 2:12 [facility] NRBC 0.0 <1.0 % LAB HEMETOLOGY METHOD 03/19/2025 2:[facility] NRBC Absolute 0.00 <0.10 K/mcL LAB HEMETOLOGY METHOD 03/19/2025 2:[address] [facility] Neutrophils Relative 69.4 % LAB HEMETOLOGY METHOD 03/19/2025 2:[address] [facility] Lymphocytes Relative 18.7 % LAB HEMETOLOGY METHOD 03/19/2025 2:[address] [facility] Monocytes Relative 7.8 % LAB HEMETOLOGY METHOD 03/19/2025 2:[address] [facility] Eosinophils Relative 3.2 % LAB HEMETOLOGY METHOD 03/19/2025 2:[address] [facility] Basophils Relative 0.6 % LAB HEMETOLOGY METHOD 03/19/2025 2:[address] [facility] Immature Granulocytes Relative 0.3 % LAB HEMETOLOGY METHOD 03/19/2025 2:[address] [facility] Neutrophils Absolute 4.34 1.50 - 7.00 K/mcL LAB HEMETOLOGY METHOD 03/19/2025 2:[address] [facility] Lymphocytes Absolute 1.17 1.00 - 5.00 K/mcL LAB HEMETOLOGY METHOD 03/19/2025 2:[address] [facility] Monocytes Absolute 0.49 0.20 - 1.00 K/mcL LAB HEMETOLOGY METHOD 03/19/2025 2:[address] [facility] Eosinophils Absolute 0.20 0.00 - 0.50 K/mcL LAB HEMETOLOGY METHOD 03/19/2025 2:[address] [facility] Basophils Absolute 0.04 0.00 - 0.20 K/mcL LAB HEMETOLOGY METHOD 03/19/2025 2:[address] [facility] Immature Granulocytes Absolute 0.02 0.00 - 0.03 K/mcL LAB HEMETOLOGY METHOD 03/19/2025 2:[address] [facility] Blood Venous blood specimen / Unknown Venipuncture / Unknown 03/19/2025 1:54 PM EDT 03/19/2025 2:03 PM EDT us Thanh Melgoza MD LAB BLOOD ORDERABLES Final Resul t Performing Organization Address [facility]/ZIP Co de Phone Number [facility] [address] [place] [address], [place] [phone] * (ABNORMAL) B-type natriuretic peptide (03/19/2025 1:54 PM EDT) Pathologist [facility] [place] BNP 495(H) <=100 pcg/mL LAB CHEMISTRY METHOD 03/19/2025 3:22 PM EDT [facility] Blood Venous blood specimen / Unknown Venipuncture / Unknown 03/19/2025 1:54 PM EDT 03/19/2025 2:03 PM EDT us Thanh Melgoza MD LAB BLOOD ORDERABLES Final Resul t Performing Organization Address [facility]/ZIP Co de Phone Number [facility] [address] [place] [address], [place] [phone] * (ABNORMAL) Basic metabolic panel (03/19/2025 1:54 PM EDT) Only the most recent of4 resultswithin the time period is included. Pathologist [facility] Sodium 139 133 - 145 mmol/L LAB CHEMISTRY METHOD 03/19/2025 2:39 PM EDT [facility] Potassium 3.9 3.5 - 5.5 mmol/L LAB CHEMISTRY METHOD 03/19/2025 2:39 PM EDT [facility] Chloride 109 96 - 110 mmol/L LAB CHEMISTRY METHOD 03/19/2025 2:39 PM EDT [facility] CO2 25 21 - 32 mmol/L LAB CHEMISTRY METHOD 03/19/2025 2:39 PM EDT [facility] Anion Gap 5 3 - 11 LAB CHEMISTRY METHOD 03/19/2025 2:39 PM EDT [facility] Glucose 94 70 - 100 mg/dL LAB CHEMISTRY METHOD 03/19/2025 2:39 PM EDT [facility] BUN 17 5 - 25 mg/dL LAB CHEMISTRY METHOD 03/19/2025 2:39 PM EDT [facility] Creatinine 1.51(H) 0.50 - 1.10 mg/dL LAB CHEMISTRY METHOD 03/19/2025 2:39 PM EDT [facility] eGFR 38(L) >=60 mL/min/1. 73m2 LAB CHEMISTRY METHOD 03/19/2025 2:39 PM EDT [facility] Comment:Calculation based on the Chronic Kidney Disease Epidemiology Collaboration (CKD-EPI) equation refit without adjustment for race. BUN/Creatinine Ratio 11.3 LAB CHEMISTRY METHOD 03/19/2025 2:39 PM EDT [facility] Calcium 8.7 8.5 - 10.5 mg/dL LAB CHEMISTRY METHOD 03/19/2025 2:39 PM EDT [facility] Blood Venous blood specimen / Unknown Venipuncture / Unknown 03/19/2025 1:54 PM EDT 03/19/2025 2:03 PM EDT us Thanh Melgoza MD LAB BLOOD ORDERABLES Final Resul t [facility] [address] [place] [address], * ECG-External (03/19/2025 10:29 AM EDT) us Historical Provider ECG ORDERABLES Final Res ult * Vancomycin, trough (03/15/2025 1:44 PM EDT) Only the most recent of2 resultswithin the time period is included. Vancomycin Trough 16.0 10.0 - 20.0 mcg/mL LAB CHEMISTRY METHOD 03/15/2025 2:33 PM EDT [facility] Blood Venous blood specimen / Unknown Venipuncture / Unknown 03/15/2025 1:44 PM EDT 03/15/2025 1:52 PM EDT Earnest Tang MD LAB BLOOD ORDERABLES Fi nal Result Performing Organization Address City/[facility]/ZIP Co de Phone Number [facility] [address] [place] [address], [place] [phone] * Phosphorus (03/15/2025 5:43 AM EDT) Phosphorus 3.4 2.5 - 4.5 mg/dL LAB CHEMISTRY METHOD 03/15/2025 7:45 AM EDT [facility] Blood Venous blood specimen / Unknown Venipuncture / Unknown 03/15/2025 5:43 AM EDT 03/15/2025 6:04 AM EDT Earnest Tang MD LAB BLOOD ORDERABLES Fi nal Result Performing Organization Address [facility] de Phone Number [facility] [address] [place] [address], [place] [phone] * Magnesium (03/15/2025 5:43 AM EDT) Only the most recent of2 resultswithin the time period is included. Magnesium 2.2 1.9 - 2.6 mg/dL LAB CHEMISTRY METHOD 03/15/2025 7:45 AM EDT [facility] Blood Venous blood specimen / Unknown Venipuncture / Unknown 03/15/2025 5:43 AM EDT 03/15/2025 6:04 AM EDT Earnest Tang MD LAB BLOOD ORDERABLES Fi nal Result Performing Organization Address City/[facility]/ZIP Co de Phone Number [facility] [address] [place] [address], [place] [phone] * (ABNORMAL) TRANSTHORACIC ECHOCARDIOGRAM (TTE) COMPLETE W/ [...] 45 % CV PACS Left Atrium Minor Spencer 6.5 cm CV PACS Left Atrium Major Spencer 6.1 cm CV PACS LA Area Sys [...] contrast was given to enhance imaging. Jules KirkpatrickClayton CASTREJON CV ECHO PROCEDURES Final Result * Lavender tube (03/14/2025 8:33 AM EDT) Only the most recent of2 resultswithin the time period is included. Extra Tube Hold for add-ons. 03/14/2025 11:01 AM EDT [facility] Comment:Auto resulted. Blood Venous blood specimen / Unknown 03/14/2025 8:33 AM EDT 03/14/2025 9:18 AM EDT us Earnest Tang MD LAB BLOOD ORDERABLES Fi nal Result [facility] [address] [place] [address], from Last 3 Months Insurance [employer] Advance [...] currently active code status orders. Care Teams Experimental Aircraft Mechanic Relationship Specialty Start Date End Date Al Garcia MD [address] [place] [address] PCP - General 09/12/12
--- OUTSIDE RECORDS SUMMARY | 2025-06-13 17:12 | XMS_ITS | Patient Health Record ---
Author Organization [facility] Address [address] [place] [address] Care Team Providers Care Barrel Rifler Hook Name Role Phone [place] Unavailable [phone] Allergies Allergen (clinical drug ingredient) Drug/Non Drug [...] Status W/U Status Risk Notes Problem Hypothyroidism (95126119) Hypothyroidism, unspecified (E03.9) Active confirmed Problem Essential hypertension (03679853) Essential (primary) hypertension (I10) Active confirmed Problem Osteoarthritis (346173224) Unspecified osteoarthritis, unspecified site (M19.90) Active confirmed Problem Sciatica (03495712) Lumbago with sciatica, left side (M54.42) Active confirmed Problem Body mass index 40+ - severely obese (355595899) Body mass index (BMI) 45.0-49.9, adult (Z68.42) Active confirmed Problem Body mass index 40+ - morbidly obese (987490819) Body mass index (BMI) 50-59.9 , adult (Z68.43) Active confirmed Encounters Encounter Location Date Provider Diagnosis PPC [address] [facility] [address] [place] [address] 04/15/2025 [place] Plan Of Treatment Pending Test Test Name Order Date X ray : Spines, lumbar complete 03/01/20 18 Insurance Providers Payer Name Payer Address Payer Phone Subscriber Number Group Number Insured Name Patient Relationship to Insured Coverage Start Date Coverage End Date [address] [place] [address] [phone] [id number] PELON GIVENS Self - patient is the insured Medical (General) History Medical History History ICD Code anxiety Arthritis hypertension Hypothyroidism Surgical History Surgery Date(Month/Year) left knee arthroscopy
--- OUTSIDE RECORDS SUMMARY | 2025-06-13 17:12 | XMS_ITS | Clinical Summary ---
Author Organization [facility] Address [address] [place] [address] Care Team Providers Care Real Estate Coordinator Name Role Phone Unavailable Primary Care Provider [...] - 2023-2 5 season) 2025 RSV Vaccine 50 years and old er and Patients (1 - 1-dose 75+ series) 12/22/2034 Hepatitis B Vaccines Aged Out No long er eligible based on patient's age to complete this topic
--- OUTSIDE RECORDS SUMMARY | 2025-06-13 17:12 | XMS_ITS | Clinical Summary ---
Author Organization [facility] Address [address] [place] [phone] Phone Care Team Providers Care Director Of Extension Work Name Role Phone Al Garcia MD Primary Care Provider [phone]- [phone] Allergies Active Allergy Reactions Criticality Noted Date [...] PPO CIGNA PPO CIGNA PPO CIGNA PPO [facility] Address: [facility] [id number] [place] [address] Care Teams Director Of Extension Work Relationship Specialty Start Date End Date Al Garcia MD [address] [place] [phone] PCP - General Internal Medicine 09/01/20 Additional Source Comments The information contained in this document represents components of the legal health record. It is not the complete legal health record.[facility]
--- OUTSIDE RECORDS SUMMARY | 2025-06-13 17:12 | XMS_ITS | Data Portability ---
Author Organization [place] [facility] [place] Address [address] [place] [address] Care Team Providers Care Mechanical Pencils Assembler Name Role Phone VIC MATAMOROS Primary Care [...] degrees. The knees are stable within those tizczv-ih-bqisz n. The alignment of the right knee [...] for her bilateral knee arthritis. This is uvrx-fv-scsi. She is morbidly obese and has been [...] degrees. The knees are stable within those yykhtj-xd-jtuni n. The alignment of the right knee [...] activity. 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 The knees are stable within those roqdjy-rn-hzynf n. The alignment of the right knee [...] knee, 4 or more view 2023 024 [email or web address] [facility], [address], [place], [address], 11:45:57 XR, knee, 4 or more view 2022 023 [email or web address] [facility], [address], [place], [address], 3 16:36:37 XR, knee, 4 or more view 2022 023 [email or web address] [facility], [address], [place], [address], 3 16:36:37 XR, knee, 1 or 2 view - Left Knee Pain 2022 023 [facility], [address], [place], [address], 3 12:17:00 XR, knee, 1 or 2 view - Right Knee Pain 2022 023 [facility], [address], [place], [address], 3 12:17:00 XR, knee, weightbeari ng - Bilateral Knee Pain 2022 023 [facility], [address], [place], [address], 3 12:17:00 Medication Orders None recorded. Patient TargetsNo targets recorded. Patient Instructions Encounter Date Encounter Id Patient Instructions Last Modified By Organization Details Last Modified Time 04/01/2023 [id number] AP, lateral, Sauceda, and patellar view radiographs of the right knee taken today demonstrate right knee degenerative joint disease with joint space narrowing, osteophyte formation, and subchondral sclerosis AP, lateral, Sauceda, and patellar view radiographs of the left knee taken today demonstrate right knee degenerative joint disease with joint space narrowing, osteophyte formation, and subchondral sclerosis. Not available 04/01/2023 11:01:06 05/04/2024 [id number] AP, lateral, Sauceda, and patellar view radiographs of the right knee taken today demonstrate right knee degenerative joint disease with joint space narrowing, osteophyte formation, and subchondral sclerosis. There is foxe-rw-ztmx articulation. I do not see any acute injury such as fracture or dislocation. Not available 05/04/2024 12:02:15 Reason for Referral None Reported. Problems Name Problem SNOMED Code Status Onset Date Resolution Date Notes Provider Name and Address Organization Details Recorded Time Osteoarthri tis of right knee joint 9982297758545 00 Active 2022 Yury Garcia MD [address], [place], [address], [place] [facility] 3 10:59:30 Osteoarthri tis of left knee joint 4521244082514 09 Active 2022 Yury Garcia MD [address], [place], [address], [place] [facility] 3 10:59:35 Problem Notes None recorded. Medical Equipment None Reported. Allergies Allergen ID Allergen Name Allergen Category Reaction Reaction Severity Criticality Documentation Date Start Date Code Code System Note Provider Name and Address Organization Details Recorded Time 7115 penicilli n G Not available Not available Not available Not available 04/01/2023 7980 RxNorm Genoveva Barakat null, [place] [facility] 3 15:52:30 69744 Product containin g penicilli n (product) medicatio n Not available Not available Not available 05/14/20252019 05371 8001 SNOMED React ion: Rash, sever ity: Unkno wn Not Available [facility] 5 01:16:26 30382 codeine medicatio n Not available Not available Not available 05/14/20252019 2670 RxNorm React ion: Rash, sever ity: Unkno wn Not Available [facility] 5 01:16:26 Medications Name Sig Start Date [...] Address Organization Details Last Updated DateTime 04/01/2023 796085.67 g 50.8 kg/m2 165.1 cm Genoveva Barakat [place] [facility] 04/01/2023 15:49:24 Date Recorded Body height Body mass index (BMI) Body weight Provider Name and Address Organization Details Last Updated DateTime 05/04/2024 165.1 cm 52.8 kg/m2 560250.78 g Genoveva Barakat [place] - [facility] 05/04/2024 11:12:41 Date Recorded Body height Body mass index (BMI) Body weight Provider Name and Address Organization Details Last Updated DateTime 07/12/2023 165.1 cm 50.8 kg/m2 178381.67 g Tracey Conley [place] - [facility] 07/12/2023 15:45:02 Social History None recorded. [...] ICD10 Code Diagnosis IMO Codes Diagnosis Note [id number] MD MICAELA Singletonramya saldana [address] [place] [address] [address] [place] [address] 04/01/2023 10:16:14 04/01/2023 10:59:13 Pain of bilateral knee joints 8126054389 61015 M25.561 M25.562 Osteoarthr itis of right knee joint 4014022274 72966 M17.11 Osteoarthr itis of left knee joint 3877937229 43240 M17.12 [id number] MD MICAELA Singleton [place] [address] [facility] [address] [place] [address] 07/12/2023 15:01:53 07/12/2023 16:04:18 Osteoarthritis of left knee joint 3621694955 11039 M17.12 Osteoarthr itis of right knee joint 7444225100 M17.11 [id number] MD MICAELA Singleton [facility] [address] [facility] [address] [place] [address] 05/04/2024 11:03:02 05/04/2024 11:33:01 Pain of right knee region 6216744229 17946 M25.561 37940843 Osteoarthr itis of left knee joint 4685243599 87818 M17.12 Osteoarthr itis of right knee joint 9901094277 M17.11 Health Concerns Section Related Observation LastModified by Organization Detai ls LastModified Time None Recorded Concern Status LastModified by Organization Details LastModified Time None Recorded Advance Directives Directive None Recorded Payers Insurance Date Sequence Insurance Name Policy Number Policy Her Covered Member ID Her Member ID Guarantor Name 11/06/2024 1 [employer] [id number] Kavya Sher [id number] Kavya Sher 05/04/2024 1 [employer] [id number] Kavya Sher [id number] Kavya Dexterne 10/31/2024 1 [facility] [id number] Kavya Sher [id number] Kavya Sher OBGyn Episode No OBEpisode recorded.
--- OUTSIDE RECORDS SUMMARY | 2025-06-13 17:12 | XMS_ITS | Data Portability ---
Author Organization [place] [facility],, EWELINA QUINN MD Address [address] [address] Assessment No assessment recorded. Plan of Treatment Reminders Order Date Submit Date Provider Last Modified By Organization Details Last Modified Time Details Appointments None recorded. Lab pap test, thinprep, cervical 2020 021 [email or web address] [facility], Cytopathology Service, [address] [place] [address], [address], 1 07:19:20 fecal occult blood, stool 2020 021 [email or web address] 1 In-Office Order, Internal Use Only DO Not Attach Compendium DO Not Attach Compendium, Do Not Delete/merge, [id number] 1 11:49:39 pap test, thinprep, cervical 2018 019 [facility] Service, [address] [place] [address], [address], 9 07:21:20 fecal occult blood, stool 2018 019 [facility] In-Office Order, Internal Use Only DO Not Attach Compendium DO Not Attach Compendium, Do Not Delete/merge, [id number] 9 07:21:20 pap test, thinprep, cervical 2017 018 LYLE [facility], Cytopathology Service, [address] [place], [address], 8 08:22:29 fecal occult blood, stool 2017 018 [email or web address] In-Office Order, Internal Use Only DO Not Attach Compendium DO Not Attach Compendium, Do Not Delete/merge, [id number] 8 07:17:30 Referral None recorded. Procedures None recorded. Surgeries None recorded. Imaging MAMMO, screening , digital, bilateral 2020 021 [facility], [address], [place], [address], 1 07:50:51 MAMMO, screening , digital, bilateral 2018 019 [facility] Orders, [address], [address], [place], [address], 9 09:28:16 MAMMO, screening , digital, bilateral 2017 018 [facility] Orders, [address], [address], [place], [address], 8 08:47:00 Medication Orders Imvexxy Maintenan ce Pack 10 mcg vaginal insert 2020 021 [email or web address] 1 [facility]/Pharmacy #1972, [address] [place] [address], [address], 1 15:46:31 Imvexxy Starter Pack 10 mcg vaginal insert, dose pack 2020 021 [facility]/Pharmacy #1972, [address] [place] [address], [address], 1 11:51:48 nystatin 100,000 unit/gram topical powder 2020 021 [facility]acy #1972, [address] [place] [address], [address], 1 11:50:17 estradiol 0.01% (0.1 mg/gram) vaginal cream 2018 019 tmeczbin [facility]/Pharmacy #1972, [address] [place], [address], 1 11:07:35 estradiol 0.01% (0.1 mg/gram) vaginal cream 2017 018 tmeczywor [facility]acy #1972, [address] [place], [address], 1 11:07:35 Patient TargetsNo targets recorded. Patient Instructions Encounter Date Encounter Id Patient Instructions Last Modified By Organization Details Last Modified Time 06/06/2018 [id number] atrophic vaginit is: care [email or web address] Not available 06/06/2018 15:01:35 [...] with her mother and her fiancee in [place] [facility] [place]. 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 We discussed that her atrophic vagintis may [...] questions answered. Not available 06/06/2018 15:01:50 07/30/2019 [id number] atrophic vaginit is: care instructions rosangela Not available 07/30/2019 15:44:55 She is here for annual exam, was recently found to be in afib at her PCP office, was sent [facility], has been out of afib for a month now, had to do 3 different cardioversions and one ablation, at [facility]. She did use the E2 vaginal cream [...] with her mother and her fiancee in [place] [facility] in [place]. 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 Not available 07/30/2019 15:47:02 01/21/2021 [id number] atrophic vaginit is: care instructions Not available [...] afib at her PCP office, was sent [facility], has been out of afib for a month now, had to do 3 different cardioversions and one ablation, at [facility]. She did use the E2 vaginal cream [...] DO Not Attach Compendium, Do Not Delete/merge, [id number] 07/30/2019 15:10:29 06/06/20 18 06/06/2018 fecal occul t blood , stool Occult Blood negati ve Not Available In-Office Order Internal Use Only DO Not Attach Compendium DO Not Attach Compendium, Do Not Delete/merge, [id number] 06/06/2018 14:16:38 06/06/20 18 06/06/2018 pap, LB [email or web address] ThinP rep Pap, Image d: NEGAT NICOLLE FOR SQUAM OUS INTRA EPITH ELIAL LESIO N AND NAVEED NICKERSON . Melissa Ely , [place]( CP) (Case elect nroi kate shu d 06 07 2018) ADEQU ACY: Satis facto ry. Endoc ervic al/tr ansfo rmati on zone compo nent charles t. SOURC E: ThinP rep Pap HPV IF ASCUS , Cervi yudy, Image d: CLINI YUDY INFOR MATIO N: HPV If Diagn osis of ASCUS . Z12.4 , MENOP AUSE, LMP 2017 Not Available [facility], Cytopathology Service [address] [facility], [place], [address], 06/08/2018 08:22:29 07/30/20 19 07/30/2019 pap, LB [email or web address] ThinP rep Pap, Image d: NEGAT NICOLLE [...] NEG [Z12. 4, Z01.4 19] Not Available [facility], Cytopathology Service [address] [place], [address], 08/06/2019 12:55:59 01/22/20 21 01/21/2021 pap test, thinp rep, cervi yudy [email or web address] ThinP rep Pap, Image d: NEGAT NICOLLE [...] NEG [Z12. 4, Z01.4 19] Not Available [facility], Cytopathology Service [address] [place], [address], 01/29/2021 07:40:37 01/22/20 21 01/21/2021 fecal occul t blood , stool Occult Blood negati ve Not Available In-Office Order Internal Use Only DO Not Attach Compendium DO Not Attach Compendium, Do Not Delete/merge, [id number] 01/21/2021 11:09:03 06/13/20 18 06/13/2018 MAMMO sheryl, digit al, bilat eral No observ ation record ed. [facility] [address] [place] [address], [place], [address], 06/13/2018 09:06:32 08/03/20 19 08/03/2019 MAMMO sheryl, digit al, bilat eral No observ ation record ed. [email or web address] [facility] (Out[facility]) [address], [place], [address], 08/03/2019 09:58:05 02/03/2002/01/2021 MAMMO , scree malu, digit al, bilat eral No observ ation record ed. [facility] Orders [address], [place], [address], 02/02/2021 08:35:36 Result Notes None recorded. Problems Name Problem SNOMED Code Status Onset Date Resolution Date Notes Provider Name and Address Organization Details Recorded Time Hypothyroidism 46536427 Active 2017 ERI Schwartz in [facility], 8 14:07:42 Hypertensive disorder 22203809 Active 2017 ERI Schwartz in [facility], 8 14:07:54 Urinary incontinence 850461251 Active 2017 Ewelina Quinn MD [address], [place], [address], [place] [facility], 8 14:49:43 Atrophic vaginitis 26099095 Active 2017 Ewelina Quinn MD [address], [place], [address], [place] [facility], 8 14:49:58 Atrial fibrillation 11761276 Active 2018 ERI Marquez in [facility], 9 15:08:02 Candidiasis of skin 29280851 Active 2020 Ewelina Quinn MD [address], [place], [address], [place] [facility], 1 11:49:54 Problem Notes None recorded. Procedures Surgical History Date Name Laterality Status Provider Name and Address Organization Details Recorded Time 1 Most Recent Mammogram completed Roxann Lopez in [facility], 06/10/2023 10:37:28 1 admission to hand surgery department completed Roxann Gonzalez MA Delia John in [facility], 01/21/2021 11:14:46 3 Other completed Roxann Gonzalez MA Delia John in [facility], 06/06/2018 14:13:07 Imaging Results None recorded. Procedure Notes None recorded. Medical Equipment None Reported. Allergies Allergen ID Allergen Name Allergen Category Reaction Reaction Severity Criticality Documentation Date Start Date Code Code System Note Provider Name and Address Organization Details Recorded Time codeine medicatio n rash Not available Not available 06/06/2018 267 RxNorm Roxann rees ERI Delia John in [facility], 8 14:05:27 Product containin g penicilli n (product) medicatio n rash Not available Not available 06/06/2018 74558 8001 SNOMED Roxann rees [place] Delia Lopez in [facility], 8 14:05:42 Medications Name Sig Start [...] Address Organization Details Last Updated DateTime 1 228156. 27 g 56.1 kg/m2 162.56 cm 98.1 [degF] 75 /min 147/88 mm[Hg] Roxann Lopez in [facility], 1 11:06:52 Date Recorded Body weight Body mass index (BMI) Body height Heart rate Systolic And Diastolic Provider Name and Address Organization Details Last Updated DateTime 06/06/2018 483200.7 4 g 50.9 kg/m2 163.83 cm 88 /min 144/81 mm[Hg] Roxann Lopez in [facility], 06/06/2018 14:03:02 Date Recorded Body height Heart rate Body mass index (BMI) Body weight Systolic And Diastolic Provider Name and Address Organization Details Last Updated DateTime 07/30/2019 163.83 cm 64 /min 52.5 kg/m2 627871.7 9 g 137/69 mm[Hg] Lucero Lopez in [facility], 07/30/2019 15:03:20 Social History Question Answer Notes LastModified by Organizat ion Details LastModified Time Tobacco Smoking Status Never Smoker Not Available [facility] 06/24/2020 03:19:37 Do You Have An Advance Directive? No [id number] Information not available 06/24/2020 What Is Your Level Of Caffeine Consumption? Moderate [id number] Information not available 06/24/2020 How Much Tobacco Do You Chew? None [id number] Information not available 06/24/2020 In The 14 [...] Type Of Diet Are You Following? REGULAR [id number] Information not available 06/24/2020 Which Illicit Or Recreational Drugs Have You Used? No [id number] Information not available 06/24/2020 Do You Reside In Or Have You Traveled To An Area Where Ebola Virus Transmission Is Active? No [id number] Information not available 06/24/2020 Education 2 Year College Information not available 06/06/2018 How Many Days In The Past Year Have You Had A Heavy Drinking Consumption (4+ Female, 5+ Male)? 40 Information no t available 06/06/2018 Are There Any Guns Present In Your Home? Yes [id number] Information not available 06/24/2020 High Number Of Sexual Partners No Information not available 06/06/2018 To Which Gender Do You Self-identify? Female Information not available 06/06/2018 Marital Status Domestic Partner Engaged. Information not available 06/06/2018 What Was The Date Of Your Most Recent Tobacco Screening? 06/06/2018 [id number] Information not available 06/24/2020 Seat Belts Used Routinely Yes Information not available 06/06/2018 Are You Sexually Active? Yes [id number] Information not available 06/24/2020 Smoke Alarm In Home Yes Information not available 06/06/2018 How Much Tobacco Do You Smoke? No Information not available 01/21/2021 General Stress Level High Information not available 01/21/2021 Do You Use Sunscreen Routinely? No [id number] Information not available 06/24/2020 Have You Recently (within The Last 12 Weeks, Or During A Current ) Traveled To Or Lived In A Zika-affected Area? No Information not available 06/06/2018 Sex: Female Functional Status Question Answer Note LastModified by Organizat ion Details LastModified Time What is your level of alcohol consumption? Occasional [id number] Information not available 06/24/2020 Do you or have you ever used smokeless tobacco? 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 [employer] . Information not available 06/06/2018 Do you or have you ever used e-cigarettes or vape? Never used electronic cigarettes Information not available 01/21/2021 What is your exercise level? None [id number] Information not available 06/24/2020 Mental Status None [...] Problems Y Kidney or Bladder Problems Y Depression N GI Problems Y Lung Disease N Defects or Inherited Disease N Anemia N History of Ovarian Cancer N History of Breast Cancer N JANETH exposure N BRCA testing in past N Osteopenia N Psychiatric Illness N Diabetes N Anxiety Disorder Y Arthritis Y Headaches or Migraines N Infertility [...] Roxann rees [place] [facility], 01/21/2021 11:11:04 Past Encounters Encounter ID Performer Location Encounter Start Date Encounter Closed Date Diagnosis/Indication Diagnosis SNOMED-CT Code Diagnosis ICD10 Code Diagnosis IMO Codes Diagnosis Note [id number] MD EWELINA Parikh MD [address] [place] [address] 06/06/2018 13:47:44 06/06/2018 15:53:53 Specialized medical examination 77361236 Z01.419 Screening for malignant neoplasm of rectum 272314943 Z12.12 Screening mammography 24 468208 Z12.31 Atrophic vaginitis 86501 000 N95.2 Urinary incontinence 165 164179 R32 [id number] MD EWELINA Parikh MD [address] [place] [address] 07/30/2019 14:56:52 07/30/2019 16:06:21 Specialized medical examination 38421085 Z01.419 Screening for malignant neoplasm of rectum 932499271 Z12.12 Screening mammography 24 410725 Z12.31 Atrophic vaginitis 14056 000 N95.2 [id number] MD EWELINA Parikh MD [address] [place] [address] 01/21/2021 10:59:53 01/22/2021 09:00:22 Specialized medical examination 85131671 Z01.419 Screening for malignant neoplasm of rectum 471606684 Z12.12 Screening mammography 24 545713 Z12.31 Candidiasis of skin 4988 3006 B37.2 Atrophic vaginitis 18445 000 N95.2 Health Concerns Section Related Observation LastModified by Organization Detai ls LastModified Time None Recorded Concern Status LastModified by Organization Details LastModified Time None Recorded Advance Directives Directive N: Payers Insurance Date Sequence Insurance Name Policy Number Policy Her Covered Member ID Her Member ID Guarantor Name 06/14/2023 1 LAVONNE [id number] Kavya Sher [id number] Kavya Sher 01/21/2021 1 ANGÉLICA (O) [id number] Kavya Sher [id number] Kavya Sher Notes Date Note Type [...] with her mother and her fiancee in [facility]. 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 Ewelina Quinn MD [address], [place], [address], [employer] [facility], 06/06/2018 15:02:54 07/30/2019 text/html She is here for annual exam, was recently found to be in afib at her PCP office, was sent [facility], has been out of afib for a month now, had to do 3 different cardioversions and one ablation, at [facility]. She did use the E2 vaginal cream [...] with her mother and her fiancee in [facility]. 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 She would like to try E2 vaginal cream to see if this helps improve her incontinence. She cooper luse it for three months then assess. If no improvement then call. Benefits of weight management discussed as well. Ewelina Quinn MD [address], [place], [address], [place] [facility], 07/30/2019 15:47:25 01/21/2021 text/html She is here for annual exam, doing well. She did not use the E2 cream because she can't remember to use it. She is having worsening urinary urge, frequency, and nocturia, however. _ note from 07/2019: She is here for annual exam, was recently found to be in afib at her PCP office, was sent [facility], has been out of afib for a month now, had to do 3 different cardioversions and one ablation, at [facility]. She did use the E2 vaginal cream for a little bit of time but then I stopped. She would like to restart. Ewelina Quinn MD [address] [place] [address],[address], [facility] [address], [place] in [facility], 01/21/2021 12:27:10 OBGyn Episode No OBEpisode recorded.
--- OUTSIDE RECORDS SUMMARY | 2025-06-13 17:12 | XMS_ITS | Encounter Summary ---
Author Organization [facility] Address [address] [place] [address] Care Team Providers Care Manager Clinic Name Role Phone Unavailable Primary Care Provider Unavailabl e Encounter Details Date Type Department Care Team (Late st Contact Info) Description 05/18/2021 Erroneous Encounter [facility] CONVERSION DEPT [address] [facility] [place] [address] Raúl Sanders MD [address] [place] [address] Social History Tobacco Use Types Packs/Day Years [...]
--- OUTSIDE RECORDS SUMMARY | 2025-06-13 17:12 | XMS_ITS | Clinical Summary ---
Author Organization [facility], Address [address] [place] [address] [place] [address] Phone Care Team Providers Care Zoo Caretaker Name Role Phone Al Garcia MD Primary Care Provider [phone] Allergies Active Allergy Reactions Criticality Noted Date [...] Only [facility], [address] [place] [address] Adrienne Panchal MA Hypertensive disorder [...] complete this topic Insurance [employer] Care Teams Zoo Caretaker Relationship Specialty Start Date End Date Al Garcia MD [address] [place] [address] PCP - General Internal Medicine 05/04/20
--- OUTSIDE RECORDS SUMMARY | 2025-06-13 17:12 | XMS_ITS | Encounter Summary ---
Author Organization [facility] Address [address] [place] [address] Phone Care Team Providers Care Tester Equipment Name Role Phone Al Garcia MD Primary Care Provider [phone]- [phone] Encounter Details Date Type Department Care Team (Late st Contact Info) Description 11/02/2023 Documentation Only [facility], [address] [place] [id number] [place], [place] [address] [place] [id number] Social History Tobacco Use Types Packs/Day Years [...] on filedocumented in this encounter Care Teams Tester Equipment Relationship Specialty Start Date End Date Al Garcia MD [address] [place] [address] PCP - General Internal Medicine 05/04/20 documented as of this encounter
--- OUTSIDE RECORDS SUMMARY | 2025-06-13 17:13 | XMS_ITS | Clinical Summary ---
Author Organization [facility] Address [address] [place] [id number] Care Team Providers Care Wallpaper Cleaner Name Role Phone Al Garcia MD Primary Care Provider [phone] Allergies Active Allergy Reactions Criticality Noted Date [...] age to complete this topic Care Teams Wallpaper Cleaner Relationship Specialty Start Date End Date Al Garcia MD [address] [place] [id number] PCP - General Internal Medicine 05/13/21
== END 2025-06-13 13:50 | disposition home or self-care (01) ==
LOC: HO.PMC 13:34
PROVIDERS: Visit Provider Nurse Practitioner Family
DX: M25.561 Pain in right knee (principal); M25.562 Pain in left knee; E66.01 Morbid (severe) obesity due to excess calories; Z68.43 Body mass index [BMI] 50.0-59.9, adult; M17.0 Bilateral primary osteoarthritis of knee
CPT/HCPCS: 99213